=== PATIENT | male | born 1945 | race Caucasian/White ===

== ENCOUNTER 2020-07-20 21:49 | Outpatient (REF) | payer SELFPAY ==
[2020-07-22 17:31] LABS: COVID-19 RT-PCR Result Not Detected ((See Note))
== END 2020-07-20 22:09 ==
LOC: LBN 21:49
PROVIDERS: Visit Provider Nurse Practitioner Adult Health
DX: Z11.59 Encounter for screening for other viral diseases (principal)
CPT/HCPCS: U0003

== ENCOUNTER 2020-07-24 22:28 | Outpatient (REF) | payer SELFPAY ==
[2020-07-26 14:58] LABS: COVID-19 RT-PCR Result Not Detected ((See Note))
== END 2020-07-24 22:48 ==
LOC: LBN 22:28
PROVIDERS: PCP Nurse Practitioner Adult Health; Visit Provider Nurse Practitioner Adult Health
DX: Z11.52 Encounter for screening for COVID-19 (principal)
CPT/HCPCS: U0003

== ENCOUNTER 2020-07-29 18:50 | Outpatient (REF) | payer SELFPAY ==
[2020-07-31 19:39] LABS: COVID-19 RT-PCR UVMMC Result Negative (Negative)
== END 2020-07-29 19:10 ==
LOC: LBN 18:50
PROVIDERS: PCP Nurse Practitioner Adult Health; Visit Provider Nurse Practitioner Adult Health
DX: Z11.52 Encounter for screening for COVID-19 (principal)
CPT/HCPCS: U0003

== ENCOUNTER 2020-09-24 05:24 | Outpatient (REF) | payer SELFPAY ==
[2020-09-24 06:57] LABS: C Diff PCR Negative (Negative)
== END 2020-09-24 05:25 | disposition home or self-care (01) ==
LOC: LBN 05:24
PROVIDERS: PCP Nurse Practitioner Adult Health; Visit Provider Family Medicine
DX: R19.7 Diarrhea, unspecified (principal)
CPT/HCPCS: 87493; 85025; 87177

== ENCOUNTER 2020-09-24 17:24 | Emergency (ER) | payer MEDICARE, OTHER, SELFPAY ==
[2020-09-24] VITALS (37 sets, daily range): BP systolic 109–128; BP diastolic 46–78; PULSE 88–110; RESP 14–33; TEMP 36.7–37.2; O2SAT 91–99
--- NOTE | 2020-09-24 17:30 | RT.EKG_ITS ---
APPROVED REPORT Exam: Resting ECG Patient Location: E HR:88 bpm ECG Measurements Heart Rate 88 AXIS TN 210 P 36 QRSd 96 QRS 88 QT 355 T -3 QTc 431 Conclusion Sinus rhythm...normal P axis, V-rate 60- 99
[2020-09-24] MEDS: Normal Saline 1,000 ML 500 ML IV (18:04)
--- NOTE | 2020-09-24 18:14 | W.ED.GENAD ---
Discharge Plan Disposition Patient Disposition: SNF (LEVEL 1) [facility] Condition: Stable Discharge Details Clinical Impression: Colitis with rectal bleeding Primary Care Provider: Shonda Neil ED Provider: Brinda Cook Home Meds and New Rx's Prescriptions: New cephalexin 500 mg tablet 500 mg PO BID 10 Days Qty: 20 RF: 0 Continued multivitamin Tablet 1 tab PO DAILY RF: 0 acetaminophen 500 mg Tablet 1,000 mg PO Q6H PRNRF: 0 simvastatin 40 mg Tablet 40 mg PO QHS RF: 0 magnesium oxide [MagOx] 400 mg (241.3 mg magnesium) Tablet 400 mg PO DAILY RF: 0 cyanocobalamin (vitamin B-12) 500 mcg Tablet 1,000 mcg PO BID RF: 0 tamsulosin [Flomax] 0.4 mg Capsule 0.4 mg PO DAILY RF: 0 diclofenac potassium 50 mg Tablet 25 mg PO BID RF: 0 furosemide 20 mg Tablet 20 mg PO DAILY RF: 0 cyclobenzaprine 5 mg Tablet 5 mg PO TID RF: 0 ferrous gluconate 225 mg (27 mg iron) Tablet 225 mg PO HS RF: 0 melatonin 5 mg Tablet 5 mg PO HS RF: 0 Liquid Protein Fortifier 1 gram-4 kcal/6 mL Liquid 30 ml PO BID RF: 0 potassium chloride 20 mEq Tablet Extended Release 20 meq PO BID RF: 0 No Action loperamide 2 mg Tablet 2 mg PO Q6H PRNRF: 0 aspirin 81 mg Tablet,Delayed Release (Dr/Ec) 81 mg PO DAILY RF: 0 docusate sodium [Colace] 100 mg Capsule 100 mg PO DAILY RF: 0 polyethylene glycol 3350 [Miralax] 17 gram/dose Powder 17 g PO DAILY RF: 0 Discharge Instructions Instructions: Colitis (ED) Additional Instructions: Today the CT abd/Pelvis shows colon and rectal wall thickening consistent with Colitis, or Inflammatory Bowel. Lab work is all stable, WNL. No further episodes of diarrhea noted while here in Department. I reccommend holding Miralax and Stool softeners for next 48-72 hours and possible outpatient referral to General surgery for Colonoscopy if Diarrhea continues. Referrals: Jenn Wei MD [ [facility] STAFF PHYSICIAN] - 1 week Shonda Neil [Primary Care Provider] - Discharge Data Discharge Date/Time-TO BE ENTERED AT DEPARTURE: 09/24/20 22:29 Medical Decision Making 75-year-old male presents to the ER via EMS from [facility] chief complaint with guaiac positive stool and diarrhea which has gotten worse over the last week. He reports having 5 or 6 episodes of diarrhea today. They did test for C. difficile which was negative. He states that he had an episode of sharp abdominal pain to his navel which has resolved. He denies any vomiting no fever. He is a paraplegic. He has indwelling Rock, he has some with her bilateral lower extremities. He is mostly bed bound. CT Abd/Pelvis W: TECHNIQUE: COMPARISON: No relevant prior studies available. FINDINGS: Liver: Normal. No mass. Gallbladder and bile ducts: Normal. No calcified stones. No ductal dilation. Pancreas: Normal. No ductal dilation. Spleen: Normal. No splenomegaly. Adrenal glands: Normal. No mass. Kidneys and ureters: Normal. No hydronephrosis. Stomach and bowel: Thickening of the wall of the colon and rectum. This may be artifact due to lack distention. However, inflammatory bowel disease or other causes of colitis cannot be excluded. Appendix: No evidence of appendicitis. Intraperitoneal space: Unremarkable. No free air. No significant fluid collection. Vasculature: Moderate aortic calcified plaque and tortuosity is present. No mike aneurysm is noted. Lymph nodes: Unremarkable. No enlarged lymph nodes. Urinary bladder: A Rock catheter of the urinary bladder is present. Reproductive: Unremarkable as visualized. Bones/joints: Chronic degenerative changes of the spine are present. Advanced chronic degenerative changes of the right hip are present. Soft tissues: There is a well-circumscribed cystic structure within the subcutaneous tissue of the right anterior abdominal wall measuring 4.3 cm in diameter. IMPRESSION: 1. Thickening of the wall of the colon and rectum. The differential diagnosis includes inflammatory bowel disease and other causes of colitis. 2. Rock catheter within the urinary bladder. 3. Chronic degenerative change of the spine and right hip. 4. 4.3 cm diameter circumscribed cystic structure of the subcutaneous anterior abdominal wall to the right of midline. Thank you for allowing us to participate in the care of your patient. Dictated and Authenticated by: Randy Hull MD At this time work-up is largely within normal limits,, hemoglobin is 14.4, hematocrit 47.8 ., CT results are of her largely consistent with colitis. Patient been hemodynamically stable throughout stay here. Plan to discharge back to [facility]. 2207: Spoke with Honey RN at [facility] regarding recommendations to hold stool softeners and MiraLAX for at least 48 to 72 hours, and results, verbalizes understanding. Will arrange transport via EMS back to [facility]. Discussed plan of care with patient who verbalizes understanding and is in agreement with plan. This text was generated using [employer] dictation system, please disregard any oddities of phrase or misspellings. Urinalysis positive for nitrite, large leukocytes, greater than 50 WBCs moderate mucus culture is pending at this time. 0942 09-26-20: Spoke with Conchita at [facility] discussed urinalysis results and need for antibiotic. Prescription for cephalexin 500 mg twice daily x10 days faxed to [facility] RN verbalized understanding. She states that the patient is doing much better since his visit to the emergency room 2 days ago. HPI General Mode of arrival: EMS. Date/Time Provider Initiated Documentation: 09/24/20 17:31. Limitations to Documentation: physical limitation. Information obtained by: patient and RN notes reviewed. HPI Narrative: 75-year-old male presents to the ER via EMS from [facility] chief complaint with guaiac positive stool and diarrhea which has gotten worse over the last week. He reports having 5 or 6 episodes of diarrhea today. They did test for C. difficile which was negative. He states that he had an episode of sharp abdominal pain to his navel which has resolved. He denies any vomiting no fever. He is a paraplegic. He has indwelling Rock, he has some with her bilateral lower extremities. He is mostly bedbound. Related Data Home Medications Medication Instructions Recorded Confirmed Liquid Protein Fortifier 30 ml PO BID 09/24/20 09/24/20 acetaminophen 1,000 mg PO Q6H PRN 09/24/20 09/24/20 aspirin 81 mg PO DAILY 09/24/20 09/24/20 cyanocobalamin (vitamin B-12) 1,000 mcg PO BID 09/24/20 09/24/20 cyclobenzaprine 5 mg PO TID 09/24/20 09/24/20 diclofenac potassium 25 mg PO BID 09/24/20 09/24/20 docusate sodium [Colace] 100 mg PO DAILY 09/24/20 09/24/20 ferrous gluconate 225 mg PO HS 09/24/20 09/24/20 furosemide 20 mg PO DAILY 09/24/20 09/24/20 loperamide 2 mg PO Q6H PRN 09/24/20 09/24/20 magnesium oxide [MagOx] 400 mg PO DAILY 09/24/20 09/24/20 melatonin 5 mg PO HS 09/24/20 09/24/20 multivitamin 1 tab PO DAILY 09/24/20 09/24/20 polyethylene glycol 3350 [Miralax] 17 g PO DAILY 09/24/20 09/24/20 potassium chloride 20 meq PO BID 09/24/20 09/24/20 simvastatin 40 mg PO QHS 09/24/20 09/24/20 tamsulosin [Flomax] 0.4 mg PO DAILY 09/24/20 09/24/20 cephalexin 500 mg PO BID 10 Days #20 tab 09/26/20 Previous Rx's Medication Instructions Recorded cephalexin 500 mg PO BID 10 Days #20 tab 09/26/20 Allergies Allergy/AdvReac Type Severity Reaction Status Date / Time No Known Allergies Allergy Unverified 09/24/20 17:40 General Stated Complaint: GI Bleed EULOGIO: 3 Review of Systems All systems reviewed & are unremarkable except as noted in HPI and below [facility] Medical History (Updated 09/24/20 @ 22:14 by Brinda Cook) Chronic venous hypertension (idiopathic) with ulcer and inflammation of bilateral lower extremity Essential (primary) hypertension Fatty (change of) liver, not elsewhere classified Hallucinations, unspecified Hyperlipemia Major depressive disorder Muscle weakness (generalized) Neuromuscular dysfunction of bladder, unspecified Obesity Other spondylosis with myelopathy, cervical region Paraplegia Pneumonia Pressure ulcer of left heel, unstageable Pressure ulcer of other site, unstageable Pressure ulcer of right heel, unstageable Pressure ulcer of right hip, unstageable Pressure ulcer of right upper back Radiculopathy Repeated falls Rhabdomyolysis Unilateral primary osteoarthritis, right hip Unspecified fall Urinary tract infection Venous insufficiency (chronic) (peripheral) Social History Smoking/Tobacco Use Status: Never Smoking risk assessment performed?: Yes Alcohol Intake: never Drug use: Never Substance use type: does not use Do you feel safe at home: Yes Do you feel safe in your relationship?: Yes Additional Social history: PATIENT HAS BEEN AT [facility] SINCE JUNE. WAS LIVING ALONE PRIOR TO . Exam Narrative Exam Narrative: Constitutional: Alert and oriented x3. Appears stated age. Normal body habitus. Head: Normocephalic, no trauma. Eyes: Pupils PERRLA, Red reflex noted, EOM's intact. Eyelids symmetrical without lesions, discharge, or swelling. ENT: Bilateral TM's WNL, External ear normal to inspection, no mastoid TTP, swelling, or erythema, Nasal turbinates WNL, no nasal discharge. Normal dentition, Posterior pharynx WNL, no exudate. Chest: RRR, Normal S1, S2, distal pulses intact. Resp: Lungs clear to auscultation bilaterally, no wheezes, rales, or rhonchi. Abdomen: Soft nondistended, nontender to palpation all 4 quadrants. Musculoskeletal: Contractures noted bilateral lower extremities with dressed wound. Skin: Capillary refill less than 2 sec. Neurologic: Is partial paraplegic. Does have 1 + tax advisor strength on the right upper extremity, bilateral lower extremities are contractured. He reports that this is his baseline. He has a Rock in place. Alert and oriented x 3. Hematologic/Lymphatic: No ecchymosis, no lymphadenopathy. Course Vital Signs Vital signs: Vital Signs Temperature 36.7 C 09/24/20 17:23 Pulse 93 H 09/24/20 17:23 Respiratory Rate 19 09/24/20 17:23 Blood Pressure 124/61 09/24/20 17:23 Pulse Oximetry 98 09/24/20 17:23 Temperature 36.7 C 09/24/20 17:23 Temperature Source Tympanic 09/24/20 17:23 Pulse 93 H 09/24/20 17:23 Respiratory Rate 19 09/24/20 17:23 Respiratory Effort 09/24/20 17:33 Blood Pressure 124/61 09/24/20 17:23 Blood Pressure Position Supine 09/24/20 17:23 Pulse Oximetry 98 09/24/20 17:23 Oxygen Delivery Method Room Air 09/24/20 17:23 Oxygen Flow Rate 0 09/24/20 17:23 Pain Level 8 09/24/20 17:37 Comment 09/24/20 17:23
[2020-09-24 18:31] LABS: Abs Immature Grans 0.02 10^3/uL (0.0-0.06); Absolute Basophil Count 0.06 10^3/uL (0.0-0.2); Absolute Eosinophil Count 0.71 10^3/uL (0.0-0.7); Absolute Lymphocyte Count 1.51 10^3/uL (1.2-3.4); Absolute Monocyte Count 0.67 10^3/uL (0.1-0.8); Absolute Neutrophil Count 5.78 10^3/uL (1.2-6.7); Basophils % 0.7; Eosinophils % 8.1; HCT 47.8 % (40.0-50.0); HGB 14.4 g/dL (13.5-17.5); Immature Grans % 0.2; Lymphocytes % 17.3; MCH 26.1 pg (27.0-33.0); MCHC 30.1 % (32.0-36.0); MCV 86.6 fL (80-95); MPV 11.1 fL (8.0-11.0); Monocytes % 7.7; Nucleated RBC 0 %; Platelet Count 224 10^3/uL (130-400); RBC 5.52 10^6/uL (4.36-5.78); RDW 19.9 % (11.8-14.1); RDW-SD 60.4 fL; WBC 8.75 10^3/uL (4.4-10.8)
[2020-09-24 18:48] LABS: ALT 90 U/L (16-63); AST 51 U/L (15-37); Albumin 3.2 g/dL (3.4-5.0); Alkaline Phosphatase 124 U/L (46-116); Anion Gap 6.3 mmol/L (3-11); BUN 18 mg/dL (7-18); Bilirubin, Total 0.5 mg/dL (0.2-1.0); CO2 31.7 mmol/L (21.0-32.0); CREATININE 0.6 mg/dL (0.70-1.30); Calcium 8.9 mg/dL (8.5-10.1); Chloride 105 mmol/L (98-107); Glucose 83 mg/dL (74-106); Magnesium 1.9 mg/dL (1.8-2.4); Potassium 3.6 mmol/L (3.5-5.1); Sodium 143 mmol/L (136-145); Total Protein 7.4 g/dL (6.4-8.2)
[2020-09-24 18:49] LABS: INR 1.1 (0.9-1.1); PTT Activated 28.2 sec (21.0-27.5); Prothrombin Time 11.2 sec (9.3-11.0)
--- NOTE | 2020-09-24 19:00 | DI.CT_ITS ---
EXAM: CT ABDOMEN PELVIS W CLINICAL HISTORY: Diarrhea, GI bleed. TECHNIQUE: Imaging Protocol: Axial computed tomography images with coronal and sagittal reformatted images were created and reviewed CONTRAST MATERIAL: Intravenous: Omnipaque 100cc Oral: None COMPARISON: No exams were available for comparison FINDINGS: VISUALIZED LUNG BASES: Mild atelectasis in the left lung base. No pleural effusions.. ABDOMEN: There is no ascites. LIVER: There are no obvious focal hepatic lesions evident . GALLBLADDER/BILIARY: No obvious gallbladder pathology. CBD is not dilated. PANCREAS: No evidence of pancreatic mass nor dilatation of the pancreatic duct. SPLEEN: Spleen is not enlarged. No obvious intrasplenic lesions. Splenic and portal veins are paten t. ADRENALS: There are no significant adrenal masses. KIDNEYS:No cysts evident. No solid renal masses. No calculi nor hydronephrosis.. ABDOMINAL AORTA: Abdominal aorta is atherosclerotic. Upper normal diameter. LYMPH NODES:There is no retroperitineal nor paraaortic adenopathy. ABDOMINAL WALL/GI: No evidence of significant anterior abdominal wall hernia. However, there is a we ll-defined cystic structure in the anterior right abdominal wall which measures 4.2 by 4.2 by 4.3 cm. This is anterior to the rectus muscle. There is no surrounding streaking nor gas therein. No othe r similar subcutaneous finding seen elsewhere. PELVIS: GI: No evidence of appendicitis.There is thickening of the wall of the rectum and: Consistent with el ement of colitis. LYMPH NODES: There is no intrapelvic nor inguinal adenopathy. REPRODUCTIVE: Prostate not enlarged URINARY BLADDER: Bladder is collapsed around the Rock catheter. OSSEOUS: No significant osseous lesions. No prominent decubitus ulcer. No osteomyelitis. Advanced chronic degenerative changes with partial fusion of the right hip. IMPRESSION: 1. There is circumferential thickening of the wall of the colon and rectum consistent with colitis or inflammatory bowel disease. 2. There is a 4.2 x 4.3 centimeter well-defined round cystic structure in the subcutaneous anterior a bdominal wall to the right of the midline, just anterior to the rectus muscle. This does not contain gas and there is no surrounding streaking. 3. There is a Rock catheter in the urinary bladder. The bladder is collapsed. 4. Chronic partial fusion changes in the right hip. Also chronic spine changes. RADIATION DOSE DELIVERED: 987.6mGy.cm Total DLP DATA REPOSITORY: All CT scans at this facility are submitted to the National Radiology Data Registry (NRDR) Dose Index Registry (DIR) with the [employer] (ACR). RADIATION OPTIMIZATION: All CT scans at this facility use at least one of these dose optimization te chniques: automated exposure control; mA and/or kV adjustment per patient size (includes targeted exa ms where dose is matched to clinical indication); or iterative reconstruction.
[2020-09-24 19:01] LABS: Bilirubin Negative (Negative); Blood Trace-intact (Negative); Clarity Sl Cloudy (Clear); Glucose Negative (Negative); Ketones Negative (Negative); Leukocyte Esterase Large (Negative); Nitrite Positive (Negative); Specific Gravity >= 1.030 (1.005-1.025); Urobilinogen 0.2 EU/dL (Up TO 0.2)
[2020-09-24 19:13] LABS: Bacteria Many HPF (Negative); C & S Indicated? Yes; Casts Negative LPF (Negative); Crystals Negative HPF (Negative); Epithelial Cells Few HPF (Negative); Mucus Moderate (Negative); RBC Negative HPF (0-2); WBC >50 HPF (0-5)
[2020-09-24] MEDS: Omnipaque 350 MG/ML 100 ML BTL IV (21:09)
--- NOTE | 2020-09-24 21:32 | DI.VRAD_ITS ---
PROCEDURE INFORMATION: Exam: CT Abdomen And Pelvis With Contrast Exam date and time: 09/24/2020 8:55 PM Age: 75 years old Clinical indication: Other: Diarrhea, gi bleed TECHNIQUE: Imaging protocol: Computed tomography of the abdomen and pelvis with contrast. Radiation optimization: All CT scans at this facility use at least one of these dose optimization techniques: automated exposure control; mA and/or kV adjustment per patient size (includes targeted exams where dose is matched to clinical indication); or iterative reconstruction. COMPARISON: No relevant prior studies available. FINDINGS: Liver: Normal. No mass. Gallbladder and bile ducts: Normal. No calcified stones. No ductal dilation. Pancreas: Normal. No ductal dilation. Spleen: Normal. No splenomegaly. Adrenal glands: Normal. No mass. Kidneys and ureters: Normal. No hydronephrosis. Stomach and bowel: Thickening of the wall of the colon and rectum. This may be artifact due to lack distention. However, inflammatory bowel disease or other causes of colitis cannot be excluded. Appendix: No evidence of appendicitis. Intraperitoneal space: Unremarkable. No free air. No significant fluid collection. Vasculature: Moderate aortic calcified plaque and tortuosity is present. No mike aneurysm is noted. Lymph nodes: Unremarkable. No enlarged lymph nodes. Urinary bladder: A Rock catheter of the urinary bladder is present. Reproductive: Unremarkable as visualized. Bones/joints: Chronic degenerative changes of the spine are present. Advanced chronic degenerative changes of the right hip are present. Soft tissues: There is a well-circumscribed cystic structure within the subcutaneous tissue of the right anterior abdominal wall measuring 4.3 cm in diameter. IMPRESSION: 1. Thickening of the wall of the colon and rectum. The differential diagnosis includes inflammatory bowel disease and other causes of colitis. 2. Rock catheter within the urinary bladder. 3. Chronic degenerative change of the spine and right hip. 4. 4.3 cm diameter circumscribed cystic structure of the subcutaneous anterior abdominal wall to the right of midline. Dictated and Authenticated by: Randy Hull MD. Ordering:PAM Parry MD
--- NOTE | 2020-09-24 22:12 | NUR.NOTE ---
Nursing Note: [facility] report given to Chely MANZANARES by Trey
== END 2020-09-24 22:29 | disposition skilled nursing facility (03) ==
PROVIDERS: Physician Assistant; Emergency Provider Registered Nurse Emergency; PCP Nurse Practitioner Adult Health
DX: K51.811 Other ulcerative colitis with rectal bleeding (principal); R82.71 Bacteriuria; B96.89 Other specified bacterial agents as the cause of diseases classified elsewhere; Z96.0 Presence of urogenital implants
CPT/HCPCS: 36415; 80053; 86850; 86900; 86901; 93005; 96360; 96361; 99285; 74177; 81003; 81015; 83735; 85025; 85610; 85730; 87086; 93010; J3490

== ENCOUNTER 2020-10-19 01:27 | Outpatient (CLI) | payer MEDICARE, OTHER, SELFPAY ==
--- NOTE | 2020-10-19 | DI.MRI_ITS ---
EXAM: MR CERVICAL SPINE WO/W CLINICAL HISTORY: PROGRESSIVE UPPER EXT WEAKNESS, GENERAL WEAKNESS TECHNIQUE: Multiplanar multisequence MRI of the cervical spine was performed without intravenous con trast. COMPARISON: No exams were available for comparison. FINDINGS: The exam is significantly limited by patient motion, particularly at the axial sequences. There are prominent, broad-based disc osteophytes and loss of disc height at C2-3. There are facet d egenerative changes. The findings combine to produce severe central canal stenosis with narrowing of the AP dimension of the canal down to less than 5 millimeters. Severe degenerative disc changes are also seen at C3-4. There are endplate osteophytes which also project into the canal, producing oliver re central canal stenosis, with severe narrowing of the AP dimension as well as encroachment on the lateral aspects of the canal.. The AP dimension is less than 4 millimeters. The transverse dimensio n is approximately 11 millimeters at this level. There has been previous anterior fusion with hardwa re in place from C4 through C6. The canal is well maintained at this level. There are severe degene rative disc changes and facet degenerative changes at C 6- 7. There is disc bulging causing mild monico rowing of the AP dimension of the canal. Similar findings are seen at C7-T1. There is bilateral lindsey ral foraminal narrowing at both C5 C6-7 C7-T1. There are no abnormal areas of enhancement. IMPRESSION: Extremely limited exam due to patient motion. Degenerative changes at C 2 3 and C3-4 combine to produce severe central canal stenosis, greater at C 3-4. Anterior fusion at C4 through C6. Bilateral neural foraminal narrowing at C6-7 and C7-T1. DATA REPOSITORY:
--- NOTE | 2020-10-19 | DI.MRI_ITS ---
EXAM: MR BRAIN WO/W CLINICAL HISTORY: PROGRESSIVE UPPER EXT WEAKNESS,GENERAL WEAKNESS. TECHNIQUE: Multiplanar multisequence MRI of the brain was performed. CONTRAST MATERIAL: IV Contrast: 14 ML of Dotarem contrast administered. COMPARISON: No exams were available for comparison FINDINGS: Exam is limited by patient motion, particularly the postcontrast sequences. VENTRICLES AND EXTRA AXIAL SPACES: Normal in size and morphology for the patient's age. HEMORRHAGE: None. CEREBRAL PARENCHYMA: No focus of restricted diffusion to suggest acute infarct. No space-occupying le yosi identified. Mild age-related atrophy. No abnormal high signal lesions in the white matter. MIDLINE SHIFT: None. BRAINSTEM/CEREBELLUM: Normal. ENHANCEMENT: No suspicious enhancement identified. VISUALIZED PARANASAL SINUSES/MASTOIDS: Clear. OTHER FINDINGS: None. IMPRESSION: Unremarkable MRI of the brain. DATA REPOSITORY:
[2020-10-19] MEDS: Normal Saline Flush 10 ML SYR IVP (13:11)
[2020-10-19] MEDS: Gadoterate meglumine 20 ML VIAL 14 ML IVP (13:12)
== END 2020-10-19 01:47 ==
PROVIDERS: PCP Nurse Practitioner Adult Health; Visit Provider Family Medicine
DX: M62.81 Muscle weakness (generalized) (principal)
CPT/HCPCS: 70553; 72156

== ENCOUNTER 2020-11-14 23:49 | Outpatient (REF) | payer SELFPAY | END 2020-11-14 23:50 | disposition home or self-care (01) | LOC: LBN 23:49 | PROVIDERS: PCP Nurse Practitioner Adult Health; Visit Provider Family Medicine | DX: Z11.2 Encounter for screening for other bacterial diseases (principal) | CPT/HCPCS: 87081 ==

== ENCOUNTER 2020-12-01 04:21 | Outpatient (REF) | payer MEDICARE, OTHER, SELFPAY ==
[2020-12-01 05:11] LABS: Abs Immature Grans 0.04 10^3/uL (0.0-0.06); Absolute Basophil Count 0.07 10^3/uL (0.0-0.2); Absolute Eosinophil Count 0.05 10^3/uL (0.0-0.7); Absolute Monocyte Count 1.97 10^3/uL (0.1-0.8); Absolute Neutrophil Count 10.08 10^3/uL (1.2-6.7); Basophils % 0.5; Eosinophils % 0.4; HGB 12.7 g/dL (13.5-17.5); Immature Grans % 0.3; Lymphocytes % 8.3; MCH 26.7 pg (27.0-33.0); MCV 86.3 fL (80-95); MPV 10.8 fL (8.0-11.0); Monocytes % 14.8; Neutrophils % 75.7; Nucleated RBC 0 %; Platelet Count 275 10^3/uL (130-400); RBC 4.75 10^6/uL (4.36-5.78); RDW 16.1 % (11.8-14.1); RDW-SD 51.1 fL; WBC 13.31 10^3/uL (4.4-10.8)
[2020-12-01 05:17] LABS: Anion Gap 10.4 mmol/L (3-11); BUN 25 mg/dL (7-18); CO2 21.6 mmol/L (21.0-32.0); CREATININE 0.9 mg/dL (0.70-1.30); Calcium 8.6 mg/dL (8.5-10.1); Chloride 106 mmol/L (98-107); Glucose 115 mg/dL (74-106); Potassium 4.9 mmol/L (3.5-5.1); Sodium 138 mmol/L (136-145)
[2020-12-01 05:30] LABS: Bilirubin Negative (Negative); Blood Moderate (Negative); Clarity Cloudy (Clear); Glucose Negative (Negative); Ketones Negative (Negative); Leukocyte Esterase Small (Negative); Nitrite Positive (Negative); Specific Gravity 1.025 (1.005-1.025); Urobilinogen 0.2 EU/dL (Up TO 0.2)
[2020-12-01 05:42] LABS: WBC >50 HPF (0-5)
[2020-12-01 05:43] LABS: C & S Indicated? C&S Done As Ordered
[2020-12-01 06:01] LABS: Diff Comment Agrees w/ Instrument; RBC Morphology Normal
== END 2020-12-01 04:22 | disposition home or self-care (01) ==
LOC: LBN 04:21
PROVIDERS: PCP Nurse Practitioner Adult Health; Visit Provider Family Medicine
DX: R50.9 Fever, unspecified (principal); R82.998 Other abnormal findings in urine
CPT/HCPCS: 80048; 81003; 81015; 85025; 87086

== ENCOUNTER 2020-12-01 16:22 | Inpatient (IN) | payer MEDICARE, OTHER, SELFPAY ==
[2020-12-01] VITALS (15 sets, daily range): BP systolic 92–147; BP diastolic 32–70; PULSE 100–111; RESP 18–36; TEMP 38; O2SAT 88–97
--- NOTE | 2020-12-01 16:30 | DI.RAD_ITS ---
Exam(s) XR CHEST 1V IN DI DEPT EXAM: XR CHEST 1V IN DI DEPT CLINICAL HISTORY: Fever TECHNIQUE: COMPARISON: CT CT ABDOMEN PELVIS W from 09/24/2020 FINDINGS: Portable semi upright chest was obtained. Patient is rotated to the left. There is increased radiod ensity of the right hemithorax, this may in part be due to positioning but a posteriorly layering ple ural effusion is not excluded. There is question of right perihilar infiltrate. Left lung grossly c lear. Heart appears enlarged. IMPRESSION: Technically inadequate film, right pulmonary pathology or pleural effusion not excluded. PA and late ral chest suggested for further evaluation. RADIATION DOSE DELIVERED: Total DLP
--- NOTE | 2020-12-01 16:34 | ED.GENADUL_ITS ---
Discharge Plan Disposition Patient Disposition: [facility] INPATIENT Condition: Stable Discharge Details Clinical Impression: Urinary tract infection with fever Admit Date/Time: 12/01/20 18:18 Admit Provider: Javid Farias Attending Provider: Javid Farias Primary Care Provider: Shonda Neil ED Provider: Brinda Cook Discharge Data Discharge Date/Time-TO BE ENTERED AT DEPARTURE: 12/01/20 19:18 Medical Decision Making 75 year old male presents via EMS [facility] with Fever. Reported at 104 had UA done today which shows positive Nitrites and evidence of UTI. Decrease PO intake, Hallucinations. EMS reported temp of 100.4. Cloudy urine from Rock noted. Patient is a paraplegic has an indwelling Rock catheter. Reports chills. He is alert and oriented upon arrival. He has a past medical history of colitis, pneumonia, paraplegia, pressure ulcer site of healed, chronic venous insufficiency. Patient has received an Rocephin IM injection prior to arrival CBC shows an elevated white blood cell count 15,000, previous labs show elevated white blood count at 13,000, urinalysis done earlier today [facility] shows positive nitrite positive leukocytes. On initial exam urine is cloudy in the Rock. 1 L normal saline bolus given and Zosyn IV piggyback for possible urosepsis. At this time I do recommend admission for complicated UTI and multiple comorbidities also complicating is decreased p.o. intake, hallucinations and patient confusion. 10 pain 1814: Spoke with Dr. Farias who is on-call for hospitalist regarding patient case and details. Discussed patient with him he agrees to admit patient for urosepsis. Patient remained stable throughout stay in the ER was transferred up to the floor with greenhouse staff. This text was generated using LiveData[employer] system, please disregard any oddities of phrase or misspellings. HPI General Mode of arrival: EMS . Date/Time Provider Initiated Documentation: 12/01/20 16:24 . Limitations to Documentation: no limitations . Information obtained by: patient, EMS and old records reviewed . HPI Narrative: 75 year old male presents via EMS from [facility] with Fever. Reported at 104 had UA done today which shows positive Nitrites and evidence of UTI. Decrease PO intake, Hallucinations. EMS reported temp of 100.4. Cloudy urine from Rock noted. Patient is a paraplegic has an indwelling Rock catheter. Reports chills. He is alert and oriented upon arrival. He has a past medical history of colitis, pneumonia, paraplegia, pressure ulcer site of healed, chronic venous insufficiency. Related Data Home Medications Medication Instructions Recorded Confirmed Liquid Protein Fortifier 30 ml PO BID 09/24/20 09/24/20 acetaminophen 1,000 mg PO Q6H PRN 09/24/20 12/01/20 aspirin 81 mg PO DAILY 09/24/20 12/01/20 cyanocobalamin (vitamin B-12) 1,000 mcg PO BID 09/24/20 12/01/20 cyclobenzaprine 5 mg PO TID 09/24/20 12/01/20 diclofenac potassium 25 mg PO BID 09/24/20 09/24/20 docusate sodium [Colace] 100 mg PO DAILY 09/24/20 12/01/20 ferrous gluconate 225 mg PO HS 09/24/20 09/24/20 furosemide 20 mg PO DAILY 09/24/20 09/24/20 loperamide 2 mg PO Q6H PRN 09/24/20 09/24/20 magnesium oxide [MagOx] 400 mg PO DAILY 09/24/20 09/24/20 melatonin 5 mg PO HS 09/24/20 09/24/20 multivitamin 1 tab PO DAILY 09/24/20 09/24/20 polyethylene glycol 3350 [Miralax] 17 g PO DAILY 09/24/20 09/24/20 potassium chloride 20 meq PO BID 09/24/20 09/24/20 simvastatin 40 mg PO QHS 09/24/20 12/01/20 tamsulosin [Flomax] 0.4 mg PO DAILY 09/24/20 09/24/20 bisacodyl [Dulcolax (bisacodyl)] 10 mg RI DAILY PRN 12/01/20 12/01/20 ceftriaxone 1 g IM DAILY 12/01/20 12/01/20 ciprofloxacin HCl [Cipro] 250 mg PO BID 12/01/20 12/01/20 fentanyl 1 patch TRANSDERMAL Q72H 12/01/20 12/01/20 gabapentin 200 mg PO TID 12/01/20 12/01/20 magnesium hydroxide 400 mg PO DAILY 12/01/20 12/01/20 melatonin 5 mg PO HS PRN 12/01/20 12/01/20 methocarbamol 1,000 mg PO QID 12/01/20 12/01/20 nystatin 1 applic TOPICAL TID 12/01/20 12/01/20 oxycodone 10 mg PO Q4H PRN 12/01/20 12/01/20 sennosides [senna] 8.6 mg PO BID 12/01/20 12/01/20 sodium phosphates [Fleet Enema] 118 ml RI ONCE 12/01/20 12/01/20 Allergies Allergy/AdvReac Type Severity Reaction Status Date / Time No Known Allergies Allergy Unverified 12/01/20 16:45 General Stated Complaint: Fever EULOGIO: 2 Review of Systems Constitutional Constitutional: Reports as per HPI, Reports chills, Reports fever(s) and Reports poor appetite Cardiovascular Cardiovascular: Reports rapid heart rate, Reports leg ulcers and Denies dyspnea on exertion Respiratory Respiratory: Denies cough and Denies dyspnea on exertion Gastrointestinal Gastrointestinal: Denies abdominal pain Genitourinary Genitourinary: Reports as per HPI and Reports other (Rock catheter in place, cloudy urine positive UTI) Musculoskeletal Musculoskeletal: Reports as per HPI (Paraplegic legs are contractured), Reports deformity (Contractures noted) and Reports muscle weakness Integumentary/Breasts Skin/Breast: Reports as per HPI and Reports skin ulcer (Multiple ulcers noted to extremities with dressings in place) Neurologic Neurologic: Reports as per HPI (Hallucinations) [facility] Medical History Chronic venous hypertension (idiopathic) with ulcer and inflammation of bilateral lower extremity Essential (primary) hypertension Fatty (change of) liver, not elsewhere classified Hallucinations, unspecified Hyperlipemia Major depressive disorder Muscle weakness (generalized) Neuromuscular dysfunction of bladder, unspecified Obesity Other spondylosis with myelopathy, cervical region Paraplegia Pneumonia Pressure ulcer of left heel, unstageable Pressure ulcer of other site, unstageable Pressure ulcer of right heel, unstageable Pressure ulcer of right hip, unstageable Pressure ulcer of right upper back Radiculopathy Repeated falls Rhabdomyolysis Unilateral primary osteoarthritis, right hip Unspecified fall Urinary tract infection Venous insufficiency (chronic) (peripheral) Social History Smoking/Tobacco Use Status: Never Smoking risk assessment performed?: Yes Alcohol Intake: never Drug use: Never Substance use type: does not use Do you feel safe at home: Yes Do you feel safe in your relationship?: Yes Additional Social history: PATIENT HAS BEEN AT [facility] SINCE JUNE. WAS LIVING ALONE PRIOR TO . Exam Narrative Exam Narrative: Constitutional: Alert and oriented x3. Appears stated age. Sickly and frail-appearing Head: Normocephalic, no trauma. Eyes: Pupils PERRLA, Red reflex noted, EOM's intact. Eyelids symmetrical without lesions, discharge, or swelling. ENT: Bilateral TM's WNL, External ear normal to inspection, no mastoid TTP, swelling, or erythema, Nasal turbinates WNL, no nasal discharge. Normal dentition, Posterior pharynx WNL, no exudate. Chest: Tachycardic at a rate of 110, normal S1, S2, distal pulses intact. Resp: Lungs clear to auscultation bilaterally, no wheezes, rales, or rhonchi. Musculoskeletal: Patient is a paraplegic, contractures noted, does have some generalized swelling and some ulcers which have bandages on them scrotum is somewhat erythemic and swollen. Skin: Multiple extremity ulcers Neurologic: Alert and oriented x 3. Patient is able to carry on a conversation at this time. Does not appear to be actively hallucinating on my exam. Hematologic/Lymphatic: No ecchymosis, no lymphadenopathy. Course Vital Signs Vital signs: Vital Signs Temperature 38.0 C H 12/01/20 16:26 Pulse 109 H 12/01/20 16:26 Respiratory Rate 20 12/01/20 16:26 Blood Pressure 147/70 H 12/01/20 16:26 Pulse Oximetry 92 12/01/20 16:26 Temperature 38.0 C H 12/01/20 16:26 Temperature Source Skin 12/01/20 16:26 Pulse 109 H 12/01/20 16:26 Respiratory Rate 20 12/01/20 16:26 Blood Pressure 147/70 H 12/01/20 16:26 Blood Pressure Position Sitting 12/01/20 16:26 Pulse Oximetry 92 12/01/20 16:26 Oxygen Delivery Method Room Air 12/01/20 16:26 Oxygen Flow Rate 0 12/01/20 16:26 Pain Level 7 12/01/20 16:26 Lab/Test Results Lab/Test Results: 12/01/20 16:30 Blood Blood Culture - Pending 12/01/20 16:30 Blood Blood Culture - Pending
[2020-12-01 17:39] LABS: Lactate 0.9 mmol/L (0.6-1.4)
[2020-12-01 17:41] LABS: Abs Immature Grans 0.07 10^3/uL (0.0-0.06); Absolute Basophil Count 0.03 10^3/uL (0.0-0.2); Absolute Lymphocyte Count 0.56 10^3/uL (1.2-3.4); Absolute Neutrophil Count 13.69 10^3/uL (1.2-6.7); Basophils % 0.2; Eosinophils % 0.6; HGB 12.5 g/dL (13.5-17.5); Immature Grans % 0.4; Lymphocytes % 3.5; MCH 26.8 pg (27.0-33.0); MCHC 31.3 % (32.0-36.0); MCV 85.7 fL (80-95); MPV 10.3 fL (8.0-11.0); Neutrophils % 86.3; Nucleated RBC 0 %; Platelet Count 251 10^3/uL (130-400); RBC 4.67 10^6/uL (4.36-5.78); RDW 15.9 % (11.8-14.1); RDW-SD 50.3 fL; WBC 15.86 10^3/uL (4.4-10.8)
[2020-12-01 17:42] LABS: Absolute Monocyte Count 1.43 10^3/uL (0.1-0.8)
[2020-12-01 18:05] LABS: ALT 26 U/L (16-63); AST 21 U/L (15-37); Albumin 2.9 g/dL (3.4-5.0); Alkaline Phosphatase 82 U/L (46-116); Anion Gap 8.3 mmol/L (3-11); BUN 21 mg/dL (7-18); Bilirubin, Total 0.6 mg/dL (0.2-1.0); CO2 28.7 mmol/L (21.0-32.0); Calcium 8.8 mg/dL (8.5-10.1); Chloride 105 mmol/L (98-107); Glucose 95 mg/dL (74-106); Magnesium 1.8 mg/dL (1.8-2.4); Potassium 4.1 mmol/L (3.5-5.1); Sodium 142 mmol/L (136-145); Total Protein 6.6 g/dL (6.4-8.2)
[2020-12-01 18:06] LABS: Troponin I < 0.05 ng/mL (<0.06)
[2020-12-01 18:07] LABS: CREATININE 0.6 mg/dL (0.70-1.30)
[2020-12-01] MEDS: Normal Saline 1,000 ML 1000 ML IV (18:14)
--- NOTE | 2020-12-01 18:24 | DI.VRAD_ITS ---
PROCEDURE INFORMATION: Exam: XR Chest Exam date and time: 12/01/2020 4:33 PM Age: 75 years old Clinical indication: Fever; Prior surgery TECHNIQUE: Imaging protocol: XR of the chest. Views: 1 view. Total images: 2 COMPARISON: No relevant prior studies available. FINDINGS: Lungs: Low lung volumes. Pulmonary vasculature grossly normal. Question right perihilar alveolar opacities suspicious for perihilar pneumonia versus atelectasis or edema. This is likely further accentuated by the rotated technique. Mild bandlike scarring or atelectasis in the peripheral left base. Pleural spaces: No pleural effusion. No pneumothorax. Heart/Mediastinum: Mild cardiomegaly. No tracheal/mediastinal shift. Vasculature: Mild aortic ectasia/tortuosity and mild calcific atherosclerosis. Bones/joints: No acute osseous abnormalities are identified. Cervical fusion hardware without gross hardware complication. Osteopenia. Other findings: Moderate leftward rotation. IMPRESSION: 1. Suspected right perihilar airspace disease, concerning for perihilar pneumonia versus edema or atelectasis. 2. Moderate leftward rotation is probably significantly contributing to the appearance of right perihilar density. PA and lateral chest would allow more sensitive/specific characterization. 3. Mild cardiomegaly. Dictated and Authenticated by: Costa Sandoval MD. Ordering:PAM Parry MD
--- NOTE | 2020-12-01 18:32 | HPE_ITS ---
Date of service: 12/01/20 Time of Service: 18:32 Assessment and Plan Assessment and plan (1) Urinary tract infection with fever: Start date: 12/01/20 Status: Acute Assessment and plan: This is a 75-year-old gentleman with chronic indwelling Rock catheter presenting with signs and symptoms of UTI with recent change of Rock catheter and fever. CT scan also suggested possible respiratory pathology though this is unlikely. He has responded to IV Zosyn and will continue the same with IV hydration in aware that patient does have chronic CHF on diuretics. His outpatient medication will be modified temporarily because of probable dehydration and need for fluid resuscitation with sepsis syndrome. He should resume Lasix once stabilized. He appears to be responding to therapy and follow-up culture with pathology and specifically will guide antibiotic therapy. Follow-up imaging of chest if any respiratory symptoms or suggestion of pneumonia clinically evolves. (2) Sepsis syndrome: Start date: 12/01/20 Status: Acute Assessment and plan: Patient will be gently IV hydrated with fluid resuscitation. Treat source of infection with UTI covered with Zosyn. Modify antibiotic therapy once cultures reveal pathogen and sensitivities. Patient has already responded to treatment and will not require more aggressive treatment of sepsis syndrome. He is a full code. (3) Neuromuscular dysfunction of bladder, unspecified: Status: Chronic Assessment and plan: Continue indwelling Rock catheter. (4) Paraplegia: Status: Chronic Assessment and plan: Patient has minimal use of upper extremities and no use of lower extremities with skin care to maximized during his hospital stay. (5) Chronic venous hypertension (idiopathic) with ulcer and inflammation of bilateral lower extremity: Status: Chronic Assessment and plan: Skin care to avoid new decubitus ulcers with continued changing the bandages of existing decubitus ulcers over multiple pressure points. 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 He did have surgical decompression of C2-5 at [facility] 2 weeks prior to this presentation. He chronically is noted with use of his upper extremities and has contractures of his lower extremities. He has a Rock catheter because of bladder outlet function. He had fever with symptoms of UTI with a positive urine prior to presentation to the ED and also had some confusion. He had mild septic syndrome upon presentation. He responded to IV fluid resuscitation and initiation IV antibiotics. He had failed outpatient therapy and was on Rocephin been placed on Zosyn. At the time I saw the patient he was more alert and at baseline offering further history. I know the patient from having him in my family practice in [place], [place] prior to his institutionalization because of inability to be at home with progressive quadriplegia. He is a full code. Does have a history of CHF but has had no significant edema recently has multiple decubiti problem pressure points with bandages over various parts of his body with his immobilization. He hopes to become more mobile over many months after his decompression of the C-spine. Review of Systems Narrative: 13 point review of systems otherwise unrevealing or stable. Patient does have compromised skin with pressure-point decubitus ulcers in multiple sites but no evidence of infection at these sites. [facility] Medical History (Updated 12/02/20 @ 06:07 by Javid Farias) Chronic venous hypertension (idiopathic) with ulcer and inflammation of bilateral lower extremity Essential (primary) hypertension Fatty (change of) liver, not elsewhere classified Hallucinations, unspecified Hyperlipemia Major depressive disorder Muscle weakness (generalized) Neuromuscular dysfunction of bladder, unspecified Obesity Other spondylosis with myelopathy, cervical region Paraplegia Pneumonia Pressure ulcer of left heel, unstageable Pressure ulcer of other site, unstageable Pressure ulcer of right heel, unstageable Pressure ulcer of right hip, unstageable Pressure ulcer of right upper back Radiculopathy Repeated falls Rhabdomyolysis Unilateral primary osteoarthritis, right hip Unspecified fall Urinary tract infection Venous insufficiency (chronic) (peripheral) Social History Smoking/Tobacco Use Status: Never Smoking risk assessment performed?: Yes Alcohol Intake: never Drug use: Never Substance use type: does not use Do you feel safe at home: Yes Do you feel safe in your relationship?: Yes Additional Social history: PATIENT HAS BEEN AT [facility] SINCE JUNE. WAS LIVING ALONE PRIOR TO . Meds Allergies and Home Medications Allergies Allergy/AdvReac Type Severity Reaction Status Date / Time No Known Allergies Allergy Unverified 12/01/20 16:45 Home Medications Medication Instructions Recorded Confirmed Type Liquid Protein Fortifier 30 ml PO BID 09/24/20 09/24/20 History acetaminophen 1,000 mg PO Q6H PRN 09/24/20 12/01/20 History aspirin 81 mg PO DAILY 09/24/20 12/01/20 History cyanocobalamin (vitamin B-12) 1,000 mcg PO BID 09/24/20 12/01/20 History cyclobenzaprine 5 mg PO TID 09/24/20 12/01/20 History diclofenac potassium 25 mg PO BID 09/24/20 09/24/20 History docusate sodium [Colace] 100 mg PO DAILY 09/24/20 12/01/20 History ferrous gluconate 225 mg PO HS 09/24/20 09/24/20 History furosemide 20 mg PO DAILY 09/24/20 09/24/20 History loperamide 2 mg PO Q6H PRN 09/24/20 09/24/20 History magnesium oxide [MagOx] 400 mg PO DAILY 09/24/20 09/24/20 History melatonin 5 mg PO HS 09/24/20 09/24/20 History multivitamin 1 tab PO DAILY 09/24/20 09/24/20 History polyethylene glycol 3350 [Miralax] 17 g PO DAILY 09/24/20 09/24/20 History potassium chloride 20 meq PO BID 09/24/20 09/24/20 History simvastatin 40 mg PO QHS 09/24/20 12/01/20 History tamsulosin [Flomax] 0.4 mg PO DAILY 09/24/20 09/24/20 History bisacodyl [Dulcolax (bisacodyl)] 10 mg AK DAILY PRN 12/01/20 12/01/20 History ceftriaxone 1 g IM DAILY 12/01/20 12/01/20 History ciprofloxacin HCl [Cipro] 250 mg PO BID 12/01/20 12/01/20 History fentanyl 1 patch TRANSDERMAL Q72H 12/01/20 12/01/20 History gabapentin 200 mg PO TID 12/01/20 12/01/20 History magnesium hydroxide 400 mg PO DAILY 12/01/20 12/01/20 History melatonin 5 mg PO HS PRN 12/01/20 12/01/20 History methocarbamol 1,000 mg PO QID 12/01/20 12/01/20 History nystatin 1 applic TOPICAL TID 12/01/20 12/01/20 History oxycodone 10 mg PO Q4H PRN 12/01/20 12/01/20 History sennosides [senna] 8.6 mg PO BID 12/01/20 12/01/20 History sodium phosphates [Fleet Enema] 118 ml AK ONCE 12/01/20 12/01/20 History Exam Narrative Exam Narrative: General: Patient appears older than stated age, soft-spoken and alert and oriented x3. He is in no acute distress. He is moderately obese. HEENT: Normocephalic, eyes with pupils equal and reactive light symmetrically, extraocular movement intact and sclera anicteric. Oropharynx with moist mucosa. Neck: Supple the patient having clean incision over the posterior neck without swelling. Back: Stooped posture without CVA tenderness. Lungs: Clear to auscultation and percussion. Heart: Regular rate and rhythm with no murmurs or gallops appreciated. Distant heart sounds. Abdomen: Obese contour, soft nontender to palpation with no palpable hepatosplenomegaly. Genitalia/rectal: Patient has Rock catheter in place otherwise exam deferred. Extremities: Moderate 1-2+ edema lower extremities with nonpitting edema upper extremities, peripheral pulses intact. No cyanosis or clubbing. Flexion contracture especially of right lower extremity at the hip and the knee which is fixed. Partial flexion contracture left knee with inability to extend fully. Upper extremities are more mobile but hands have flexion. Skin: Pale, warm and dry with multiple bandages over pressure points with pressure decubitus by history Neuro: Cranial nerves II through XII grossly intact, patient is essentially quadriplegic with no use of upper and lower extremities and having flexion contractures. Minimal movement of upper extremities. Psych: Normal mood and affect despite patient's physical limitations. Remote and recent memory intact. No abnormal thought processes. Results Imaging Imaging Studies: Exam: XR Chest Exam date and time: 12/01/2020 4:33 PM Age: 75 years old Clinical indication: Fever; Prior surgery TECHNIQUE: Imaging protocol: XR of the chest. Views: 1 view. Total images: 2 COMPARISON: No relevant prior studies available. FINDINGS: Lungs: Low lung volumes. Pulmonary vasculature grossly normal. Question right perihilar alveolar opacities suspicious for perihilar pneumonia versus atelectasis or edema. This is likely further accentuated by the rotated technique. Mild bandlike scarring or atelectasis in the peripheral left base. Pleural spaces: No pleural effusion. No pneumothorax. Heart/Mediastinum: Mild cardiomegaly. No tracheal/mediastinal shift. Vasculature: Mild aortic ectasia/tortuosity and mild calcific atherosclerosis. Bones/joints: No acute osseous abnormalities are identified. Cervical fusion hardware without gross hardware complication. Osteopenia. Other findings: Moderate leftward rotation. IMPRESSION: 1. Suspected right perihilar airspace disease, concerning for perihilar pneumonia versus edema or atelectasis. 2. Moderate leftward rotation is probably significantly contributing to the appearance of right perihilar density. PA and lateral chest would allow more sensitive/specific characterization. 3. Mild cardiomegaly. Labs Result diagrams: 12/01/20 17:29 12/01/20 17:29 Labs: Laboratory Results - last 24 hr 12/01/20 12/01/20 12/01/20 17:29 17:29 17:29 WBC 15.86 H RBC 4.67 Hgb 12.5 L Hct 40.0 MCV 85.7 MCH 26.8 L MCHC 31.3 L RDW 15.9 H Plt Count 251 MPV 10.3 Immature Gran % 0.4 Neutrophils % 86.3 Lymphocytes % 3.5 Monocytes % 9.0 Eosinophils % 0.6 Basophils % 0.2 Nucleated RBC % 0 Absolute Neutrophils 13.69 H Absolute Lymphocytes 0.56 L Absolute Monocytes 1.43 H Absolute Eosinophils 0.10 Absolute Basophils 0.03 VBG Lactate 0.9 Sodium 142 Potassium 4.1 Chloride 105 Carbon Dioxide 28.7 Anion Gap 8.3 BUN 21 H Creatinine 0.6 L D Estimated GFR/1.73 m2 >= 60.00 Glucose 95 Calcium 8.8 Magnesium 1.8 Total Bilirubin 0.6 AST 21 ALT 26 Alkaline Phosphatase 82 Troponin I < 0.05 Total Protein 6.6 Albumin 2.9 L Last Vital Signs Temp 38.0 C H 12/01/20 16:26 Pulse 106 H 12/01/20 18:31 Resp 21 12/01/20 18:31 BP 95/37 L 12/01/20 18:31 Pulse Ox 90 L 12/01/20 18:31 COVID-19 Screening Have you, or household traveled for leisure in last 14 days?: No Had IN PERSON contact w/suspected or confirmed C-19 person: No
[2020-12-01 18:37] LABS: Bilirubin Negative (Negative); Blood Moderate (Negative); Clarity Clear (Clear); Glucose Negative (Negative); Ketones 15 mg/dL (Negative); Leukocyte Esterase Small (Negative); Nitrite Negative (Negative); Specific Gravity 1.025 (1.005-1.025); Urobilinogen 0.2 EU/dL (Up TO 0.2)
[2020-12-01 18:49] LABS: Source Nasal/Nares
[2020-12-01 19:03] LABS: Bacteria Negative HPF (Negative); C & S Indicated? C&S Done As Ordered; Casts Negative LPF (Negative); Crystals Negative HPF (Negative); Epithelial Cells Rare HPF (Negative); Mucus Negative (Negative); Other Cells Negative (Negative); WBC 20-50 HPF (0-5)
[2020-12-01 19:49] LABS: TSH (W/Ref FT4) 3.19 uIU/mL (0.36-3.74)
[2020-12-01 20:33] LABS: Troponin I < 0.05 ng/mL (<0.06)
[2020-12-01 20:39] LABS: COVID-19 PCR Negative (Negative)
[2020-12-01] MEDS: Normal Saline 1,000 ML 100 ML IV (20:48)
[2020-12-01] MEDS: Methocarbamol 500 MG TAB 1000 MG PO (21:54)
[2020-12-01] MEDS: PIPERACILLIN/TAZO 3.375 GM in Normal Saline 100 ML IVPB (21:54)
[2020-12-01] MEDS: Melatonin 3 MG TAB 4.5 MG PO (21:57)
[2020-12-01] MEDS: Cyclobenzaprine 10 MG TAB 5 MG PO (21:57)
[2020-12-01] MEDS: Gabapentin 100 MG CAP 200 MG PO (21:58)
[2020-12-01] MEDS: Cyanocobalamin 500 MCG TAB 1000 MCG PO (21:58)
[2020-12-01] MEDS: Ferrous Gluconate 324 MG TAB PO (21:59)
[2020-12-01] MEDS: Simvastatin 40 MG TAB PO (22:19)
[2020-12-01] MEDS: Heparin 5,000 UNITS/ML VIAL 5000 UNITS SC (22:19)
[2020-12-02] VITALS (11 sets, daily range): BP systolic 95–155; BP diastolic 36–75; PULSE 74–114; RESP 18–22; TEMP 36.4–37.9; O2SAT 92–96
[2020-12-02] MEDS: PIPERACILLIN/TAZO 3.375 GM in Normal Saline 50 ML IVPB ×4 (03:34→21:26)
[2020-12-02] MEDS: Heparin 5,000 UNITS/ML VIAL 5000 UNITS SC ×3 (03:36→19:28)
[2020-12-02] MEDS: Acetaminophen 325 MG TAB 650 MG PO ×4 (03:52→19:26)
[2020-12-02 07:16] LABS: Abs Immature Grans 0.05 10^3/uL (0.0-0.06); Absolute Eosinophil Count 0.05 10^3/uL (0.0-0.7); Absolute Lymphocyte Count 0.86 10^3/uL (1.2-3.4); Absolute Monocyte Count 1.34 10^3/uL (0.1-0.8); Basophils % 0.2; Eosinophils % 0.4; HCT 34.1 % (40.0-50.0); HGB 10.5 g/dL (13.5-17.5); Immature Grans % 0.4; MCH 26.4 pg (27.0-33.0); MCHC 30.8 % (32.0-36.0); MCV 85.9 fL (80-95); MPV 10.5 fL (8.0-11.0); Monocytes % 10.9; Neutrophils % 81.1; Nucleated RBC 0 %; Platelet Count 201 10^3/uL (130-400); RBC 3.97 10^6/uL (4.36-5.78); RDW 15.9 % (11.8-14.1); RDW-SD 50.1 fL; WBC 12.33 10^3/uL (4.4-10.8)
[2020-12-02 07:18] LABS: Absolute Basophil Count 0.02 10^3/uL (0.0-0.2)
[2020-12-02 07:33] LABS: ALT 21 U/L (16-63); AST 12 U/L (15-37); Albumin 2.2 g/dL (3.4-5.0); Alkaline Phosphatase 64 U/L (46-116); Anion Gap 8.5 mmol/L (3-11); BUN 16 mg/dL (7-18); Bilirubin, Total 0.6 mg/dL (0.2-1.0); CO2 28.5 mmol/L (21.0-32.0); CREATININE 0.6 mg/dL (0.70-1.30); Calcium 8.1 mg/dL (8.5-10.1); Chloride 108 mmol/L (98-107); Glucose 102 mg/dL (74-106); Potassium 3.2 mmol/L (3.5-5.1); Sodium 145 mmol/L (136-145); Total Protein 5.3 g/dL (6.4-8.2)
[2020-12-02] MEDS: Normal Saline 1,000 ML 100 ML IV ×2 (07:58→18:39)
[2020-12-02] MEDS: oxyCODONE 10 MG TAB PO ×2 (08:09→14:40)
[2020-12-02] MEDS: Gabapentin 100 MG CAP 200 MG PO ×3 (08:09→19:30)
[2020-12-02] MEDS: Methocarbamol 500 MG TAB 1000 MG PO ×4 (08:09→19:29)
[2020-12-02] MEDS: Cyclobenzaprine 10 MG TAB 5 MG PO ×3 (08:10→19:29)
[2020-12-02] MEDS: Aspirin E.C. 81 MG TABEC PO (08:10)
[2020-12-02] MEDS: Tamsulosin 0.4 MG CAPCR PO (08:10)
[2020-12-02] MEDS: Cyanocobalamin 500 MCG TAB 1000 MCG PO ×2 (08:11→19:28)
[2020-12-02] MEDS: Potassium Chloride 20 MEQ TABCR PO ×2 (08:12→19:28)
[2020-12-02] MEDS: fentaNYL 50 MCG PATCH TD (08:16)
[2020-12-02] MEDS: Nystatin POWDER 15 GM JAR TP ×3 (10:30→19:27)
[2020-12-02] MEDS: Magnesium Oxide 400 MG TAB PO (12:24)
--- NOTE | 2020-12-02 13:02 | PGE_ITS ---
Date of Service Date of service: 12/02/20 Time of Service: 13:02 Assessment and Plan Assessment and plan (1) Paraplegia: Status: Chronic Assessment and plan: No use of BLE's. Minimal use of BUE's. D/T severe C-spine stenosis; s/p decompression at [facility] appx 2 weeks prior to this stay. Proper positioning; freq turning to maintain skin integrity and to prevent current wounds from worsening (2) Neuromuscular dysfunction of bladder, unspecified: Status: Chronic Assessment and plan: Has chronic indwelling gibson catheter. 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 (3) Urinary tract infection with fever: Status: Acute Assessment and plan: Continue Zosyn while waiting form culture results. (4) Intertriginous candidiasis: Status: Acute Assessment and plan: Topical antifungal. Maintain adequate dryness of skin. (5) Wounds, multiple: Status: Acute Assessment and plan: Wound care has evaluated. Unstable eschar of heel; podiatry consulted. Cont mepilex to effected areas. Subjective Subjective Patient reports: no new complaints, feels better and afebrile; denies nausea and vomiting Exam Const General: cooperative and no acute distress Nutritional Appearance: average body habitus Orientation: alert and oriented x3 Neck Neck: limited ROM and no JVD Resp Effort & Inspection: normal respiratory effort Auscultation: clear to auscultation bilaterally Cardio Rate: regular rate Rhythm: regular rhythm Heart Sounds: S1 normal and S2 normal GI Palpation: soft and nontender Extrem General: no pedal edema, muscle atrophy of the right lower extremity and of the left lower extremity and other (contractures of legs) Objective Last Vital Signs Temp 36.6 C 12/02/20 12:04 Pulse 74 12/02/20 12:04 Resp 18 12/02/20 12:04 BP 98/55 L 12/02/20 12:04 Pulse Ox 94 12/02/20 12:04 Laboratory Results - last 24 hr 12/01/20 12/01/20 12/01/20 17:29 17:29 17:29 WBC 15.86 H RBC 4.67 Hgb 12.5 L Hct 40.0 MCV 85.7 MCH 26.8 L MCHC 31.3 L RDW 15.9 H Plt Count 251 MPV 10.3 Immature Gran % 0.4 Neutrophils % 86.3 Lymphocytes % 3.5 Monocytes % 9.0 Eosinophils % 0.6 Basophils % 0.2 Nucleated RBC % 0 Absolute Neutrophils 13.69 H Absolute Lymphocytes 0.56 L Absolute Monocytes 1.43 H Absolute Eosinophils 0.10 Absolute Basophils 0.03 VBG Lactate 0.9 Sodium 142 Potassium 4.1 Chloride 105 Carbon Dioxide 28.7 Anion Gap 8.3 BUN 21 H Creatinine 0.6 L D Estimated GFR/1.73 m2 >= 60.00 Glucose 95 Calcium 8.8 Magnesium 1.8 Total Bilirubin 0.6 AST 21 ALT 26 Alkaline Phosphatase 82 Troponin I < 0.05 Total Protein 6.6 Albumin 2.9 L TSH Urine Color Urine Clarity Urine pH Ur Specific Alva Urine Protein Urine Ketones Urine Blood Urine Nitrite Urine Bilirubin Urine Urobilinogen Ur Leukocyte Esterase Urine RBC Urine WBC Ur Epithelial Cells Urine Crystals Urine Bacteria Urine Casts Urine Mucus Urine Other Ur Culture Indicated? Urine Glucose COVID-19 Source SARS-CoV-2 (PCR) 12/01/20 12/01/20 12/01/20 17:29 18:25 18:45 WBC RBC Hgb Hct MCV MCH MCHC RDW Plt Count MPV Immature Gran % Neutrophils % Lymphocytes % Monocytes % Eosinophils % Basophils % Nucleated RBC % Absolute Neutrophils Absolute Lymphocytes Absolute Monocytes Absolute Eosinophils Absolute Basophils VBG Lactate Sodium Potassium Chloride Carbon Dioxide Anion Gap BUN Creatinine Estimated GFR/1.73 m2 Glucose Calcium Magnesium Total Bilirubin AST ALT Alkaline Phosphatase Troponin I Total Protein Albumin TSH 3.19 Urine Color Yellow Urine Clarity Clear Urine pH 5.0 Ur Specific Alva 1.025 Urine Protein 30 H Urine Ketones 15 H Urine Blood Moderate H Urine Nitrite Negative Urine Bilirubin Negative Urine Urobilinogen 0.2 Ur Leukocyte Esterase Small H Urine RBC 10-20 H Urine WBC 20-50 H Ur Epithelial Cells Rare Urine Crystals Negative Urine Bacteria Negative Urine Casts Negative Urine Mucus Negative Urine Other Negative Ur Culture Indicated? C&s done as ordered Urine Glucose Negative COVID-19 Source Nasal/nares SARS-CoV-2 (PCR) Negative 12/01/20 12/02/20 12/02/20 20:05 06:54 06:54 WBC 12.33 H RBC 3.97 L Hgb 10.5 L Hct 34.1 L MCV 85.9 MCH 26.4 L MCHC 30.8 L RDW 15.9 H Plt Count 201 MPV 10.5 Immature Gran % 0.4 Neutrophils % 81.1 Lymphocytes % 7.0 Monocytes % 10.9 Eosinophils % 0.4 Basophils % 0.2 Nucleated RBC % 0 Absolute Neutrophils 10.00 H Absolute Lymphocytes 0.86 L Absolute Monocytes 1.34 H Absolute Eosinophils 0.05 Absolute Basophils 0.02 VBG Lactate Sodium 145 Potassium 3.2 L Chloride 108 H Carbon Dioxide 28.5 Anion Gap 8.5 BUN 16 Creatinine 0.6 L Estimated GFR/1.73 m2 >= 60.00 Glucose 102 Calcium 8.1 L Magnesium Total Bilirubin 0.6 AST 12 L ALT 21 Alkaline Phosphatase 64 Troponin I < 0.05 Total Protein 5.3 L Albumin 2.2 L TSH Urine Color Urine Clarity Urine pH Ur Specific Alva Urine Protein Urine Ketones Urine Blood Urine Nitrite Urine Bilirubin Urine Urobilinogen Ur Leukocyte Esterase Urine RBC Urine WBC Ur Epithelial Cells Urine Crystals Urine Bacteria Urine Casts Urine Mucus Urine Other Ur Culture Indicated? Urine Glucose COVID-19 Source SARS-CoV-2 (PCR)
--- NOTE | 2020-12-02 17:11 | WOUNDCONS ---
- If Service Date Differs Date of service: 12/02/20 Time of Service: 17:11 Wound Initial Evaluation Narrative: Pt seen @ bedside, agreeable to consult and gave verbal consent for photography, unable to sign d/t quadriplegia. Pt admitted for UTI, sepsis syndrome. Chart reviewed, labs, xray reports, H&P, and provider noted. Pt came from [facility]. phone call placed to rehab and nursing at prior facility states they have been using plurogel and foam with daily changes for all wound treatments. Pt has multiple wounds of differing etiologies, see photos below. Per Pt report wounds are greater than 6 months old. Podiatry consulted for unstable eschar cap on right heel and full thickness open area on right malone with hard. ? osteomyelitis on heel and malone d/t chronicity and location of wounds . R/o osteomyleitis if podiatry deems appropriate. Right hip also concerning for osteomyelitis d/t chronicity of wound and friability of tissue. Recommend drawing CRP and ESR. CBC and Blood cultures already drawn. Follow-up with imaging if MD deems appropriate. - Wound Right Hip Wound Type: Partial Thickness (reddended oval shaped area measured. multiple open areas w/in oval. Pt reports having wound since last june also reports thinking etiology of wound was rug burn) Wound General Appearance: Reddened, Bleeding (concern for osteomyelitis/biofilm d/t chronicity of wound), Unapproximated Wound Length: 6.2 cm Wound Width: 11 cm Wound Depth: 0.1 cm Right Heel Wound Type: Pressure Ulcer (unstable heel eschar cap. reccomend podiatry consult. ? osteomyelitis) Pressure Ulcer Stage: Eschar/Unstageable Wound General Appearance: Necrotic Wound Bed Greatest Portion: Black (Eschar) Percent of Wound Bed Eschar/Black: 100 Wound Length: 3.5 cm Wound Width: 2.5 cm Wound Depth: 0 cm (cap slighty raised) Wound Drainage Amount: None Left medial knee Wound Type: Partial Thickness Wound General Appearance: Bleeding (friable tissue. unsure of etiology. probable biofilm.), Unapproximated Wound Length: 1.2 cm Wound Width: 2 cm Wound Depth: 0.1 cm Wound Drainage Amount: Minimal Wound Drainage Odor: None/Absent Wound Drainage Description: Bloody Right Malone Wound Type: Full Thickness (unsure of etiology) Wound General Appearance: Unapproximated, Bone Visible (hard yellow/orange bump noted protruding out of wound. unsure of what this substance is. Podiatry consult placed. ) Right distal malone Wound Type: Partial Thickness Wound General Appearance: Reddened, Unapproximated Wound Length: 1.3 cm Wound Width: 1.3 cm Wound Depth: 0.1 cm Left Hip Wound Type: Partial Thickness (BLANCHABLE redness surrounding small open area measures 5x6.5) Wound General Appearance: Unapproximated Wound Length: 0.4 cm Wound Width: 1.3 cm Wound Depth: 0.1 cm Wound Drainage Amount: Minimal Left heel Wound Type: Other (Heel boggy, no open area noted, no redness noted. @ risk for breakdown. Adamantly REFUSED offloading boot. 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 Pt reports pain. No obvious open area noted.) - Circulation, Sensation, Motion Edema Degree: 2+ (pitting edema to right foot) - Pain Pain Level: 7 (Pt on fentanyl patch, PRN oxycodone, APAP) Pain Scale Used: Visual Analog Scale 0-10 Pain Duration/Frequency: Constant (reports having altered sensation in some areas of body. reports chronic pain.) - Recomendation Recomendation:: Right Hip- Apply polymem to wound. Window pane with medipore tape. Change every 7 days and PRN for drainage. Left medial Knee-Apply polymem to wound. Window pane with medipore tape. Change every 7 days and PRN for drainage. Right Heel- Cleanse w/Anasept. pat dry. Cover with mepilex w/border. Offload. Change every 3 days and PRN. Follow podiatry recommendations once made. Right Malone- Cleanse w/Anasept. pat dry. Cover with mepilex w/border. Change every 3 days and PRN. Follow podiatry recommendations once made. Left Hip- Cleanse w/Anasept. pat dry. Cover with mepilex w/border. Change every 7 days and PRN. reposition Pt Q2H. Left Heel- No open area. Apply Mepilex for protection and offload heel with pillows. Stefanie area- Cleanse area with Anasept. Dry well. Apply nystatin powder as ordered TID. Use interdry sheets in all groin folds and around penis and scrotum. Physcian/Nurse Practioner Notified: Yes (Dr. Jalloh. ) Referrals: Dietary (resfused breakfast and lunch today. only ate 25% of his dinner. nutrition consult reccomended to maximize calorie & protien intact ), Physical Therapy (severe contractures, needs ROM), Podiatry, Other (OT) Treatment Time - Time Total Time Spent with Patient: 120 minuets
--- NOTE | 2020-12-02 18:44 | INITIAL_ITS ---
- If Service Date Differs Date of service: 12/02/20 Time of Service: 18:44 Care Management Initial Assess REASON FOR HOSPITALIZATION:: UTI, Sepsis PAST MEDICAL HISTORY/PAST SURGICAL HISTORY:: Medical History. Chronic venous hypertension (idiopathic) with ulcer and inflammation of bilateral lower extremity. Essential (primary) hypertension. Fatty (change of) liver, not elsewhere classified. Hallucinations, unspecified. Hyperlipemia. Major depressive disorder. Muscle weakness (generalized). Neuromuscular dysfunction of bladder, unspecified. Obesity. Other spondylosis with myelopathy, cervical region. Paraplegia. Pneumonia. Pressure ulcer of left heel, unstageable. Pressure ulcer of other site, unstageable. Pressure ulcer of right heel, unstageable. Pressure ulcer of right hip, unstageable. Pressure ulcer of right upper back. Radiculopathy. Repeated falls. Rhabdomyolysis. Unilateral primary osteoarthritis, right hip. Unspecified fall. Urinary tract infection. Venous insufficiency (chronic) (peripheral) PREVIOUS FUNCTIONAL STATUS/SOCIAL/FAMILY SUPPORTS:: London resides at [facility] currently. He previously lived alone. He has a sister, Marie, who lives in [place]. He has paraplegia, and requires complete care, which he is provided at the facility. CURRENT FUNCTIONAL STATUS:: London was lying in bed sleeping when CM attempted to visit with him. Per report, he had a wound consult today, where he was found to have several wounds at different stages. His wounds were dressed and recommendations were made which will be provided to the facility where he resides. He will remain at [facility] for antibiotics, awaiting culture results. CM will continue to follow. ADVANCE DIRECTIVES:: On file, Marie listed as agent. Has patient been provided with info about the portal/API?: No Did the patient sign up for the portal?: No CODE STATUS:: Full Code INSURANCE COVERAGE / FINANCIAL ISSUES:: [employer]/ [employer]/ [employer] CURRENT HOME/COMMUNITY SERVICES/EQUIPMENT:: London currently resides at [facility], where he receives complete care. PRIMARY CARE PHYSICIAN:: Shonda Neil POTENTIAL DISCHARGE NEEDS:: Recommendations for wound care to facility staff, follow up appointments. PATIENT/FAMILY EDUCATION NEEDS:: Review discharge instructions with pt and facility staff, discussion of self care needs and goals of care. ANTICIPATED BARRIERS TO DISCHARGE:: None identified. TRANSPORTATION:: Via EMS vs facility w/c van. PLAN:: Anticipate London will return to [facility] once he has been medically indigo ared by . He will transport via EMS vs facility w/c van. He will follow up with his PCP and discharge plan of care. CM will continue to follow.
[2020-12-02] MEDS: Melatonin 3 MG TAB 6 MG PO (21:20)
[2020-12-02] MEDS: Ferrous Gluconate 324 MG TAB PO (21:22)
[2020-12-02] MEDS: Simvastatin 40 MG TAB PO (21:22)
[2020-12-03] VITALS (12 sets, daily range): BP systolic 97–117; BP diastolic 56–70; PULSE 70–89; RESP 18–22; TEMP 36.3–38.8; O2SAT 87–98
--- NOTE | 2020-12-03 | DI.RAD_ITS ---
Exam(s) XR HIP RT AP LAT ONLY EXAM: XR HIP RT AP LAT ONLY CLINICAL HISTORY: soft tissue ulcer. Possible osteomyelitis TECHNIQUE: COMPARISON: No exams were available for comparison FINDINGS: Four views were obtained. There are severe degenerative changes of the right hip with marked right h ip deformity, uncovering of the femoral head, and varus deformity. Requisition raises the possibilit y of osteomyelitis, it would be impossible to exclude osteomyelitis on the basis of this examination. Additional evaluation with CT or MR may be considered if clinically appropriate. IMPRESSION: RADIATION DOSE DELIVERED: Total DLP
[2020-12-03] MEDS: Heparin 5,000 UNITS/ML VIAL 5000 UNITS SC ×3 (04:59→20:30)
[2020-12-03] MEDS: PIPERACILLIN/TAZO 3.375 GM in Normal Saline 50 ML IVPB ×4 (04:59→21:31)
[2020-12-03] MEDS: Acetaminophen 325 MG TAB 650 MG PO (05:00)
[2020-12-03] MEDS: Normal Saline 1,000 ML 100 ML IV ×2 (05:00→20:07)
[2020-12-03 06:03] LABS: Abs Immature Grans 0.04 10^3/uL (0.0-0.06); Absolute Basophil Count 0.03 10^3/uL (0.0-0.2); Absolute Eosinophil Count 0.04 10^3/uL (0.0-0.7); Absolute Lymphocyte Count 0.72 10^3/uL (1.2-3.4); Absolute Monocyte Count 0.99 10^3/uL (0.1-0.8); Absolute Neutrophil Count 6.55 10^3/uL (1.2-6.7); Basophils % 0.4; Eosinophils % 0.5; HCT 32.1 % (40.0-50.0); Immature Grans % 0.5; Lymphocytes % 8.6; MCH 26.8 pg (27.0-33.0); MCHC 31.2 % (32.0-36.0); MCV 86.1 fL (80-95); MPV 10.3 fL (8.0-11.0); Monocytes % 11.8; Neutrophils % 78.2; Nucleated RBC 0 %; Platelet Count 174 10^3/uL (130-400); RBC 3.73 10^6/uL (4.36-5.78); RDW-SD 50.4 fL; WBC 8.37 10^3/uL (4.4-10.8)
[2020-12-03] MEDS: Water,Injection,Sterile 10 ML VIAL (06:17)
[2020-12-03] MEDS: VANCOMYCIN 1,000 MG in Normal Saline 250 ML 166.6666 MG IVPB (06:18)
[2020-12-03 06:22] LABS: Anion Gap 7.6 mmol/L (3-11); BUN 13 mg/dL (7-18); CO2 27.4 mmol/L (21.0-32.0); CREATININE 0.6 mg/dL (0.70-1.30); Calcium 7.8 mg/dL (8.5-10.1); Chloride 108 mmol/L (98-107); Glucose 112 mg/dL (74-106); Potassium 3.5 mmol/L (3.5-5.1); Sodium 143 mmol/L (136-145)
[2020-12-03] MEDS: Gabapentin 100 MG CAP 200 MG PO ×3 (08:00→19:31)
[2020-12-03] MEDS: Nystatin POWDER 15 GM JAR TP ×3 (08:00→19:32)
[2020-12-03] MEDS: Potassium Chloride 20 MEQ TABCR PO ×2 (08:00→19:30)
[2020-12-03] MEDS: Methocarbamol 500 MG TAB 1000 MG PO ×4 (08:01→19:29)
[2020-12-03] MEDS: Cyclobenzaprine 10 MG TAB 5 MG PO ×3 (08:01→19:30)
[2020-12-03] MEDS: Tamsulosin 0.4 MG CAPCR PO (08:02)
[2020-12-03] MEDS: Cyanocobalamin 500 MCG TAB 1000 MCG PO ×2 (08:02→19:32)
[2020-12-03] MEDS: Aspirin E.C. 81 MG TABEC PO (08:02)
[2020-12-03 09:03] LABS: ESR 25 mm/hr (0-20)
[2020-12-03 09:18] LABS: C-Reactive Protein 14.77 mg/dL (0.0-0.3)
--- NOTE | 2020-12-03 10:16 | PDOC.CMPRO ---
- If Service Date Differs Date of service: 12/03/20 Time of Service: 10:16 Care Management Progress Note S/O: London was resting when CM attempted to meet with him. Per RN, he has been frustrated today, especially after he went to have an xray. When he returned to his room he reported to his RN no more xrays. Per MD, it is difficult to ascertain whether osteo is present or not on the xray, and recommends an MRI, although he may not be able to tolerate an MRI. Per report, his WBC has improved, although he had a fever overnight and has appeared more confused. CM will continue to follow. A: London is a 75 year old male admitted to [facility] on 12/01/20 with UTI, sepsis. P: Anticipate London will return to [facility] once he has been medically cleared by . He will transport via EMS vs facility w/c van. He will follow up with his PCP and discharge plan of care. CM will continue to follow.
[2020-12-03] MEDS: oxyCODONE 10 MG TAB PO ×2 (10:55→19:35)
[2020-12-03] MEDS: Magnesium Oxide 400 MG TAB PO (11:01)
--- NOTE | 2020-12-03 11:28 | DI.VRAD_ITS ---
PROCEDURE INFORMATION: Exam: XR Right Hip Exam date and time: 12/03/2020 9:56 AM Age: 75 years old Clinical indication: Other: Soft tissue ulcer, possible osteomyelitis; Patient HX: Limited rom, limited study TECHNIQUE: Imaging protocol: XR Right hip. Views: 2 or 3 views hip with pelvis when performed. COMPARISON: CT ABDOMEN PELVIS W 09/24/2020 8:48 PM FINDINGS: Advanced chronic degenerative changes of the right hip are present. Severe osteopenia. Evaluation for osteomyelitis is significantly limited by technique. Lumbosacral spondylosis. Atherosclerotic vascular calcifications of pelvis. IMPRESSION: Advanced chronic degenerative changes of the right hip are present. Severe osteopenia. Evaluation for osteomyelitis is significantly limited. Dictated and Authenticated by: Costa Farris MD. Ordering:BLAISE Bronson MD
--- NOTE | 2020-12-03 13:10 | W.PM.PROGNOT ---
Date of Service Date of service: 12/03/20 Time of Service: 13:10 Assessment and Plan Assessment and plan (1) Decubitus skin ulcer: Status: Acute Assessment and plan: Multiple areas of skin breakdown and ulcerations. See wound care note / pictures. Xray of R hip performed d/t concern for osteomyelitis; difficult to ascertain whether osteo present or not. MRI would be more sensitive but patient may not be able to tolerate an MRI. Cont Zosyn and Vancomycin WBC count has normalized. (2) Intertriginous candidiasis: Status: Acute Assessment and plan: Antifungal powder (3) Paraplegia: Status: Chronic Assessment and plan: Chronic d/t C-spine stenosis. Recent decompression surgery. (4) Neuromuscular dysfunction of bladder, unspecified: Status: Chronic Assessment and plan: Chronic indwelling gibson catheter (5) Urinary tract infection with fever: Status: Acute Assessment and plan: Cx grew mixed organisms; all <10,000 colonies/ml. Exam Const General: cooperative and no acute distress Nutritional Appearance: average body habitus Resp Effort & Inspection: normal respiratory effort Auscultation: clear to auscultation bilaterally Cardio Rate: regular rate Rhythm: regular rhythm Heart Sounds: S1 normal and S2 normal GI Palpation: soft and nontender Extrem General: no pedal edema and no calf tenderness Objective Last Vital Signs Temp 37.1 C 12/03/20 11:11 Pulse 78 12/03/20 11:11 Resp 22 12/03/20 11:11 BP 109/62 12/03/20 11:11 Pulse Ox 92 12/03/20 11:12 Laboratory Results - last 24 hr 12/03/20 12/03/20 12/03/20 05:45 05:45 05:45 WBC 8.37 D RBC 3.73 L Hgb 10.0 L Hct 32.1 L MCV 86.1 MCH 26.8 L MCHC 31.2 L RDW 16.0 H Plt Count 174 MPV 10.3 Immature Gran % 0.5 Neutrophils % 78.2 Lymphocytes % 8.6 Monocytes % 11.8 Eosinophils % 0.5 Basophils % 0.4 Nucleated RBC % 0 Absolute Neutrophils 6.55 Absolute Lymphocytes 0.72 L Absolute Monocytes 0.99 H Absolute Eosinophils 0.04 Absolute Basophils 0.03 ESR Sodium 143 Potassium 3.5 Chloride 108 H Carbon Dioxide 27.4 Anion Gap 7.6 BUN 13 Creatinine 0.6 L Estimated GFR/1.73 m2 >= 60.00 Glucose 112 H Calcium 7.8 L C-Reactive Protein 14.77 H 12/03/20 05:45 WBC RBC Hgb Hct MCV MCH MCHC RDW Plt Count MPV Immature Gran % Neutrophils % Lymphocytes % Monocytes % Eosinophils % Basophils % Nucleated RBC % Absolute Neutrophils Absolute Lymphocytes Absolute Monocytes Absolute Eosinophils Absolute Basophils ESR 25 H Sodium Potassium Chloride Carbon Dioxide Anion Gap BUN Creatinine Estimated GFR/1.73 m2 Glucose Calcium C-Reactive Protein
[2020-12-03] MEDS: VANCOMYCIN/WATER (PEG) 1.25 GM/250 ML BAG IV (16:54)
[2020-12-03] MEDS: Ferrous Gluconate 324 MG TAB PO (21:32)
[2020-12-03] MEDS: Melatonin 3 MG TAB 6 MG PO (21:32)
[2020-12-03] MEDS: Simvastatin 40 MG TAB PO (21:32)
[2020-12-04] VITALS (9 sets, daily range): BP systolic 96–126; BP diastolic 54–72; PULSE 65–83; RESP 16–20; TEMP 36.4–36.7; O2SAT 92–98
[2020-12-04] MEDS: PIPERACILLIN/TAZO 3.375 GM in Normal Saline 50 ML IVPB ×4 (04:13→21:44)
[2020-12-04] MEDS: Acetaminophen 325 MG TAB 650 MG PO ×4 (04:19→21:44)
[2020-12-04] MEDS: Heparin 5,000 UNITS/ML VIAL 5000 UNITS SC ×3 (04:24→19:53)
[2020-12-04] MEDS: VANCOMYCIN/WATER (PEG) 1.25 GM/250 ML BAG IV ×2 (04:45→17:16)
[2020-12-04] MEDS: Normal Saline 1,000 ML 100 ML IV ×2 (06:34→17:16)
--- NOTE | 2020-12-04 06:34 | NUR.NOTE ---
LOGISTICS TEAM LEADER noted wide variations in patients weight for the past several days. Bed weight used as patient in nonambulatory- difference may be attributed to items that have been added to bed as todays weight was 84.5 prior to decrease for pillows, SCD machine and tele unit to an actual weight of 78.4Nursing Note:
[2020-12-04 06:39] LABS: HGB 9.9 g/dL (13.5-17.5); MCH 26.7 pg (27.0-33.0); MCHC 30.9 % (32.0-36.0); MCV 86.3 fL (80-95); MPV 10.5 fL (8.0-11.0); Platelet Count 158 10^3/uL (130-400); RBC 3.71 10^6/uL (4.36-5.78); RDW 15.9 % (11.8-14.1); RDW-SD 50.4 fL; WBC 5.96 10^3/uL (4.4-10.8)
[2020-12-04] MEDS: Methocarbamol 500 MG TAB 1000 MG PO ×4 (08:01→19:51)
[2020-12-04] MEDS: Tamsulosin 0.4 MG CAPCR PO (08:02)
[2020-12-04] MEDS: Potassium Chloride 20 MEQ TABCR PO ×2 (08:02→19:51)
[2020-12-04] MEDS: Gabapentin 100 MG CAP 200 MG PO ×3 (08:02→19:50)
[2020-12-04] MEDS: Aspirin E.C. 81 MG TABEC PO (08:02)
[2020-12-04] MEDS: Cyclobenzaprine 10 MG TAB 5 MG PO ×3 (08:02→19:51)
[2020-12-04] MEDS: oxyCODONE 10 MG TAB PO ×3 (08:02→21:44)
[2020-12-04] MEDS: Cyanocobalamin 500 MCG TAB 1000 MCG PO ×2 (08:02→19:51)
[2020-12-04] MEDS: Nystatin POWDER 15 GM JAR TP ×3 (08:04→19:52)
[2020-12-04] MEDS: Magnesium Oxide 400 MG TAB PO (09:53)
--- NOTE | 2020-12-04 13:04 | W.PM.PROGNOT ---
Date of Service Date of service: 12/04/20 Time of Service: 13:05 Assessment and Plan Assessment and plan (1) Decubitus skin ulcer: Status: Acute Assessment and plan: Wound care following. Nutrition has consulted patient and made recommendations. His oral intake waxes and wanes. Reviewed previous CT of abd/pelvis on 09/24/20; no evidence of osteomyelitis noted hips. Presented with elevated WBC count and has had fevers; none in 24 hours; likely d/t cellulitis. Urine grew mixed ana, all <10,000 cfu's (2) Paraplegia: Status: Chronic Assessment and plan: Secondary to C-spine stenosis. S/P recent decompression surgery. Contractures of BLE's resulting in difficultly maintaining skin integrity. Exam Const General: cooperative and no acute distress Nutritional Appearance: average body habitus Orientation: alert and oriented x3 Resp Effort & Inspection: normal respiratory effort Auscultation: clear to auscultation bilaterally Cardio Rate: regular rate Rhythm: regular rhythm Heart Sounds: S1 normal and S2 normal GI Palpation: soft and nontender Skin General skin exam: other (multiple skin ulcerations with dressings in place.) Neuro General: does not move all extremities (Minimal movement of BUE's. No LE movement) Cognition: normal cognition Speech: speech normal Extrem General: no pedal edema and no calf tenderness Objective Last Vital Signs Temp 36.7 C 12/04/20 07:45 Pulse 66 12/04/20 07:45 Resp 18 12/04/20 07:45 BP 126/72 12/04/20 07:45 Pulse Ox 95 12/04/20 08:30 Laboratory Results - last 24 hr 12/04/20 06:15 WBC 5.96 RBC 3.71 L Hgb 9.9 L Hct 32.0 L MCV 86.3 MCH 26.7 L MCHC 30.9 L RDW 15.9 H Plt Count 158 MPV 10.5
[2020-12-04] MEDS: Multivitamin TAB 1 TAB PO (13:17)
[2020-12-04] MEDS: Protein Nutritional Supplement 16 GM 1 OUNCE PACKET PO ×2 (13:17→19:52)
--- NOTE | 2020-12-04 14:03 | W.NUTCONSULT ---
Date of service: 12/04/20 Time of Service: 14:04 Nutritional Consult ASSESSMENT: Met with London today after breakfast. London was admitted with UTI/sepsis with PMH: paraplegia, HTN with multiple unstageable pressure wounds on both feet, hip and lower back. Chart review indicates 9% weight loss in last 3 months. Following heart healthy diet with very little PO intake since admit- frequent meal refusals. Discussed importance of optimal macro nutrient intake for wound healing and the option for nocturnal enteral feeding to support po intake. London does not want nutrition support or ensures at this time. . He is willing to take liquid protien 1 oz TID, 220 mg zinc sulfate, MVI and 500 mg vit C BID. Explained to London that wounds will not heal if he does not meet calorie/protein and fat needs. Will continue to encourage protein shakes if eats < 50% of meals. Estimated Needs: [id number] kcal, 110-120 g protein NUTRITIONAL DIAGNOSIS: Moderate malnutrition in view of significant weight loss in last 90 days and inability to consume increased macro/micronutrient needs INTERVENTION: continue current diet 1 oz liquid protein TID MVI 500 mg Vit C BID 220 mg zinc sulfate MONITORING AND EVALUATION: po intake, labs, weight check prealbumin Time Spent in Nutritional Counseling and Treatment: 20
--- NOTE | 2020-12-04 14:47 | CMPROGNOTE_ITS ---
- If Service Date Differs Date of service: 12/04/20 Time of Service: 14:47 Care Management Progress Note S/O: London was lying in bed when CM met with him. He was pleasant and engaged in conversation. He reported that up until recently he has lived on his own, but he has spent most of the last year in a facility or hospital. He discussed how difficult that transition has been, as he can no longer complete his ADL's and requires complete care. He reported that he is feeling much better today, and felt that he lost track of time over the weekend because he was so sick. Per MD, he will likely be ready for discharge tomorrow. CM called admissions at [facility] to coordinate his discharge. He will require ambulance transport, and they would prefer that he discharge at 11am. CM asked for a repeat Covid test prior to discharge. CM will continue to follow. A: London is a 75 year old male admitted to [facility] on 12/01/20 with UTI, sepsis. P: London will return to [facility] once he has been medically cleared by . He will transport via EMS. He will follow up with his PCP and discharge plan of care. CM will continue to follow.
[2020-12-04 15:48] LABS: CREATININE 0.5 mg/dL (0.70-1.30)
[2020-12-04 15:55] LABS: Vancomycin, Trough 12.4 ug/mL (10.0-20.0)
--- NOTE | 2020-12-04 15:59 | CHAPLAIN ---
I had a short visit with London as nursing arrived to provide some care. London told me that he is familiar with [employer] continuous process and has visited with the sword swallower at [facility], Rev. Evangelist Zabala, and that he would ask for me if he wanted to talk. He was resting in bed and was very pleasant.
[2020-12-04 16:19] LABS: Source Nasal/Nares
--- NOTE | 2020-12-04 19:09 | W.PODCONSULT ---
Date of service: 12/04/20 Time of Service: 19:09 History of Present Illness History of Present Illness Chief Complaint: Ulceration of the right heel and right malone Narrative: 75-year-old white male with multiple comorbidities for evaluation and recommendations on ulcerations affecting the posterior medial aspect of his right heel and tibial side of his right malone. He is paraplegic, was admitted with UTI, sepsis syndrome. Resides most recently at [facility] Medical History Chronic venous hypertension (idiopathic) with ulcer and inflammation of bilateral lower extremity Essential (primary) hypertension Fatty (change of) liver, not elsewhere classified Hallucinations, unspecified Hyperlipemia Major depressive disorder Muscle weakness (generalized) Neuromuscular dysfunction of bladder, unspecified Obesity Other spondylosis with myelopathy, cervical region Paraplegia Pneumonia Pressure ulcer of left heel, unstageable Pressure ulcer of other site, unstageable Pressure ulcer of right heel, unstageable Pressure ulcer of right hip, unstageable Pressure ulcer of right upper back Radiculopathy Repeated falls Rhabdomyolysis Unilateral primary osteoarthritis, right hip Unspecified fall Urinary tract infection Venous insufficiency (chronic) (peripheral) Social History Smoking/Tobacco Use Status: Never Smoking risk assessment performed?: Yes Alcohol Intake: never Drug use: Never Substance use type: does not use Do you feel safe at home: Yes Do you feel safe in your relationship?: Yes Additional Social history: PATIENT HAS BEEN AT [facility] SINCE JUNE. WAS LIVING ALONE PRIOR TO . Exam Narrative Exam Narrative: Mr. Coker is seen at bedside. He indicates he gets waves of pain and today's been a little worse than others. He is lying in bed, his right lower extremity is rigidly contracted at the hip and knee and is resting on the medial aspect of his left thigh. He has minimal ability to move at the hip and knee with minimal motion at his ankle and toes. His skin is warm to the touch, there is chronic edema both lower extremities, pulses are diminished but palpable at the ankle. He has an eschar on the posterior medial aspect of his right heel measuring approximately 3.5 cm slightly oval without erythema or cellulitis. The cap is boggy, and the underlying tissue appears to be yellowish-green fibrinous. The wound on the anterior malone of his right leg does have some hard tissue protruding from a small skin opening. This does appear to be osseous in nature. Refer to wound consultation of Alayna Bajwa RN for physical measurements and pictures of the wounds. Impressions 1 full-thickness right heel ulceration 2. Full-thickness right malone wound with exposed bone Plan: With a #10 scalpel and pickup, the right heel was sharply debrided removing the eschar and necrotic tissue. Minimal bleeding was encountered, bone was not encountered at this time. The possibility of an osteomyelitis is significant. With a dermal curette, the wound on the right malone was manipulated but debridement was very difficult due to the inability to position the patient to allow access to the wound because of his hip, knee and ankle contractures. Active bleeding was encountered and the wound was dressed with a PolyMem dressing and Kerlix roll with pressure. No biopsies or cultures were obtained. The physical condition of Mr. Coker, the severe contracture of his hip and knee with radiographic evidence of severe degenerative arthrosis begs the question of how to manage him long-term. Without the ability to reduce pressure that the right leg is exerting onto the left thigh progressive deterioration is likely. I question whether relaxation of the contracture is possible utilizing Botox, and if this is not a viable or successful treatment option amputation of the right limb would be appropriate. London indicates that this option has been brought to his attention previously and he states he is not opposed to it if necessary. I will speak with the hospitalist tomorrow to discuss potential treatment options concerning Mr. Coker. Results Last Vital Signs Temp 36.7 C 12/04/20 15:48 Pulse 66 12/04/20 15:48 Resp 16 12/04/20 15:48 BP 105/69 12/04/20 15:48 Pulse Ox 93 12/04/20 15:48 Labs Result diagrams: 12/04/20 06:15 12/04/20 15:30 Labs: Laboratory Results - last 24 hr 12/04/20 12/04/20 12/04/20 06:15 15:30 15:30 WBC 5.96 RBC 3.71 L Hgb 9.9 L Hct 32.0 L MCV 86.3 MCH 26.7 L MCHC 30.9 L RDW 15.9 H Plt Count 158 MPV 10.5 Creatinine 0.5 L Estimated GFR/1.73 m2 >= 60.00 Vancomycin Trough 12.4 COVID-19 Source 12/04/20 16:15 WBC RBC Hgb Hct MCV MCH MCHC RDW Plt Count MPV Creatinine Estimated GFR/1.73 m2 Vancomycin Trough COVID-19 Source Nasal/nares
[2020-12-04 21:03] LABS: COVID-19 PCR Negative (Negative)
[2020-12-04] MEDS: Simvastatin 40 MG TAB PO (21:43)
[2020-12-04] MEDS: Melatonin 3 MG TAB 6 MG PO (21:43)
[2020-12-04] MEDS: Ferrous Gluconate 324 MG TAB PO (21:43)
[2020-12-05] VITALS (7 sets, daily range): BP systolic 109–148; BP diastolic 62–73; PULSE 79–116; RESP 20–24; TEMP 36.3–36.6; O2SAT 90–93
[2020-12-05] MEDS: PIPERACILLIN/TAZO 3.375 GM in Normal Saline 50 ML IVPB ×2 (03:39→09:43)
[2020-12-05] MEDS: Heparin 5,000 UNITS/ML VIAL 5000 UNITS SC ×2 (03:39→11:54)
[2020-12-05] MEDS: VANCOMYCIN/WATER (PEG) 1.25 GM/250 ML BAG IV (04:19)
[2020-12-05] MEDS: Protein Nutritional Supplement 16 GM 1 OUNCE PACKET PO ×2 (07:39→14:31)
[2020-12-05] MEDS: Zinc Sulfate 220 MG TAB PO (07:40)
[2020-12-05] MEDS: Potassium Chloride 20 MEQ TABCR PO (07:40)
[2020-12-05] MEDS: fentaNYL 50 MCG PATCH TD (07:40)
[2020-12-05] MEDS: Aspirin E.C. 81 MG TABEC PO (07:40)
[2020-12-05] MEDS: Gabapentin 100 MG CAP 200 MG PO ×2 (07:40→14:31)
[2020-12-05] MEDS: Tamsulosin 0.4 MG CAPCR PO (07:40)
[2020-12-05] MEDS: Cyanocobalamin 500 MCG TAB 1000 MCG PO (07:41)
[2020-12-05] MEDS: Methocarbamol 500 MG TAB 1000 MG PO ×3 (07:41→15:58)
[2020-12-05] MEDS: Cyclobenzaprine 10 MG TAB 5 MG PO ×2 (07:41→14:31)
[2020-12-05] MEDS: Multivitamin TAB 1 TAB PO (07:41)
[2020-12-05] MEDS: Normal Saline 1,000 ML 100 ML IV (09:31)
[2020-12-05] MEDS: Magnesium Oxide 400 MG TAB PO (09:42)
[2020-12-05] MEDS: Acetaminophen 325 MG TAB 650 MG PO (11:54)
[2020-12-05] MEDS: Nystatin POWDER 15 GM JAR TP (14:31)
--- NOTE | 2020-12-05 14:53 | W.PM.PROGNOT ---
Date of Service Date of service: 12/05/20 Time of Service: 14:53 Assessment and Plan Assessment and plan (1) Decubitus skin ulcer: Status: Acute Assessment and plan: Related to RLE contractures and resultant difficulty with repositioning and wound care. Appreciate Podiatry input. Orthopedic consult pending; discussing possible AKA of RLE which would give him a better chance at prevention of further skin breakdown and allow him to be in a sitting position. (2) Intertriginous candidiasis: Status: Acute Assessment and plan: Cont nystatin. (3) Paraplegia: Status: Chronic Assessment and plan: Secondary to C-spine stenosis. s/p decompression surgery now appx 3 weeks ago. Subjective Subjective Patient reports: tolerating a regular diet and afebrile; denies nausea, vomiting and shortness of breath Interval history since last seen: Diffuse pain, at his baseline level, persists. Oral nutritional intake has improved. Exam Const Nutritional Appearance: average body habitus Orientation: alert and oriented x3 Resp Effort & Inspection: normal respiratory effort Auscultation: clear to auscultation bilaterally Cardio Rate: regular rate Rhythm: regular rhythm Heart Sounds: S1 normal and S2 normal GI Palpation: soft and nontender Skin Lesions: other (R heel and malone with dressings in place.) Extrem General: other (R hip and knee with tight contracted position .) Objective Last Vital Signs Temp 36.6 C 12/05/20 11:12 Pulse 81 12/05/20 11:12 Resp 24 12/05/20 11:12 BP 148/70 H 12/05/20 11:12 Pulse Ox 90 L 12/05/20 11:12 Laboratory Results - last 24 hr 12/04/20 12/04/20 12/04/20 15:30 15:30 16:15 Creatinine 0.5 L Estimated GFR/1.73 m2 >= 60.00 Vancomycin Trough 12.4 COVID-19 Source Nasal/nares SARS-CoV-2 (PCR) Negative
--- NOTE | 2020-12-05 15:13 | W.PALLCONSUL ---
Date of service: 12/05/20 Time of Service: 13:13 History of Present Illness History of Present Illness Chief Complaint: goals of care discussion, code status Narrative: I met with Kain and animal care supervisor Sarah Lee RN. I later returned and met with Kain again one-on-one. Kain is a very unfortunate man who is a functional quadriplegic. He cannot move without assistance. He recently had neck surgery at [facility] to see if some of his UE function can be restored. He said he was told he had to wait up to 12 -18 months before he can tell if the surgery was successful. He's been living at [facility]. He came in with what was originally thought to be a UTI but instead is more likely osteomyelitis. He was seen by veneer measurer Dr Roth the day before my visit, and was due to be seen by ortho after my visit. He and I discussed his code status. He does not want to be resuscitated. I filled out a COLST form with him, indicating his wishes. He received a phone call from a family member, so he did not make his X. I told CM that he would need to do this. I will check on him again tomorrow. Consults Consult date: 12/05/20 Requesting physician: Audie Jalloh Assessment and Plan Assessment and plan (1) POLST (Physician Orders for Life-Sustaining Treatment): Status: Acute Assessment and plan: Filled out. I siged. He wants to sign in front of his sister tomorrow. He does want his code status returned to DNR/DNI, which is what it was previously, he told me and Sarah Lee RN/CLAUDINE. (2) Goals of care, counseling/discussion: Status: Acute Assessment and plan: Reviewed COLST. He would like to go home to his house, but understands that this is unlikely given his rapid deterioration. He does hold out some hope that he will be able to recover enough to go home, live on his first floor only. He does want his pain controlled, if it becomes an issue. (3) Palliative care patient: Status: Acute Assessment and plan: Will continue to follow. Will return tomorrow (12/06) to review COLST with him and his sister, in case Marie has questions. (4) Cervical spinal stenosis: Status: Acute (5) Contracture, right knee: Status: Acute (6) Wounds, multiple: Status: Acute (7) Complete immobility due to severe physical disability or frailty: Status: Acute (8) Lives in residential: Status: Chronic (9) Pressure ulcers of skin of multiple topographic sites: Status: Acute (10) History of neck surgery: Status: Chronic Review of Systems Constitutional Constitutional: Reports difficulty sleeping, Reports fatigue, Reports lethargy, Reports malaise and Reports weakness Eyes Eyes: Reports dry eyes and Reports requires corrective lenses ENT Ears, Nose, Mouth, and Throat: Reports dry mouth, Reports nasal congestion and Reports neck pain Cardiovascular Cardiovascular: Reports dyspnea on exertion and Reports orthopnea Respiratory Respiratory: Reports dyspnea on exertion Gastrointestinal Gastrointestinal: Reports constipation Genitourinary Genitourinary: Reports urinary incontinence (has gibson in place) Musculoskeletal Musculoskeletal: Reports atrophy, Reports deformity, Reports arthralgias, Reports muscle cramps, Reports muscle weakness and Reports neck pain Integumentary/Breasts Skin/Breast: Reports lesions, Reports non-healing lesions, Reports skin swelling, Reports skin ulcer, Reports sores and Reports wounds Neurologic Neurologic: Reports abnormal movements, Denies confusion, Reports localized weakness and Reports weakness Psychiatric Psychiatric: Denies confusion, Reports hopelessness (comes and goes 2020 has been a hard year) and Reports anhedonia Endocrine Endocrine: Reports fatigue Hematologic/Lymphatic Hematologic/Lymphatic: Reports easy bruising [facility] Medical History (Updated 12/06/20 @ 20:17 by Shae Cano MD) Chronic venous hypertension (idiopathic) with ulcer and inflammation of bilateral lower extremity Complete immobility due to severe physical disability or frailty Disoriented to place Disoriented to time Essential (primary) hypertension Fatty (change of) liver, not elsewhere classified Goals of care, counseling/discussion Hallucinations, unspecified Hyperlipemia Lives in residential since Jul 2020 Major depressive disorder Muscle weakness (generalized) Neuromuscular dysfunction of bladder, unspecified Obesity Other spondylosis with myelopathy, cervical region Palliative care patient Paraplegia Pneumonia POLST (Physician Orders for Life-Sustaining Treatment) discussed and verbal decision made for DNR/DNI on 12/05/20; cannot sign Pressure ulcer of left heel, unstageable Pressure ulcer of other site, unstageable Pressure ulcer of right heel, unstageable Pressure ulcer of right hip, unstageable Pressure ulcer of right upper back Pressure ulcers of skin of multiple topographic sites Radiculopathy Repeated falls Rhabdomyolysis Unilateral primary osteoarthritis, right hip Unspecified fall Urinary tract infection Venous insufficiency (chronic) (peripheral) Surgical History (Updated 12/06/20 @ 20:17 by Shae Cano MD) History of neck surgery [facility] 2020 Family History (Updated 12/06/20 @ 20:17 by Shae Cano MD) Sister No problems noted. Social History (Updated 12/06/20 @ 20:20 by Shae Cano MD) Smoking/Tobacco Use Status: Never Smoking risk assessment performed?: Yes Alcohol Intake: never Drug use: Never Substance use type: does not use Caregiver/Support person: No Household members: none Housing: residential Communication Needs: Corrective Lenses Do you need help understanding health information?: Always Current gender identity: male How often do you talk on the phone with friends or family?: three or more times per week How often do you get together with friends or relatives?: never Panel score (0-1 are the most socially isolated patients): 1 What type of physical activity do you participate in: none and sedentary lifestyle Frequency: does not exercise Special kena needs: No Seatbelt use: always Do you feel safe at home: Yes Do you feel safe in your relationship?: Yes Additional Social history: PATIENT HAS BEEN AT [facility] SINCE or JUNE. WAS LIVING ALONE. Has a sister Marie who is his agent, though not sure if paperwork signed. [place] era vet. Was in the [employer]. 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 From [place] originally. Exam Const General: cooperative, no acute distress and ill appearing Nutritional Appearance: overweight Orientation: alert, awake and oriented x3 Limitations: physical limitations [facility] Head: normocephalic and atraumatic Ears: hearing grossly normal bilaterally General nose exam: nasal discharge (asked me to wipe his nose for him; he cannot move his arms) clear Face and sinus: normal facial exam and face symmetric Teeth and gingiva: dentition normal Eyes Conjunctivae: conjunctivae normal Sclera: sclerae normal EOM: EOM intact bilaterally Neck Neck: other (scar posterior neck) Lymphatic: no lymphadenopathy noted Resp Effort & Inspection: normal respiratory effort and able to speak in complete sentences Auscultation: clear to auscultation bilaterally Cardio Rate: regular rate Rhythm: regular rhythm Heart Sounds: S1 normal and S2 normal GI Palpation: soft and nontender Auscultation: normal bowel sounds Back/Spine/Pelvis Cervical Spine: scars present and cervical ROM abnormal Skin General skin exam: pallor and scars Lesions: other (R heel and malone with dressings in place.) Wounds: wounds noted Neuro General: patient alert, patient awake and patient oriented x3 Cranial Nerves: unable to rotate head bilaterally and unable to elevate shoulders bilaterally Cognition: normal cognition Speech: speech normal Extrem General: edema, muscle atrophy and other (R hip and knee with tight contracted position .) Right upper extremity: edema Left upper extremity: edema Psych Appearance: grossly normal Speech and Movement: speech and movement normal Mood: congruent mood Affect: sad (sick of being sick) Attitude: cooperative Thought Process: impoverished (based on information he states he's been given) Thought Content: normal Insight: fair Judgment: fair Other: able to make his own medical decisions reviewed COLST filled it out as he directed wants to wait to make his X until his sister is present he was talking to her on the phone during my second visit she will be in 12/06 Results Last Vital Signs Temp 97.9 F 12/05/20 11:12 Pulse 81 12/05/20 11:12 Resp 24 12/05/20 11:12 BP 148/70 H 12/05/20 11:12 Pulse Ox 90 L 12/05/20 11:12 Labs Result diagrams: 12/06/20 11:45 12/04/20 15:30 Labs: Laboratory Results - last 24 hr 12/04/20 12/04/20 12/04/20 15:30 15:30 16:15 Creatinine 0.5 L Estimated GFR/1.73 m2 >= 60.00 Vancomycin Trough 12.4 COVID-19 Source Nasal/nares SARS-CoV-2 (PCR) Negative
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
--- NOTE | 2020-12-05 18:13 | OCONE_ITS ---
Date of service: 12/05/20 Time of Service: 17:14 History of Present Illness History of Present Illness Chief Complaint: Right leg contracture and wounds Narrative: Kain is a 75yo male with a complex past medical history that I don't quite understand in chronology. For some years he has had some ambulatory decline. He told me that for years he ambulated awkwardly but was ambulating. He reports having a time where he was unable to ambulate and he was at [facility] but then this improved. I do not have any significant records from the snf and Kain is not certain on the timing of the progression of his disease. Either way in September he was identified to be having worsening function of his upper extremities as well as weakness which prompted neurology consultation followed by an MRI. This MRI showed severe spinal stenosis C3-4 and eventually he had a posterior decompression and fusion performed at [facility]. This occurred approximately 3 weeks ago. He has had a neurogenic bladder and has a indwelling catheter in place. He was noted to be having fevers with decreased urine output and was brought to the emergency department where diagnosis of UTI was made. As this is being treated he was also evaluated for leg wounds in the right side. He was noted to have multiple wounds about the right leg but unfortunately nursing was unable to truly evaluate these wounds nor treat them given significant contracture. Kain is unable to tell me how long his leg is been in this position. He seems to be uncertain of a lot of the details and specifics of the timing of his disease progression. We have no record of any physical exam to suggest when this happened. However it is a very awkward position and prohibits evaluation the wounds and is actually the source of the wounds as well. Kain has chronic pain throughout all the extremities. He reports being able to use his right hand minimally. He notes that he is able to stand up and get up but this is not true. He does endorse sensation about the arms and the legs. He has pain with any attempted mobility of the right leg. He denies any notable falls or injuries to the right leg. I have no information from the [facility] and thus no record of what his status was when he was discharged. I was consulted for evaluation of his contracture about the right leg. He was seen recently by Dr. Hoyt for evaluation of the wounds as well. Consults Consult date: 12/05/20 Requesting physician: Audie Jalloh Consult Reason Right leg contracture Assessment and Plan Assessment and plan (1) Decubitus skin ulcer: Status: Acute Assessment and plan: Kain is a 75-year-old multiple skin ulcers. Dr. Osei has been consulted for the management of foot wounds. Unfortunately, nursing is unable to manage the remainder of the wounds due to positioning. Therefore however adequate skin care we need to be able to get his right leg off of the left. I recommend that we go the operating room to put him under anesthesia with a relaxant on board to see how much of his contractures are actually contractures rather than spasticity. This help determine what we can correct while he is here. I think is a very challenging case which should have been at least addressed at [facility]. Either way, understanding what his leg does when he is relaxed under anesthesia will be very helpful. I would also recommend that the wound care nursing team comes down to the operating room to provide whatever care they need to while he is under anesthesia. Qualifiers: Pressure injury location: unspecified location (2) Fracture of head of right femur: Status: Acute Assessment and plan: Kain has a fracture of his right femoral head. This likely is some type of osteonecrotic or infectious process. My suspicion is this is simply osteonecrosis or from a missed injury. However, there is deformity of the femoral head with fragmentation of the femoral head and subluxation of the femoral head. Is very possible that this fracture is actually what is causing majority of his contracture of the right hip as it appears to be hinged over the lateral acetabulum. Images are not great. However, it is clear there is deformity of femoral head fragmentation. This is really only going to be amenable to conservative treatments, Girdlestone procedure (where the head is cut out), or hip replacement. Because he does have elevated CRPs and has been sick, we must consider infection as well. He does have multiple wounds with exposed bones which could have active infection and possible osteomyelitis. However, given the appearance of the femoral head and his collapse and must be considered here as well. At a minimum, while under anesthesia for manipulation of the leg I would like to see if were able to improve the positioning. I would at least aspirate the hip. However, one other option is to go ahead and perform a Girdlestone procedure, cutting out the femoral head, and sending this to pathology. He is largely nonambulatory and the Girdlestone procedure can provide some better motion of the right leg although it may cause a episode of pain to begin with. Qualifiers: Encounter type: initial encounter Fracture type: closed Qualified Code(s): S72.051A - Unspecified fracture of head of right femur, initial encounter for closed fracture (3) Contracture of right hip: Status: Acute Assessment and plan: Once again, the etiology is unclear. While in the operating room we can assess his contracture and if necessary release the abductor tendons at a minimum and possibly even anterior capsule and iliopsoas if necessary. (4) Contracture, right knee: Status: Acute Assessment and plan: The contracture of the right knee is quite severe. I was unable to really evaluate it today but I plan to do a more thorough examination under anesthesia tomorrow. Please keep Kain n.p.o. for the operating room tomorrow. (5) Cervical spinal stenosis: Status: Acute Review of Systems All systems reviewed & are unremarkable except as noted in HPI and below [facility] Medical History Chronic venous hypertension (idiopathic) with ulcer and inflammation of bilateral lower extremity Essential (primary) hypertension Fatty (change of) liver, not elsewhere classified Hallucinations, unspecified Hyperlipemia Major depressive disorder Muscle weakness (generalized) Neuromuscular dysfunction of bladder, unspecified Obesity Other spondylosis with myelopathy, cervical region Paraplegia Pneumonia Pressure ulcer of left heel, unstageable Pressure ulcer of other site, unstageable Pressure ulcer of right heel, unstageable Pressure ulcer of right hip, unstageable Pressure ulcer of right upper back Radiculopathy Repeated falls Rhabdomyolysis Unilateral primary osteoarthritis, right hip Unspecified fall Urinary tract infection Venous insufficiency (chronic) (peripheral) Social History Smoking/Tobacco Use Status: Never Smoking risk assessment performed?: Yes Alcohol Intake: never Drug use: Never Substance use type: does not use Do you feel safe at home: Yes Do you feel safe in your relationship?: Yes Additional Social history: PATIENT HAS BEEN AT [facility] SINCE JUNE. WAS LIVING ALONE PRIOR TO . Exam Const General: cooperative, comfortable and no acute distress Nutritional Appearance: well nourished Orientation: alert, awake, oriented x3 and confused (about some details of his current state) Extrem Other: Kain sits in the bed with the right leg flexed about 90 degrees and abducted all the way over to where the right knee is overlying the proximal left thigh. The knee is held in approximately 115 degrees of flexion with the right medial knee and leg resting against the left leg. Any attempted mobility of the right leg away from the left causes significant pain as well as audible palpable crepitus to the hip. I am unable to evaluate the knee due to pain as well. He has pain with all palpation about the legs. There are multiple wounds with dressings. The foot wounds were recently debrided and dressed and so I did not address those at this time. There is a medial leg wound which is unable to be visualized due to its resting position against the left leg. There is a ulcer over the right hip with penetration down to the dermis. There are no signs of infection in any of the sites although by report bone is exposed over the medial leg and the medial foot. No purulence. No drainage. He is able to discriminate Landor sensation about the legs. While there is no significant proximal motion he is able demonstrate some minimal great toe extension and flexion with some slight ankle dorsiflexion plantarflexion of both right and left. As for the upper extremities he is only able to demonstrate some gentle flexion and extension of the right thumb with some minimal motion of the fingers and wrist on the right side. There is no appreciable motion intact on the left side. He endorses sensation although it is less specific throughout both upper extremities. Results Last Vital Signs Temp 36.3 C L 12/05/20 15:19 Pulse 82 12/05/20 15:37 Resp 20 12/05/20 15:19 BP 132/73 12/05/20 15:19 Pulse Ox 93 12/05/20 15:19 Labs Result diagrams: 12/04/20 06:15 12/04/20 15:30 Labs: Laboratory Results - last 24 hr 12/04/20 16:15 SARS-CoV-2 (PCR) Negative Imaging Imaging Studies: Kain has been unable to obtain any significant imaging of his right leg to the contracture in his pain. There is a hip x-ray which shows significant deformity about the right hip with notable osteopenia. There is an impaction fracture and collapse of the superior aspect of the femoral head with lateral subluxation of the femoral head and some proximal migration. Once again, the x-rays are difficult to interpret but there is fragmentation of the femoral head present with 1 loose body seen lateral to the lateral acetabulum. There is lucencies within this bone which could be due to the fracture, osteonecrosis, or infection.
--- NOTE | 2020-12-05 21:41 | NUR.NOTE ---
Nursing Note: At around 1999 Bernie MARINO told this RN that the patient was refusing to be turned. When this RN went to the patient room, patient was agitated, confuse and resistive to care and shouted 'now why are you here? are you one of them? you're holding me against my will, i want to go to my room' RN talked to the patient in a very calm manner that hes in his hospital room and that hes here because we are treating him patient shouted 'i don't believed you! .when this RN asked if i can touch him, patient shouted 'No! that's assault!' (this RN did not touched the patient),this RN talked to the patient in a calm but firm manner that he should not shout and that we can talk in a calmly manner patient replied 'then let me get out of here' Patient also refused to take his medicine telling this RN that I'm blackmailing him to take his medicine this RN told the patient that he has the right to refused and that if he doesn't want to take the medicine this RN wont insist but suddenly the patient verbalized give me my medicines ill take it all at once and put it in my finger when this RN gave the medicine cup with medicine patient threw it away saying you deserved that!' Patient also hallucinating verbalizing theres a broken glass under my left arm This RN checked and showed the patient that theres no broken glass under his left arm pt replied 'you're are playing games, get out of here! RN notified the charge nurse about what happened.
[2020-12-06] VITALS (8 sets, daily range): BP systolic 120–150; BP diastolic 67–87; PULSE 85–118; RESP 17–20; TEMP 36.3–37.6; O2SAT 92–96; BMI 26.6
--- NOTE | 2020-12-06 | DI.RAD_ITS ---
Exam(s) XR PORTABLE CHEST AP EXAM: XR PORTABLE CHEST AP CLINICAL HISTORY: confusion.. TECHNIQUE: 2D digital imaging was performed. COMPARISON: CR,XR XR CHEST 1V IN DI DEPT from 12/01/2020 FINDINGS: Heart size is unchanged. Mediastinum is not widened. Right hemidiaphragm is slightly elevated, unch anged. Lungs are clear. No infiltrates nor obvious pleural effusions. No pulmonary edema. No pneumothorax. IMPRESSION: No acute pulmonary findings on this single AP portable view of the chest.Mildly elevated right hemidi aphragm again noted. DATA REPOSITORY: RADIATION DOSE DELIVERED: All CT scans at this facility use at least one of these dose optimization techniques: automated exposure control; mA and/or kV adjustment per patient size (includes targeted e xams where dose is matched to clinical indication); or iterative reconstruction.
[2020-12-06] MEDS: Lactated Ringers 1,000 ML 80 ML IV (00:22)
[2020-12-06] MEDS: Normal Saline Flush 10 ML SYR IVP (08:15)
--- NOTE | 2020-12-06 09:10 | ANES.CON_ITS ---
General Date of Service Date of Service: 12/06/20 Reason for Consult Requesting Provider: Hakan Maria How Consult Conducted:: Seen in Office (on [place], room 229. ) Reason for Consult:: preoperative evaluation for surgery today. Consult Recommendation after Review:: Should not be done here for this procedure unless deemed emergency Height: 5 ft 6.93 in Weight: 77 kg Body Mass Index (BMI): 26.6 Meds Allergies and Home Medications Allergies Allergy/AdvReac Type Severity Reaction Status Date / Time No Known Allergies Allergy Unverified 12/01/20 16:45 Home Medication Medication Instructions Recorded Liquid Protein Fortifier 30 ml PO BID 09/24/20 acetaminophen 1,000 mg PO Q6H PRN 09/24/20 aspirin 81 mg PO DAILY 09/24/20 cyanocobalamin (vitamin B-12) 1,000 mcg PO BID 09/24/20 cyclobenzaprine 5 mg PO TID 09/24/20 diclofenac potassium 25 mg PO BID 09/24/20 docusate sodium [Colace] 100 mg PO DAILY 09/24/20 ferrous gluconate 225 mg PO HS 09/24/20 furosemide 20 mg PO DAILY 09/24/20 loperamide 2 mg PO Q6H PRN 09/24/20 magnesium oxide [MagOx] 400 mg PO DAILY 09/24/20 multivitamin 1 tab PO DAILY 09/24/20 polyethylene glycol 3350 [Miralax] 17 g PO DAILY 09/24/20 potassium chloride 20 meq PO BID 09/24/20 simvastatin 40 mg PO QHS 09/24/20 tamsulosin [Flomax] 0.4 mg PO DAILY 09/24/20 bisacodyl [Dulcolax (bisacodyl)] 10 mg MO DAILY PRN 12/01/20 ceftriaxone 1 g IM DAILY 12/01/20 ciprofloxacin HCl [Cipro] 250 mg PO BID 12/01/20 fentanyl 1 patch TRANSDERMAL Q72H 12/01/20 gabapentin 200 mg PO TID 12/01/20 magnesium hydroxide 400 mg PO DAILY 12/01/20 melatonin 5 mg PO HS PRN 12/01/20 methocarbamol 1,000 mg PO QID 12/01/20 nystatin 1 applic TOPICAL TID 12/01/20 oxycodone 10 mg PO Q4H PRN 12/01/20 sennosides [senna] 8.6 mg PO BID 12/01/20 sodium phosphates [Fleet Enema] 118 ml MO ONCE 12/01/20 Current Visit Medications: Current Medications Generic Name Dose Route Start Last Admin Trade Name Freq PRN Reason Stop Dose Admin Acetaminophen 650 mg 12/01/20 18:24 12/05/20 11:54 Acetaminophen 325 Mg Tab PO 650 mg Q4H PRN PRN Administration Al Hydrox/Mg Hydrox/Simethicone 30 ml 12/01/20 18:24 Mylanta Suspension 30 Ml Cup PO Q2H PRN PRN Aspirin 81 mg 12/02/20 08:30 12/05/20 07:40 Aspirin E.C. 81 Mg Tabec PO 81 mg DAILY BLADE Administration Cyanocobalamin 1,000 mcg 12/01/20 20:00 12/05/20 21:40 Cyanocobalamin 500 Mcg Tab PO Not Given BID BLADE Cyclobenzaprine HCl 5 mg 12/01/20 20:00 12/05/20 21:40 Cyclobenzaprine 10 Mg Tab PO Not Given TID BLADE Docusate Sodium 100 mg 12/01/20 18:24 Docusate Sodium 100 Mg Cap PO TID PRN PRN Doxycycline Hyclate 100 mg 12/05/20 20:00 12/05/20 21:40 Doxycycline Hyclate 100 Mg Cap PO Not Given BID BLADE Fentanyl 50 mcg 12/02/20 08:00 12/05/20 07:40 Fentanyl 50 Mcg Patch TD 50 mcg Q72H BLADE Administration Ferrous Gluconate 324 mg 12/01/20 22:00 12/05/20 23:29 Ferrous Gluconate 324 Mg Tab PO Not Given HS BLADE Gabapentin 200 mg 12/01/20 20:00 12/05/20 21:40 Gabapentin 100 Mg Cap PO Not Given TID BLADE Heparin Sodium (Porcine) 5,000 units 12/01/20 20:00 12/06/20 03:52 Heparin 5,000 Units/Ml Vial SC Not Given Q8H BLADE Sodium Chloride 500 mls @ 0 mls/hr 12/01/20 18:17 Saline 500ml Bag IV PRN PRN As Directed Ringer's Solution 1,000 mls @ 80 mls/hr 12/06/20 00:00 12/06/20 00:22 IV 80 mls/hr INFUSION BLADE Administration IV Miscellaneous Supplies 1 each 12/01/20 16:30 Iv Access IV DIRECTED [facility] Magnesium Hydroxide 30 ml 12/01/20 18:24 Milk Of Magnesia 30 Ml Cup PO DAILY PRN PRN Magnesium Oxide 400 mg 12/02/20 10:00 12/05/20 09:42 Magnesium Oxide 400 Mg Tab PO 400 mg DAILY@1000 BLADE Administration Melatonin 6 mg 12/02/20 22:00 12/05/20 23:29 Melatonin 3 Mg Tab PO Not Given HS [facility] Methocarbamol 1,000 mg 12/01/20 20:00 12/05/20 21:40 Methocarbamol 500 Mg Tab PO Not Given QID [facility] Multi-Ingredient Supplement 1 ounce 12/04/20 14:00 12/05/20 21:41 Protein Nutritional Supplement 16 Gm 1 Ounce Packet PO Not Given TID [facility] Multivitamins 1 tab 12/04/20 13:00 12/05/20 07:41 Multivitamin Tab PO 1 tab DAILY [facility] Administration Nystatin 0 gm 12/02/20 08:30 12/05/20 21:40 Nystatin Powder 15 Gm Jar TP Not Given TID [facility] Oxycodone HCl 10 mg 12/01/20 18:37 12/04/20 21:44 Oxycodone 10 Mg Tab PO 10 mg Q4H PRN PRN Administration Polyethylene Glycol 17 gm 12/01/20 18:24 Polyethylene Glycol 3350 17 Gm Packet PO DAILY PRN PRN Constipation Potassium Chloride 20 meq 12/01/20 20:00 12/05/20 21:40 Potassium Chloride 20 Meq Tabcr PO Not Given BID [facility] Simvastatin 40 mg 12/01/20 22:00 12/05/20 23:29 Simvastatin 40 Mg Tab PO Not Given HS [facility] Sodium Chloride 0 ml 12/01/20 18:17 Normal Saline Flush 10 Ml Syr IVP PRN PRN Tamsulosin HCl 0.4 mg 12/02/20 08:30 12/05/20 07:40 Tamsulosin 0.4 Mg Capcr PO 0.4 mg DAILY [facility] Administration Zinc Sulfate 220 mg 12/05/20 08:30 12/05/20 07:40 Zinc Sulfate 220 Mg Tab PO 220 mg DAILY BLADE Administration PFSH Active Problems Active Problems: Problem Status Onset Code Cervical spinal stenosis M48.02 Contracture, right knee M24.561 Contracture of right hip M24.551 Fracture of head of right femur S72.051A Decubitus skin ulcer L89.90 Wounds, multiple T07.XXXA Intertriginous candidiasis B37.2 Chronic venous hypertension (idiopathic) with ulcer and inflammation of bilater al lower extremity I87.333, L97.919, L97.929 Paraplegia G82.20 Neuromuscular dysfunction of bladder, unspecified N31.9 Sepsis syndrome Colitis with rectal bleeding K52.9, K62.5 Urinary tract infection with fever N39.0 Medical History Medical History Chronic venous hypertension (idiopathic) with ulcer and inflammation of bilateral lower extremity Essential (primary) hypertension Fatty (change of) liver, not elsewhere classified Hallucinations, unspecified Hyperlipemia Major depressive disorder Muscle weakness (generalized) Neuromuscular dysfunction of bladder, unspecified Obesity Other spondylosis with myelopathy, cervical region Paraplegia Pneumonia Pressure ulcer of left heel, unstageable Pressure ulcer of other site, unstageable Pressure ulcer of right heel, unstageable Pressure ulcer of right hip, unstageable Pressure ulcer of right upper back Radiculopathy Repeated falls Rhabdomyolysis Unilateral primary osteoarthritis, right hip Unspecified fall Urinary tract infection Venous insufficiency (chronic) (peripheral) Tobacco Smoking/Tobacco Use Status: Never Alcohol Alcohol Intake: never Substance Use Substance use: Never Substance use type: does not use Vital Signs & Lab Results Vital Signs Most Recent Vital Signs: Most Recent Vital Signs Temp Pulse Resp BP Pulse Ox 36.9 C 96 H 19 128/71 92 12/06/20 07:57 12/06/20 07:57 12/06/20 07:57 12/06/20 07:57 12/06/20 07:57 Point of Care Results Nursing Point of Care Results: No Data to Display Lab Results Result Diagrams: 12/04/20 06:15 12/04/20 15:30 Blood Type / Crossmatch: No Data to Display Complete Blood Count: White Blood Count 5.96 10^3/uL (4.4-10.8) 12/04/20 06:15 12/04/20 Red Blood Count 3.71 10^6/uL (4.36-5.78) L 12/04/20 06:15 12/04/20 Hemoglobin 9.9 g/dL (13.5-17.5) L 12/04/20 06:15 12/04/20 Hematocrit 32.0 % (40.0-50.0) L 12/04/20 06:15 12/04/20 Platelet Count 158 10^3/uL (130-400) 12/04/20 06:15 12/04/20 Complete Metabolic Panel: Sodium Level 143 mmol/L (136-145) 12/03/20 05:45 12/03/20 Potassium Level 3.5 mmol/L (3.5-5.1) 12/03/20 05:45 12/03/20 Chloride Level 108 mmol/L (98-107) H 12/03/20 05:45 12/03/20 Carbon Dioxide Level 27.4 mmol/L (21.0-32.0) 12/03/20 05:45 12/03/20 Blood Urea Nitrogen 13 mg/dL (7-18) 12/03/20 05:45 12/03/20 Creatinine 0.5 mg/dL (0.70-1.30) L 12/04/20 15:30 12/04/20 Magnesium Level 1.8 mg/dL (1.8-2.4) 12/01/20 17:29 12/01/20 Calcium Level 7.8 mg/dL (8.5-10.1) L 12/03/20 05:45 12/03/20 Albumin 2.2 g/dL (3.4-5.0) L 12/02/20 06:54 12/02/20 Glucose Level 112 mg/dL (74-106) H 12/03/20 05:45 12/03/20 C-Reactive Protein 14.77 mg/dL (0.0-0.3) H 12/03/20 05:45 12/03/20 Liver Function Panel: Alanine Aminotransferase (ALT/SGPT) 21 U/L (16-63) 12/02/20 06:54 12/02/20 Aspartate Amino Transf (AST/SGOT) 12 U/L (15-37) L 12/02/20 06:54 12/02/20 Coagulation Panel: No Data to Display Cardiac Panel: Troponin I < 0.05 ng/mL (<0.06) 12/01/20 20:05 12/01/20 Arterial Blood Gas: No Data to Display Venous Blood Gas: Venous Blood Lactate 0.9 mmol/L (0.6-1.4) 12/01/20 17:29 12/01/20 Pancreas Panel: No Data to Display Thyroid Panel: Thyroid Stimulating Hormone (TSH) 3.19 uIU/mL (0.36-3.74) 12/01/20 17:29 12/01/20 Infectious Disease: Coronavirus (COVID-19)(PCR) Negative (Negative) 12/04/20 16:15 12/04/20 Coronavirus 2019 Source Nasal/nares 12/04/20 16:15 12/04/20 Blood Cultures: No Data to Display Toxicology Panel: No Data to Display Imaging and Studies Imaging and Studies EKG Summary: 09/24/20: Sinus rhythm...normal P axis, V-rate 60- 99 Anesthesia Assessment and Plan Exercise Tolerance Exercise Tolerance: Metabolic Equivalents<4 Cardiac & Pulmonary Exam Cardiac Exam: Other (distant) Airway Exam Mallampati Class: 4 Mouth Opening: Narrow (< 3cm) Thyromental Distance: Greater than 3 cm Neck Range of Motion: Limited ROM and History of Cervical Fusion Neck Circumference: Normal Teeth Condition: Removable Dentures/Plates Upper Anesthesia Plan Resuscitation Status: DNR/DNI Preoperative Comments:: Interviewed [place] for his potential operative procedure this afternoon. He is found in room 229. He is a ill appearing 75 yo gentleman that was admitted on the of this month. He was originally admitted for thoughts of UTI. He recently (per pt) had a cervical spinal decompression ~ 3 weeks ago for severe spinal stenosis which has resulted in his being almost a quadriplegic. He also states he had a cervical spine fusion many years ago (C2-5 he believes) and has minimal neck mobility. In discussion about his LE contraction he feels that they are a little better than previous and that it started in June. On continued discussion he asked me to open the window. When I pointed out that it does not open, he stated that it absolutely does. On further discussion he says that he is in a restaurant in [facility]. When he was informed that he was at [facility], he was unsure as to why he was admitted. Given that he has had much of his previous care at [facility], he a very poor historian, extremely limited neck mobility I do not think he is good candidate at this time for this procedure for anesthesia here at [facility] unless his case is deemed to be an emergency.
--- NOTE | 2020-12-06 11:03 | PDOC.CMPRO ---
- If Service Date Differs Date of service: 12/06/20 Time of Service: 11:03 Care Management Progress Note S/O: London appears very confused and disoriented today. He met with Ortho yesterday, who recommends surgical intervention. Today, Anesthesia did not feel that he is a good candidate for surgery at [facility]. Dr. Cano, Palliative care, met with him both yesterday and today, and reported that he is much worse today, and he is refusing medications and lab work. CM and Dr. Cano called Marie, his sister, and discussed his goals of care. Marie reported that London has been positive about his potential outcome, even if he has to have his leg amputated, therefore she would prefer that he is transferred for surgery, indicated. Per MD, he remains acute, and his blood and urine cultures are pending. CM will continue to follow. A: London is a 75 year old male admitted to [facility] on 12/01/20 with UTI, sepsis. P: London will return to [facility] once he has been medically cleared by . He will transport via EMS. He will follow up with his PCP and discharge plan of care. CM will continue to follow.
[2020-12-06 11:52] LABS: Abs Immature Grans 0.02 10^3/uL (0.0-0.06); Absolute Basophil Count 0.04 10^3/uL (0.0-0.2); Absolute Lymphocyte Count 1.12 10^3/uL (1.2-3.4); Absolute Neutrophil Count 4.59 10^3/uL (1.2-6.7); Basophils % 0.6; Eosinophils % 4.4; HCT 38.7 % (40.0-50.0); HGB 12.1 g/dL (13.5-17.5); Immature Grans % 0.3; Lymphocytes % 16.5; MCH 26.2 pg (27.0-33.0); MCHC 31.3 % (32.0-36.0); MCV 83.9 fL (80-95); MPV 9.7 fL (8.0-11.0); Monocytes % 10.3; Neutrophils % 67.9; Nucleated RBC 0 %; Platelet Count 263 10^3/uL (130-400); RBC 4.61 10^6/uL (4.36-5.78); RDW 15.7 % (11.8-14.1); RDW-SD 48.2 fL; WBC 6.77 10^3/uL (4.4-10.8)
[2020-12-06 12:15] LABS: Bilirubin Negative (Negative); Blood Trace-lysed (Negative); Clarity Clear (Clear); Glucose Negative (Negative); Ketones 40 mg/dL (Negative); Leukocyte Esterase Trace (Negative); Nitrite Negative (Negative); Urobilinogen 0.2 EU/dL (Up TO 0.2)
--- NOTE | 2020-12-06 12:28 | PCPN_ITS ---
Date of service: 12/06/20 Time of Service: 12:28 Assessment and Plan Assessment and plan (1) Confusional state: Status: Acute Assessment and plan: I spoke with his sister and the Rehab staff. His sister was hoping that his sudden onset of confusion was caused by a new medication. I reviewed his recent medication changes with pharmacy. The only new medication added since his confusion came on was doxycycline. Unlikely to be and ADR. Rehab said that he regularly cycles through episodes of severe confusion. The charge nurse Dasha thought it could be related to a brewing infection, but it has occurred spontaneously as well. Today, his WBC is normal. He does not have a UTI. It is unclear whether his suspected osteomyelitis could cause this. Kain is profoundly different from his presentation yesterday. He is not able to make his own medical decisions. He tells me that his sister should make them for him. She wants him to be transferred to a higher level of care. I spoke to Dr Maria, orthopedist, and he thought that Kain would benefit from having a whole team addressing his multiple health needs. I spoke to Dr Jalloh, hospitalist, about Kain's sister's desire to have him transferred. (2) Contracture, right knee: Status: Acute Assessment and plan: Severe. Per Rehab staff, his contracture came on suddenly about 2 months prior to this admission. Dr Maria thought that his leg could be straightened, perhaps, with ortho procedure, botox, etc. I am not sure how much this would contribute to his overall quality of life. I think Kain has a limited life expectancy, of less than 1 year, likely less than 6 months. (3) Contracture of right hip: Status: Acute (4) Fracture of head of right femur: Status: Acute Assessment and plan: See Dr Maria's note. Unclear of timing of this fracture. According to Rehab, Kain was up walking with assistance, sitting at side of his bed, as recently as September 2020. Presume that the fall happened after that date.... Qualifiers: Encounter type: initial encounter Fracture type: closed Qualified Code(s): S72.051A - Unspecified fracture of head of right femur, initial encounter for closed fracture (5) Wounds, multiple: Status: Acute Assessment and plan: Kain is completely unable to move independently. His contractures make it difficult for him to be repositioned easily to prevent worsening of his pressure ulcers. Wound team is working with him. Dr Roth debrided his heel ulcer. (6) Decubitus skin ulcer: Status: Acute Assessment and plan: Multiple. Qualifiers: Pressure injury location: unspecified location (7) Palliative care patient: Status: Acute Assessment and plan: On 12/05, Kain was able to particpate in discussion of his goals of care, his wishes re; code status. On 12/06, he could not make any of his own medical decisions. His sister tells me that he has not made a will, or done any EOL legal planning either. (8) Disoriented to place: Status: Acute (9) Disoriented to time: Status: Acute (10) Goals of care, counseling/discussion: Status: Acute (11) POLST (Physician Orders for Life-Sustaining Treatment): Status: Acute Assessment and plan: Reviewed on 12/05. He stated in front of me and care management that he wanted a natural . He was planning on marking his x in front of his sister when she visited. However, given his mental state today, he cannot sign. Subjective Subjective Patient reports: still having pain; denies tolerating a regular diet Interval history since last seen: Kain is very much worse than he was yesterday. He is confused. He was refusing medications and lab work. He is convinced that he is in [place], [place] or He thinks people are lying to him. He is certain that it is night, not day I spoke to Dasha, the head nurse on his wing at Rehab. She explained to me that he often goes through episodes of hallucinations. She also said he was able to participate in PT until about 2 mos ago. His right leg contractures started at that time, too. I have called [facility] pharmacy to see if any new medications could be contributing to his acute mental status changes. I spoke to Kain's sister, with Aline from beside me. She wants Kain to be transferred to a tertiary care center. I spoke to Dr Maria, from [facility]. He thinks there are still some procedures that could be done to straighten Kain's leg. Overall, however, he agreed with my assessment that Kain is likely in his last months of life. Exam Const General: uncomfortable, in distress, anxious, combative (refusing to take his medications; confused; convinced staff misleading him) and ill appearing Nutritional Appearance: overweight Orientation: oriented to person, not oriented to place (thinks he's in [place], not [place]), not oriented to time (thinks it is night) and confused Limitations: physical limitations (cannot move, functional quad due to severe spinal disease) HENMT Head: atraumatic and other (scar at back of neck from recent neck surgery) Ears: hearing grossly normal bilaterally General nose exam: external nose normal and nasal discharge clear Face and sinus: normal facial exam, face symmetric and dry mucous membranes Eyes Conjunctivae: conjunctivae normal Sclera: sclerae normal EOM: EOM intact bilaterally Neck Neck: limited ROM and tender (posteriorly at site of scar) Resp Effort & Inspection: normal respiratory effort, able to speak in complete sentences, no cough and not labored Auscultation: clear to auscultation bilaterally Cardio Jugular venous pressure: no JVD Rate: regular rate Rhythm: regular rhythm Heart Sounds: S1 normal and S2 normal GI Inspection: normal to inspection Palpation: soft Auscultation: normal bowel sounds Back/Spine/Pelvis Cervical Spine: scars present Skin General skin exam: dry skin Wounds: wounds noted Neuro General: patient alert, patient awake, does not move all extremities and unable to assess gait Cognition: abnormal cognition Speech: abnormal speech Motor: movement abnormality noted (cannot move) and muscle tone abnormal Extrem General: abnormal to inspection, abnormal ROM, edema and muscle atrophy Right upper extremity: edema; abnormal to inspection and ROM limited Left upper extremity: edema; abnormal to inspection and ROM limited Right lower extremity: abnormal to inspection, ROM limited (right leg with severe contracture, cannot straighten) and no cyanosis Psych Appearance: other (unclothed) Speech and Movement: agitated Mood: anxious mood, paranoid and labile mood Affect: animated and anxious affect Attitude: belligerent Thought Process: confabulating, illogical, impoverished and perseverating (he is certain that staff is telling him falsehoods about place and time) Thought Content: delusions Insight: poor Judgment: poor Other: According to Rehab staff, he has done this several times over the last 4- 5 months. Clear one day, and then totally disoriented, agitated and hostile the next. Even his sister reported that he can be belligerent at times. He looked frightened and confused overall. Objective Last Vital Signs Temp 98.8 F 12/06/20 11:27 Pulse 99 H 12/06/20 11:27 Resp 19 12/06/20 11:27 BP 147/87 H 12/06/20 11:27 Pulse Ox 96 12/06/20 11:27 Laboratory Results - last 24 hr 12/06/20 12/06/20 11:45 11:50 WBC 6.77 RBC 4.61 Hgb 12.1 L D Hct 38.7 L D MCV 83.9 MCH 26.2 L MCHC 31.3 L RDW 15.7 H Plt Count 263 D MPV 9.7 Immature Gran % 0.3 Neutrophils % 67.9 Lymphocytes % 16.5 Monocytes % 10.3 Eosinophils % 4.4 Basophils % 0.6 Nucleated RBC % 0 Absolute Neutrophils 4.59 Absolute Lymphocytes 1.12 L Absolute Monocytes 0.70 Absolute Eosinophils 0.30 Absolute Basophils 0.04 Urine Color Yellow Urine Clarity Clear Urine pH 8.0 Ur Specific Heron 1.020 Urine Protein Negative Urine Ketones 40 H Urine Blood Trace-lysed H Urine Nitrite Negative Urine Bilirubin Negative Urine Urobilinogen 0.2 Ur Leukocyte Esterase Trace H Urine Glucose Negative
[2020-12-06 12:36] LABS: Bacteria Rare HPF (Negative); C & S Indicated? Yes; Casts Negative LPF (Negative); Crystals Negative HPF (Negative); Epithelial Cells Rare HPF (Negative); Mucus Trace (Negative)
[2020-12-06] MEDS: Protein Nutritional Supplement 16 GM 1 OUNCE PACKET PO ×2 (13:44→21:14)
[2020-12-06 13:58] LABS: Lipase 14 U/L (73-393)
--- NOTE | 2020-12-06 14:38 | PHACLINREV_ITS ---
Pharmacy Admission Review - Admission Clinical Review (Last Reviewed 12/05/20 @ 18:18 by Hakan Maria MD) Cervical spinal stenosis (Acute) Contracture, right knee (Acute) Contracture of right hip (Acute) Fracture of head of right femur (Acute) Decubitus skin ulcer (Acute) Wounds, multiple (Acute) Intertriginous candidiasis (Acute) Sepsis syndrome (Acute) Urinary tract infection with fever (Acute) No Known Allergies Allergy (Unverified 12/01/20 16:45) Height 5 ft 6.93 in Weight 77 kg - Renal Dosing Renal Dosing: BUN 13 mg/dL (7-18) 12/03/20 05:45 Creatinine 0.5 mg/dL (0.70-1.30) L 12/04/20 15:30 Medications needing adjustments: Reviewed (Crcl ~74 mL/min current meds okay.) - Anticoagulation Anticoagulation: Hgb 12.1 g/dL (13.5-17.5) L D 12/06/20 11:45 Hct 38.7 % (40.0-50.0) L D 12/06/20 11:45 Plt Count 263 10^3/uL (130-400) D 12/06/20 11:45 Creatinine 0.5 mg/dL (0.70-1.30) L 12/04/20 15:30 DVT Prohphylaxis: Reviewed (Chance of possible amputation, unsure if still occuring. Will ask provider about this.) Therapeutic Anticoagulation: N/A - Opiate Usage Evaluate Pain Scale/Pains Meds: Reviewed Scheduled Bowel Reg ordered if on Opiates?: No (prn meds) - Relevant Labs ESR 25 mm/hr (0-20) H 12/03/20 05:45 Sodium 143 mmol/L (136-145) 12/03/20 05:45 Potassium 3.5 mmol/L (3.5-5.1) 12/03/20 05:45 Chloride 108 mmol/L (98-107) H 12/03/20 05:45 Magnesium 1.8 mg/dL (1.8-2.4) 12/01/20 17:29 C-Reactive Protein 14.77 mg/dL (0.0-0.3) H 12/03/20 05:45 Electrolytes, C-Reactive P, ESR: Reviewed (has scheduled K+ ordered BID) - DM Control DM Control: Glucose 112 mg/dL (74-106) H 12/03/20 05:45 Insulin Dosing: N/A - Heart Failure/OR Heart Failure/OR: Troponin I < 0.05 ng/mL (<0.06) 12/01/20 20:05 EF%, NENITA's, B-Blockers, Diuretics: Reviewed - BP Control BP Control: Blood Pressure 147/87 Blood Pressure 128/71 If elevated: Reviewed (BP has been up and down so far this admission but mainly low to normal.) - Qtc Review If Elevated: N/A - IV to PO Switch IV Medications: Reviewed - Home Meds Home Med List reviewed: Intervened (Some meds unconfirmed, no external med history. Will check with nursing to see if a med list was recieved from the assisted. Anticholinergic meds increase the ulcerogenic effect of solid oral potassium, consider alternative dosage form (liquid). Multiple [employer] depressants.) Relevent Home Meds Not ordered & why?: bisacodyl (PRN), ceftriaxone and cipro (had other abx ordered on admission), diclofenac (unconfirmed), furosemide (unconfirmed), loperamide(PRN/unconfirmed), senna - Current meds Current Medication Order Review: Intervened (Will ask provider about changing dosage form of potassium.) - Comments Comments/Follow Ups: Watch BP, K+, SCr, labs, and for med changes (additional need of BM meds). Antibiotic Activity - Pharmacy Antibiotic Review Pharmacy Antibiotic Activity: D/C antibiotic (Doxycycline was discontinued.)
[2020-12-06] MEDS: POTASSIUM CHLORIDE/0.9% NACL 1,000 ML 80 MEQ IV (15:45)
[2020-12-06] MEDS: Heparin 5,000 UNITS/ML VIAL 5000 UNITS SC (16:34)
--- NOTE | 2020-12-06 16:48 | W.PM.PROGNOT ---
Date of Service Date of service: 12/06/20 Time of Service: 16:49 Assessment and Plan Assessment and plan (1) Cervical spinal stenosis: Status: Acute Assessment and plan: s/p decompression tx. Some sensation and movement in feet is returning. (2) Contracture of right hip: Status: Acute Assessment and plan: Difficult predicament. Dr. Maria has spoken with his colleagues at [facility] and they also have no clear answer for best intervention for this patient. See ortho note. (3) Decubitus skin ulcer: Status: Acute Assessment and plan: Cont ongoing wound care. Concerned with likely osteomyelitis. Pt would not tolerate an MRI and positioning for an MRI would be difficult given his significan RLE contractions. Qualifiers: Pressure injury location: unspecified location (4) Confusional state: Status: Acute Assessment and plan: UA and CXR today don't indicate infectious etiology. WBC count normal. He does have h/o intermittent confusion. He did refuse meds today but did accept the IV fluids. Subjective Subjective Patient reports: afebrile; denies nausea and shortness of breath Interval history since last seen: Pt is very confused today. Ongoing generalized pain. Exam Const General: cooperative and no acute distress Nutritional Appearance: average body habitus Orientation: alert Limitations: altered mental status Eyes Sclera: sclerae normal Pupils: PERRL Resp Effort & Inspection: normal respiratory effort Auscultation: clear to auscultation bilaterally Cardio Rate: regular rate Rhythm: regular rhythm Heart Sounds: S1 normal and S2 normal GI Palpation: soft and nontender Skin General skin exam: other (R heel and malone with dressings in place.) Extrem General: other (R hip/knee contracture persists.) Psych Speech and Movement: speech clear Affect: sad Insight: poor Judgment: poor Objective Last Vital Signs Temp 37.6 C H 12/06/20 16:01 Pulse 93 H 12/06/20 16:01 Resp 20 12/06/20 16:01 BP 137/67 12/06/20 16:01 Pulse Ox 96 12/06/20 16:01 Laboratory Results - last 24 hr 12/04/20 12/06/20 12/06/20 15:30 11:45 11:50 WBC 6.77 RBC 4.61 Hgb 12.1 L D Hct 38.7 L D MCV 83.9 MCH 26.2 L MCHC 31.3 L RDW 15.7 H Plt Count 263 D MPV 9.7 Immature Gran % 0.3 Neutrophils % 67.9 Lymphocytes % 16.5 Monocytes % 10.3 Eosinophils % 4.4 Basophils % 0.6 Nucleated RBC % 0 Absolute Neutrophils 4.59 Absolute Lymphocytes 1.12 L Absolute Monocytes 0.70 Absolute Eosinophils 0.30 Absolute Basophils 0.04 Lipase 14 Urine Color Yellow Urine Clarity Clear Urine pH 8.0 Ur Specific Vaughn 1.020 Urine Protein Negative Urine Ketones 40 H Urine Blood Trace-lysed H Urine Nitrite Negative Urine Bilirubin Negative Urine Urobilinogen 0.2 Ur Leukocyte Esterase Trace H Urine RBC 3-5 H Urine WBC 3-5 Ur Epithelial Cells Rare Urine Crystals Negative Urine Bacteria Rare Urine Casts Negative Urine Mucus Trace Ur Culture Indicated? Yes Urine Glucose Negative
[2020-12-06] MEDS: Cyclobenzaprine 10 MG TAB 5 MG PO (21:11)
[2020-12-06] MEDS: Gabapentin 100 MG CAP 200 MG PO (21:12)
[2020-12-06] MEDS: Methocarbamol 500 MG TAB 1000 MG PO (21:13)
[2020-12-06] MEDS: Cyanocobalamin 500 MCG TAB 1000 MCG PO (21:13)
[2020-12-06] MEDS: Ferrous Gluconate 324 MG TAB PO (21:14)
[2020-12-06] MEDS: Simvastatin 40 MG TAB PO (21:14)
[2020-12-06] MEDS: Melatonin 3 MG TAB 6 MG PO (21:15)
[2020-12-07] VITALS (8 sets, daily range): BP systolic 126–152; BP diastolic 68–77; PULSE 66–86; RESP 16–21; TEMP 36.2–36.8; O2SAT 94–98
[2020-12-07] MEDS: Heparin 5,000 UNITS/ML VIAL 5000 UNITS SC ×3 (00:02→23:28)
[2020-12-07] MEDS: Lactated Ringers 1,000 ML 80 ML IV ×2 (04:37→17:13)
[2020-12-07] MEDS: Nystatin POWDER 15 GM JAR TP ×3 (04:38→15:08)
[2020-12-07 07:37] LABS: Anion Gap 8.7 mmol/L (3-11); BUN 7 mg/dL (7-18); CO2 26.3 mmol/L (21.0-32.0); CREATININE 0.4 mg/dL (0.70-1.30); Calcium 8.3 mg/dL (8.5-10.1); Chloride 108 mmol/L (98-107); Glucose 70 mg/dL (74-106); Potassium 3.8 mmol/L (3.5-5.1); Sodium 143 mmol/L (136-145)
[2020-12-07] MEDS: Protein Nutritional Supplement 16 GM 1 OUNCE PACKET PO ×2 (09:39→15:07)
[2020-12-07] MEDS: Aspirin E.C. 81 MG TABEC PO (09:39)
[2020-12-07] MEDS: Zinc Sulfate 220 MG TAB PO (09:39)
[2020-12-07] MEDS: Methocarbamol 500 MG TAB 1000 MG PO ×2 (09:40→21:12)
[2020-12-07] MEDS: Cyanocobalamin 500 MCG TAB 1000 MCG PO ×2 (09:40→21:10)
[2020-12-07] MEDS: Tamsulosin 0.4 MG CAPCR PO (09:40)
[2020-12-07] MEDS: Gabapentin 100 MG CAP 200 MG PO ×3 (09:40→21:11)
[2020-12-07] MEDS: Cyclobenzaprine 10 MG TAB 5 MG PO ×3 (09:40→21:11)
[2020-12-07] MEDS: Magnesium Oxide 400 MG TAB PO (09:41)
[2020-12-07] MEDS: Multivitamin TAB 1 TAB PO (09:41)
--- NOTE | 2020-12-07 10:53 | CMPROGNOTE_ITS ---
- If Service Date Differs Date of service: 12/07/20 Time of Service: 10:53 Care Management Progress Note S/O: London was sleeping most of the day and did not engage with CM. Later, his sister visited and discussed his plan. MD will attempt to make contact with the provider at [facility], as London has a follow up appointment on December [address] Benton, and our MD would like to discuss options for Kain going forward. Marie has asked that Kain's life insurance be signed and notarized during this admission, as Kain wishes to change his beneficiary to [facility]. Kain met with Palliative care again today, who will continue to follow him. Per provider, Kain's plan will be driven by his goals of care, which have not yet been identified due to his intermittent confusion. Per MD, he will likely remain at [facility] over the weekend. CM will continue to follow. A: London is a 75 year old male admitted to [facility] on 12/01/20 with UTI, sepsis. P: London will return to [facility] once he has been medically cleared by MD. He will transport via EMS. He will follow up with his PCP and discharge plan of care. CM will continue to follow.
--- NOTE | 2020-12-07 13:35 | WOUNDCONS ---
- If Service Date Differs Date of service: 12/07/20 Time of Service: 13:36 Wound Initial Evaluation Narrative: Pt confused today, alert and oriented x 1. Pt refused any dressing changes or evaluations. Pt stated, No, don't touch me. Will readdress at a later time.
--- NOTE | 2020-12-07 13:43 | W.PALPGNOTE ---
Date of service: 12/07/20 Time of Service: 11:43 Assessment and Plan Assessment and plan (1) Complete immobility due to severe physical disability or frailty: Status: Acute Assessment and plan: Unlikely to have any improvement. Functional quadriplegic with severe contractions. Hard to move him to prevent pressure ulcers. (2) Advance directive in chart: Status: Acute Assessment and plan: Reviewed with hospitalist and charge nurse, Honey Cavanaugh. His DPOA is legally Marie Coker, his sister. I want treatment to sustain my life only I if be able to care for myself and live without incapacitating pain. (3) Pressure ulcers of skin of multiple topographic sites: Status: Acute Assessment and plan: Wound team following. Being treated. Very hard to reposition given his limb contractures. (4) Confusional state: Status: Acute Assessment and plan: I have not seen him clear since the first day I met him. He is not oriented to anything but self. (5) Combative behavior: Status: Acute Assessment and plan: Has been threatening to leave (is bedbound. Cannot walk or even move). Angry today. Subjective Subjective Patient reports: still having pain; denies feels better and tolerating a regular diet Interval history since last seen: Kain was minimally responsive when I came to see him this am. He felt hot to touch, but was afebrile. His glucose on his am labs was only 70; he was asymptomatic at that time. Hospitalist Dr Jalloh told me that Kain ate breakfast this morning, before I saw him. He requires hand feeding. He is also receiving LR at 70 ccs/hr. I went to see him this afternoon and he was awake and belligerent. He had already told the nurse that he wanted to be discharged immediately. I asked what he wanted and he said To walk the streets. (He is unable to walk.) I have not spoken to his sister today. She is supposed to come visit him. We reviewed his advance directives. Based on this document, we should be changing his direction of care toward comfort. I suggested to Dr Jalloh that telemetry be discontinued. Kain would not tolerate any cardiac interventions. Kain told me that he was having pain, lying at rest. I offered an increase in his pain medication. I mentioned this to Dr Jalloh. Currently Kain is on a 50 mcg fentanyl patch. He would benefit from a 100 mcg dose, I think. Exam Const General: cooperative and no acute distress Nutritional Appearance: average body habitus Orientation: alert Limitations: altered mental status Eyes Sclera: sclerae normal Pupils: PERRL Resp Effort & Inspection: normal respiratory effort Auscultation: clear to auscultation bilaterally Cardio Rate: regular rate Rhythm: regular rhythm Heart Sounds: S1 normal and S2 normal GI Palpation: soft and nontender Skin General skin exam: other (R heel and malone with dressings in place.) Extrem General: other (R hip/knee contracture persists.) Psych Speech and Movement: speech clear Affect: sad Insight: poor Judgment: poor Objective Last Vital Signs Temp 97.9 F 12/07/20 11:22 Pulse 66 12/07/20 11:22 Resp 21 12/07/20 11:22 BP 137/68 12/07/20 11:22 Pulse Ox 95 12/07/20 11:22 Laboratory Results - last 24 hr 12/04/20 12/07/20 15:30 06:52 Sodium 143 Potassium 3.8 Chloride 108 H Carbon Dioxide 26.3 Anion Gap 8.7 BUN 7 Creatinine 0.4 L Estimated GFR/1.73 m2 >= 60.00 Glucose 70 L Calcium 8.3 L Lipase 14
--- NOTE | 2020-12-07 16:24 | PGE_ITS ---
Date of Service Date of service: 12/07/20 Time of Service: 16:24 Assessment and Plan Assessment and plan (1) Pressure ulcers of skin of multiple topographic sites: Status: Acute Assessment and plan: Wound care following. 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 R heel ulcer with recent debridement of eschar. Difficult to maintain skin integrity of LEs d/t significant tight contracture of R hip and knee that lies against left leg. (2) Confusional state: Status: Acute Assessment and plan: Has history of intermittent confusion per [facility] staff where he has been residing. We have noted waxing and waning orientation. Yesterday was acutely confused all day. Today he appears to purposefully avoid interactions. No evidence of current acute infection. Sister is DPOA for health care and financial affairs. (3) Cervical spinal stenosis: Status: Acute Assessment and plan: s/p recent decompression surgery at [facility] RLE contracture has developed over the last 2 months by family account. Also has fx of R femoral head; likely osteonecrosis related. Has appt on 12/18/20 [address]rology [address] [facility] to be evaluated for possible Botox injections to ease contracures; Dr. Benton. Other options are more invasive; adductor tendon release or possibly anterior capsule and iliopsoas. Dr. Maria has evaluated and has spoken with colleagues at [facility]; all hesitent given his h/o frequently not participating in or allowing care to be given as well as his confusional issues. If he has some clarity and improved orientation in the next several days we will attempt to have him clarify his goals and then decide on course of action. The option of end-of-life care is a possibility. Subjective Subjective Patient reports: afebrile; denies diarrhea, nausea and vomiting Interval history since last seen: Pt ate breakfast but then has been less interactive with staff much of the day. He conversed with me briefly and was noted to be confused; did not know where he was. He stated I'm just not sure if I want to be here. He did not answer when asked if his pain was controlled. Exam Const General: cooperative and no acute distress Nutritional Appearance: average body habitus Resp Effort & Inspection: normal respiratory effort Auscultation: clear to auscultation bilaterally Cardio Rate: regular rate Rhythm: regular rhythm Heart Sounds: S1 normal and S2 normal GI Palpation: soft and nontender Skin Lesions: other (R heel and malone ulcers with dressings in place.) Extrem General: other (R hip in contracted flexed and adducted position) Psych Speech and Movement: speech clear Affect: irritable affect Insight: poor Judgment: poor Objective Last Vital Signs Temp 36.6 C 12/07/20 15:21 Pulse 77 12/07/20 15:21 Resp 17 12/07/20 15:21 BP 151/77 H 12/07/20 15:21 Pulse Ox 98 12/07/20 15:21 Laboratory Results - last 24 hr 12/07/20 06:52 Sodium 143 Potassium 3.8 Chloride 108 H Carbon Dioxide 26.3 Anion Gap 8.7 BUN 7 Creatinine 0.4 L Estimated GFR/1.73 m2 >= 60.00 Glucose 70 L Calcium 8.3 L
[2020-12-07] MEDS: Simvastatin 40 MG TAB PO (21:10)
[2020-12-07] MEDS: Ferrous Gluconate 324 MG TAB PO (21:10)
[2020-12-07] MEDS: Melatonin 3 MG TAB 6 MG PO (21:11)
[2020-12-07] MEDS: Mylanta Suspension 30 ML CUP PO (23:33)
[2020-12-08] VITALS (8 sets, daily range): BP systolic 102–153; BP diastolic 55–80; PULSE 66–98; RESP 17–21; TEMP 35.9–36.8; O2SAT 94–97
[2020-12-08] MEDS: Lactated Ringers 1,000 ML 80 ML IV ×2 (03:45→16:24)
[2020-12-08] MEDS: Ondansetron 4 MG/2 ML VIAL IVP (04:18)
[2020-12-08 07:21] LABS: HCT 40.9 % (40.0-50.0); HGB 12.7 g/dL (13.5-17.5); MCH 26.5 pg (27.0-33.0); MCHC 31.1 % (32.0-36.0); MCV 85.2 fL (80-95); MPV 10.8 fL (8.0-11.0); Platelet Count 277 10^3/uL (130-400); RDW 15.9 % (11.8-14.1); RDW-SD 49.3 fL; WBC 7.98 10^3/uL (4.4-10.8)
[2020-12-08] MEDS: fentaNYL 50 MCG PATCH TD (08:21)
[2020-12-08] MEDS: Multivitamin TAB 1 TAB PO (08:27)
[2020-12-08] MEDS: Methocarbamol 500 MG TAB 1000 MG PO ×4 (08:27→21:35)
[2020-12-08] MEDS: Gabapentin 100 MG CAP 200 MG PO ×3 (08:27→21:35)
[2020-12-08] MEDS: Tamsulosin 0.4 MG CAPCR PO (08:27)
[2020-12-08] MEDS: Cyanocobalamin 500 MCG TAB 1000 MCG PO ×2 (08:27→21:34)
[2020-12-08] MEDS: Pantoprazole 40 MG TABCR PO (08:28)
[2020-12-08] MEDS: Zinc Sulfate 220 MG TAB PO (08:28)
[2020-12-08] MEDS: Aspirin E.C. 81 MG TABEC PO (08:28)
[2020-12-08] MEDS: Heparin 5,000 UNITS/ML VIAL 5000 UNITS SC ×2 (08:28→16:25)
[2020-12-08] MEDS: Normal Saline Flush 10 ML SYR IVP ×2 (08:29→12:32)
[2020-12-08] MEDS: Cyclobenzaprine 10 MG TAB 5 MG PO ×3 (08:30→21:35)
[2020-12-08] MEDS: Nystatin POWDER 15 GM JAR TP ×3 (08:45→21:34)
--- NOTE | 2020-12-08 09:38 | CMPROGNOTE_ITS ---
- If Service Date Differs Date of service: 12/08/20 Time of Service: 09:38 Care Management Progress Note S/O: Kain was lying in bed when CM met with him. His eyes were closed but he responded when his name was called. Kain stated that he is still uncomfortable. Unfortunately, plans to repair his hip fracture or medically or surgically address his contractures have not been able to be implemented for a variety of reasons. He has a scheduled appointment at [facility] on 12/18/20 to assess the contracture and possibly institute some treatment modality. Per provider, [facility]ain [facility] CM contacted them today but they are unable to take him back until Friday as they have no nurse or provider who can assess his wounds until then. A: London is a 75 year old male admitted to [facility] on 12/01/20 with UTI, sepsis. P: London will return [facility], likely on . He will transport via ambulance coordinated by CM. He will need a repeat Covid test on Friday and the discharge summary will need to be faxed Friday morning before transfer. Kain will follow up with his PCP and discharge plan of care. CM will continue to follow.
[2020-12-08] MEDS: Metoclopramide 10 MG/2 ML VIAL IVP (12:33)
--- NOTE | 2020-12-08 12:37 | W.NUTRFU ---
Date of service: 12/08/20 Time of Service: 12:37 Nutritional Follow up NOTE: London has refused or had very little po in last 3 days. Nursing reports increased confusion. Labs indicate low Blood sugars (70 mg/dl). If continues to have poor fluid intake, recommend IV fluids. Pt has refused enteral nutrition support in past. Reports dislike of liquid protein to supplement po intake as has very high protein requirements for optimal wound healing. MD reports may go on [employer] soon. At high nutritional risk for poor wound healing and further skin breakdown. Time Spent in Nutritional Counseling and Treatment: 10
--- NOTE | 2020-12-08 12:45 | RT.EKG_ITS ---
APPROVED REPORT Exam: Resting ECG Reason for Exam: chest pain Patient Location: I HR:77 bpm ECG Measurements Heart Rate 77 AXIS TX 209 P 0 QRSd 100 QRS 75 QT 406 T 57 QTc 461 Conclusion Sinus rhythm...normal P axis, V-rate 60- 99 ST elevation, consider inferior injury...ST >0.08mV, II III aVF
--- NOTE | 2020-12-08 13:12 | W.PM.PROGNOT ---
Date of Service Date of service: 12/08/20 Time of Service: 13:12 Assessment and Plan Assessment and plan (1) Chest pain: Status: Acute Assessment and plan: Likely GI; esophageal spasm? Resolved with Reglan EKG with questionable ST elevation of aVF. Trop negative. Repeat trop pending. (2) Pressure ulcers of skin of multiple topographic sites: Status: Acute Assessment and plan: Cont wound care. Concerning for underlying osteomyelitis of R malone and possibly R heel. Unable to image d/t intolerance to lying on exam/imaging table. (3) Complete immobility due to severe physical disability or frailty: Status: Acute Assessment and plan: Exploration of possible surgical intervention to allow better positioning of the RLE has not yielded a plan that would be w/o significant risk and one that would give him meaningful quality. The subject of Hospice care was approached today and he stated he didn't feel he was ready for that yet. Palliative following. (4) Contracture of right hip: Status: Acute Assessment and plan: See above (5) Contracture, right knee: Status: Acute Assessment and plan: See above Subjective Subjective Patient reports: nausea, vomiting and afebrile; denies shortness of breath Interval history since last seen: Pt is more alert and is oriented to person, place. He has had nausea with emesis. No abd pain. He states he has had diarrhea but nursing reports soft stool x 3 overnight and this AM. Denies increased joint pain. Later he reported CP. Exam Const General: cooperative and no acute distress Nutritional Appearance: average body habitus Orientation: awake, oriented to person and oriented to place Eyes Sclera: sclerae normal Pupils: PERRL Resp Effort & Inspection: normal respiratory effort Auscultation: clear to auscultation bilaterally Cardio Rate: regular rate Rhythm: regular rhythm Heart Sounds: S1 normal and S2 normal GI Palpation: soft and nontender Auscultation: hypoactive bowel sounds Skin General skin exam: other (R heel and malone dressings in place.) Rashes: no rashes Neuro General: does not move all extremities Speech: speech normal Extrem General: no pedal edema, no calf tenderness and other (R hip contracted in internal rotation and flexed position.R knee contracted) Psych Mood: dysthymic mood Affect: sad and blunted Objective Last Vital Signs Temp 36 C L 12/08/20 12:47 Pulse 76 12/08/20 12:47 Resp 20 05/28/21 12:47 BP 136/80 12/08/20 12:47 Pulse Ox 94 12/08/20 12:47 Laboratory Results - last 24 hr 12/08/20 06:02 WBC 7.98 RBC 4.80 Hgb 12.7 L Hct 40.9 MCV 85.2 MCH 26.5 L MCHC 31.1 L RDW 15.9 H Plt Count 277 MPV 10.8
[2020-12-08 13:38] LABS: Troponin I < 0.05 ng/mL (<0.06)
[2020-12-08] MEDS: Magnesium Oxide 400 MG TAB PO (17:56)
[2020-12-08 18:08] LABS: Troponin I < 0.05 ng/mL (<0.06)
[2020-12-08] MEDS: Simvastatin 40 MG TAB PO (21:35)
[2020-12-08] MEDS: Melatonin 3 MG TAB 6 MG PO (21:35)
[2020-12-08] MEDS: Ferrous Gluconate 324 MG TAB PO (21:35)
--- NOTE | 2020-12-09 03:05 | NUR.NOTE ---
Nursing Note: went into Pts room and his urine was draining on the ground. couldn't measure how much output there was
[2020-12-09 03:07] VITALS: BP 97/53; PULSE 73; RESP 20; TEMP 37.1; O2SAT 99
[2020-12-09] MEDS: Lactated Ringers 1,000 ML 80 ML IV (05:17)
[2020-12-09 07:52] VITALS: BP 111/62; PULSE 65; RESP 18; TEMP 36.5; O2SAT 97
[2020-12-09] MEDS: Cyanocobalamin 500 MCG TAB 1000 MCG PO ×2 (08:28→21:21)
[2020-12-09] MEDS: Methocarbamol 500 MG TAB 1000 MG PO ×4 (08:29→21:21)
[2020-12-09] MEDS: Pantoprazole 40 MG TABCR PO (08:29)
[2020-12-09] MEDS: Aspirin E.C. 81 MG TABEC PO (08:29)
[2020-12-09] MEDS: Cyclobenzaprine 10 MG TAB 5 MG PO ×3 (08:29→21:22)
[2020-12-09] MEDS: Gabapentin 100 MG CAP 200 MG PO ×3 (08:29→21:21)
[2020-12-09] MEDS: Tamsulosin 0.4 MG CAPCR PO (08:29)
[2020-12-09] MEDS: Zinc Sulfate 220 MG TAB PO (08:29)
[2020-12-09] MEDS: Multivitamin TAB 1 TAB PO (08:29)
[2020-12-09] MEDS: Protein Nutritional Supplement 16 GM 1 OUNCE PACKET PO ×2 (08:30→14:25)
[2020-12-09] MEDS: Heparin 5,000 UNITS/ML VIAL 5000 UNITS SC ×4 (08:30→23:56)
[2020-12-09] MEDS: Magnesium Oxide 400 MG TAB PO (10:21)
[2020-12-09] MEDS: Nystatin POWDER 15 GM JAR TP ×3 (10:21→21:16)
[2020-12-09 11:32] VITALS: BP 106/65; PULSE 69; RESP 18; TEMP 36.7; O2SAT 96
[2020-12-09 15:28] VITALS: BP 112/67; PULSE 85; RESP 18; TEMP 36.9; O2SAT 94
--- NOTE | 2020-12-09 16:48 | W.PM.PROGNOT ---
Date of Service Date of service: 12/09/20 Time of Service: 16:49 Assessment and Plan Assessment and plan (1) Osteonecrosis of right hip: Status: Suspected Assessment and plan: The patient states that he would like to walk again and is not ready for comfort measures. Discussed with Dr Maria who feels the patient needs a Girdleston procedure for which he should be transferred to [facility]. (2) Chest pain: Status: Resolved Assessment and plan: In setting of n/v. Resolved. No ACS. I suspect esophagitis. (3) Pressure ulcers of skin of multiple topographic sites: Status: Acute Assessment and plan: Read above - needs procedure to move RLE off of LLE. Continue wound care. ? osteomyelitis of R malone and possibly R heel - check labs in am - CRP, procalcitonin. (4) Complete immobility due to severe physical disability or frailty: Status: Acute Assessment and plan: Patient's goal is to walk again. I am not sure how realistic this is. As above - attempt transfer for a possible surgical intervention. Patient is not ready for comfort measures. Palliative care on board. (5) Contracture of right hip: Status: Acute Assessment and plan: See above (6) Contracture, right knee: Status: Acute Assessment and plan: See above (7) DVT prophylaxis: Status: Acute Assessment and plan: SC heparin (8) Discharge planning issues: Status: Acute Assessment and plan: DNR/DNI Will attempt transfer to [facility] where the patient has gotten all his care. Subjective Subjective Interval history since last seen: Mr Coker states he has had no pain today. Denies dizziness, chest pain, shortness of breath, nausea today. He did have nausea yesterday. He has been afebrile. He states his goal is to walk again and so he would like to receive aggressive care for his condition. He is not ready for comfort measures. Exam Narrative Exam Narrative: General: Pleasant elderly male, edematous throughout, appears to be in good spirits, A&Ox3 HEENT: EOMI, MMM Heart: RRR, + BARBARA Lungs: CTAB Abdomen: soft, nontender, nondistended Extremities: 2+ BUE edema; RLE bent and internally rotated at the hip, patient is unable to relax it. 2+ pitting edema LLE. Objective Last Vital Signs Temp 36.9 C 12/09/20 15:28 Pulse 85 12/09/20 15:28 Resp 18 12/09/20 15:28 BP 112/67 12/09/20 15:28 Pulse Ox 94 12/09/20 15:28 Laboratory Results - last 24 hr 12/08/20 17:44 Troponin I < 0.05
--- NOTE | 2020-12-09 17:34 | PDOC.CMPRO ---
- If Service Date Differs Date of service: 12/09/20 Time of Service: 17:34 Care Management Progress Note S/O: Per provider note, London's goal is to walk again. He, therefore, is not ready for comfort measures at this time. London would like aggressive care for his condition. Provider will attempt to transfer him to [facility] where London has obtained his medical care in the past. CM will continue to follow. A: London is a 75 year old male admitted to [facility] on 12/01/20 with UTI, sepsis. P: Plan is to transfer London to [facility] for treatment. If [facility] does not accept [place] for transfer, he likely will return to [facility] as planned on Friday. He will transport via ambulance coordinated by CM. He will need a repeat Covid test on Friday and the discharge summary will need to be faxed Friday morning before transfer. Kain will follow up with his PCP and discharge plan of care. CM will continue to follow.
[2020-12-09 19:37] VITALS: BP 111/67; PULSE 88; RESP 17; TEMP 37; O2SAT 93
[2020-12-09] MEDS: Normal Saline Flush 10 ML SYR IVP (21:16)
[2020-12-09] MEDS: Simvastatin 40 MG TAB PO (21:20)
[2020-12-09] MEDS: Ferrous Gluconate 324 MG TAB PO (21:22)
[2020-12-09] MEDS: Melatonin 3 MG TAB 6 MG PO (21:22)
[2020-12-09 23:09] VITALS: BP 116/62; PULSE 110; RESP 16; TEMP 36.5; O2SAT 100
--- NOTE | 2020-12-10 | DI.RAD_ITS ---
Exam(s) XR PORTABLE CHEST AP EXAM: XR PORTABLE CHEST AP CLINICAL HISTORY: fever TECHNIQUE: 2D digital imaging was performed. COMPARISON: CR XR PORTABLE CHEST AP from 12/06/2020 FINDINGS: There is poor patient inspiration. MEDIASTINUM: Normal. HEART: Normal. PULMONARY VASCULATURE: Normal. Atherosclerosis. LUNGS: There has been interval development of a right mid and lower lung infiltrate. PLEURAL SPACE: There is now blunting of the left costophrenic angle which may represent a small pleur al effusion. No right pleural effusion is seen. No pneumothorax is present. BONE:Within normal limits for the patient's age. OTHER FINDINGS:Normal. IMPRESSION: 1. Infiltrate in the right mid and lower lung suspicious for pneumonia. 2. Development of a small left pleural effusion. DATA REPOSITORY: RADIATION DOSE DELIVERED:
[2020-12-10 03:13] VITALS: BP 119/69; PULSE 92; RESP 17; TEMP 37.1; O2SAT 95
[2020-12-10 07:28] VITALS: BP 107/64; PULSE 94; RESP 18; TEMP 37.1; O2SAT 95
[2020-12-10 07:38] LABS: Abs Immature Grans 0.05 10^3/uL (0.0-0.06); Absolute Basophil Count 0.04 10^3/uL (0.0-0.2); Absolute Eosinophil Count 0.37 10^3/uL (0.0-0.7); Absolute Lymphocyte Count 0.82 10^3/uL (1.2-3.4); Absolute Monocyte Count 0.73 10^3/uL (0.1-0.8); Absolute Neutrophil Count 6.61 10^3/uL (1.2-6.7); Basophils % 0.5; Eosinophils % 4.3; HCT 35.5 % (40.0-50.0); Immature Grans % 0.6; Lymphocytes % 9.5; MCH 26.4 pg (27.0-33.0); MCV 85.3 fL (80-95); MPV 10.6 fL (8.0-11.0); Monocytes % 8.5; Neutrophils % 76.6; Nucleated RBC 0 %; Platelet Count 252 10^3/uL (130-400); RBC 4.16 10^6/uL (4.36-5.78); RDW 16.6 % (11.8-14.1); RDW-SD 51.8 fL; WBC 8.62 10^3/uL (4.4-10.8)
[2020-12-10 07:46] LABS: ESR 23 mm/hr (0-20)
[2020-12-10 08:03] LABS: ALT 18 U/L (16-63); AST 22 U/L (15-37); Albumin 2.2 g/dL (3.4-5.0); Alkaline Phosphatase 70 U/L (46-116); Anion Gap 5.1 mmol/L (3-11); BUN 11 mg/dL (7-18); Bilirubin, Direct 0.1 mg/dL (0.0-0.2); Bilirubin, Total 0.3 mg/dL (0.2-1.0); C-Reactive Protein 4.25 mg/dL (0.0-0.3); CO2 30.9 mmol/L (21.0-32.0); CREATININE 0.4 mg/dL (0.70-1.30); Calcium 8.2 mg/dL (8.5-10.1); Chloride 107 mmol/L (98-107); Glucose 90 mg/dL (74-106); Magnesium 1.8 mg/dL (1.8-2.4); Potassium 4.3 mmol/L (3.5-5.1); Sodium 143 mmol/L (136-145); Total Protein 5.5 g/dL (6.4-8.2)
[2020-12-10] MEDS: Protein Nutritional Supplement 16 GM 1 OUNCE PACKET PO ×3 (08:14→20:21)
[2020-12-10] MEDS: Heparin 5,000 UNITS/ML VIAL 5000 UNITS SC ×3 (08:14→23:35)
[2020-12-10] MEDS: Methocarbamol 500 MG TAB 1000 MG PO ×4 (08:15→20:22)
[2020-12-10] MEDS: Gabapentin 100 MG CAP 200 MG PO ×3 (08:15→20:19)
[2020-12-10] MEDS: Nystatin POWDER 15 GM JAR TP (08:15)
[2020-12-10] MEDS: Cyclobenzaprine 10 MG TAB 5 MG PO ×3 (08:15→20:22)
[2020-12-10] MEDS: Zinc Sulfate 220 MG TAB PO (08:15)
[2020-12-10] MEDS: Pantoprazole 40 MG TABCR PO (08:16)
[2020-12-10] MEDS: Multivitamin TAB 1 TAB PO (08:16)
[2020-12-10] MEDS: Tamsulosin 0.4 MG CAPCR PO (08:16)
[2020-12-10] MEDS: Cyanocobalamin 500 MCG TAB 1000 MCG PO ×2 (08:16→20:21)
[2020-12-10] MEDS: Aspirin E.C. 81 MG TABEC PO (08:16)
[2020-12-10 08:43] LABS: Procalcitonin < 0.1 ng/mL
[2020-12-10] MEDS: Magnesium Oxide 400 MG TAB PO (10:39)
[2020-12-10 11:21] VITALS: BP 111/63; PULSE 98; RESP 19; TEMP 37.4; O2SAT 94
--- NOTE | 2020-12-10 14:34 | PGE_ITS ---
Date of Service Date of service: 12/10/20 Time of Service: 14:34 Assessment and Plan Assessment and plan (1) Osteonecrosis of right hip: Status: Suspected Assessment and plan: The patient states that he would like to walk again and is not ready for comfort measures. Attempted to set up transfer to [facility] for joint aspiration and Girdlestone procedure, but I was recommended to outpatient follow up with ortho and plastics rather than inpatient transfer, having discussed the case with their orhtopedic surgeon and hospitalist. (2) Contracture of right hip: Status: Acute Assessment and plan: See above (3) Contracture, right knee: Status: Acute Assessment and plan: See above (4) Fever: Status: Acute Assessment and plan: R/o UTI, DVT, COVID-19. Is vaccinated against covid- 19. Also, obtain blood cultures, CXR (did vomit 2 days ago - ?aspiration pneumonia). Start IS. (5) Chest pain: Status: Resolved Assessment and plan: In setting of n/v. Resolved. No ACS. I suspect esophagitis. (6) Pressure ulcers of skin of multiple topographic sites: Status: Acute Assessment and plan: Read above - needs procedure to move RLE off of LLE. Will need outpatient follow up with ortho at [facility] and with plastic surgery. Continue wound care. ? osteomyelitis of R malone and possibly R heel - check labs in am - CRP, procalcitonin. (7) Complete immobility due to severe physical disability or frailty: Status: Acute Assessment and plan: Patient's goal is to walk again. I am not sure how realistic this is. Patient is not ready for comfort measures. Palliative care on board. Will need outpatient follow up with orthopedics. (8) DVT prophylaxis: Status: Acute Assessment and plan: SC heparin (9) Discharge planning issues: Status: Acute Assessment and plan: DNR/DNI Subjective Subjective Interval history since last seen: Mr Coker states he is having a lot of spasms. He denies dizziness, chest pain, shortness of breath, nausea. Per patient's sister, the right hip contracture happened since July of 2020 when the patient went to [facility]. Evidently, [facility] has documentation that this has been going on since June of 2020. The patient has previously been evaluated for this by physiatry, neurosurgery, neurology, who were at the time skeptical about success of possible surgical intervention. I attempted to arrange transfer of the patient to [facility] and spoke with Dr Headley of orthopedics (who discussed the case with Dr Maria) and with Dr Centeno of Hospitalist service. Per Dr Centeno, the patient does not meet criteria for inpatient transfer because the procedures such as Girdlestone procedure are usually done on outpatient basis and having the patient transferred there for it would not fast-track the procedure. She also recommends referral to outpatient plastic surgery for the wounds. Exam Narrative Exam Narrative: General: Pleasant elderly male, edematous throughout, appears to be in good spirits, A&Ox3 HEENT: EOMI, MMM Heart: RRR, + BARBARA Lungs: CTAB Abdomen: soft, nontender, nondistended Extremities: 2+ BUE edema; RLE bent and internally rotated at the hip, patient is unable to relax it. 2+ pitting edema LLE. Objective Last Vital Signs Temp 37.4 C 12/10/20 11:21 Pulse 98 H 12/10/20 11:21 Resp 19 12/10/20 11:21 BP 111/63 12/10/20 11:21 Pulse Ox 94 12/10/20 11:21 Laboratory Results - last 24 hr 12/10/20 12/10/20 12/10/20 06:23 06:23 07:26 WBC RBC Hgb Hct MCV MCH MCHC RDW Plt Count MPV Immature Gran % Neutrophils % Lymphocytes % Monocytes % Eosinophils % Basophils % Nucleated RBC % Absolute Neutrophils Absolute Lymphocytes Absolute Monocytes Absolute Eosinophils Absolute Basophils ESR 23 H Sodium 143 Potassium 4.3 Chloride 107 Carbon Dioxide 30.9 Anion Gap 5.1 BUN 11 Creatinine 0.4 L Estimated GFR/1.73 m2 >= 60.00 Glucose 90 Calcium 8.2 L Magnesium 1.8 Total Bilirubin 0.3 Conjugated Bilirubin 0.1 AST 22 ALT 18 Alkaline Phosphatase 70 C-Reactive Protein 4.25 H Total Protein 5.5 L Albumin 2.2 L Procalcitonin < 0.1 12/10/20 07:26 WBC 8.62 RBC 4.16 L Hgb 11.0 L Hct 35.5 L MCV 85.3 MCH 26.4 L MCHC 31.0 L RDW 16.6 H Plt Count 252 MPV 10.6 Immature Gran % 0.6 Neutrophils % 76.6 Lymphocytes % 9.5 Monocytes % 8.5 Eosinophils % 4.3 Basophils % 0.5 Nucleated RBC % 0 Absolute Neutrophils 6.61 Absolute Lymphocytes 0.82 L Absolute Monocytes 0.73 Absolute Eosinophils 0.37 Absolute Basophils 0.04 ESR Sodium Potassium Chloride Carbon Dioxide Anion Gap BUN Creatinine Estimated GFR/1.73 m2 Glucose Calcium Magnesium Total Bilirubin Conjugated Bilirubin AST ALT Alkaline Phosphatase C-Reactive Protein Total Protein Albumin Procalcitonin
[2020-12-10 15:04] VITALS: BP 145/65; PULSE 61; RESP 19; TEMP 38.4; O2SAT 94
[2020-12-10 15:35] LABS: Source Nasal/Nares
[2020-12-10 16:28] LABS: COVID-19 PCR Negative (Negative)
--- NOTE | 2020-12-10 16:35 | PDOC.CMPRO ---
- If Service Date Differs Date of service: 12/10/20 Time of Service: 16:36 Care Management Progress Note S/O: The hope had been to transfer London to [facility] for joint aspiration and Girdlestone procedure. Per provider note, [facility] recommends an outpatient follow up with ortho and plastic surgery rather than an inpatient transfer. London developed a fever today and a chest x-ray returned positive for pneumonia. He was started on IV Ceftazidime. CM will continue to follow. A: London is a 75 year old male admitted to [facility] on 12/01/20 with UTI, sepsis. P: London will likely will return to [facility] on Friday. He will transport via ambulance coordinated by CM. He will need a repeat Covid test on Friday and the discharge summary will need to be faxed Friday morning before transfer. Kain will follow up with his PCP and discharge plan of care. CM will continue to follow.
[2020-12-10 17:07] LABS: Bilirubin Negative (Negative); Blood Trace-intact (Negative); Clarity Cloudy (Clear); Glucose Negative (Negative); Ketones Negative (Negative); Leukocyte Esterase Small (Negative); Nitrite Positive (Negative); Urobilinogen 0.2 EU/dL (Up TO 0.2); pH 8.5 (5-8)
[2020-12-10 17:26] LABS: Bacteria Few HPF (Negative); Casts 0-2 Hyaline LPF (Negative); Crystals Few Amorphous HPF (Negative); Epithelial Cells Negative HPF (Negative); Mucus Negative (Negative); WBC >50 HPF (0-5)
[2020-12-10 17:27] LABS: C & S Indicated? Yes
--- NOTE | 2020-12-10 18:42 | DI.VRAD_ITS ---
PROCEDURE INFORMATION: Exam: XR Chest Exam date and time: 12/10/2020 3:21 PM Age: 75 years old Clinical indication: Fever TECHNIQUE: Imaging protocol: XR of the chest. Views: 1 view. COMPARISON: CR XR PORTABLE CHEST AP 12/06/2020 12:08 PM FINDINGS: Lungs: There is new mild patchy airspace opacity within the right mid and lower lung suggesting mild pneumonia. There is no pulmonary vascular congestion. Pleural spaces: There is new blunting of the left lateral costophrenic angle suggesting small pleural effusion. Heart/Mediastinum: The cardiomediastinal silhouette is within normal limits. Diaphragm: There is elevation/eventration of the right hemidiaphragm, as on prior study. Bones/joints: Unremarkable. IMPRESSION: 1. New mild patchy airspace opacity within the right mid and lower lung, suggesting mild pneumonia. Recommend clinical correlation. 2. Findings suggest new small left pleural effusion. Dictated and Authenticated by: Costa Arrington MD. Ordering:CHRISTOPHER Ibarra MD
[2020-12-10 19:32] VITALS: BP 125/71; PULSE 108; RESP 18; TEMP 38.3; O2SAT 92
[2020-12-10] MEDS: Acetaminophen 325 MG TAB 650 MG PO (20:21)
[2020-12-10] MEDS: Normal Saline Flush 10 ML SYR IVP (20:22)
[2020-12-10] MEDS: Normal Saline 500 ML IV (20:23)
[2020-12-10] MEDS: cefTAZidime 1,000 MG in Normal Saline 100 ML 200 MG IVPB (20:23)
[2020-12-10 22:50] VITALS: BP 122/64; PULSE 101; RESP 19; TEMP 37.2; O2SAT 91
[2020-12-10] MEDS: Ferrous Gluconate 324 MG TAB PO (23:35)
[2020-12-10] MEDS: Melatonin 3 MG TAB 6 MG PO (23:35)
[2020-12-10] MEDS: Simvastatin 40 MG TAB PO (23:35)
[2020-12-11 03:50] VITALS: BP 112/72; PULSE 97; RESP 18; TEMP 37.3; O2SAT 92
[2020-12-11] MEDS: cefTAZidime 1,000 MG in Normal Saline 100 ML 200 MG IVPB ×3 (04:02→20:05)
[2020-12-11] MEDS: Normal Saline Flush 10 ML SYR IVP ×3 (04:03→20:05)
[2020-12-11 07:43] LABS: Abs Immature Grans 0.07 10^3/uL (0.0-0.06); Absolute Basophil Count 0.03 10^3/uL (0.0-0.2); Absolute Eosinophil Count 0.32 10^3/uL (0.0-0.7); Absolute Lymphocyte Count 0.86 10^3/uL (1.2-3.4); Absolute Monocyte Count 0.81 10^3/uL (0.1-0.8); Absolute Neutrophil Count 5.75 10^3/uL (1.2-6.7); Basophils % 0.4; Eosinophils % 4.1; HCT 36.3 % (40.0-50.0); HGB 11.1 g/dL (13.5-17.5); Immature Grans % 0.9; MCH 26.1 pg (27.0-33.0); MCHC 30.6 % (32.0-36.0); MCV 85.2 fL (80-95); MPV 10.2 fL (8.0-11.0); Monocytes % 10.3; Neutrophils % 73.3; Nucleated RBC 0 %; Platelet Count 269 10^3/uL (130-400); RBC 4.26 10^6/uL (4.36-5.78); RDW 16.8 % (11.8-14.1); RDW-SD 51.8 fL; WBC 7.84 10^3/uL (4.4-10.8)
[2020-12-11 07:55] LABS: Anion Gap 4.6 mmol/L (3-11); BUN 8 mg/dL (7-18); CO2 31.4 mmol/L (21.0-32.0); CREATININE 0.5 mg/dL (0.70-1.30); Calcium 8.2 mg/dL (8.5-10.1); Chloride 107 mmol/L (98-107); Glucose 102 mg/dL (74-106); Magnesium 1.9 mg/dL (1.8-2.4); Potassium 3.8 mmol/L (3.5-5.1); Sodium 143 mmol/L (136-145)
[2020-12-11 08:22] VITALS: BP 122/65; PULSE 79; RESP 18; TEMP 37.2; O2SAT 94
[2020-12-11] MEDS: fentaNYL 50 MCG PATCH TD (08:47)
[2020-12-11] MEDS: Protein Nutritional Supplement 16 GM 1 OUNCE PACKET PO ×2 (08:47→20:06)
[2020-12-11] MEDS: Nystatin POWDER 15 GM JAR TP ×2 (08:47→14:16)
[2020-12-11] MEDS: Heparin 5,000 UNITS/ML VIAL 5000 UNITS SC ×3 (08:47→22:56)
[2020-12-11] MEDS: Gabapentin 100 MG CAP 200 MG PO ×3 (08:48→20:06)
[2020-12-11] MEDS: Cyanocobalamin 500 MCG TAB 1000 MCG PO ×2 (08:48→20:06)
[2020-12-11] MEDS: Cyclobenzaprine 10 MG TAB 5 MG PO ×3 (08:48→20:07)
[2020-12-11] MEDS: Methocarbamol 500 MG TAB 1000 MG PO ×4 (08:48→20:06)
[2020-12-11] MEDS: Tamsulosin 0.4 MG CAPCR PO (08:48)
[2020-12-11] MEDS: Aspirin E.C. 81 MG TABEC PO (08:48)
[2020-12-11] MEDS: Zinc Sulfate 220 MG TAB PO (08:48)
[2020-12-11] MEDS: Multivitamin TAB 1 TAB PO (08:48)
[2020-12-11] MEDS: Acetaminophen 325 MG TAB 650 MG PO ×2 (08:48→20:06)
[2020-12-11] MEDS: Pantoprazole 40 MG TABCR PO ×2 (08:48→20:07)
[2020-12-11] MEDS: Magnesium Oxide 400 MG TAB PO (10:09)
[2020-12-11 11:19] VITALS: BP 101/59; PULSE 78; RESP 18; TEMP 36.3; O2SAT 95
[2020-12-11 15:38] VITALS: BP 118/67; PULSE 83; RESP 18; TEMP 36.7; O2SAT 95
--- NOTE | 2020-12-11 15:45 | PGE_ITS ---
Date of Service Date of service: 12/11/20 Time of Service: 15:46 Assessment and Plan Assessment and plan (1) HCAP (healthcare-associated pneumonia): Status: Acute Assessment and plan: Continue empiric ceftiazidime. Await blood and urine cx as well. Encourage IS. Increase PPI and consider aspiration as etiology. (2) Osteonecrosis of right hip: Status: Suspected Assessment and plan: The patient states that he would like to walk again and is not ready for comfort measures. Attempted to set up transfer to [facility] for joint aspiration and Girdlestone procedure, but I was recommended to outpatient follow up with ortho and plastics rather than inpatient transfer, having discussed the case with their orhtopedic surgeon and hospitalist. Will discuss with ortho whether CT hip/RLE would be helpful now that the patient agrees to have a CT scan done. (3) Contracture of right hip: Status: Acute Assessment and plan: See above (4) Contracture, right knee: Status: Acute Assessment and plan: See above (5) Chest pain: Status: Resolved Assessment and plan: In setting of n/v. Does report GERD - increase PPE. No ACS. (6) Pressure ulcers of skin of multiple topographic sites: Status: Acute Assessment and plan: Read above - needs procedure to move RLE off of LLE. Will need outpatient follow up with ortho at [facility] and with plastic surgery. Continue wound care. ? osteomyelitis of R malone and possibly R heel - consider CT RLE (7) Complete immobility due to severe physical disability or frailty: Status: Acute Assessment and plan: Patient's goal is to walk again. I am not sure how realistic this is. Patient is not ready for comfort measures. Palliative care on board. Will need outpatient follow up with orthopedics. (8) DVT prophylaxis: Status: Acute Assessment and plan: SC heparin (9) Discharge planning issues: Status: Acute Assessment and plan: DNR/DNI Subjective Subjective Interval history since last seen: Denies dizziness, chest pain, shortness of breath, nausea. Endorses heartburn. While he initially refused to have any more imaging after having his xrays, he is agreeable to having a CT if needed. XR last night with PNA - initiated on ceftazidime. No cough. Feels ok. Exam Narrative Exam Narrative: General: Pleasant elderly male, edematous throughout, appears to be in good spirits, A&Ox3, looks unchanged from yesterday HEENT: EOMI, MMM Heart: RRR, + BARBARA Lungs: CTAB Abdomen: soft, nontender, nondistended Extremities: 2+ BUE edema; RLE bent and internally rotated at the hip, patient is unable to relax it. 2+ pitting edema LLE. Objective Last Vital Signs Temp 36.7 C 12/11/20 15:38 Pulse 83 12/11/20 15:38 Resp 18 12/11/20 15:38 BP 118/67 12/11/20 15:38 Pulse Ox 95 12/11/20 15:38 Laboratory Results - last 24 hr 12/10/20 12/10/20 12/11/20 15:26 16:48 07:15 WBC RBC Hgb Hct MCV MCH MCHC RDW Plt Count MPV Immature Gran % Neutrophils % Lymphocytes % Monocytes % Eosinophils % Basophils % Nucleated RBC % Absolute Neutrophils Absolute Lymphocytes Absolute Monocytes Absolute Eosinophils Absolute Basophils Sodium 143 Potassium 3.8 Chloride 107 Carbon Dioxide 31.4 Anion Gap 4.6 BUN 8 Creatinine 0.5 L Estimated GFR/1.73 m2 >= 60.00 Glucose 102 Calcium 8.2 L Magnesium 1.9 Urine Color Yellow Urine Clarity Cloudy Urine pH 8.5 H Ur Specific [place] 1.020 Urine Protein Negative Urine Ketones Negative Urine Blood Trace-intact H Urine Nitrite Positive H Urine Bilirubin Negative Urine Urobilinogen 0.2 Ur Leukocyte Esterase Small H Urine RBC 3-5 H Urine WBC >50 H Ur Epithelial Cells Negative Urine Crystals Few amorphous Urine Bacteria Few Urine Casts 0-2 hyaline Urine Mucus Negative Ur Culture Indicated? Yes Urine Glucose Negative SARS-CoV-2 (PCR) Negative 12/11/20 07:15 WBC 7.84 RBC 4.26 L Hgb 11.1 L Hct 36.3 L MCV 85.2 MCH 26.1 L MCHC 30.6 L RDW 16.8 H Plt Count 269 MPV 10.2 Immature Gran % 0.9 Neutrophils % 73.3 Lymphocytes % 11.0 Monocytes % 10.3 Eosinophils % 4.1 Basophils % 0.4 Nucleated RBC % 0 Absolute Neutrophils 5.75 Absolute Lymphocytes 0.86 L Absolute Monocytes 0.81 H Absolute Eosinophils 0.32 Absolute Basophils 0.03 Sodium Potassium Chloride Carbon Dioxide Anion Gap BUN Creatinine Estimated GFR/1.73 m2 Glucose Calcium Magnesium Urine Color Urine Clarity Urine pH Ur Specific [place] Urine Protein Urine Ketones Urine Blood Urine Nitrite Urine Bilirubin Urine Urobilinogen Ur Leukocyte Esterase Urine RBC Urine WBC Ur Epithelial Cells Urine Crystals Urine Bacteria Urine Casts Urine Mucus Ur Culture Indicated? Urine Glucose SARS-CoV-2 (PCR)
--- NOTE | 2020-12-11 18:33 | PDOC.CMPRO ---
- If Service Date Differs Date of service: 12/11/20 Time of Service: 18:33 Care Management Progress Note S/O: London continues to meet inpatient level of care. He remains on IV abx for the treatment of pneumonia. Per provider note, ortho will be consulted regarding doing a CT scan, now that patient is agreeable to this. Lab work done today reveals a normal WBC at 7.84, low RBC at 4.26, and normal Absolute Neutrophils at 5.75. CM will continue to follow. A: London is a 75 year old male admitted to [facility] on 12/01/20 with UTI, sepsis. P: [place] will likely will return to [facility] when medically cleared by provider. He will transport via ambulance coordinated by CM. He will need a repeat Covid test and the discharge summary will need to be faxed before transfer. Kain will follow up with his PCP and discharge plan of care. CM will continue to follow.
[2020-12-11 19:30] VITALS: BP 127/61; PULSE 92; RESP 18; TEMP 36.7; O2SAT 92
[2020-12-11] MEDS: Ferrous Gluconate 324 MG TAB PO (22:56)
[2020-12-11] MEDS: Simvastatin 40 MG TAB PO (22:56)
[2020-12-11] MEDS: Melatonin 3 MG TAB 6 MG PO (22:56)
[2020-12-11 23:15] VITALS: BP 120/64; PULSE 87; RESP 17; TEMP 36.6; O2SAT 92
--- NOTE | 2020-12-12 | DI.CT_ITS ---
Exam(s) CT CHEST PE CTA EXAM: CT CHEST PE CTA CLINICAL HISTORY: pleuritic chest pain, concern for a PE. TECHNIQUE: Imaging Protocol: Axial CT angiography was performed with multi-slice acquisition and mu lti-planar and/or 3D reconstructions. CONTRAST MATERIAL: Intravenous: Omnipaque 350 Contrast volume:100 mL COMPARISON: CT CT ABDOMEN PELVIS W from 09/24/2020 FINDINGS: Tracheobronchial tree: Patent where visualized. Pulmonary parenchyma: There is an area of consolidation in the right lower lobe with associated focal bronchiectasis. No architectural distortion. Pulmonary Arteries: No evidence of filling defect to suggest pulmonary emboli. There is mild dilatati on of the main pulmonary arteries. This may represent pulmonary artery hypertension. Mediastinum and Bina: No dominant adenopathy or fluid collection. Visualized thyroid gland: Unremarkable. Pleura: No effusion or pneumothorax. Heart: The heart is not dilated. Moderate coronary artery calcification. No pericardial effusion. Aorta: Thoracic aorta non-dilated. Atherosclerosis. No evidence of dissection. Upper abdomen: Unremarkable. Soft tissues: Unremarkable. Bones: Old left rib fractures. Degenerative changes in the spine. IMPRESSION: 1. No evidence of pulmonary embolism, thoracic aortic dissection or aneurysm. 2. Right lower lobe consolidation suspicious for pneumonia. RADIATION DOSE DELIVERED: 364.38mGy.cm Total DLP DATA REPOSITORY: All CT scans at this facility are submitted to the National Radiology Data Registry (NRDR) Dose Index Registry (DIR) with the [employer] (A[employer]). RADIATION OPTIMIZATION: All CT scans at this facility use at least one of these dose optimization te chniques: automated exposure control; mA and/or kV adjustment per patient size (includes targeted exa ms where dose is matched to clinical indication); or iterative reconstruction.
--- NOTE | 2020-12-12 | DI.CT_ITS ---
Exam(s) CT PELVIC WO EXAM: CT PELVIC WO CLINICAL HISTORY: R hip contracture, osteonecrosis. TECHNIQUE: Imaging Protocol: Axial computed tomography images with coronal and sagittal reformatted images were created and reviewed. CONTRAST MATERIAL: Oral: yes / no COMPARISON: CT CT ABDOMEN PELVIS W from 09/24/[address] ABDOMEN PELVIS W from 09/24/2020 FINDINGS: The examination is limited due to patient motion artifact. PELVIS: Abdominal Aorta: Abdominal portion non-dilated. Atherosclerosis. Bowel: No obstruction or bowel wall thickening. No evidence of appendicitis. Peritoneal Cavity: No ascites, collection or mesenteric inflammatory response. Soft Tissues: There has been interval decrease in size in the fluid collection in the subcutaneous ti ssues of the right anterior abdominal wall. This now measures 3 cm compared with 4.4 cm on the prior examination. Bladder: There is a Rock catheter in the urinary bladder which is nondistended. Reproductive Organs: Unremarkable as visualized. Lymph Nodes: Within normal limits. Bones: No acute fracture or dislocation. Marked degenerative changes are seen in the right hip with joint space narrowing and periarticular spurring. This is stable compared to the prior examination. Mild degenerative changes are seen in the left hip. IMPRESSION: 1. Stable degenerative changes in the hips, right greater than left. 2. No acute fracture or dislocation. 3. Interval decrease in size of the subcutaneous fluid collection. RADIATION DOSE DELIVERED: 634.32mGy.cmTotal DLP 634.32mGy.cmTotal DLP DATA REPOSITORY: All CT scans at this facility are submitted to the National Radiology Data Registry (NRDR) Dose Index Registry (DIR) with the [employer] ([employer]). RADIATION OPTIMIZATION: All CT scans at this facility use at least one of these dose optimization te chniques: automated exposure control; mA and/or kV adjustment per patient size (includes targeted exa ms where dose is matched to clinical indication); or iterative reconstruction.
[2020-12-12] MEDS: cefTAZidime 1,000 MG in Normal Saline 100 ML 200 MG IVPB ×3 (03:56→20:26)
[2020-12-12 06:53] LABS: Abs Immature Grans 0.04 10^3/uL (0.0-0.06); Absolute Basophil Count 0.04 10^3/uL (0.0-0.2); Absolute Eosinophil Count 0.61 10^3/uL (0.0-0.7); Absolute Lymphocyte Count 1.08 10^3/uL (1.2-3.4); Absolute Monocyte Count 0.73 10^3/uL (0.1-0.8); Absolute Neutrophil Count 4.31 10^3/uL (1.2-6.7); Basophils % 0.6; HCT 35.8 % (40.0-50.0); HGB 10.8 g/dL (13.5-17.5); Immature Grans % 0.6; Lymphocytes % 15.9; MCHC 30.2 % (32.0-36.0); MCV 86.3 fL (80-95); MPV 9.8 fL (8.0-11.0); Monocytes % 10.7; Neutrophils % 63.2; Nucleated RBC 0 %; Platelet Count 226 10^3/uL (130-400); RBC 4.15 10^6/uL (4.36-5.78); RDW 16.7 % (11.8-14.1); RDW-SD 52.1 fL; WBC 6.81 10^3/uL (4.4-10.8)
[2020-12-12 07:02] LABS: Anion Gap 7.4 mmol/L (3-11); BUN 12 mg/dL (7-18); CO2 30.6 mmol/L (21.0-32.0); CREATININE 0.4 mg/dL (0.70-1.30); Calcium 7.9 mg/dL (8.5-10.1); Chloride 106 mmol/L (98-107); Glucose 99 mg/dL (74-106); Magnesium 1.8 mg/dL (1.8-2.4); Potassium 3.7 mmol/L (3.5-5.1); Sodium 144 mmol/L (136-145)
[2020-12-12 08:00] VITALS: BP 113/67; PULSE 77; RESP 18; TEMP 36.4; O2SAT 96
[2020-12-12] MEDS: oxyCODONE 10 MG TAB PO ×3 (08:04→21:29)
[2020-12-12] MEDS: Pantoprazole 40 MG TABCR PO ×2 (08:04→20:24)
[2020-12-12] MEDS: Methocarbamol 500 MG TAB 1000 MG PO ×4 (08:04→20:24)
[2020-12-12] MEDS: Cyanocobalamin 500 MCG TAB 1000 MCG PO ×2 (08:04→20:24)
[2020-12-12] MEDS: Protein Nutritional Supplement 16 GM 1 OUNCE PACKET PO ×2 (08:04→20:28)
[2020-12-12] MEDS: Zinc Sulfate 220 MG TAB PO (08:05)
[2020-12-12] MEDS: Cyclobenzaprine 10 MG TAB 5 MG PO ×3 (08:05→20:25)
[2020-12-12] MEDS: Gabapentin 100 MG CAP 200 MG PO ×3 (08:05→20:24)
[2020-12-12] MEDS: Tamsulosin 0.4 MG CAPCR PO (08:05)
[2020-12-12] MEDS: Aspirin E.C. 81 MG TABEC PO (08:05)
[2020-12-12] MEDS: Docusate Sodium 100 MG CAP PO (08:05)
[2020-12-12] MEDS: Multivitamin TAB 1 TAB PO (08:05)
[2020-12-12] MEDS: Acetaminophen 325 MG TAB 650 MG PO (08:05)
[2020-12-12] MEDS: Heparin 5,000 UNITS/ML VIAL 5000 UNITS SC ×2 (08:06→17:20)
--- NOTE | 2020-12-12 10:01 | W.NUTRFU ---
Date of service: 12/12/20 Time of Service: 10:01 Nutritional Follow up NOTE: London continues to not meet nutrient needs with frequent meal refusals, refusing ensure and unwilling to consider supplemental enteral feeding to support increased nutrient needs in view of multiple pressure wounds. Also refusing liquid protein supplementation. Continues on heart healthy diet and shows very little interest in eating. Recommend starting Marinol qd to stimulate appetite and to check prealbumin to assess visceral protein stores available for wound healing. Continue to provide high calorie meals and encourage meal completion. If continues to meet < 50% of nutrient needs, recommend discussing nutrition support. Time Spent in Nutritional Counseling and Treatment: 10
[2020-12-12 11:45] VITALS: BP 115/67; PULSE 86; RESP 18; TEMP 36.7; O2SAT 96
--- NOTE | 2020-12-12 12:20 | CMPROGNOTE_ITS ---
- If Service Date Differs Date of service: 12/12/20 Time of Service: 12:20 Care Management Progress Note S/O: London appeared to be sleeping in bed when CM attempted to visit with him. He was talking, but not directly to CM, instead he spoke softly to himself, his words seemingly illogical. He did not engage with CM today. Per report, MD continues to attempt transfer to [facility]. If transfer is not an option, Kain will return to the facility from which he arrived, [facility]. CM will continue to fo llow. A: London is a 75 year old male [facility] with UTI, sepsis. P: London will likely will return to [facility] when medically cleared by provider. He will transport via ambulance coordinated by CM. He will need a repeat Covid test and the discharge summary will need to be faxed before transfer. Kain will follow up with his PCP and discharge plan of care. CM will continue to follow.
[2020-12-12] MEDS: Magnesium Oxide 400 MG TAB PO (12:24)
[2020-12-12] MEDS: Nystatin POWDER 15 GM JAR TP ×2 (14:45→20:25)
[2020-12-12 15:23] VITALS: BP 105/68; PULSE 89; RESP 18; TEMP 36.7; O2SAT 96
--- NOTE | 2020-12-12 15:38 | WOUNDCARE ---
Wound Care Report: Pt declined to have weekly re-evaluation of wounds done today. Dressings not due to be changed until Friday. Agreeable to be seen Sunday 12/17 if he is still inpatient here. Will try and see pt on Friday.
--- NOTE | 2020-12-12 17:06 | W.PM.PROGNOT ---
Date of Service Date of service: 12/12/20 Time of Service: 17:06 Assessment and Plan Assessment and plan (1) Pleuritic chest pain: Status: Acute Assessment and plan: R/o PE. DVTs were already on differential for FUO (prior to dx of PNA). Stat CTA chest ordered. (2) HCAP (healthcare-associated pneumonia): Status: Acute Assessment and plan: Continue ceftiazidime. Blood cultures negative. Urine C&S is growing pseduomonas, which ceftazidime is covering. Encourage IS. ?aspiration as etiology. (3) Osteonecrosis of right hip: Status: Suspected Assessment and plan: The patient states that he would like to walk again and is not ready for comfort measures. Attempted to set up transfer to [facility] for joint aspiration and Girdlestone procedure, but I was recommended to outpatient follow up with ortho and plastics rather than inpatient transfer, having discussed the case with their orhtopedic surgeon and hospitalist. Obtaining CT hip at the same time as CTA chest. (4) Contracture of right hip: Status: Acute Assessment and plan: See above (5) Contracture, right knee: Status: Acute Assessment and plan: See above (6) Chest pain: Status: Resolved Assessment and plan: In setting of n/v. Does report GERD - continue PPI BID. No ACS. (7) Pressure ulcers of skin of multiple topographic sites: Status: Acute Assessment and plan: Read above - needs procedure to move RLE off of LLE. Will need outpatient follow up with ortho at [facility] and with plastic surgery. Continue wound care. ? osteomyelitis of R malone and possibly R heel (8) Complete immobility due to severe physical disability or frailty: Status: Acute Assessment and plan: Patient's goal is to walk again. I am not sure how realistic this is. Patient is not ready for comfort measures. Palliative care on board. Will need outpatient follow up with orthopedics. (9) DVT prophylaxis: Status: Acute Assessment and plan: SC heparin (10) Discharge planning issues: Status: Acute Assessment and plan: DNR/DNI Subjective Subjective Interval history since last seen: C/o pleuritic chest pain in right upper chest. He did not tell nurses or myself until now. He is not sure why. He denies dizziness, nausea. He agrees to CT. He is not sure about venous dopplers. Exam Narrative Exam Narrative: General: Pleasant elderly male, edematous throughout, anxious, A&Ox3 HEENT: EOMI, MMM Heart: RRR, + BARBARA Lungs: CTAB Abdomen: soft, nontender, nondistended Extremities: 2+ BUE edema; RLE bent and internally rotated at the hip, patient is unable to relax it. 2+ pitting edema LLE. Objective Last Vital Signs Temp 36.7 C 12/12/20 15:23 Pulse 89 12/12/20 15:23 Resp 18 12/12/20 15:23 BP 105/68 12/12/20 15:23 Pulse Ox 96 12/12/20 15:23 Laboratory Results - last 24 hr 12/12/20 12/12/20 06:41 06:41 WBC 6.81 RBC 4.15 L Hgb 10.8 L Hct 35.8 L MCV 86.3 MCH 26.0 L MCHC 30.2 L RDW 16.7 H Plt Count 226 MPV 9.8 Immature Gran % 0.6 Neutrophils % 63.2 Lymphocytes % 15.9 Monocytes % 10.7 Eosinophils % 9.0 Basophils % 0.6 Nucleated RBC % 0 Absolute Neutrophils 4.31 Absolute Lymphocytes 1.08 L Absolute Monocytes 0.73 Absolute Eosinophils 0.61 Absolute Basophils 0.04 Sodium 144 Potassium 3.7 Chloride 106 Carbon Dioxide 30.6 Anion Gap 7.4 BUN 12 Creatinine 0.4 L Estimated GFR/1.73 m2 >= 60.00 Glucose 99 Calcium 7.9 L Magnesium 1.8
[2020-12-12] MEDS: Normal Saline - Diluent 50 ML VIAL IV (19:56)
[2020-12-12] MEDS: Omnipaque 350 MG/ML 100 ML BTL IV (19:56)
[2020-12-12] MEDS: Normal Saline Flush 10 ML SYR IVP (19:57)
--- NOTE | 2020-12-12 20:21 | DI.VRAD_ITS ---
PROCEDURE INFORMATION: Exam: CT Pelvis Without Contrast Exam date and time: 12/12/2020 5:06 PM Age: 75 years old Clinical indication: Other: R hip contracture, osteonecrosis TECHNIQUE: Imaging protocol: Computed tomography images of the pelvis without contrast. Radiation optimization: All CT scans at this facility use at least one of these dose optimization techniques: automated exposure control; mA and/or kV adjustment per patient size (includes targeted exams where dose is matched to clinical indication); or iterative reconstruction. COMPARISON: CT ABDOMEN PELVIS W 09/24/2020 8:48 PM FINDINGS: Stomach and bowel: Visualized small bowel and colon are unremarkable. Appendix: No evidence of appendicitis. Intraperitoneal space: Unremarkable. No free air. No significant fluid collection. Vasculature: Calcified atherosclerotic disease. No aneurysm. Lymph nodes: Unremarkable. No enlarged lymph nodes. Urinary bladder: Rock catheter in place. Reproductive: Normal as visualized. Bones/joints: Severe right hip joint space narrowing and spurring, unchanged from the comparison exam. No acute fracture. [id number] left hip joint degenerative disease. Soft tissues: Right lower quadrant anterior abdominal wall subcutaneous fluid collection has decreased in size, now measuring 2.8 cm, compared to 4.4 cm on the prior exam. Diffuse subcutaneous edema. IMPRESSION: 1. Severe right hip joint space narrowing and degenerative spurring, unchanged from the comparison exam. 2. No acute fracture. 3. Decreased size of right lower quadrant anterior abdominal wall subcutaneous cyst. Dictated and Authenticated by: Javid Orosco MD. Ordering:CHRISTOPHER Ibarra MD
--- NOTE | 2020-12-12 20:26 | DI.VRAD_ITS ---
PROCEDURE INFORMATION: Exam: CTA Chest With Contrast Exam date and time: 12/12/2020 7:45 PM Age: 75 years old Clinical indication: Other: Pleuritic chest pain, concern for a pe TECHNIQUE: Imaging protocol: Computed tomographic angiography of the chest with contrast. 3D rendering (Not supervised by radiologist): MIP and/or 3D reconstructed images were created by the technologist. Radiation optimization: All CT scans at this facility use at least one of these dose optimization techniques: automated exposure control; mA and/or kV adjustment per patient size (includes targeted exams where dose is matched to clinical indication); or iterative reconstruction. Contrast material: OMNIPAQUE 350; Contrast volume: 100 ml; Contrast route: INTRAVENOUS (IV); COMPARISON: CR XR PORTABLE CHEST AP 12/10/2020 6:16 PM FINDINGS: Pulmonary arteries: Mild dilatation of central main pulmonary arteries. No pulmonary emboli. Aorta: Calcified atherosclerotic disease. No aortic aneurysm. No aortic dissection. Lungs: Posterior and medial right lower lobe airspace consolidation, concerning for pneumonia. Pleural spaces: Unremarkable. No pneumothorax. No pleural effusion. Heart: Calcified atherosclerotic disease of the coronary arteries. No pericardial effusion or cardiac chamber enlargement. Lymph nodes: Enlarged right paratracheal lymph nodes. Bones/joints: Prior lower cervical ACDF, incompletely evaluated. No acute fracture or focal suspicious osseous lesion. Soft tissues: Unremarkable. IMPRESSION: 1. No pulmonary embolism. 2. Right lower lobe pneumonia. 3. Mild dilatation of central main pulmonary arteries, suggesting pulmonary hypertension. Dictated and Authenticated by: Javid Orosco MD. Ordering:CHRISTOPHER Ibarra MD
[2020-12-12 20:27] VITALS: BP 123/69; PULSE 104; RESP 20; TEMP 37.5; O2SAT 96
[2020-12-12] MEDS: Melatonin 3 MG TAB 6 MG PO (21:28)
[2020-12-12] MEDS: Ferrous Gluconate 324 MG TAB PO (21:29)
[2020-12-12] MEDS: Simvastatin 40 MG TAB PO (21:29)
[2020-12-12 23:47] VITALS: BP 137/74; PULSE 104; RESP 20; TEMP 37.6; O2SAT 93
[2020-12-13] VITALS (8 sets, daily range): BP systolic 108–130; BP diastolic 65–72; PULSE 77–98; RESP 17–20; TEMP 36.5–37.4; O2SAT 92–94
[2020-12-13] MEDS: Heparin 5,000 UNITS/ML VIAL 5000 UNITS SC ×3 (01:13→23:13)
[2020-12-13] MEDS: cefTAZidime 1,000 MG in Normal Saline 100 ML 200 MG IVPB ×3 (04:45→19:20)
[2020-12-13] MEDS: Normal Saline 500 ML 30 ML IV (04:45)
[2020-12-13] MEDS: Protein Nutritional Supplement 16 GM 1 OUNCE PACKET PO ×2 (08:15→19:20)
[2020-12-13] MEDS: Zinc Sulfate 220 MG TAB PO (08:22)
[2020-12-13] MEDS: Methocarbamol 500 MG TAB 1000 MG PO ×4 (08:22→19:22)
[2020-12-13] MEDS: Gabapentin 100 MG CAP 200 MG PO (08:22)
[2020-12-13] MEDS: Multivitamin TAB 1 TAB PO (08:23)
[2020-12-13] MEDS: Cyanocobalamin 500 MCG TAB 1000 MCG PO ×2 (08:23→19:20)
[2020-12-13] MEDS: Tamsulosin 0.4 MG CAPCR PO (08:23)
[2020-12-13] MEDS: Pantoprazole 40 MG TABCR PO ×2 (08:23→19:22)
[2020-12-13] MEDS: Aspirin E.C. 81 MG TABEC PO (08:23)
[2020-12-13] MEDS: Cyclobenzaprine 10 MG TAB 5 MG PO ×2 (08:23→19:21)
[2020-12-13] MEDS: Nystatin POWDER 15 GM JAR TP ×3 (08:25→19:22)
--- NOTE | 2020-12-13 10:44 | CMPROGNOTE_ITS ---
- If Service Date Differs Date of service: 12/13/20 Time of Service: 10:44 Care Management Progress Note S/O: London was lying in bed when CM met with him. CM discussed paperwork that his sister, Marie, has left for him to sign in order to update his life insurance beneficiary, but he stated that he is not up for it today. CM talked to Marie, providing an update. CM sent referrals for out patient follow up to [facility] Plastics and Ortho. CM talked to both departments who reported that they are booking appointments in mid January at this time, but they will have their providers review the referrals in order to determine if he should be seen earlier. He has an appointment with Neuro on 12/18/20 at 4:15pm, but Ortho and Plastics do not have availability for that date. CLAUDINE talked to admissions at [facility], who stated that the EMS transport is set up for his appt on 12/18/20. Kain continues to receive IV abx, and will be transferred back to [facility] once this course is complete. CM will continue to follow. A: London is a 75 year old male admitted to [facility] on 12/01/20 with UTI, sepsis. P: London will likely will return to [facility] when medically cleared by provider. He will transport via ambulance coordinated by CLAUDINE. He will need a repeat Covid test and the discharge summary will need to be faxed before transfer. Kain will follow up with his PCP and discharge plan of care. CM will continue to follow.
[2020-12-13] MEDS: Magnesium Oxide 400 MG TAB PO (11:10)
--- NOTE | 2020-12-13 14:09 | W.PM.PROGNOT ---
Date of Service Date of service: 12/13/20 Time of Service: 14:09 Assessment and Plan Assessment and plan (1) Pleuritic chest pain: Status: Acute Assessment and plan: Likely musculoskeletal. No PE on CTA. DVTs were already on differential for FUO (prior to dx of PNA). (2) HCAP (healthcare-associated pneumonia): Status: Acute Assessment and plan: Continue ceftiazidime. Blood cultures negative. Urine C&S is growing pseduomonas, which ceftazidime is covering. Encourage IS. ?aspiration as etiology, especially given RLL appearance on CXR - get speech therapy eval (3) Osteonecrosis of right hip: Status: Suspected Assessment and plan: The patient states that he would like to walk again and is not ready for comfort measures. Attempted to set up transfer to [facility] for joint aspiration and Girdlestone procedure, but I was recommended to outpatient follow up with ortho and plastics rather than inpatient transfer, having discussed the case with their orhtopedic surgeon and hospitalist. This is being arranged. The patient is declining to go to other facilities, such as [facility]. CT pelvis w/ decrease in the size of a subcutaneous fluid collection. (4) Contracture of right hip: Status: Acute Assessment and plan: See above (5) Contracture, right knee: Status: Acute Assessment and plan: See above (6) Chest pain: Status: Resolved Assessment and plan: In setting of n/v. PE also ruled out. Does report GERD - continue PPI BID. No ACS. (7) Pressure ulcers of skin of multiple topographic sites: Status: Acute Assessment and plan: Read above - needs procedure to move RLE off of LLE. Will need outpatient follow up with ortho at [facility] and with plastic surgery - attempting to arrange this. Continue wound care. ? osteomyelitis of R malone and possibly R heel (8) Complete immobility due to severe physical disability or frailty: Status: Acute Assessment and plan: Patient's goal is to walk again. I am not sure how realistic this is. Patient is not ready for comfort measures. Palliative care on board. Will need outpatient follow up with orthopedics. (9) DVT prophylaxis: Status: Acute Assessment and plan: SC heparin (10) Discharge planning issues: Status: Acute Assessment and plan: DNR/DNI Subjective Subjective Interval history since last seen: Mr Coker continues to report R upper chest pain. He denies dizziness/shortness of breath/nausea. He is having hiccups again. He does not want to be transferred to [facility]. I explained to him that the other option is to try to get him follow ups with [facility] ortho and plastic surgery on the same day as his botox appointment at [facility] On 12/18. Our care management is currently working on getting this arranged. He is not sure if he will permit ultrasounds of his arms and legs - he will think about it. Exam Narrative Exam Narrative: General: Pleasant elderly male, edematous throughout, anxious, A&Ox3, hiccuping HEENT: EOMI, MMM Heart: RRR, + BARBARA Lungs: CTAB Abdomen: soft, nontender, nondistended Extremities: 2+ BUE edema; RLE bent and internally rotated at the hip, patient is unable to relax it. 2+ pitting edema LLE. wound R heel dressed. Objective Last Vital Signs Temp 36.5 C 12/13/20 07:57 Pulse 84 12/13/20 07:57 Resp 18 12/13/20 07:57 BP 108/65 12/13/20 07:57 Pulse Ox 92 12/13/20 07:57 Objective Narrative Objective Narrative: CTA chest: 1. No evidence of pulmonary embolism, thoracic aortic dissection or aneurysm. 2. Right lower lobe consolidation suspicious for pneumonia.
--- NOTE | 2020-12-13 16:54 | NUR.NOTE ---
despite education given relating to constipation patient refused all forms of bowel medication
[2020-12-13] MEDS: Polyethylene Glycol 3350 17 GM PACKET PO (17:18)
[2020-12-13] MEDS: Normal Saline Flush 10 ML SYR IVP (19:20)
[2020-12-13] MEDS: Gabapentin 300 MG CAP PO (19:21)
--- NOTE | 2020-12-13 19:28 | WOUNDCONS ---
- If Service Date Differs Date of service: 12/13/20 Time of Service: 12:30 Wound Initial Evaluation Narrative: Reconsult on patient for multiple wounds. Patient has been evaluated by orthopedics and podiatry for some wounds and his contractures since last assessment. Right hip wound measures 6 cm x 12 cm x less than 0.1 cm in pink area which has some epithelial tissue. In the larger area, there are two open areas, the proximal area measures 0.4 cm x 2.3 cm x 0.1 cm. The distal area measures 1.5 cm x 4 cm x 0.1 cm. the surroundsing skin has no increased warmth or induration. The right malone has a partial thickness wound measuring 2 cm x 1 cm x 0.1 cm and an approximately 0.4 cm x 0.4 cm x 0.1 cm irregularly round opening distal to the partial thickness wound. There is a reddened malone area where contact is made between the left and right leg. Attempts are made to place padding in between the legs which patient declined. Pt educated on pressure and its effects. There is a minimal amount of serosanguinous drainage with friable tissue surrounding the wounds. The right heel wound measures 3 cm x 3.5 cm x 0.8 cm at the 9 o'clock position when the patients head is 12 o'clock. the wound bed is 95 % firmly adherent slough with macerated edges and some redness in the tissues surrounding the wound. Minimal serosanguinous drainage is noted. The foot is edematous (4+) and attempts were made to float heel off the bed. Pt declined heel protector boots for either side. Call made to Dr. Roht to update on right heel and malone wounds. The Right great toe, right second toe and right metatarsal head have deep tissue injuries. The right great toe DTI measures 5 cm x 3.7 cm x less than 0.1. Skin is intact. The right second toe DTI measures 0.4 cm x 0.5 cm x less than 0.1 cm. Skin is intact. The right metatarsal head DTI measures 3.5 cm x 3.7 cm x less than 0.1 cm. Skin is intact. Patient educated on pressure injuries and need for repositioning. The patient has a skin tear on left arm measuring 1.2 cm x 0.4 cm x 0.1 cm. No redness noted around periphery. Minimal serous drainage noted. Left arm is edematous (3+) and painful with repositioning. The left hip wound measures 3.5 cm x 1.5 cm x 0.1 cm and has a purplish periphery surrounded by a pink periphery. Minimal serous drainage noted. Pt has area of non- blanchable redness noted on left lower back measuring 0.4 cm x 6 cm x less than 0.1 cm. Skin appears intact, no drainage noted, no redness around periphery. Pt has open area on left thigh where right leg meets left measuring 1.2 cm x 1 cm x 0.1 cm. Periphery has redness, minimal serous drainage noted. Left knee open area measures 1.5 cm x 1.7 cm x less than 0.1 cm. the wound bed has no drainage noted. Edges are pink around periphery. - Recomendation Recomendation:: Recommend: Following orders from Dr. Roth for the right malone and heel. Right hip- Cleanse wound with normal saline, pat dry. Apply mepilex with border. Change q 5 days and PRN. Right great toe, second toe and right metatarsal head.- Offload areas. Monitor for intact skin. Notify MD if opens. Left arm- CLeanse with ns, pat dry, apply mepilex with border. Change q 5 days and PRN. Left hip- Cleanse with normal saline, pat dry. Apply mepilex with border. Change q 5 days and PRN. Reposition off area. Left lower back- Apply mepliex with border for protection, moitor area for opening with dressing changes. If opens, notify MD. Left thigh- Cleanse with ns, pat dry, apply mepilex with border. Change q 5 days and PRN. Left knee- Cleanse with ns, pat dry, skin prep periphery. Apply thin layer of anasept gel to wound bed only. Cover with mepilex wtih border. Change daily and PRN.
[2020-12-13] MEDS: Acetaminophen 325 MG TAB 650 MG PO (19:29)
[2020-12-13] MEDS: Ferrous Gluconate 324 MG TAB PO (21:31)
[2020-12-13] MEDS: oxyCODONE 10 MG TAB PO (21:31)
[2020-12-13] MEDS: Mylanta Suspension 30 ML CUP PO (21:31)
[2020-12-13] MEDS: Melatonin 3 MG TAB 6 MG PO (21:31)
[2020-12-13] MEDS: Simvastatin 40 MG TAB PO (21:32)
[2020-12-14 03:40] VITALS: BP 110/64; PULSE 76; RESP 18; TEMP 37.1; O2SAT 95
[2020-12-14] MEDS: cefTAZidime 1,000 MG in Normal Saline 100 ML 200 MG IVPB ×3 (04:21→20:51)
[2020-12-14 07:02] LABS: Abs Immature Grans 0.03 10^3/uL (0.0-0.06); Absolute Basophil Count 0.03 10^3/uL (0.0-0.2); Absolute Eosinophil Count 0.62 10^3/uL (0.0-0.7); Absolute Lymphocyte Count 1.48 10^3/uL (1.2-3.4); Absolute Monocyte Count 0.76 10^3/uL (0.1-0.8); Absolute Neutrophil Count 4.06 10^3/uL (1.2-6.7); Basophils % 0.4; Eosinophils % 8.9; HCT 35.9 % (40.0-50.0); HGB 11.3 g/dL (13.5-17.5); Immature Grans % 0.4; Lymphocytes % 21.2; MCH 26.5 pg (27.0-33.0); MCHC 31.5 % (32.0-36.0); MCV 84.1 fL (80-95); MPV 9.9 fL (8.0-11.0); Monocytes % 10.9; Neutrophils % 58.2; Nucleated RBC 0 %; Platelet Count 280 10^3/uL (130-400); RBC 4.27 10^6/uL (4.36-5.78); RDW 16.6 % (11.8-14.1); RDW-SD 51.2 fL; WBC 6.98 10^3/uL (4.4-10.8)
[2020-12-14 07:18] LABS: Anion Gap 4.9 mmol/L (3-11); BUN 9 mg/dL (7-18); C-Reactive Protein 5.39 mg/dL (0.0-0.3); CO2 33.1 mmol/L (21.0-32.0); CREATININE 0.5 mg/dL (0.70-1.30); Calcium 8.4 mg/dL (8.5-10.1); Chloride 105 mmol/L (98-107); Glucose 93 mg/dL (74-106); Potassium 3.9 mmol/L (3.5-5.1); Sodium 143 mmol/L (136-145)
[2020-12-14] MEDS: Nystatin POWDER 15 GM JAR TP ×2 (08:06→20:52)
[2020-12-14] MEDS: fentaNYL 50 MCG PATCH TD (08:06)
[2020-12-14] MEDS: Protein Nutritional Supplement 16 GM 1 OUNCE PACKET PO ×3 (08:06→20:55)
[2020-12-14] MEDS: Aspirin E.C. 81 MG TABEC PO (08:07)
[2020-12-14] MEDS: Methocarbamol 500 MG TAB 1000 MG PO ×4 (08:07→20:54)
[2020-12-14] MEDS: Cyanocobalamin 500 MCG TAB 1000 MCG PO ×2 (08:07→20:55)
[2020-12-14] MEDS: Tamsulosin 0.4 MG CAPCR PO (08:07)
[2020-12-14] MEDS: Zinc Sulfate 220 MG TAB PO (08:07)
[2020-12-14] MEDS: Pantoprazole 40 MG TABCR PO ×2 (08:07→20:52)
[2020-12-14] MEDS: Gabapentin 300 MG CAP PO ×3 (08:07→20:53)
[2020-12-14] MEDS: Multivitamin TAB 1 TAB PO (08:07)
[2020-12-14] MEDS: Cyclobenzaprine 10 MG TAB 5 MG PO ×3 (08:08→20:54)
[2020-12-14] MEDS: Heparin 5,000 UNITS/ML VIAL 5000 UNITS SC ×2 (08:08→15:44)
[2020-12-14] MEDS: Dronabinol 2.5 MG CAP PO ×2 (09:03→20:53)
[2020-12-14] MEDS: Magnesium Oxide 400 MG TAB PO (09:03)
[2020-12-14 09:27] VITALS: BP 117/61; PULSE 74; RESP 17; TEMP 36.6; O2SAT 95
[2020-12-14 11:51] VITALS: BP 109/63; PULSE 82; RESP 17; TEMP 36.7; O2SAT 94
[2020-12-14] MEDS: Normal Saline 500 ML 100 ML IV (12:09)
--- NOTE | 2020-12-14 12:13 | W.PM.PROGNOT ---
Date of Service Date of service: 12/14/20 Time of Service: 12:13 Assessment and Plan Assessment and plan (1) Pleuritic chest pain: Status: Acute Assessment and plan: Likely musculoskeletal. No PE on CTA. DVTs were already on differential for FUO (prior to dx of PNA). (2) HCAP (healthcare-associated pneumonia): Status: Acute Assessment and plan: Continue ceftiazidime day 4/5. Blood cultures negative. Urine C&S is growing pseduomonas, which ceftazidime is covering. Encourage IS. ?aspiration as etiology, especially given RLL appearance on CXR - get speech therapy eval (3) Osteonecrosis of right hip: Status: Suspected Assessment and plan: The patient states that he would like to walk again and is not ready for comfort measures. Attempted to set up transfer to [facility] for joint aspiration and Girdlestone procedure, but I was recommended to outpatient follow up with ortho and plastics rather than inpatient transfer, having discussed the case with their orhtopedic surgeon and hospitalist. This is being arranged. The patient is declining to go to other facilities, such as [facility]. CT pelvis w/ decrease in the size of a subcutaneous fluid collection. (4) Contracture of right hip: Status: Acute Assessment and plan: See above (5) Contracture, right knee: Status: Acute Assessment and plan: See above (6) Chest pain: Status: Resolved Assessment and plan: In setting of n/v. PE also ruled out. Does report GERD - continue PPI BID. No ACS. (7) Pressure ulcers of skin of multiple topographic sites: Status: Acute Assessment and plan: Read above - needs procedure to move RLE off of LLE. Will need outpatient follow up with ortho at [facility] and with plastic surgery - attempting to arrange this. Continue wound care. ? osteomyelitis of R malone and possibly R heel (8) Complete immobility due to severe physical disability or frailty: Status: Acute Assessment and plan: Patient's goal is to walk again. I am not sure how realistic this is. Patient is not ready for comfort measures. Palliative care on board. Will need outpatient follow up with orthopedics. (9) DVT prophylaxis: Status: Acute Assessment and plan: SC heparin (10) Discharge planning issues: Status: Acute Assessment and plan: DNR/DNI anticipate dicharge to [facility] tomorrow. case discussed with Dr Vieira Subjective Subjective Patient reports: no new complaints, tolerating liquids well, tolerating a regular diet and afebrile; denies shortness of breath Exam Narrative Exam Narrative: General: Pleasant elderly male, pale, non toxic appearing, A&Ox3, chronically ill appearing HEENT: EOMI, MMM Heart: RRR Lungs: respirations even and unlabored. Abdomen: soft, nontender, nondistended Extremities: 2+ BUE edema; RLE bent and internally rotated at the hip, patient is unable to relax it. 2+ pitting edema LLE. wound R heel dressed. dressings are clean dry and intact. skin: wounds no accessed, dressings clean and intact Objective Last Vital Signs Temp 36.7 C 12/14/20 11:51 Pulse 82 12/14/20 11:51 Resp 17 12/14/20 11:51 BP 109/63 12/14/20 11:51 Pulse Ox 94 12/14/20 11:51 Laboratory Results - last 24 hr 12/14/20 12/14/20 06:45 06:45 WBC 6.98 RBC 4.27 L Hgb 11.3 L Hct 35.9 L MCV 84.1 MCH 26.5 L MCHC 31.5 L RDW 16.6 H Plt Count 280 MPV 9.9 Immature Gran % 0.4 Neutrophils % 58.2 Lymphocytes % 21.2 Monocytes % 10.9 Eosinophils % 8.9 Basophils % 0.4 Nucleated RBC % 0 Absolute Neutrophils 4.06 Absolute Lymphocytes 1.48 Absolute Monocytes 0.76 Absolute Eosinophils 0.62 Absolute Basophils 0.03 Sodium 143 Potassium 3.9 Chloride 105 Carbon Dioxide 33.1 H Anion Gap 4.9 BUN 9 Creatinine 0.5 L Estimated GFR/1.73 m2 >= 60.00 Glucose 93 Calcium 8.4 L Magnesium 2.0 C-Reactive Protein 5.39 H
[2020-12-14 14:49] LABS: Source Nasal/Nares
--- NOTE | 2020-12-14 16:09 | PDOC.STREC ---
Date of service: 12/14/20 Time of Service: 16:09 Speech Therapy Recommendations Report ST Recommendations: PASSENGER ELEVATOR OPERATOR Non-Treatment Note Consult Order received. Chart reviewed. HPI: Pt admitted with UTI/sepsis with PMHx including paraplegia, HTN with multiple unstageable pressure wounds on both feet, hip and lower back. Chart review indicates 9% weight loss in last 3 months. Following heart healthy diet with very little PO intake since admit- frequent meal refusals. RN reports pt has been tolerating provided regular solids/thin liquids diet well when provided assist for feeding from DEHYDRATION PLANT OPERATOR on this date, has been tolerating between 25-75% of meals but this does fluctuate; RD is also following closely given concerns for nutritional intake, prior refusal of supplements. Subjective: Pt received in afternoon 12/14/20 seated upright in bed, able to converse with PASSENGER ELEVATOR OPERATOR briefly re: s/s dysphagia; pt needed to be reclined in bed with DEHYDRATION PLANT OPERATOR assist x2 for full repositioning, preventing clinical swallow evaluation on this date given time constraints; did discuss recommendations with patient re: taking pills 1 at a time given report of occasional pill dysphagia when he takes a whole handful at once since [he] just has so many, patient was in agreement with this. Recommendations: -Pills 1 at a time as tolerated -HOB upright for all po intake *Agree with continued Palliative Care consultation Plan: PASSENGER ELEVATOR OPERATOR to communicate consult order to covering PASSENGER ELEVATOR OPERATOR, otherwise will plan further evaluation on 12/18/20. Kitty Dominguez MA [facility]-PASSENGER ELEVATOR OPERATOR Speech-Language Pathologist [place]#[phone] Coding
[2020-12-14 16:15] VITALS: BP 122/65; PULSE 86; RESP 17; TEMP 36.7; O2SAT 94
--- NOTE | 2020-12-14 17:32 | W.PM.PROGNOT ---
Date of Service Date of service: 12/14/20 Time of Service: 17:32 Subjective Subjective Interval history since last seen: Kain is seen at bedside. He remains fairly uncomfortable without any significant new complaints. He does indicate he is still having occasional hallucinations. He states he is returning to [facility] and rehabilitation tomorrow. Exam Narrative Exam Narrative: Wounds are evaluated on his lower extremities. He has an area of ecchymosis affecting the distal the medial aspect of his great toe and first metatarsal head which are new since his last visit. The skin remains closed at this time. No active signs of infection at this area. Dressings are removed from his right heel And malone. The right heel continues to have significant yellowish slough throughout the base, minimal maceration along the border, no undermining or sinus tracking noted. No odor or active signs of infection seen. The anterior malone is locally reddened from pressure, a small wound is appreciated with firm material still noted deep within it which I believed to be small bone fragments. There was no odor or purulence noted. It is very difficult to get a good look or examination in this area due to the tight contracture of his legs. Impressions: Full-thickness right heel ulceration chronic Grade 1 wound right great toe first metatarsal head Ulceration right malone depth difficult to determine Plan: With a #10 scalpel and pickup I sharply debrided the heel wound removing devitalized tissue from the base of the wound all the way to the periphery. Active bleeding was encountered. I did discuss with Kain using a heel protector boot but he flatly refuses. He indicates that he can have anything on his foot due to claustrophobia, he has tried before and he does not want to try again. I recommend that the wound get cleansed with normal saline and continue with PolyMem dressings to the heel and anterior malone changing every 3 days or as needed based on soiling. Pressure abatement measures and frequent turning needs to be continued to avoid worsening of his ulcerations. London's prognosis is poor, I appreciate being asked to participate in his care. Objective Last Vital Signs Temp 36.7 C 12/14/20 16:15 Pulse 86 12/14/20 16:15 Resp 17 12/14/20 16:15 BP 122/65 12/14/20 16:15 Pulse Ox 94 06/03/21 16:15 Laboratory Results - last 24 hr 12/14/20 12/14/20 12/14/20 06:45 06:45 14:33 WBC 6.98 RBC 4.27 L Hgb 11.3 L Hct 35.9 L MCV 84.1 MCH 26.5 L MCHC 31.5 L RDW 16.6 H Plt Count 280 MPV 9.9 Immature Gran % 0.4 Neutrophils % 58.2 Lymphocytes % 21.2 Monocytes % 10.9 Eosinophils % 8.9 Basophils % 0.4 Nucleated RBC % 0 Absolute Neutrophils 4.06 Absolute Lymphocytes 1.48 Absolute Monocytes 0.76 Absolute Eosinophils 0.62 Absolute Basophils 0.03 Sodium 143 Potassium 3.9 Chloride 105 Carbon Dioxide 33.1 H Anion Gap 4.9 BUN 9 Creatinine 0.5 L Estimated GFR/1.73 m2 >= 60.00 Glucose 93 Calcium 8.4 L Magnesium 2.0 C-Reactive Protein 5.39 H COVID-19 Source Nasal/nares
--- NOTE | 2020-12-14 17:40 | CMPROGNOTE_ITS ---
- If Service Date Differs Date of service: 12/14/20 Time of Service: 17:40 Care Management Progress Note S/O: London was sleeping, listening to Edgar on the tablet when CM attempted to meet with him. Later, he was awake and alert. CM discussed his plan, which will be for him to return to [facility] tomorrow. He has a follow up appointment at [facility] on Friday with Neurology, which [facility] will transport him to. He is agreeable to the plan. CM discussed the changes he would like to make to his [employer] insurance, but he did not feel up to it today. CM will continue to follow. A: London is a 75 year old male admitted to [facility] on 12/01/20 with UTI, sepsis. P: London will likely will return to [facility] when medically cleared by provider. He will transport via ambulance coordinated by CM. He will need a repeat Covid test and the discharge summary will need to be faxed before transfer. Kain will follow up with his PCP and discharge plan of care. CM will continue to follow.
[2020-12-14 18:10] LABS: COVID-19 PCR Negative (Negative)
[2020-12-14 20:01] VITALS: BP 121/67; PULSE 86; RESP 18; TEMP 36.2; O2SAT 94
[2020-12-14] MEDS: Normal Saline Flush 10 ML SYR IVP (20:52)
[2020-12-14] MEDS: Simvastatin 40 MG TAB PO (22:39)
[2020-12-14] MEDS: Ferrous Gluconate 324 MG TAB PO (22:39)
[2020-12-14] MEDS: Melatonin 3 MG TAB 6 MG PO (22:39)
[2020-12-15] MEDS: Heparin 5,000 UNITS/ML VIAL 5000 UNITS SC ×2 (00:01→08:30)
[2020-12-15 00:06] VITALS: BP 133/68; PULSE 90; RESP 18; TEMP 36.4; O2SAT 91
[2020-12-15] MEDS: cefTAZidime 1,000 MG in Normal Saline 100 ML 200 MG IVPB ×2 (03:25→11:38)
[2020-12-15] MEDS: Normal Saline Flush 10 ML SYR IVP ×2 (03:25→11:39)
[2020-12-15 03:53] VITALS: BP 134/71; PULSE 86; RESP 17; TEMP 36.2; O2SAT 90
[2020-12-15 04:35] VITALS: O2SAT 95
[2020-12-15 07:50] VITALS: BP 104/61; PULSE 81; RESP 19; TEMP 36.7; O2SAT 93
[2020-12-15] MEDS: Methocarbamol 500 MG TAB 1000 MG PO ×2 (08:28→11:40)
[2020-12-15] MEDS: Multivitamin TAB 1 TAB PO (08:29)
[2020-12-15] MEDS: Dronabinol 2.5 MG CAP PO (08:29)
[2020-12-15] MEDS: Aspirin E.C. 81 MG TABEC PO (08:29)
[2020-12-15] MEDS: Pantoprazole 40 MG TABCR PO (08:29)
[2020-12-15] MEDS: Tamsulosin 0.4 MG CAPCR PO (08:29)
[2020-12-15] MEDS: Cyclobenzaprine 10 MG TAB 5 MG PO (08:29)
[2020-12-15] MEDS: Zinc Sulfate 220 MG TAB PO (08:29)
[2020-12-15] MEDS: Gabapentin 300 MG CAP PO (08:30)
[2020-12-15] MEDS: Cyanocobalamin 500 MCG TAB 1000 MCG PO (08:30)
[2020-12-15] MEDS: Protein Nutritional Supplement 16 GM 1 OUNCE PACKET PO (08:30)
[2020-12-15 09:28] LABS: Prealbumin 9 mg/dL (20-40)
[2020-12-15] MEDS: Magnesium Oxide 400 MG TAB PO (10:08)
[2020-12-15 11:45] VITALS: BP 111/66; PULSE 83; RESP 19; TEMP 36.4; O2SAT 93
--- NOTE | 2020-12-15 12:21 | W.PM.DS.N ---
Date of service: 12/15/20 Time of Service: 12:21 DS: Diagnosis Discharge Diagnosis (1) Pleuritic chest pain: Status: Acute (2) HCAP (healthcare-associated pneumonia): Status: Acute (3) Osteonecrosis of right hip: Status: Suspected (4) Contracture of right hip: Status: Acute (5) Contracture, right knee: Status: Acute (6) Chest pain: Status: Resolved (7) Pressure ulcers of skin of multiple topographic sites: Status: Acute (8) Complete immobility due to severe physical disability or frailty: Status: Acute Discharge Plan Disposition Patient Disposition: SNF (LEVEL 1) [facility] Condition: Stable Discharge Details Reason For Visit: UTI, SEPSIS SYNDROME Admit Date/Time: 12/01/20 18:18 Admit Provider: Javid Farias Attending Provider: Javid Farias Primary Care Provider: Shonda Neil Hospital Course Hospital Course: This is a 75-year-old male patient who resides at a local residential who is 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 He did have surgical decompression of C2-5 at [facility] 2 weeks prior to this presentation. He chronically is noted with use of his upper extremities and has contractures of his lower extremities. He has a Gibson catheter because of bladder outlet function. He had fever with symptoms of UTI with a positive urine prior to presentation to the ED and also had some confusion. He had mild septic syndrome upon presentation. He responded to IV fluid resuscitation and initiation IV antibiotics. He had failed outpatient therapy and was on Rocephin so was admitted on Zosyn. urine culture grew pseudomonas, sensitive to ceftazidime so his antibiotics where changed accordingly. will be downstepped to cipro on discharge to complete one more week. gibson catheter was changed on date of discharge after 5 days of IV antibiotics. hospital course complicated by chest pain, likely musculoskeletal with PE ruled out by CTA. hospital acquired pneumonia, possible aspiration: Blood cultures negative. completed 5 days of ceftazidime, respiratory status is stable, oxygenating well on room air. sppech therapy consult with recommendations. tried to arrange transfer to [facility] for procedure to move RLE off of LLE. Will need outpatient follow up with ortho at [facility] and with plastic surgery - attempting to arrange this. Will be scheduled outpatient. Continue wound care recommendations for now. Patient's goal is to walk again. Not sure how realistic this is. Patient is not ready for comfort measures. Palliative care on board. Will need outpatient follow up with orthopedics. discharge discussed with Dr Vieira Home Meds and New Rx's Prescriptions: New dronabinol 2.5 mg Capsule 2.5 mg PO BID Qty: 60 RF: 0 baclofen 10 mg Tablet 10 mg PO TID PRN PRNQty: 30 RF: 0 pantoprazole 40 mg Tablet,Delayed Release (Dr/Ec) 40 mg PO BID@729,1999 Qty: 60 RF: 0 zinc sulfate [Zinc-220] 50 mg zinc (220 mg) Capsule 220 mg PO DAILY Qty: 30 RF: 0 Continued multivitamin Tablet 1 tab PO DAILY RF: 0 loperamide 2 mg Tablet 2 mg PO Q6H PRNRF: 0 aspirin 81 mg Tablet,Delayed Release (Dr/Ec) 81 mg PO DAILY RF: 0 acetaminophen 500 mg Tablet 1,000 mg PO Q6H PRNRF: 0 simvastatin 40 mg Tablet 40 mg PO QHS RF: 0 magnesium oxide [MagOx] 400 mg (241.3 mg magnesium) Tablet 400 mg PO DAILY RF: 0 cyanocobalamin (vitamin B-12) 500 mcg Tablet 1,000 mcg PO BID RF: 0 tamsulosin [Flomax] 0.4 mg Capsule 0.4 mg PO DAILY RF: 0 docusate sodium [Colace] 100 mg Capsule 100 mg PO DAILY RF: 0 polyethylene glycol 3350 [Miralax] 17 gram/dose Powder 17 g PO DAILY RF: 0 cyclobenzaprine 5 mg Tablet 5 mg PO TID RF: 0 ferrous gluconate 225 mg (27 mg iron) Tablet 225 mg PO HS RF: 0 Liquid Protein Fortifier 1 gram-4 kcal/6 mL Liquid 30 ml PO BID RF: 0 methocarbamol 500 mg Tablet 1,000 mg PO QID RF: 0 oxycodone 10 mg Tablet 10 mg PO Q4H PRNRF: 0 melatonin 5 mg Tablet 5 mg PO HS PRNRF: 0 fentanyl 50 mcg/hr Patch 72 Hour 1 patch TRANSDERMAL Q72H RF: 0 bisacodyl [Dulcolax (bisacodyl)] 10 mg Suppository 10 mg AK DAILY PRNRF: 0 Fleet Enema 19-7 gram/118 mL Enema 118 ml AK ONCE RF: 0 nystatin 100,000 unit/gram Powder 1 applic TOPICAL TID RF: 0 sennosides [senna] 8.6 mg Tablet 8.6 mg PO BID RF: 0 Changed ciprofloxacin HCl [Cipro] 250 mg Tablet 500 mg PO BID Qty: 28 RF: 0 gabapentin 100 mg Capsule 300 mg PO TID Qty: 0 RF: 0 Discontinued diclofenac potassium 50 mg Tablet 25 mg PO BID RF: 0 furosemide 20 mg Tablet 20 mg PO DAILY RF: 0 potassium chloride 20 mEq Tablet Extended Release 20 meq PO BID RF: 0 ceftriaxone 1 gram Recon Soln 1 g IM DAILY RF: 0 magnesium hydroxide 400 mg/5 mL Suspension 400 mg PO DAILY RF: 0 Discharge Instructions Instructions: Pressure Injury (DC), Pneumonia (DC), Catheter-associated Urinary Tract Infection (DC), Contracture (GEN) Additional Instructions: gibson catheter was exchanged today. will complete one more week of cipro for pseudomonas UTI wound care instruction: Right Hip- Cleanse with anasept cleanser, pat dry, apply mepilex with border. Change q 5 days and PRN (do not use anasept for more than 14 days). Right great toe, second toe and metatarsal head- Offload areas. Monitor for intact skin. Notify MD if opens. Left medial Knee- Cleane with ns, pat dry. Apply skin prep to periphery of wound. Apply thin layer of anasept gel to wound bed only. COver with mepilex with border. Change daily and PRN. (Do not use anasept for more than 14 days). Left Hip- Cleanse normal saline. pat dry. Cover with mepilex w/border. Change every 5 days and PRN. Offload/ reposition off area. Left Heel- No open area. Apply Mepilex for protection and offload heel with pillows. Ledy area- Cleanse area with Anasept. Dry well. Apply nystatin powder as ordered TID. Use interdry sheets in all groin folds and around penis and scrotum. Left lower back- Apply mepilex with border for protection, monitor area for opening with dressing changes. If opens, notify MD. Left arm skin tear- Cleanse with ns, pat dry. Apply mepilex with border. Change q 5 days and PRN. Left thigh- Cleanse with ns, pat dry, apply mepilex with border. Chage q 5 days and PRN. Right heel and leg: D/C anasept cleanser and cleanse wounds with normal saline.Pat dry. Apply polymem dressing to both wounds and, reinforced with Kerlix if needed changing every 2 to 3 days based on saturation. Right malone wound; cleanse with Anasept, apply PolyMem dressing cover with Kerlix roll, change every 2 to 3 days as needed speech therapy consult with recommendations of taking pills 1 at a time given report of occasional pill dysphagia when he takes a whole handful at once since [he] just has so many, HOB upright for all po intake. Stand Alone Forms: Nursing Discharge Form Referrals: ORTHOPAEDIC,[facility] [OTHER] - 01/18/21 1:45 pm (Chronic right hip contracture, osteonecrosis R femoral head) [facility] [OTHER] - (Plastic surgery referral for multiple wounds caused by R hip contracture) Activity:: bedrest Equipment/Supplies:: No Equipment Needed Diet:: As Tolerated Discharge Orders Discharge Orders: Discharge Order (Routine); Ordered 12/15/20 Ordered By: Juana Soto Discharge Data Discharge Date/Time-TO BE ENTERED AT DEPARTURE: 12/15/20 13:02 DS: Summary Time Spent with Patient providing and/or coordinating discharge services: Greater than 30 minutes Status at Discharge Functional status at discharge: bed bound Overall status at discharge: patient is not back to baseline Mental Status: mental status grossly normal Speech and Movement: speech and movement normal Mood: congruent mood Affect: normal affect Exam Narrative Exam Narrative: General: Pleasant elderly male, pale, non toxic appearing, A&Ox3, chronically ill appearing HEENT: EOMI, MMM Heart: RRR Lungs: respirations even and unlabored. Abdomen: soft, nontender, nondistended Extremities: 2+ BUE edema; RLE bent and internally rotated at the hip, patient is unable to relax it. 2+ pitting edema LLE. wound R heel dressed. dressings are clean dry and intact. skin: wounds no accessed, dressings clean and intact Psych Mental Status: mental status grossly normal Speech and Movement: speech and movement normal Mood: congruent mood Affect: normal affect DS: Data Vitals/I&O Vitals and I&O: Vital Signs Temperature 36.7 C 12/15/20 07:50 Temperature Source Temporal Artery Scan 12/15/20 07:50 Pulse 81 12/15/20 07:50 Pulse Rhythm Regular 12/15/20 00:05 Pulse 108 H 12/01/20 18:31 Respiratory Rate 19 12/15/20 07:50 Respiratory Effort Non-Labored 12/15/20 00:05 Respiratory Depth Normal 12/15/20 00:05 Respiratory Pattern Normal 12/15/20 00:05 Blood Pressure 104/61 12/15/20 07:50 Blood Pressure Mean 52 12/01/20 18:31 Blood Pressure Position Sitting 12/01/20 16:26 Pulse Oximetry 93 12/15/20 07:50 Oxygen Delivery Method Room Air 12/15/20 07:50 Oxygen Flow Rate 0 12/15/20 07:50 Pain Level 0 12/15/20 03:53 Comment 12/14/20 14:40 Intake & Output 12/14/20 12/15/20 12/15/20 23:59 11:59 23:59 Intake Total 741.667 / 1571.667 100 / 100 Output Total 2049 Balance -158.333 / -478.333 -1850 / -1850 Weight 70 kg Intake: IV 261.667 / 361.667 100 / 100 Oral 480 / 1210 Output: Urine / 2049 Other: Urine Color Yellow Yellow Straw Urine Appearance Cloudy Clear Data Completed and Pending Labs on day of discharge: Labs from last 24 hours 12/14/20 12/14/20 14:33 06:45 Prealbumin 9 L COVID-19 Source Nasal/nares SARS-CoV-2 (PCR) Negative Preliminary micro results at discharge 12/10/20 18:05 Blood Culture - Preliminary Blood NO GROWTH 96 HOURS 12/10/20 18:41 Blood Culture - Preliminary Blood NO GROWTH 96 HOURS [facility] Medical History (Updated 12/12/20 @ 17:07 by Stacey Vieira MD) Advance directive in chart Chronic venous hypertension (idiopathic) with ulcer and inflammation of bilateral lower extremity Combative behavior verbally, unable to move Complete immobility due to severe physical disability or frailty Disoriented to place Disoriented to time Essential (primary) hypertension Fatty (change of) liver, not elsewhere classified Goals of care, counseling/discussion Hallucinations, unspecified Hyperlipemia Lives in residential since Jul 2020 Major depressive disorder Muscle weakness (generalized) Neuromuscular dysfunction of bladder, unspecified Obesity Other spondylosis with myelopathy, cervical region Palliative care patient Paraplegia Pneumonia POLST (Physician Orders for Life-Sustaining Treatment) discussed and verbal decision made for DNR/DNI on 12/05/20; cannot sign Pressure ulcer of left heel, unstageable Pressure ulcer of other site, unstageable Pressure ulcer of right heel, unstageable Pressure ulcer of right hip, unstageable Pressure ulcer of right upper back Pressure ulcers of skin of multiple topographic sites Radiculopathy Repeated falls Rhabdomyolysis Unilateral primary osteoarthritis, right hip Unspecified fall Urinary tract infection Venous insufficiency (chronic) (peripheral) Surgical History (Updated 12/06/20 @ 20:17 by Shae Cano MD) History of neck surgery [facility] 2020 Family History (Updated 12/06/20 @ 20:17 by Shae Cano MD) Sister No problems noted. Social History (Updated 12/06/20 @ 20:20 by Shae Cano MD) Smoking/Tobacco Use Status: Never Smoking risk assessment performed?: Yes Alcohol Intake: never Drug use: Never Substance use type: does not use Caregiver/Support person: No Household members: none Housing: residential Communication Needs: Corrective Lenses Do you need help understanding health information?: Always Current gender identity: male How often do you talk on the phone with friends or family?: three or more times per week How often do you get together with friends or relatives?: never Panel score (0-1 are the most socially isolated patients): 1 What type of physical activity do you participate in: none and sedentary lifestyle Frequency: does not exercise Special kena needs: No Seatbelt use: always Do you feel safe at home: Yes Do you feel safe in your relationship?: Yes Additional Social history: PATIENT HAS BEEN AT [facility] SINCE or JUNE. WAS LIVING ALONE. Has a sister Marie who is his agent, though not sure if paperwork signed. [place] era vet. Was in the [employer]. 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 From [place] originally.
--- NOTE | 2020-12-15 17:14 | PDOC.CMDIS ---
- If Service Date Differs Date of service: 12/15/20 Time of Service: 17:14 LACE Index Scoring Tool - Questions: Length of Stay (in days): 14 or more Acuity (Admit via E.D.?): Yes E.D. Visits: 2 - Answers: Total Score: 12 Risk of Readmission: High Risk Care Management Discharge Reason for Hospitalization: UTI, Sepsis Discharge Plan: London was transferred back to [facility] today via [facility], coordinated by CLAUDINE. He has follow up appointments at [facility] with Neuro and Ortho, and has requested an appointment with Plastics as well. CLAUDINE sent the referral, and asked that the appointments coincide on the same day. He was agreeable to returning to [facility]. Patient/Family Education Needs: Review discharge instructions, discussion of self care needs and goals of care. Services Needed at Discharge: Shelter Facility ([facility]), Transportation ([facility])
== END 2020-12-15 13:02 | disposition skilled nursing facility (03) | DRG 981 ==
LOC: ER 18:35 → MS 19:14
PROVIDERS: Family Medicine; Internal Medicine; Nurse Practitioner Acute Care; Admitting Provider Family Medicine; Emergency Provider Registered Nurse Emergency; PCP Nurse Practitioner Adult Health; Visit Provider Family Medicine
DX: T83.511A Infection and inflammatory reaction due to indwelling urethral catheter, initial encounter (principal); S72.051A Unspecified fracture of head of right femur, initial encounter for closed fracture; L89.613 Pressure ulcer of right heel, stage 3; R53.2 Functional quadriplegia; J18.9 Pneumonia, unspecified organism; L89.893 Pressure ulcer of other site, stage 3; A41.9 Sepsis, unspecified organism; M47.12 Other spondylosis with myelopathy, cervical region; I87.313 Chronic venous hypertension (idiopathic) with ulcer of bilateral lower extremity; M86.8X6 Other osteomyelitis, lower leg; M87.851 Other osteonecrosis, right femur; N39.0 Urinary tract infection, site not specified; I87.2 Venous insufficiency (chronic) (peripheral); I10 Essential (primary) hypertension; K76.0 Fatty (change of) liver, not elsewhere classified; E78.5 Hyperlipidemia, unspecified; F32.9 Major depressive disorder, single episode, unspecified; N31.9 Neuromuscular dysfunction of bladder, unspecified; L89.620 Pressure ulcer of left heel, unstageable; L89.210 Pressure ulcer of right hip, unstageable; L89.110 Pressure ulcer of right upper back, unstageable; M16.11 Unilateral primary osteoarthritis, right hip; B37.2 Candidiasis of skin and nail; Z20.822 Contact with and (suspected) exposure to COVID-19; M24.561 Contracture, right knee; M24.551 Contracture, right hip; R41.0 Disorientation, unspecified; K20.90 Esophagitis, unspecified without bleeding; Y95 Nosocomial condition; R07.81 Pleurodynia; R44.1 Visual hallucinations; B96.5 Pseudomonas (aeruginosa) (mallei) (pseudomallei) as the cause of diseases classified elsewhere
CPT/HCPCS: 11042 ×2; 36410; 36415; 71275; 80048; 80053; 80076; 83690; 84145; 85027; 85652; 87040; 87077; 87635; 99222; 71045; 72192; 73502; 80202; 81003; 81015; 82565; 83605; 83735; 84134; 84443; 84484; 85025; 86140; 87086; 87186; 93005; 93010; 94667; 99223; 99232; 99233; 99239; J0713; J1644; J2405; J2543; J2765; J3490

== ENCOUNTER 2021-01-05 10:07 | Outpatient (REF) | payer MEDICARE, OTHER, SELFPAY ==
[2021-01-05 07:32] LABS: Bilirubin Negative (Negative); Blood Negative (Negative); Clarity Clear (Clear); Glucose Negative (Negative); Ketones Negative (Negative); Leukocyte Esterase Negative (Negative); Nitrite Negative (Negative); Specific Gravity >= 1.030 (1.005-1.025); Urobilinogen 0.2 EU/dL (Up TO 0.2); pH 5.5 (5-8)
[2021-01-05 09:21] LABS: Bacteria Rare HPF (Negative); Casts Negative LPF (Negative); Crystals Rare Triple Phos HPF (Negative); Epithelial Cells Negative HPF (Negative); Mucus Trace (Negative); Other Cells Rare Renal (Negative); RBC Negative HPF (0-2); WBC 0-2 HPF (0-5)
[2021-01-05 09:22] LABS: C & S Indicated? No
== END 2021-01-05 10:08 | disposition home or self-care (01) ==
LOC: LBN 10:07
PROVIDERS: PCP Nurse Practitioner Adult Health; Visit Provider Family Medicine
DX: R33.9 Retention of urine, unspecified (principal); R44.3 Hallucinations, unspecified
CPT/HCPCS: 81003; 81015

== ENCOUNTER 2021-01-06 10:59 | Outpatient (REF) | payer MEDICARE, OTHER, SELFPAY ==
[2021-01-06 11:36] LABS: Abs Immature Grans 0.03 10^3/uL (0.0-0.06); Absolute Basophil Count 0.06 10^3/uL (0.0-0.2); Absolute Eosinophil Count 0.62 10^3/uL (0.0-0.7); Absolute Lymphocyte Count 1.02 10^3/uL (1.2-3.4); Absolute Monocyte Count 0.75 10^3/uL (0.1-0.8); Absolute Neutrophil Count 4.88 10^3/uL (1.2-6.7); Basophils % 0.8; Eosinophils % 8.4; HCT 39.9 % (40.0-50.0); HGB 12.2 g/dL (13.5-17.5); Immature Grans % 0.4; Lymphocytes % 13.9; MCH 25.7 pg (27.0-33.0); MCHC 30.6 % (32.0-36.0); MCV 84.2 fL (80-95); Monocytes % 10.2; Neutrophils % 66.3; Nucleated RBC 0 %; Platelet Count 267 10^3/uL (130-400); RBC 4.74 10^6/uL (4.36-5.78); RDW 16.2 % (11.8-14.1); RDW-SD 50.4 fL; WBC 7.36 10^3/uL (4.4-10.8)
[2021-01-06 11:45] LABS: ALT 14 U/L (16-63); AST 17 U/L (15-37); Albumin 2.6 g/dL (3.4-5.0); Alkaline Phosphatase 70 U/L (46-116); Anion Gap 5.2 mmol/L (3-11); BUN 12 mg/dL (7-18); Bilirubin, Total 0.4 mg/dL (0.2-1.0); CO2 31.8 mmol/L (21.0-32.0); CREATININE 0.5 mg/dL (0.70-1.30); Calcium 8.7 mg/dL (8.5-10.1); Chloride 107 mmol/L (98-107); Glucose 107 mg/dL (74-106); Potassium 4.1 mmol/L (3.5-5.1); Sodium 144 mmol/L (136-145); Total Protein 6.1 g/dL (6.4-8.2)
== END 2021-01-06 11:00 | disposition home or self-care (01) ==
LOC: LBN 10:59
PROVIDERS: PCP Nurse Practitioner Adult Health; Visit Provider Family Medicine
DX: R44.2 Other hallucinations (principal); I10 Essential (primary) hypertension
CPT/HCPCS: 80053; 85025

== ENCOUNTER 2021-01-12 16:21 | Inpatient (IN) | payer MEDICARE, OTHER, SELFPAY ==
[2021-01-12] VITALS (31 sets, daily range): BP systolic 99–130; BP diastolic 48–86; PULSE 100–127; RESP 16–28; TEMP 37.7–38.6; O2SAT 88–98
--- NOTE | 2021-01-12 16:15 | RT.EKG_ITS ---
APPROVED REPORT Exam: Resting ECG Reason for Exam: altered mental status Patient Location: E HR:121 bpm ECG Measurements Heart Rate 121 AXIS UT 208 P 19 QRSd 95 QRS 76 QT 283 T 22 QTc 402 Conclusion Sinus tachycardia...rate> 99 Borderline prolonged UT interval...UT >202, V-rate 121-300. No STEMI. I have reviewed and interpreted ECG and agree with software generated interpretation.
--- NOTE | 2021-01-12 16:39 | ED.GENADUL_ITS ---
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 Review of records note that patient was seen by palliative care on December 05 and determined to be DNR/DNI at that time. Patient is oriented x2, blood pressure 129/86, temp 101.5 and oxygen saturation 88% on room air on arrival. Patient placed on 3 L nasal cannula and O2 sat mid to high 90s. He admits to shortness of breath and cough at times. He has multi ple chronic appearing pressure ulcers to his perineum and at sites of flexion contracture in the lower abdomen and groin. He has diminished breath sounds in the right side of the chest. Urine in the Rock bag appears dark but not significantly cloudy. Concern for pneumonia, also consider UTI or cellulitis as a source of infection. Will obtain screening labs including lactate and blood cultures, urinalysis and chest x-ray. Will start IV fluids and IV Tylenol. Patient has poor peripheral access secondary to contractures and potentially compounded by dehydration. Able to obtain additional IVs in the left upper extremity which eventually infiltrated. Labs reviewed. White blood cell count 27. Lactate 4.4. Creatinine 3.9. Urinalysis notes 5-10 WBCs and RBCs, urine culture sent. Chest x-ray notes a likely right-sided pneumonia. Will cover with Kisha for HCAP. Case discussed with hospitalist who accepts patient for admission. Medical Records Medical records reviewed: Yes I reviewed the patient's medical records. Imaging Data Radiologic Study: Radiologist's impression: XR Chest Exam date and time: 01/12/2021 6:03 PM Age: 75 years old Clinical indication: Other: Fever, confusion, hypoxia TECHNIQUE: Imaging protocol: XR of the chest. Views: 1 view. COMPARISON: CR XR PORTABLE CHEST AP 12/10/2020 6:16 PM FINDINGS: Lungs: The lungs are hypoinflated. Mild left lower lobe atelectasis. There are some minimal increased markings at the right lung base medially and to a lesser extent the right perihilar level. There is some mild diffuse ground-glass change in the right lung compared to left, possible layering fluid. Pleural spaces: Unremarkable. No pleural effusion. No pneumothorax. Heart/Mediastinum: Unremarkable. No cardiomegaly. Vasculature: Moderate atherosclerotic change again seen in the vasculature. Bones/joints: Status post lower cervical fusion. IMPRESSION: Hypoinflation. Coarse bibasilar parenchymal markings right worse than left. Suspect early right lower lobe consolidation and left atelectasis. Lab Data Lab results reviewed: Yes I reviewed the patient's lab results. Labs: 01/12/21 18:15 Urine - Reflex from Ua Urine Culture - Pending 01/12/21 18:30 Nose MRSA Screen - Pending Laboratory Tests Range/Units 01/12/21 01/12/21 01/12/21 17:17 17:17 17:50 WBC (4.4-10.8) 10^3/uL 27.45 H* RBC (4.36-5.78) 10^6/uL 5.07 Hgb (13.5-17.5) g/dL 12.8 L Hct (40.0-50.0) % 41.0 MCV (80-95) fL 80.9 MCH (27.0-33.0) pg 25.2 L MCHC (32.0-36.0) % 31.2 L RDW (11.8-14.1) % 16.2 H Plt Count (130-400) 10^3/uL 300 MPV (8.0-11.0) fL 10.8 Immature Gran % 0.5 Neutrophils % 89.2 Lymphocytes % 1.9 Monocytes % 8.2 Eosinophils % 0.0 Basophils % 0.2 Nucleated RBC % % 0 Absolute Neutrophils (1.2-6.7) 10^3/uL 24.49 H Absolute Lymphocytes (1.2-3.4) 10^3/uL 0.52 L Absolute Monocytes (0.1-0.8) 10^3/uL 2.25 H Absolute Eosinophils (0.0-0.7) 10^3/uL 0.00 Absolute Basophils (0.0-0.2) 10^3/uL 0.05 RBC Morphology Normal VBG Lactate (0.9-1.7) mmol/L 4.4 H* Sodium Cancelled Potassium Cancelled Chloride Cancelled Carbon Dioxide Cancelled Anion Gap Cancelled BUN Cancelled Creatinine Cancelled Estimated GFR/1.73 m2 Cancelled Glucose Cancelled Calcium Cancelled Total Bilirubin Cancelled AST Cancelled ALT Cancelled Alkaline Phosphatase Cancelled Total Protein Cancelled Albumin Cancelled Urine Color (Yellow) Urine Clarity (Clear) Urine pH (5-8) Ur Specific Rose (1.005-1.025) Urine Protein (Negative) mg/dL Urine Ketones (Negative) mg/dL Urine Blood (Negative) Urine Nitrite (Negative) Urine Bilirubin (Negative) Urine Urobilinogen (Up TO 0.2) EU/dL Ur Leukocyte Esterase (Negative) Urine RBC (0-2) HPF Urine WBC (0-5) HPF Ur Epithelial Cells (Negative) HPF Urine Crystals (Negative) HPF Urine Bacteria (Negative) HPF Urine Casts (Negative) LPF Urine Mucus (Negative) Ur Culture Indicated? Urine Glucose (Negative) mg/dL COVID-19 Source SARS-CoV-2 (PCR) (Negative) Range/Units 01/12/21 01/12/21 01/12/21 17:50 18:15 18:30 WBC (4.4-10.8) 10^3/uL RBC (4.36-5.78) 10^6/uL Hgb (13.5-17.5) g/dL Hct (40.0-50.0) % MCV (80-95) fL MCH (27.0-33.0) pg MCHC (32.0-36.0) % RDW (11.8-14.1) % Plt Count (130-400) 10^3/uL MPV (8.0-11.0) fL Immature Gran % Neutrophils % Lymphocytes % Monocytes % Eosinophils % Basophils % Nucleated RBC % % Absolute Neutrophils (1.2-6.7) 10^3/uL Absolute Lymphocytes (1.2-3.4) 10^3/uL Absolute Monocytes (0.1-0.8) 10^3/uL Absolute Eosinophils (0.0-0.7) 10^3/uL Absolute Basophils (0.0-0.2) 10^3/uL RBC Morphology VBG Lactate (0.9-1.7) mmol/L Sodium 139 Potassium 6.0 H Chloride 100 Carbon Dioxide 24.6 Anion Gap 14.4 H BUN 104 H* Creatinine 3.9 H* Estimated GFR/1.73 m2 15.23 Glucose 94 Calcium 9.0 Total Bilirubin 1.0 AST 76 H ALT 89 H Alkaline Phosphatase 132 H Total Protein 7.0 Albumin 2.8 L Urine Color (Yellow) Yellow Urine Clarity (Clear) Sl Cloudy Urine pH (5-8) 5.5 Ur Specific Rose (1.005-1.025) 1.015 Urine Protein (Negative) mg/dL 30 H Urine Ketones (Negative) mg/dL Negative Urine Blood (Negative) Small H Urine Nitrite (Negative) Negative Urine Bilirubin (Negative) Negative Urine Urobilinogen (Up TO 0.2) EU/dL 0.2 Ur Leukocyte Esterase (Negative) Small H Urine RBC (0-2) HPF 5-10 H Urine WBC (0-5) HPF 5-10 Ur Epithelial Cells (Negative) HPF Few Urine Crystals (Negative) HPF Negative Urine Bacteria (Negative) HPF Many Urine Casts (Negative) LPF Negative Urine Mucus (Negative) Moderate Ur Culture Indicated? Yes Urine Glucose (Negative) mg/dL Negative COVID-19 Source Nasal/Nares SARS-CoV-2 (PCR) (Negative) Negative ECG Data Attestation: I personally reviewed and interpreted this ECG (s) as follows: Interpretation: Rate of 121, sinus, no STEMI. HPI General Mode of arrival: EMS . Date/Time Provider Initiated Documentation: 01/12/21 16:30 . Limitations to Documentation: altered mental status and physical limitation . Information obtained by: patient and EMS . HPI Narrative: Patient is a 75-year-old male with a history of chronic indwelling Rock catheter who is essentially a quadriplegic secondary to severe spinal stenosis of the cervical spine [facility]. Staff had noted that patient had not been acting like himself. Patient was discharged from here earlier last month for pneumonia and UTI. Related Data Home Medications Medication Instructions Recorded Confirmed Liquid Protein Fortifier 30 ml PO BID 09/24/20 01/12/21 acetaminophen 1,000 mg PO Q6H PRN 09/24/20 01/12/21 aspirin 81 mg PO DAILY 09/24/20 01/12/21 cyanocobalamin (vitamin B-12) 1,000 mcg PO BID 09/24/20 01/12/21 cyclobenzaprine 5 mg PO TID 09/24/20 01/12/21 docusate sodium [Colace] 100 mg PO DAILY 09/24/20 01/12/21 ferrous gluconate 225 mg PO HS 09/24/20 01/12/21 loperamide 2 mg PO Q6H PRN 09/24/20 01/12/21 magnesium oxide [MagOx] 400 mg PO DAILY 09/24/20 01/12/21 multivitamin 1 tab PO DAILY 09/24/20 01/12/21 polyethylene glycol 3350 [Miralax] 17 g PO DAILY 09/24/20 01/12/21 simvastatin 40 mg PO QHS 09/24/20 01/12/21 tamsulosin [Flomax] 0.4 mg PO DAILY 09/24/20 01/12/21 Fleet Enema 118 ml NC ONCE 12/01/20 01/12/21 bisacodyl [Dulcolax (bisacodyl)] 10 mg NC DAILY PRN 12/01/20 01/12/21 fentanyl 1 patch TRANSDERMAL Q72H 12/01/20 01/12/21 melatonin 5 mg PO HS PRN 12/01/20 01/12/21 methocarbamol 1,000 mg PO QID 12/01/20 01/12/21 nystatin 1 applic TOPICAL TID 12/01/20 01/12/21 oxycodone 10 mg PO Q4H PRN 12/01/20 01/12/21 sennosides [senna] 8.6 mg PO BID 12/01/20 01/12/21 baclofen 10 mg PO TID PRN PRN #30 tab 12/15/20 01/12/21 dronabinol 2.5 mg PO BID #60 cap 12/15/20 01/12/21 gabapentin 300 mg PO TID #0 cap 12/15/20 01/12/21 pantoprazole 40 mg PO BID@0730,2000 #60 tab 12/15/20 01/12/21 zinc sulfate [Zinc-220] 220 mg PO DAILY #30 cap 12/15/20 01/12/21 dexamethasone 4 mg PO DAILY 01/12/21 01/12/21 Previous Rx's Medication Instructions Recorded baclofen 10 mg PO TID PRN PRN #30 tab 12/15/20 dronabinol 2.5 mg PO BID #60 cap 12/15/20 gabapentin 300 mg PO TID #0 cap 12/15/20 pantoprazole 40 mg PO BID@729,1999 #60 tab 12/15/20 zinc sulfate [Zinc-220] 220 mg PO DAILY #30 cap 12/15/20 Allergies Allergy/AdvReac Type Severity Reaction Status Date / Time No Known Allergies Allergy Unverified 12/01/20 16:45 General Stated Complaint: AMS/LOC EULOGIO: 3 Review of Systems All systems reviewed & are unremarkable except as noted in HPI and below Constitutional Constitutional: Reports as per HPI, Denies chills and Denies fever(s) Eyes Eyes: Denies blurry vision ENT Ears, Nose, Mouth, and Throat: Denies dizziness, Denies sore throat and Denies throat swelling Cardiovascular Cardiovascular: Denies chest pain and Denies dyspnea Respiratory Respiratory: Denies cough and Denies dyspnea Gastrointestinal Gastrointestinal: Denies abdominal pain, Denies diarrhea and Denies vomiting Genitourinary Genitourinary: Denies hematuria and Denies dysuria Musculoskeletal Musculoskeletal: Denies back pain and Denies numbness Integumentary/Breasts Skin/Breast: Denies lesions and Denies rash Neurologic Neurologic: Denies dizziness, Denies localized weakness and Denies numbness Allergic/Immunologic Allergic/Immunologic: Denies throat swelling [facility] Medical History (Updated 01/12/21 @ 19:24 by Jayna Carrillo DO) Advance directive in chart Chronic venous hypertension (idiopathic) with ulcer and inflammation of bilateral lower extremity Combative behavior verbally, unable to move Complete immobility due to severe physical disability or frailty Disoriented to place Disoriented to time Essential (primary) hypertension Fatty (change of) liver, not elsewhere classified Goals of care, counseling/discussion Hallucinations, unspecified Hyperlipemia Lives in jail since Jul 2020 Major depressive disorder Muscle weakness (generalized) Neuromuscular dysfunction of bladder, unspecified Obesity Other spondylosis with myelopathy, cervical region Palliative care patient Paraplegia Pneumonia POLST (Physician Orders for Life-Sustaining Treatment) discussed and verbal decision made for DNR/DNI on 12/05/20; cannot sign Pressure ulcer of left heel, unstageable Pressure ulcer of other site, unstageable Pressure ulcer of right heel, unstageable Pressure ulcer of right hip, unstageable Pressure ulcer of right upper back Pressure ulcers of skin of multiple topographic sites Radiculopathy Repeated falls Rhabdomyolysis Unilateral primary osteoarthritis, right hip Unspecified fall Urinary tract infection Venous insufficiency (chronic) (peripheral) Surgical History (Updated 12/06/20 @ 20:17 by Shae Cano MD) History of neck surgery [facility] 2020 Family History (Updated 12/06/20 @ 20:17 by Shae Cano MD) Sister No problems noted. Social History (Updated 12/06/20 @ 20:20 by Shae Cano MD) Smoking/Tobacco Use Status: Never Smoking risk assessment performed?: Yes Alcohol Intake: never Drug use: Never Substance use type: does not use Caregiver/Support person: No Household members: none Housing: jail Communication Needs: Corrective Lenses Do you need help understanding health information?: Always Current gender identity: male How often do you talk on the phone with friends or family?: three or more times per week How often do you get together with friends or relatives?: never Panel score (0-1 are the most socially isolated patients): 1 What type of physical activity do you participate in: none and sedentary lifestyle Frequency: does not exercise Special kena needs: No Seatbelt use: always Do you feel safe at home: Yes Do you feel safe in your relationship?: Yes Additional Social history: PATIENT HAS BEEN AT [facility] SINCE or JUNE. WAS LIVING ALONE. Has a sister Marie who is his agent, though not sure if paperwork signed. [place] era vet. Was in the [place]. 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 From [place] originally. Exam Const General: cooperative, no acute distress, disheveled, frail appearing and ill appearing chronically Orientation: alert, awake, oriented to person, oriented to place and not oriented to time (1974) Other: arms and legs contracted HENMT Head: normal to inspection Ears: hearing grossly normal bilaterally Face and sinus: normal facial exam Mouth: mucous membranes dry Eyes General: appearance normal, both eyes and all related structures Pupils: PERRL EOM: EOM intact bilaterally Neck Neck: normal visual inspection and No submandibular swelling Lymphatic: no lymphadenopathy noted Chest Chest: normal inspection of the chest and no tenderness Resp Effort & Inspection: normal respiratory effort and able to speak in complete sentences Auscultation: diminished lung sounds on the right throughout Cardio Rate: regular rate Rhythm: regular rhythm GI Inspection: normal to inspection Palpation: soft, not firm, not rigid and nontender Auscultation: normal bowel sounds Other: b/l groin and lower abdomen with erythema, skin breakdown, with some pink granulation tissue. Scattered areas of yellowish macerated tissue. No purulent drainage. Male General Exam: Yes edema, Yes erythema, Yes perineal induration and Yes tenderness Scrotum: edematous bilaterally and erythematous bilaterally Back/Spine/Pelvis Sacrum: erythema midline Skin General skin exam: no rashes or lesions noted Neuro General: patient alert, patient awake and patient oriented x3 Cognition: normal cognition Speech: speech normal Motor: muscle tone normal throughout Sensory Exam: no sensory deficits noted Extrem General: normal to inspection, full ROM, capillary refill normal, no calf tenderness bilaterally and no edema Psych Appearance: grossly normal Mental Status: mental status grossly normal Speech and Movement: speech and movement normal Affect: normal affect Course Vital Signs Vital signs: Vital Signs Temperature 101.5 F H 01/12/21 16:22 Pulse 125 H 01/12/21 16:22 Respiratory Rate 16 01/12/21 16:22 Blood Pressure 129/86 01/12/21 16:22 Pulse Oximetry 88 L 01/12/21 16:22 Temperature 101.5 F H 01/12/21 16:22 Pulse 125 H 01/12/21 16:22 Respiratory Rate 16 01/12/21 16:22 Respiratory Effort 01/12/21 16:32 Blood Pressure 129/86 01/12/21 16:22 Blood Pressure Position Supine 01/12/21 16:22 Pulse Oximetry 88 L 01/12/21 16:22 Oxygen Delivery Method Room Air 01/12/21 16:22 Oxygen Flow Rate 0 01/12/21 16:22 Lab/Test Results Lab/Test Results: 01/12/21 16:35 Blood Blood Culture - Pending 01/12/21 16:35 Blood Blood Culture - Pending
[2021-01-12 17:34] LABS: Lactate 4.4 mmol/L (0.9-1.7)
[2021-01-12] MEDS: ACETAMINOPHEN 1,000 MG/100 ML BTL 400 MG IVPB (18:00)
--- NOTE | 2021-01-12 18:00 | DI.RAD_ITS ---
Exam(s) XR CHEST 1V IN DI DEPT EXAM: XR CHEST 1V IN DI DEPT CLINICAL HISTORY: fever, confusion, hypoxia TECHNIQUE: 2D digital imaging was performed. COMPARISON: CR,XR XR PORTABLE CHEST AP from 12/10/2020 CR,XR XR PORTABLE CHEST AP from 12/10/[address] CHEST PE CTA from 12/12/2020 FINDINGS: The exam is limited by poor pulmonary inflation and under penetration as well as respiratory motion. Leads overlie the chest. The heart size is difficult to evaluate. There is pulmonary artery promin ence. Increased densities at the lung bases consistent with atelectasis. Pneumonia difficult to exc lude. No gross effusion. No pneumothorax. Hardware cervical spine. IMPRESSION: Severely limited exam. Poor pulmonary inflation basilar atelectasis. Infiltrates difficult to exclu de. DATA REPOSITORY: RADIATION DOSE DELIVERED:
[2021-01-12 18:03] LABS: Abs Immature Grans 0.15 10^3/uL (0.0-0.06); Absolute Basophil Count 0.05 10^3/uL (0.0-0.2); Absolute Lymphocyte Count 0.52 10^3/uL (1.2-3.4); Absolute Neutrophil Count 24.49 10^3/uL (1.2-6.7); Basophils % 0.2; HGB 12.8 g/dL (13.5-17.5); Immature Grans % 0.5; Lymphocytes % 1.9; MCH 25.2 pg (27.0-33.0); MCHC 31.2 % (32.0-36.0); MCV 80.9 fL (80-95); MPV 10.8 fL (8.0-11.0); Monocytes % 8.2; Neutrophils % 89.2; Nucleated RBC 0 %; Platelet Count 300 10^3/uL (130-400); RBC 5.07 10^6/uL (4.36-5.78); RDW 16.2 % (11.8-14.1); RDW-SD 47.8 fL
[2021-01-12 18:19] LABS: Absolute Monocyte Count 2.25 10^3/uL (0.1-0.8)
[2021-01-12 18:20] LABS: Diff Comment Agrees w/ Instrument; RBC Morphology Normal; WBC 27.45 10^3/uL (4.4-10.8)
[2021-01-12] MEDS: PIPERACILLIN/TAZO 3.375 GM in Normal Saline 50 ML IVPB (18:20)
[2021-01-12 18:26] LABS: Bilirubin Negative (Negative); Blood Small (Negative); Clarity Sl Cloudy (Clear); Glucose Negative (Negative); Ketones Negative (Negative); Leukocyte Esterase Small (Negative); Nitrite Negative (Negative); Specific Gravity 1.015 (1.005-1.025); Urobilinogen 0.2 EU/dL (Up TO 0.2); pH 5.5 (5-8)
[2021-01-12 18:33] LABS: ALT 89 U/L (16-63); AST 76 U/L (15-37); Albumin 2.8 g/dL (3.4-5.0); Alkaline Phosphatase 132 U/L (46-116); Anion Gap 14.4 mmol/L (3-11); CO2 24.6 mmol/L (21.0-32.0); Chloride 100 mmol/L (98-107); Estimated GFR 15.23 (mL/min/1.73m2); Glucose 94 mg/dL (74-106); Sodium 139 mmol/L (136-145)
[2021-01-12 18:37] LABS: Source Nasal/Nares
[2021-01-12 18:37] LABS: BUN 104 mg/dL (7-18)
[2021-01-12 18:38] LABS: Bacteria Many HPF (Negative); C & S Indicated? Yes; Casts Negative LPF (Negative); Crystals Negative HPF (Negative); Epithelial Cells Few HPF (Negative); Mucus Moderate (Negative)
[2021-01-12 18:39] LABS: CREATININE 3.9 mg/dL (0.70-1.30)
--- NOTE | 2021-01-12 19:33 | DI.VRAD_ITS ---
PROCEDURE INFORMATION: Exam: XR Chest Exam date and time: 01/12/2021 6:03 PM Age: 75 years old Clinical indication: Other: Fever, confusion, hypoxia TECHNIQUE: Imaging protocol: XR of the chest. Views: 1 view. COMPARISON: CR XR PORTABLE CHEST AP 12/10/2020 6:16 PM FINDINGS: Lungs: The lungs are hypoinflated. Mild left lower lobe atelectasis. There are some minimal increased markings at the right lung base medially and to a lesser extent the right perihilar level. There is some mild diffuse ground-glass change in the right lung compared to left, possible layering fluid. Pleural spaces: Unremarkable. No pleural effusion. No pneumothorax. Heart/Mediastinum: Unremarkable. No cardiomegaly. Vasculature: Moderate atherosclerotic change again seen in the vasculature. Bones/joints: Status post lower cervical fusion. IMPRESSION: Hypoinflation. Coarse bibasilar parenchymal markings right worse than left. Suspect early right lower lobe consolidation and left atelectasis. Dictated and Authenticated by: Rosalva Velázquez MD. Ordering:THERESA Dorantes MD
[2021-01-12 19:36] LABS: COVID-19 PCR Negative (Negative)
[2021-01-12] MEDS: VANCOMYCIN 1,250 MG in Normal Saline 250 ML 166.6666 MG IVPB (19:40)
[2021-01-12] MEDS: Normal Saline 1,000 ML 1000 ML IV (19:50)
[2021-01-12] MEDS: Sodium Bicarbonate 50 MEQ/50 ML SYR IVP (19:51)
[2021-01-12] MEDS: Albuterol 2.5 MG/3 ML INH SOLN VIAL 7.5 MG UPD (19:51)
[2021-01-12] MEDS: Sodium Zirconium Cyclosilicate 10 GM PKT PO (19:51)
[2021-01-12 21:43] LABS: Lactate 1.4 mmol/L (0.6-1.4)
[2021-01-12 21:58] LABS: Anion Gap 11.7 mmol/L (3-11); CO2 25.3 mmol/L (21.0-32.0); CREATININE 2.8 mg/dL (0.70-1.30); Calcium 7.8 mg/dL (8.5-10.1); Chloride 105 mmol/L (98-107); Estimated GFR 22.32 (mL/min/1.73m2); Glucose 113 mg/dL (74-106); Potassium 3.9 mmol/L (3.5-5.1); Sodium 142 mmol/L (136-145)
[2021-01-12 22:02] LABS: BUN 95 mg/dL (7-18)
--- NOTE | 2021-01-12 22:37 | W.PM.HP.N ---
Date of service: 01/12/21 Time of Service: 22:37 Assessment and Plan Assessment and plan (1) Sepsis: Status: Acute Assessment and plan: He did receive Zosyn and vancomycin in the emergency department. Zosyn will be continued. Blood cultures have been obtained. I have asked pharmacy to make recommendations for the vancomycin dosing. A repeat lactate level has normalized. (2) Pneumonia: Status: Acute Assessment and plan: Chest x-ray shows some infiltrate. (3) Hypoxia: Status: Acute Assessment and plan: He will be given supplemental oxygen. His O2 saturations are normal now. (4) Hyperkalemia: Status: Acute Assessment and plan: His repeat potassium level is improved. (5) Acute kidney injury: Status: Acute Assessment and plan: He has been given intravenous fluids and his kidney function has improved. He appeared quite dry on exam. I have asked for daily weights. I do not see a baseline weight from when he was here previously. (6) Fever: Status: Acute Assessment and plan: This is likely due to his pneumonia and/or skin infection. We will continue antibiotics. (7) Pressure ulcers of skin of multiple topographic sites: Status: Acute Assessment and plan: The nurses report that his skin looks much worse and it did when he was here previously. He was to see plastic surgery and orthopedic surgery as an outpatient but i am not sure if that happened or not. I asked the rehab center to send us records and did not receive anything so far. A culture has been obtained from his left hip wound. History of Present Illness History of Present Illness Chief Complaint: Altered mental status and fever Narrative: This 75-year-old male has been a resident of local [facility]. He tells me he just feels tired. He has had a problem with spinal stenosis and recent quadriplegia. He had neck surgery but it did not improve his quadriplegia. He was hospitalized here for pneumonia and discharged almost 1 month ago. He has not been eating well the last few days and has had a change in mental status and was sent here to be seen. When he was discharged from the hospital here it was advised that he see plastic surgery and orthopedics at [facility] but it is not clear at this time whether he went there or not. He has had multiple problems with his skin due to his contractures and quadriplegia. Rehab center says his weight on December 19 was 162 pounds and they had no other weights listed. They stated that his intake over the last few days was limited to ice cream and soda but did according the records have about 2000 cc of oral intake on January 10, almost 1500 cc January 11 and 1200 cc today. He was evaluated emergency department and admission was recommended because of a high white blood cell count, tachycardia low oxygen saturation and elevated lactate. He was given vancomycin and Zosyn in the emergency department along with IV fluids. Review of Systems Constitutional Constitutional: Reports chills, Reports fever(s), Denies headache(s), Reports lethargy, Reports poor appetite and Reports weakness ENT Ears, Nose, Mouth, and Throat: Denies headache(s) Cardiovascular Cardiovascular: Denies chest pain, Reports leg ulcers, Denies leg edema, Denies palpitations and Denies dyspnea Respiratory Respiratory: Denies cough, Denies excessive phlegm production and Denies dyspnea Gastrointestinal Gastrointestinal: Denies constipation, Denies diarrhea and Denies vomiting Integumentary/Breasts Skin/Breast: Reports non-healing lesions, Reports skin ulcer and Reports sores Neurologic Neurologic: Denies headache(s) and Reports weakness Endocrine Endocrine: Denies palpitations [facility] Medical History (Updated 01/12/21 @ 19:24 by Jayna Carrillo DO) Advance directive in chart Chronic venous hypertension (idiopathic) with ulcer and inflammation of bilateral lower extremity Combative behavior verbally, unable to move Complete immobility due to severe physical disability or frailty Disoriented to place Disoriented to time Essential (primary) hypertension Fatty (change of) liver, not elsewhere classified Goals of care, counseling/discussion Hallucinations, unspecified Hyperlipemia Lives in [facility] since Jul 2020 Major depressive disorder Muscle weakness (generalized) Neuromuscular dysfunction of bladder, unspecified Obesity Other spondylosis with myelopathy, cervical region Palliative care patient Paraplegia Pneumonia POLST (Physician Orders for Life-Sustaining Treatment) discussed and verbal decision made for DNR/DNI on 12/05/20; cannot sign Pressure ulcer of left heel, unstageable Pressure ulcer of other site, unstageable Pressure ulcer of right heel, unstageable Pressure ulcer of right hip, unstageable Pressure ulcer of right upper back Pressure ulcers of skin of multiple topographic sites Radiculopathy Repeated falls Rhabdomyolysis Unilateral primary osteoarthritis, right hip Unspecified fall Urinary tract infection Venous insufficiency (chronic) (peripheral) Surgical History (Updated 12/06/20 @ 20:17 by Shae Cano MD) History of neck surgery [facility] 2020 Family History (Updated 12/06/20 @ 20:17 by Shae Cano MD) Sister No problems noted. Social History (Updated 12/06/20 @ 20:20 by Shae Cano MD) Smoking/Tobacco Use Status: Never Smoking risk assessment performed?: Yes Alcohol Intake: never Drug use: Never Substance use type: does not use Caregiver/Support person: No Household members: none Housing: [facility] Communication Needs: Corrective Lenses Do you need help understanding health information?: Always Current gender identity: male How often do you talk on the phone with friends or family?: three or more times per week How often do you get together with friends or relatives?: never Panel score (0-1 are the most socially isolated patients): 1 What type of physical activity do you participate in: none and sedentary lifestyle Frequency: does not exercise Special kena needs: No Seatbelt use: always Do you feel safe at home: Yes Do you feel safe in your relationship?: Yes Additional Social history: PATIENT HAS BEEN AT [email or web address] SINCE or JUNE. WAS LIVING ALONE. Has a sister Marie who is his agent, though not sure if paperwork signed. [place] era vet. Was in the [employer]. 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 From [place] originally. Meds Allergies and Home Medications Allergies Allergy/AdvReac Type Severity Reaction Status Date / Time No Known Allergies Allergy Unverified 12/01/20 16:45 Home Medications Medication Instructions Recorded Confirmed Type Liquid Protein Fortifier 30 ml PO BID 09/24/20 01/12/21 History acetaminophen 1,000 mg PO Q6H PRN 09/24/20 01/12/21 History aspirin 81 mg PO DAILY 09/24/20 01/12/21 History cyanocobalamin (vitamin B-12) 1,000 mcg PO BID 09/24/20 01/12/21 History cyclobenzaprine 5 mg PO TID 09/24/20 01/12/21 History docusate sodium [Colace] 100 mg PO DAILY 09/24/20 01/12/21 History ferrous gluconate 225 mg PO HS 09/24/20 01/12/21 History loperamide 2 mg PO Q6H PRN 09/24/20 01/12/21 History magnesium oxide [MagOx] 400 mg PO DAILY 09/24/20 01/12/21 History multivitamin 1 tab PO DAILY 09/24/20 01/12/21 History polyethylene glycol 3350 [Miralax] 17 g PO DAILY 09/24/20 01/12/21 History simvastatin 40 mg PO QHS 09/24/20 01/12/21 History tamsulosin [Flomax] 0.4 mg PO DAILY 09/24/20 01/12/21 History Fleet Enema 118 ml WA ONCE 12/01/20 01/12/21 History bisacodyl [Dulcolax (bisacodyl)] 10 mg WA DAILY PRN 12/01/20 01/12/21 History fentanyl 1 patch TRANSDERMAL Q72H 12/01/20 01/12/21 History melatonin 5 mg PO HS PRN 12/01/20 01/12/21 History methocarbamol 1,000 mg PO QID 12/01/20 01/12/21 History nystatin 1 applic TOPICAL TID 12/01/20 01/12/21 History oxycodone 10 mg PO Q4H PRN 12/01/20 01/12/21 History sennosides [senna] 8.6 mg PO BID 12/01/20 01/12/21 History baclofen 10 mg PO TID PRN PRN #30 tab 12/15/20 01/12/21 Rx dronabinol 2.5 mg PO BID #60 cap 12/15/20 01/12/21 Rx gabapentin 300 mg PO TID #0 cap 12/15/20 01/12/21 Rx pantoprazole 40 mg PO BID@729,1999 #60 tab 12/15/20 01/12/21 Rx zinc sulfate [Zinc-220] 220 mg PO DAILY #30 cap 12/15/20 01/12/21 Rx dexamethasone 4 mg PO DAILY 01/12/21 01/12/21 History Exam Const General: cooperative and ill appearing Orientation: awake Other: Near his in the hospital and knew correctly it was Friday and the year of 2020. At first he thought it was September but then corrected himself and thought it was January 07. He thought the current president was someone named Cathleen and knew correctly that the last president was Thais but cannot name any previous to that. Neck Neck: normal visual inspection, no lymphadenopathy and no meningeal signs Resp Effort & Inspection: normal respiratory effort, able to speak in complete sentences, no respiratory distress and not tachypneic Auscultation: no rales and no rhonchi Cardio Heart Sounds: S1 normal, S2 normal, click, no gallops, no murmurs and no rubs GI Inspection: normal to inspection and non-distended Palpation: soft, no hepatosplenomegaly, not firm and nontender Other: Rock catheter is in place. Skin Other: He has multiple areas of redness on his skin without areas of cellulitis except that he has a lot of odor and redness and drainage of the right intertriginous areas hip and abdomen, some bruising and erythema of the medial right malone that is resting up against his left thigh, and an ulcerated oozing area that odiferous of his left buttocks which measures about 10 cm in diameter. A culture is obtained from the left hip area. Extrem Other: He has rigidity of his arms and legs but the right hip is severely contractured. He can move all his extremities on command but has little that he can do functionally. Results Labs Result diagrams: 01/12/21 17:50 01/12/21 21:34 Labs: Laboratory Results - last 24 hr 01/12/21 01/12/21 01/12/21 17:17 17:17 17:50 WBC 27.45 H* RBC 5.07 Hgb 12.8 L Hct 41.0 MCV 80.9 MCH 25.2 L MCHC 31.2 L RDW 16.2 H Plt Count 300 MPV 10.8 Immature Gran % 0.5 Neutrophils % 89.2 Lymphocytes % 1.9 Monocytes % 8.2 Eosinophils % 0.0 Basophils % 0.2 Nucleated RBC % 0 Absolute Neutrophils 24.49 H Absolute Lymphocytes 0.52 L Absolute Monocytes 2.25 H Absolute Eosinophils 0.00 Absolute Basophils 0.05 RBC Morphology Normal VBG Lactate 4.4 H* Sodium Cancelled Potassium Cancelled Chloride Cancelled Carbon Dioxide Cancelled Anion Gap Cancelled BUN Cancelled Creatinine Cancelled Estimated GFR/1.73 m2 Cancelled Glucose Cancelled Calcium Cancelled Total Bilirubin Cancelled AST Cancelled ALT Cancelled Alkaline Phosphatase Cancelled Total Protein Cancelled Albumin Cancelled Urine Color Urine Clarity Urine pH Ur Specific [place] Urine Protein Urine Ketones Urine Blood Urine Nitrite Urine Bilirubin Urine Urobilinogen Ur Leukocyte Esterase Urine RBC Urine WBC Ur Epithelial Cells Urine Crystals Urine Bacteria Urine Casts Urine Mucus Ur Culture Indicated? Urine Glucose COVID-19 Source SARS-CoV-2 (PCR) 01/12/21 01/12/21 01/12/21 17:50 18:15 18:30 WBC RBC Hgb Hct MCV MCH MCHC RDW Plt Count MPV Immature Gran % Neutrophils % Lymphocytes % Monocytes % Eosinophils % Basophils % Nucleated RBC % Absolute Neutrophils Absolute Lymphocytes Absolute Monocytes Absolute Eosinophils Absolute Basophils RBC Morphology VBG Lactate Sodium 139 Potassium 6.0 H Chloride 100 Carbon Dioxide 24.6 Anion Gap 14.4 H BUN 104 H* Creatinine 3.9 H* Estimated GFR/1.73 m2 15.23 Glucose 94 Calcium 9.0 Total Bilirubin 1.0 AST 76 H ALT 89 H Alkaline Phosphatase 132 H Total Protein 7.0 Albumin 2.8 L Urine Color Yellow Urine Clarity Sl Cloudy Urine pH 5.5 Ur Specific [place] 1.015 Urine Protein 30 H Urine Ketones Negative Urine Blood Small H Urine Nitrite Negative Urine Bilirubin Negative Urine Urobilinogen 0.2 Ur Leukocyte Esterase Small H Urine RBC 5-10 H Urine WBC 5-10 Ur Epithelial Cells Few Urine Crystals Negative Urine Bacteria Many Urine Casts Negative Urine Mucus Moderate Ur Culture Indicated? Yes Urine Glucose Negative COVID-19 Source Nasal/Nares SARS-CoV-2 (PCR) Negative 01/12/21 01/12/21 21:34 21:34 WBC RBC Hgb Hct MCV MCH MCHC RDW Plt Count MPV Immature Gran % Neutrophils % Lymphocytes % Monocytes % Eosinophils % Basophils % Nucleated RBC % Absolute Neutrophils Absolute Lymphocytes Absolute Monocytes Absolute Eosinophils Absolute Basophils RBC Morphology VBG Lactate 1.4 Sodium 142 Potassium 3.9 D Chloride 105 Carbon Dioxide 25.3 Anion Gap 11.7 H BUN 95 H* Creatinine 2.8 H D Estimated GFR/1.73 m2 22.32 Glucose 113 H Calcium 7.8 L Total Bilirubin AST ALT Alkaline Phosphatase Total Protein Albumin Urine Color Urine Clarity Urine pH Ur Specific [place] Urine Protein Urine Ketones Urine Blood Urine Nitrite Urine Bilirubin Urine Urobilinogen Ur Leukocyte Esterase Urine RBC Urine WBC Ur Epithelial Cells Urine Crystals Urine Bacteria Urine Casts Urine Mucus Ur Culture Indicated? Urine Glucose COVID-19 Source SARS-CoV-2 (PCR) Last Vital Signs Temp 37.7 C H 01/12/21 21:18 Pulse 101 H 01/12/21 21:18 Resp 19 01/12/21 21:18 BP 101/56 L 01/12/21 21:18 Pulse Ox 94 01/12/21 21:18
[2021-01-12] MEDS: Normal Saline 1,000 ML 125 ML IV (23:45)
[2021-01-12] MEDS: PIPERACILLIN/TAZO 2.25 GM in Normal Saline 50 ML IVPB (23:58)
[2021-01-13] VITALS (8 sets, daily range): BP systolic 94–121; BP diastolic 51–81; PULSE 70–80; RESP 17–20; TEMP 35.3–36.7; O2SAT 95–99
[2021-01-13] MEDS: PIPERACILLIN/TAZO 2.25 GM in Normal Saline 50 ML IVPB (05:25)
[2021-01-13 07:30] LABS: Abs Immature Grans 0.08 10^3/uL (0.0-0.06); Absolute Basophil Count 0.04 10^3/uL (0.0-0.2); Absolute Eosinophil Count 0.18 10^3/uL (0.0-0.7); Absolute Lymphocyte Count 0.64 10^3/uL (1.2-3.4); Absolute Monocyte Count 1.13 10^3/uL (0.1-0.8); Absolute Neutrophil Count 16.15 10^3/uL (1.2-6.7); Basophils % 0.2; HCT 34.4 % (40.0-50.0); HGB 10.8 g/dL (13.5-17.5); Immature Grans % 0.4; Lymphocytes % 3.5; MCH 25.4 pg (27.0-33.0); MCHC 31.4 % (32.0-36.0); MCV 80.9 fL (80-95); MPV 11.3 fL (8.0-11.0); Monocytes % 6.2; Neutrophils % 88.7; Nucleated RBC 0 %; Platelet Count 212 10^3/uL (130-400); RBC 4.25 10^6/uL (4.36-5.78); RDW 16.1 % (11.8-14.1); RDW-SD 47.4 fL; WBC 18.21 10^3/uL (4.4-10.8)
[2021-01-13 07:32] LABS: Anion Gap 7.7 mmol/L (3-11); BUN 57 mg/dL (7-18); CO2 28.3 mmol/L (21.0-32.0); CREATININE 1.3 mg/dL (0.70-1.30); Calcium 8.4 mg/dL (8.5-10.1); Chloride 109 mmol/L (98-107); Estimated GFR 54.11 (mL/min/1.73m2); Glucose 104 mg/dL (74-106); Potassium 3.3 mmol/L (3.5-5.1); Sodium 145 mmol/L (136-145)
--- NOTE | 2021-01-13 08:10 | INITIAL_ITS ---
- If Service Date Differs Date of service: 01/13/21 Time of Service: 08:13 Care Management Initial Assess REASON FOR HOSPITALIZATION:: Sepsis, Pneumonia, UTI, Hyperkalemia PAST MEDICAL HISTORY/PAST SURGICAL HISTORY:: Medical History. Chronic venous hypertension (idiopathic) with ulcer and inflammation of bilateral lower extremity. Essential (primary) hypertension. Fatty (change of) liver, not elsewhere classified. Hallucinations, unspecified. Hyperlipemia. Major depressive disorder. Muscle weakness (generalized). Neuromuscular dysfunction of bladder, unspecified. Obesity. Other spondylosis with myelopathy, cervical region. Paraplegia. Pneumonia. Pressure ulcer of left heel, unstageable. Pressure ulcer of other site, unstageable. Pressure ulcer of right heel, unstageable. Pressure ulcer of right hip, unstageable. Pressure ulcer of right upper back. Radiculopathy. Repeated falls. Rhabdomyolysis. Unilateral primary osteoarthritis, right hip. Unspecified fall. Urinary tract infection. Venous insufficiency (chronic) (peripheral) PREVIOUS FUNCTIONAL STATUS/SOCIAL/FAMILY SUPPORTS:: London resides at [facility] currently. He previously lived alone. He has a sister, Marie, who lives in [place]. He has paraplegia, and requires complete care, which he is provided at the facility. CURRENT FUNCTIONAL STATUS:: London was lying in bed, sleeping when CM attempted to meet with him. He had some tissue removal completed by Dr. Wei today who will re-evaluate tomorrow and determine possible need for wound vac. ADVANCE DIRECTIVES:: On file, Marie listed as agent. Has patient been provided with info about the portal/API?: No Did the patient sign up for the portal?: No CODE STATUS:: DNR/DNI INSURANCE COVERAGE / FINANCIAL ISSUES:: [employer]/ [employer]/ [employer] CURRENT HOME/COMMUNITY SERVICES/EQUIPMENT:: London currently resides at [facility], where he receives complete care. PRIMARY CARE PHYSICIAN:: Shonda Neil POTENTIAL DISCHARGE NEEDS:: Coordinated return to [facility]; review of woundcare recommendations. PATIENT/FAMILY EDUCATION NEEDS:: Review discharge instructions with pt and facility staff, discussion of self care needs and goals of care. ANTICIPATED BARRIERS TO DISCHARGE:: None identified. TRANSPORTATION:: Via EMS vs facility w/c van. PLAN:: London, per Hospitalist and Surgeon, is being treated for multifactorial sepsis, due to HCAP as well as infected ischial tuberosity ulcer and osteomyelitis. His blood cultures are pending and he is being treated with IV ABX and IVF. Per MD, evidently, botox was not very effective. Neither plastic surgery referral nor orthopedic referral have yet occurred at [facility]. Consider [facility] referrals instead. Anticipate London will return to [facility] once he has been medically cleared by and will transport via EMS vs facility w/c mark. CM will continue to follow.
[2021-01-13] MEDS: Multivitamin TAB 1 TAB PO (08:36)
[2021-01-13] MEDS: Zinc Sulfate 220 MG TAB PO (08:36)
[2021-01-13] MEDS: Cyclobenzaprine 10 MG TAB 5 MG PO ×3 (08:36→20:40)
[2021-01-13] MEDS: Gabapentin 100 MG CAP 300 MG PO (08:36)
[2021-01-13] MEDS: Methocarbamol 500 MG TAB 1000 MG PO ×4 (08:36→20:40)
[2021-01-13] MEDS: Docusate Sodium 100 MG CAP PO (08:36)
[2021-01-13] MEDS: Dronabinol 2.5 MG CAP PO ×2 (08:36→20:40)
[2021-01-13] MEDS: Senna TAB 1 TAB PO ×2 (08:36→20:39)
[2021-01-13] MEDS: Normal Saline 1,000 ML 125 ML IV ×2 (08:37→18:55)
[2021-01-13] MEDS: fentaNYL 50 MCG PATCH TD (08:37)
[2021-01-13] MEDS: Protein Nutritional Supplement 16 GM 1 OUNCE PACKET PO ×2 (08:41→20:41)
[2021-01-13 11:18] LABS: Magnesium 2.1 mg/dL (1.8-2.4)
[2021-01-13] MEDS: PIPERACILLIN/TAZO 3.375 GM in Normal Saline 50 ML IVPB ×3 (11:28→21:59)
[2021-01-13] MEDS: Acetaminophen 500 MG TAB 1000 MG PO (11:28)
[2021-01-13] MEDS: Nystatin POWDER 60 GM JAR TP ×3 (11:29→20:41)
[2021-01-13] MEDS: Cellulose,Oxidized 4X8 1 PACKET MC ×2 (11:30→11:31)
--- NOTE | 2021-01-13 11:55 | SCONE_ITS ---
Date of service: 01/13/21 Time of Service: 11:55 Assessment and Plan Assessment and plan (1) Left ischial pressure sore: Status: Acute Assessment and plan: Necrotic skin and infected tissue removed sharply. Pressure dressing applied Will look at his wound tomorrow. May benefit from wound vac (2) Pressure ulcers of skin of multiple topographic sites: Status: Acute Assessment and plan: Wound care consulted. The worst ulcer is the left ischial tuberosity, as above. Ultimately, these will continue to recur unless something is done about the contracted position of his right leg. Evidently, botox was not very effective. Neither plastic surgery referral nor orthopedic referral have yet occurred at [facility]. Consider [facility] [place] ref[place] instead. History of Present Illness Narrative: This 75-year-old male has been a resident of local assisted. He tells me he just feels tired. He has had a problem with spinal stenosis and recent quadriplegia. He had neck surgery but it did not improve his quadriplegia. He was hospitalized here for pneumonia and discharged almost 1 month ago. He has not been eating well the last few days and has had a change in mental status and was sent here to be seen. When he was discharged from the hospital here it was advised that he see plastic surgery and orthopedics at but it is not clear at this time whether he went there or not. He has had multiple problems with his skin due to his contractures and quadriplegia. Rehab center says his weight on December 19 was 162 pounds and they had no other weights listed. They stated that his intake over the last few days was limited to ice cream and soda but did according the records have about 2000 cc of oral intake on January 10, almost 1500 cc January 11 and 1200 cc today. He was evaluated emergency department and admission was recommended because of a high white blood cell count, tachycardia low oxygen saturation and elevated lactate. He was given vancomycin and Zosyn in the emergency department along with IV fluids. I was asked to see Mr. Matias for a infected pressure ulcer on his left hip. He has no pain sensation. Review of Systems Constitutional Constitutional: Denies fever(s) Eyes Eyes: Denies change in vision Respiratory Respiratory: Reports as per HPI Gastrointestinal Gastrointestinal: Reports as per HPI Genitourinary Genitourinary: Reports system reviewed and no additional complaints, except as documented Musculoskeletal Musculoskeletal: Reports system reviewed and no additional complaints, except as documented Integumentary/Breasts Skin/Breast: Reports system reviewed and no additional complaints, except as documented and Reports as per [facility] Medical History Advance directive in chart Chronic venous hypertension (idiopathic) with ulcer and inflammation of bilateral lower extremity Combative behavior verbally, unable to move Complete immobility due to severe physical disability or frailty Disoriented to place Disoriented to time Essential (primary) hypertension Fatty (change of) liver, not elsewhere classified Goals of care, counseling/discussion Hallucinations, unspecified Hyperlipemia Lives in assisted since Jul 2020 Major depressive disorder Muscle weakness (generalized) Neuromuscular dysfunction of bladder, unspecified Obesity Other spondylosis with myelopathy, cervical region Palliative care patient Paraplegia Pneumonia POLST (Physician Orders for Life-Sustaining Treatment) discussed and verbal decision made for DNR/DNI on 12/05/20; cannot sign Pressure ulcer of left heel, unstageable Pressure ulcer of other site, unstageable Pressure ulcer of right heel, unstageable Pressure ulcer of right hip, unstageable Pressure ulcer of right upper back Pressure ulcers of skin of multiple topographic sites Radiculopathy Repeated falls Rhabdomyolysis Unilateral primary osteoarthritis, right hip Unspecified fall Urinary tract infection Venous insufficiency (chronic) (peripheral) Surgical History History of neck surgery [facility] 2020 Family History Sister No problems noted. Social History Smoking/Tobacco Use Status: Never Smoking risk assessment performed?: Yes Alcohol Intake: never Drug use: Never Substance use type: does not use Caregiver/Support person: No Household members: none Housing: assisted Communication Needs: Corrective Lenses Do you need help understanding health information?: Always Current gender identity: male How often do you talk on the phone with friends or family?: three or more times per week How often do you get together with friends or relatives?: never Panel score (0-1 are the most socially isolated patients): 1 What type of physical activity do you participate in: none and sedentary lifestyle Frequency: does not exercise Special kena needs: No Seatbelt use: always Do you feel safe at home: Yes Do you feel safe in your relationship?: Yes Additional Social history: PATIENT HAS BEEN AT [employer] SINCE or JUNE. WAS LIVING ALONE. Has a sister Marie who is his agent, though not sure if paperwork signed. [place] era vet. Was in the [place]. 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 From [place] originally. Exam Const General: cooperative, comfortable and no acute distress Orientation: alert and oriented x3 HENMT Head: normocephalic and atraumatic Skin Full body images: 1. pressure ulcer with necrotic skin and purulent discharge Results Last Vital Signs Temp 97.7 F 01/13/21 09:21 Pulse 70 01/13/21 09:21 Resp 19 01/13/21 09:21 BP 96/54 L 01/13/21 09:22 Pulse Ox 99 01/13/21 09:21 Labs Result diagrams: 01/13/21 07:06 01/13/21 07:06 Labs: Laboratory Results - last 24 hr 01/12/21 01/12/21 01/12/21 17:17 17:17 17:50 WBC 27.45 H* RBC 5.07 Hgb 12.8 L Hct 41.0 MCV 80.9 MCH 25.2 L MCHC 31.2 L RDW 16.2 H Plt Count 300 MPV 10.8 Immature Gran % 0.5 Neutrophils % 89.2 Lymphocytes % 1.9 Monocytes % 8.2 Eosinophils % 0.0 Basophils % 0.2 Nucleated RBC % 0 Absolute Neutrophils 24.49 H Absolute Lymphocytes 0.52 L Absolute Monocytes 2.25 H Absolute Eosinophils 0.00 Absolute Basophils 0.05 RBC Morphology Normal VBG Lactate 4.4 H* Sodium Cancelled Potassium Cancelled Chloride Cancelled Carbon Dioxide Cancelled Anion Gap Cancelled BUN Cancelled Creatinine Cancelled Estimated GFR/1.73 m2 Cancelled Glucose Cancelled Calcium Cancelled Magnesium Total Bilirubin Cancelled AST Cancelled ALT Cancelled Alkaline Phosphatase Cancelled Total Protein Cancelled Albumin Cancelled Urine Color Urine Clarity Urine pH Ur Specific [place] Urine Protein Urine Ketones Urine Blood Urine Nitrite Urine Bilirubin Urine Urobilinogen Ur Leukocyte Esterase Urine RBC Urine WBC Ur Epithelial Cells Urine Crystals Urine Bacteria Urine Casts Urine Mucus Ur Culture Indicated? Urine Glucose COVID-19 Source SARS-CoV-2 (PCR) 01/12/21 01/12/21 01/12/21 17:50 18:15 18:30 WBC RBC Hgb Hct MCV MCH MCHC RDW Plt Count MPV Immature Gran % Neutrophils % Lymphocytes % Monocytes % Eosinophils % Basophils % Nucleated RBC % Absolute Neutrophils Absolute Lymphocytes Absolute Monocytes Absolute Eosinophils Absolute Basophils RBC Morphology VBG Lactate Sodium 139 Potassium 6.0 H Chloride 100 Carbon Dioxide 24.6 Anion Gap 14.4 H BUN 104 H* Creatinine 3.9 H* Estimated GFR/1.73 m2 15.23 Glucose 94 Calcium 9.0 Magnesium Total Bilirubin 1.0 AST 76 H ALT 89 H Alkaline Phosphatase 132 H Total Protein 7.0 Albumin 2.8 L Urine Color Yellow Urine Clarity Sl Cloudy Urine pH 5.5 Ur Specific [place] 1.015 Urine Protein 30 H Urine Ketones Negative Urine Blood Small H Urine Nitrite Negative Urine Bilirubin Negative Urine Urobilinogen 0.2 Ur Leukocyte Esterase Small H Urine RBC 5-10 H Urine WBC 5-10 Ur Epithelial Cells Few Urine Crystals Negative Urine Bacteria Many Urine Casts Negative Urine Mucus Moderate Ur Culture Indicated? Yes Urine Glucose Negative COVID-19 Source Nasal/Nares SARS-CoV-2 (PCR) Negative 01/12/21 01/12/21 01/13/21 21:34 21:34 07:06 WBC RBC Hgb Hct MCV MCH MCHC RDW Plt Count MPV Immature Gran % Neutrophils % Lymphocytes % Monocytes % Eosinophils % Basophils % Nucleated RBC % Absolute Neutrophils Absolute Lymphocytes Absolute Monocytes Absolute Eosinophils Absolute Basophils RBC Morphology VBG Lactate 1.4 Sodium 142 145 Potassium 3.9 D 3.3 L Chloride 105 109 H Carbon Dioxide 25.3 28.3 Anion Gap 11.7 H 7.7 BUN 95 H* 57 H D Creatinine 2.8 H D 1.3 D Estimated GFR/1.73 m2 22.32 54.11 Glucose 113 H 104 Calcium 7.8 L 8.4 L Magnesium Total Bilirubin AST ALT Alkaline Phosphatase Total Protein Albumin Urine Color Urine Clarity Urine pH Ur Specific [place] Urine Protein Urine Ketones Urine Blood Urine Nitrite Urine Bilirubin Urine Urobilinogen Ur Leukocyte Esterase Urine RBC Urine WBC Ur Epithelial Cells Urine Crystals Urine Bacteria Urine Casts Urine Mucus Ur Culture Indicated? Urine Glucose COVID-19 Source SARS-CoV-2 (PCR) 01/13/21 01/13/21 07:06 07:06 WBC 18.21 H D RBC 4.25 L Hgb 10.8 L Hct 34.4 L MCV 80.9 MCH 25.4 L MCHC 31.4 L RDW 16.1 H Plt Count 212 MPV 11.3 H Immature Gran % 0.4 Neutrophils % 88.7 Lymphocytes % 3.5 Monocytes % 6.2 Eosinophils % 1.0 Basophils % 0.2 Nucleated RBC % 0 Absolute Neutrophils 16.15 H Absolute Lymphocytes 0.64 L Absolute Monocytes 1.13 H Absolute Eosinophils 0.18 Absolute Basophils 0.04 RBC Morphology VBG Lactate Sodium Potassium Chloride Carbon Dioxide Anion Gap BUN Creatinine Estimated GFR/1.73 m2 Glucose Calcium Magnesium 2.1 Total Bilirubin AST ALT Alkaline Phosphatase Total Protein Albumin Urine Color Urine Clarity Urine pH Ur Specific [place] Urine Protein Urine Ketones Urine Blood Urine Nitrite Urine Bilirubin Urine Urobilinogen Ur Leukocyte Esterase Urine RBC Urine WBC Ur Epithelial Cells Urine Crystals Urine Bacteria Urine Casts Urine Mucus Ur Culture Indicated? Urine Glucose COVID-19 Source SARS-CoV-2 (PCR) Procedures Other Procedure Description/Findings: Pre-op Dx: Infected left Hip pressure ulcer Post-op Dx: same Procedure: Bedside debridement of skin and infected subcutaneous tissue Surgeon: Sheela Wei MD Anesthesia: None Blood loss: [20 cc Specimen: aerobic culture Complications: no immediate complications Procedure: After informed consent was obtained the patient was placed in a right lateral position. The necrotic skin was sharply debrided with a 15 and 10 blade. The fluid was cultured. Once the skin was removed the subcutaneous tissue was debrided using sharp dissection with a 10 blade and with a currette down to the bone. The area was irrigated and there was some bleeding noted form the debrided tissue. 2 sheets of surgicell were applied and a pressure dressing was applied. The wound measured 6.5 x 7.5 x 2.2 cm. with 2.5 cm of tunneling at the 6 o'clock position and 2.5 cm tunneling at the 3 o'clock position The patient tolerated the procedure well and there were no immediate complications.
--- NOTE | 2021-01-13 11:57 | PGE_ITS ---
Date of Service Date of service: 01/13/21 Time of Service: 11:57 Assessment and Plan Assessment and plan (1) Sepsis: Status: Acute Assessment and plan: Multifactorial, due to HCAP as well as infected ischial tuberosity ulcer and osteomyelitis. Blood cultures are pending. Continue Vanco/zosyn. Continue IVF. Wound culture. (2) Pneumonia: Status: Acute Assessment and plan: As above (3) Left ischial pressure sore: Status: Acute Assessment and plan: Surgery on board. Abx as above due to suspected osteomyelitis. Wound culture obtained. We are probably looking at 6 weeks of antibiotics. (4) Acute kidney injury: Status: Acute Assessment and plan: Cr is down to 1.3 from 3.9 on presentation. Continue IVF. Monitor I/O's and daily weights. (5) Hypoxia: Status: Resolved Assessment and plan: Monitor O2 sats. (6) Hyperkalemia: Status: Resolved Assessment and plan: Actually needed K to be supplemented. Probably due to COCO. Monitor. (7) Pressure ulcers of skin of multiple topographic sites: Status: Acute Assessment and plan: Wound care consulted. The worst ulcer is the left ischial tuberosity, as above. Ultimately, these will continue to recur unless something is done about the contracted position of his right leg. Evidently, botox was not very effective. Neither plastic surgery referral nor orthopedic referral have yet occurred at [facility]. Consider [facility] [place] referrals instead. (8) DVT prophylaxis: Status: Acute Assessment and plan: TEDs/SCDS. Will hold off of chemical DVT ppx due to bleeding during procedure today and anticipated further debridements. (9) Discharge planning issues: Status: Acute Assessment and plan: DNR/DNI Consult PT, pallaitive care. Subjective Subjective Interval history since last seen: Denies dizziness, chest pain, shortness of breath, nausea. Endorse a headache. L ischial tuberosity wound is c/w osteomyelitis per Dr Wei, who debrided the wound at bedside. The patient had no pain during this though he felt pressure. Last temp 38.6 at 16:22 yesterday. Blood cultures are pending Exam Narrative Exam Narrative: General: pleasant elderly male who is contracted (R hip flexed), A&Ox2, expressing paranoid ideation about [place] government HEENT: EOMI, MMM Heart: RRR Lungs: CTAB Abdomen: soft, nontender, nondistended Has a gibson Extremities: R hip contracted and internally rotated. Multiple skin wounds on BLEs are dressed. L ischial tuberosity wound was debrided at bedside in front of me - necrotic tissue to bone. Objective Last Vital Signs Temp 36.5 C 01/13/21 09:21 Pulse 70 01/13/21 09:21 Resp 19 01/13/21 09:21 BP 96/54 L 01/13/21 09:22 Pulse Ox 99 01/13/21 09:21 Laboratory Results - last 24 hr 01/12/21 01/12/21 01/12/21 17:17 17:17 17:50 WBC 27.45 H* RBC 5.07 Hgb 12.8 L Hct 41.0 MCV 80.9 MCH 25.2 L MCHC 31.2 L RDW 16.2 H Plt Count 300 MPV 10.8 Immature Gran % 0.5 Neutrophils % 89.2 Lymphocytes % 1.9 Monocytes % 8.2 Eosinophils % 0.0 Basophils % 0.2 Nucleated RBC % 0 Absolute Neutrophils 24.49 H Absolute Lymphocytes 0.52 L Absolute Monocytes 2.25 H Absolute Eosinophils 0.00 Absolute Basophils 0.05 RBC Morphology Normal VBG Lactate 4.4 H* Sodium Cancelled Potassium Cancelled Chloride Cancelled Carbon Dioxide Cancelled Anion Gap Cancelled BUN Cancelled Creatinine Cancelled Estimated GFR/1.73 m2 Cancelled Glucose Cancelled Calcium Cancelled Magnesium Total Bilirubin Cancelled AST Cancelled ALT Cancelled Alkaline Phosphatase Cancelled Total Protein Cancelled Albumin Cancelled Urine Color Urine Clarity Urine pH Ur Specific [place] Urine Protein Urine Ketones Urine Blood Urine Nitrite Urine Bilirubin Urine Urobilinogen Ur Leukocyte Esterase Urine RBC Urine WBC Ur Epithelial Cells Urine Crystals Urine Bacteria Urine Casts Urine Mucus Ur Culture Indicated? Urine Glucose COVID-19 Source SARS-CoV-2 (PCR) 01/12/21 01/12/21 01/12/21 17:50 18:15 18:30 WBC RBC Hgb Hct MCV MCH MCHC RDW Plt Count MPV Immature Gran % Neutrophils % Lymphocytes % Monocytes % Eosinophils % Basophils % Nucleated RBC % Absolute Neutrophils Absolute Lymphocytes Absolute Monocytes Absolute Eosinophils Absolute Basophils RBC Morphology VBG Lactate Sodium 139 Potassium 6.0 H Chloride 100 Carbon Dioxide 24.6 Anion Gap 14.4 H BUN 104 H* Creatinine 3.9 H* Estimated GFR/1.73 m2 15.23 Glucose 94 Calcium 9.0 Magnesium Total Bilirubin 1.0 AST 76 H ALT 89 H Alkaline Phosphatase 132 H Total Protein 7.0 Albumin 2.8 L Urine Color Yellow Urine Clarity Sl Cloudy Urine pH 5.5 Ur Specific [place] 1.015 Urine Protein 30 H Urine Ketones Negative Urine Blood Small H Urine Nitrite Negative Urine Bilirubin Negative Urine Urobilinogen 0.2 Ur Leukocyte Esterase Small H Urine RBC 5-10 H Urine WBC 5-10 Ur Epithelial Cells Few Urine Crystals Negative Urine Bacteria Many Urine Casts Negative Urine Mucus Moderate Ur Culture Indicated? Yes Urine Glucose Negative COVID-19 Source Nasal/Nares SARS-CoV-2 (PCR) Negative 01/12/21 01/12/21 01/13/21 21:34 21:34 07:06 WBC RBC Hgb Hct MCV MCH MCHC RDW Plt Count MPV Immature Gran % Neutrophils % Lymphocytes % Monocytes % Eosinophils % Basophils % Nucleated RBC % Absolute Neutrophils Absolute Lymphocytes Absolute Monocytes Absolute Eosinophils Absolute Basophils RBC Morphology VBG Lactate 1.4 Sodium 142 145 Potassium 3.9 D 3.3 L Chloride 105 109 H Carbon Dioxide 25.3 28.3 Anion Gap 11.7 H 7.7 BUN 95 H* 57 H D Creatinine 2.8 H D 1.3 D Estimated GFR/1.73 m2 22.32 54.11 Glucose 113 H 104 Calcium 7.8 L 8.4 L Magnesium Total Bilirubin AST ALT Alkaline Phosphatase Total Protein Albumin Urine Color Urine Clarity Urine pH Ur Specific [place] Urine Protein Urine Ketones Urine Blood Urine Nitrite Urine Bilirubin Urine Urobilinogen Ur Leukocyte Esterase Urine RBC Urine WBC Ur Epithelial Cells Urine Crystals Urine Bacteria Urine Casts Urine Mucus Ur Culture Indicated? Urine Glucose COVID-19 Source SARS-CoV-2 (PCR) 01/13/21 01/13/21 07:06 07:06 WBC 18.21 H D RBC 4.25 L Hgb 10.8 L Hct 34.4 L MCV 80.9 MCH 25.4 L MCHC 31.4 L RDW 16.1 H Plt Count 212 MPV 11.3 H Immature Gran % 0.4 Neutrophils % 88.7 Lymphocytes % 3.5 Monocytes % 6.2 Eosinophils % 1.0 Basophils % 0.2 Nucleated RBC % 0 Absolute Neutrophils 16.15 H Absolute Lymphocytes 0.64 L Absolute Monocytes 1.13 H Absolute Eosinophils 0.18 Absolute Basophils 0.04 RBC Morphology VBG Lactate Sodium Potassium Chloride Carbon Dioxide Anion Gap BUN Creatinine Estimated GFR/1.73 m2 Glucose Calcium Magnesium 2.1 Total Bilirubin AST ALT Alkaline Phosphatase Total Protein Albumin Urine Color Urine Clarity Urine pH Ur Specific [place] Urine Protein Urine Ketones Urine Blood Urine Nitrite Urine Bilirubin Urine Urobilinogen Ur Leukocyte Esterase Urine RBC Urine WBC Ur Epithelial Cells Urine Crystals Urine Bacteria Urine Casts Urine Mucus Ur Culture Indicated? Urine Glucose COVID-19 Source SARS-CoV-2 (PCR)
[2021-01-13] MEDS: VANCOMYCIN/WATER (PEG) 1 GM/200 ML BAG IV ×2 (12:50→23:53)
--- NOTE | 2021-01-13 13:40 | WOUNDCONS_ITS ---
- If Service Date Differs Date of service: 01/13/21 Time of Service: 10:00 Wound Initial Evaluation Narrative: Consult placed for multiple wounds on patient's body. -Left medial knee partial thickness pressure injury which appears to be resolving. Wound measures 2.5 cm x 2.3 cm x 0.1 cm. Area surrounding wound is pink, no increased warmth noted. Wound bed has minimal serous drainage, with some macerated skin noted around periphery which was mechanically debrided during cleaning. - Right Hip partial thickness which pt has previously stated was from a fall last June. There are four open areas present in a larger area. The larger area containing the four wounds was measured as one, measuring 6.5 cm x 3.8 cm x 0.1 cm. The periphery is pink with scant serous drainage noted. -Right heel unstageable pressure injury noted measuring 2.5 cm x 3 cm x 0.1 cm. There is rangel slough in the base of the wound which was minimally debrided with a debrisoft lolly. The remaining slough is firmly adherent with a pink periphery which extends to the approximate edges of the heel. No additional warmth is noted. -Right plantar foot has hard eschar measuring 2.5 cm x 2.5 cm. No fluctuance noted. -Right great toe distal area measures 3.2 cm x 2 cm and the medial area measures 2.5 cm x 1.8 cm. The distal great toe has hard eschar with no fluctuance noted, the medial great toe has a small area of brown eschar and a larger area of dark pink tissue which has an approximate depth of 0.1 cm. These areas on the plant foot and great toe are resolving DTI areas. -Stefanie area, no meaurements taken but area is MASD with a fungal component and seems to be influenced by the contractures and difficulty in repositioning. Redness noted on bilateral groin, scrotum and abd folds. - Right malone reddened area is from pressure between the bilateral legs from the contractures and measures approximately 16 cm x 5 cm with an area of exposed bone/ bone fragement noted which is approximately 0.3 cm irregularly round. - Left upper arm has an area ? infiltrate from earlier IV which measures 6 cm x 6 cm. No open areas noted. No increased warmth to the area. -Right medial knee- Area of pressure noted which appears to be resolving measuring 0.8 cm x 1.5 cm x 0.1 cm with scant serous drainage noted. -Left ischial tuberosity- Initally the wound was a purple area with an open area which was draining purulent bloody drainage. The area was fluctuant and had a strong odor. Surrounding the fluctunace was an area of redness and induration with increased warmth.Dr. Wei from surgical services and Dr. Vieira from the hospitalist service were able to do a bedside evaluation and Dr. Wei debrided the wound. The picture and measurements are post debridement. Measurements are 6.5 cm x 7.5 cm x 2.2 cm with a tunnel at 6 0'clock measuring 2.5 cm and a tunnel at 3 o'clock measuring 2.5 cm. - Wound Left medial knee Wound Type: Pressure Ulcer Wound General Appearance: Unapproximated Wound Length: 2.5 cm Wound Width: 2.3 cm Wound Depth: 0.1 cm Wound Drainage Amount: Minimal Wound Drainage Odor: None/Absent Wound Drainage Description: Serous Right Hip Wound Type: Partial Thickness Wound General Appearance: Unapproximated Wound Length: 6.5 cm Wound Width: 3.8 cm Wound Depth: 0.1 cm Wound Drainage Amount: Minimal Right heel Wound Type: Pressure Ulcer Pressure Ulcer Stage: Eschar/Unstageable Wound General Appearance: Unapproximated Wound Length: 2.5 cm Wound Width: 3 cm Wound Depth: 0.3 cm Right plantar foot Wound Type: Pressure Ulcer Pressure Ulcer Stage: Eschar/Unstageable Wound Length: 2.5 cm Wound Width: 2.5 cm Wound Drainage Amount: None Right great toe distal Wound Type: Pressure Ulcer Pressure Ulcer Stage: Eschar/Unstageable Wound Length: 3.2 cm Wound Width: 2 cm Wound Depth: 0 cm Right great toe medial Wound Type: Pressure Ulcer Pressure Ulcer Stage: Eschar/Unstageable Wound Length: 2.5 cm Wound Width: 1.8 cm Wound Depth: 0 cm Right malone Wound Type: Pressure Ulcer Wound Length: 16 cm Wound Width: 5 cm Wound Drainage Amount: Minimal Left upper arm Wound Length: 6 cm Wound Width: 6 cm Left ischial tuberosity Wound Length: 6.5 cm Wound Width: 7.5 cm Wound Depth: 2.2 cm Wound Drainage Amount: Moderate Wound Drainage Odor: Strong, Pungent Wound Drainage Description: Purulent, Sanguineous - Circulation, Sensation, Motion Sensation Description: Pain Skin Temperature: Warm Skin Color: Pale - Recomendation Recomendation:: Left medial knee- Cleanse with ns, pat dry, apply mepilex. Change q 3 days and PRN. Right hip- Cleanse with ns, pat dry, apply triad paste. Cover with mepilex. Change q 3 days and PRN. Right heel- Cleanse with ns, pat dry, apply skin prep to periwound. Apply thin layer of anasept gel. Change daily and PRN. Right plantar foot, right great toe distal area- paint with betadine, wrap right great toe and right plantar foot with gauze and kerlix, consult podiatry for r ecommendations. Stefanie area- Apply triple cream (Vit A and D, clotrimazole and zinc) TID and PRN after stefanie care. Right malone- Cleanse with ns, pat dry, apply mepilex without border. Change q 3 days and PRN. Left upper arm- Monitor for complications. Abd fold- Clean and dry area. Apply Nystatin powder and interdry TID and PRN. Right medial knee- Cleanse with ns, pat dry, apply mepilex. Change q 3 days and PRN. Left Ischial Tuberosity- Follow orders by surgical service.
[2021-01-13] MEDS: POTASSIUM CHLORIDE 20 MEQ/100 ML BAG 50 MEQ IVPB (14:53)
[2021-01-13] MEDS: Gabapentin 300 MG CAP PO (20:39)
[2021-01-14] VITALS (7 sets, daily range): BP systolic 96–128; BP diastolic 45–67; PULSE 66–76; RESP 16–20; TEMP 36–37; O2SAT 92–98
[2021-01-14] MEDS: PIPERACILLIN/TAZO 3.375 GM in Normal Saline 50 ML IVPB ×4 (03:30→21:36)
[2021-01-14] MEDS: Normal Saline 1,000 ML 125 ML IV (05:51)
[2021-01-14 07:10] LABS: Abs Immature Grans 0.05 10^3/uL (0.0-0.06); Absolute Basophil Count 0.02 10^3/uL (0.0-0.2); Absolute Eosinophil Count 0.15 10^3/uL (0.0-0.7); Absolute Lymphocyte Count 0.89 10^3/uL (1.2-3.4); Absolute Monocyte Count 0.81 10^3/uL (0.1-0.8); Absolute Neutrophil Count 7.07 10^3/uL (1.2-6.7); Basophils % 0.2; Eosinophils % 1.7; HGB 9.3 g/dL (13.5-17.5); Immature Grans % 0.6; Lymphocytes % 9.9; MCH 25.5 pg (27.0-33.0); MCV 82.4 fL (80-95); MPV 10.9 fL (8.0-11.0); Neutrophils % 78.6; Nucleated RBC 0 %; Platelet Count 186 10^3/uL (130-400); RBC 3.64 10^6/uL (4.36-5.78); RDW-SD 48.5 fL
[2021-01-14 07:23] LABS: Anion Gap 4.5 mmol/L (3-11); BUN 18 mg/dL (7-18); C-Reactive Protein 10.44 mg/dL (0.0-0.3); CO2 29.5 mmol/L (21.0-32.0); CREATININE 0.5 mg/dL (0.70-1.30); Calcium 7.5 mg/dL (8.5-10.1); Chloride 112 mmol/L (98-107); Glucose 88 mg/dL (74-106); Magnesium 1.5 mg/dL (1.8-2.4); Sodium 146 mmol/L (136-145)
[2021-01-14 07:36] LABS: WBC 8.99 10^3/uL (4.4-10.8)
[2021-01-14 08:00] LABS: Vitamin B12 1427 pg/mL (193-986)
[2021-01-14] MEDS: POTASSIUM CHLORIDE/0.9% NACL 1,000 ML 125 MEQ IV (08:23)
[2021-01-14] MEDS: Protein Nutritional Supplement 16 GM 1 OUNCE PACKET PO ×2 (08:23→20:05)
[2021-01-14] MEDS: MAGNESIUM SULFATE 4 GM/100 ML BAG IVPB (08:23)
[2021-01-14] MEDS: Zinc Sulfate 220 MG TAB PO (08:24)
[2021-01-14] MEDS: Docusate Sodium 100 MG CAP PO (08:24)
[2021-01-14] MEDS: Potassium Chloride 20 MEQ TABCR 40 MEQ PO (08:24)
[2021-01-14] MEDS: Senna TAB 1 TAB PO ×2 (08:24→20:07)
[2021-01-14] MEDS: Gabapentin 300 MG CAP PO ×3 (08:24→20:07)
[2021-01-14] MEDS: Methocarbamol 500 MG TAB 1000 MG PO ×4 (08:24→20:06)
[2021-01-14] MEDS: Cyclobenzaprine 10 MG TAB 5 MG PO ×3 (08:24→20:05)
[2021-01-14] MEDS: Multivitamin TAB 1 TAB PO (08:24)
[2021-01-14] MEDS: Dronabinol 2.5 MG CAP PO ×2 (08:24→20:07)
[2021-01-14 08:43] LABS: Procalcitonin 0.7 ng/mL
[2021-01-14] MEDS: Acetaminophen 500 MG TAB 1000 MG PO (09:09)
--- NOTE | 2021-01-14 10:51 | IN_ITS ---
Date of service: 01/14/21 Time of Service: 09:15 PT Notes Visit Reasons: Sepsis,Pneumonia,UTI,Hyperkalemia Inpatient Physical Therapy Evaluation Date: January 14, 2021 Referring Doctor: Stacey Vieira MD PT Orders: PT CONSULT: Evaluate and treat, limited ability Precautions: High risk skin breakdown, standard Patient Profile/Admitting Diagnosis: Patient is a 75-year-old male admitted to [facility] status post diagnosis sepsis, pneumonia, UTI and multiple decubiti ulcers. PMHX: Medical History (Updated 01/12/21 @ 19:24 by Jayna Carrillo DO) Advance directive in chart Chronic venous hypertension (idiopathic) with ulcer and inflammation of bilateral lower extremity Combative behavior verbally, unable to move Complete immobility due to severe physical disability or frailty Disoriented to place Disoriented to time Essential (primary) hypertension Fatty (change of) liver, not elsewhere classified Goals of care, counseling/discussion Hallucinations, unspecified Hyperlipemia Lives in intermediate since Jul 2020 Major depressive disorder Muscle weakness (generalized) Neuromuscular dysfunction of bladder, unspecified Obesity Other spondylosis with myelopathy, cervical region Palliative care patient Paraplegia Pneumonia POLST (Physician Orders for Life-Sustaining Treatment) discussed and verbal decision made for DNR/DNI on 12/05/20; cannot sign Pressure ulcer of left heel, unstageable Pressure ulcer of other site, unstageable Pressure ulcer of right heel, unstageable Pressure ulcer of right hip, unstageable Pressure ulcer of right upper back Pressure ulcers of skin of multiple topographic sites Radiculopathy Repeated falls Rhabdomyolysis Unilateral primary osteoarthritis, right hip Unspecified fall Urinary tract infection Venous insufficiency (chronic) (peripheral) Surgical History (Updated 12/06/20 @ 20:17 by Shae Cano MD) History of neck surgery [facility] 2020 Social History/Home Situation: Resides at [facility] and rehab Current Functional Limitations: Bedridden Subjective: Patient states that he has essentially been bedridden following surgical procedure few months ago at [facility] medical resulting in quadriplegia. Prior to admittance patient was dependent with all self ADLs, feeding, bathing and requiring positional changes for wound ulcers. Patient states he was living independently a couple years ago until he fell and was deemed unsafe to live alone. Denies any significant pain other than positional tolerances. Objective: General Observation: Supine in bed. Rock catheter in place. IV access in L UE ulnar dorsum side of hand. Patient lying with right hip flexed 95 degrees internally rotated 50 degrees with knee flexed 95 degrees. He is positioned with multiple pillows for support to depressurize wounds. Significant swelling through bilateral lower extremities. Mental Status: Alert to person and place Pain: 3/10 pain in the bilateral shoulders with PROM in all planes. ROM: Right Upper Extremity: Minimal volitional active range of motion of shoulder elbow wrist and hand. Approximately 5 degrees glenohumeral joint elevation. Passive range of motion 15 degrees scaption. Elbow 0 degrees extension, 40 degrees flexion passive. Passive shoulder external rotation 10 degrees, internal rotation 45. Patient complains of pain at end range of all passive range of motion. Passive wrist flexion 15 degrees, extension 10 degrees. Unable to perform functional grasp. Left Upper Extremity: . Passive shoulder flexion to 45 degrees with pain at end of range. Passive Shoulder external rotation allows only up to 20 degrees before onset of pain. Passive elbow flexion 40 degrees with pain. Passive wrist flexion and extension about 10 degrees. Unable to functionally grasp small items on the left. Right Lower Extremity: no volitional motion with the exception of 5 to 10 degrees of active ankle pump dorsiflexion/ plantarflexion Left Lower Extremity: no volitional motion with exception of 5 to 10 degrees of active ankle pump dorsiflexion/plantarflexion *All passive range of motion in bilateral upper and lower extremities associated with significant spasticity/rigidity Strength: Right Upper Extremity: Shoulder flexion 1/5. Shoulder extension 1/5. Biceps 1/5. Triceps 1/5. Finger flexion 0/5. Finger extension 0/5. Left Upper Extremity: Shoulder flexion 1/5. Shoulder extension 1/5. Biceps 1/5. Triceps 1/5. Finger flexion 1/5. Finger extension 0/5. Right Lower Extremity: 0/5 hip, quad and hamstring. 1/5 ankle plantarflexion/ dorsiflexion Left Lower Extremity: 0/5 hip, quad and hamstring. 1/5 ankle plantarflexion/dorsiflexion Bed Mobility/Transfers: Totally dependent with all bed mobility and transfers Gait: Has been non-ambulatory for multiple months Balance: Static Sitting: Poor Special Tests: Mobility Limitations Standardized Measure [facility] 6 clicks Basic Mobility Inpatient Short Form: Raw Score: 6 CMS Score: 100% deficit Informed Consent/Education: Patient was instructed in purpose of PT consult and plan of care. Assessment: Patient presents with clinical signs and symptoms consistent with diagnosis, as demonstrated by the following impairment level findings: 1. Limited bilateral UE and LE active movement 2. Hypertonicity in B UEs and LEs 3. Decreased skin integrity Impairments are continuing to contribute to the following functional limitations: 1. decreased ability to independently perform self-care 2. decreased ability to participate in transfers/rolling 3. dependent bed mobility skills 4. inability to perform pressure relief to bony landmarks in B LE Patient is assessed as High 66308 complexity based on the following: History: 75year old male with recent quadriplegia, admitted for wound management. Patient is receiving ongoing care for wounds. Complicating social factors include lack of pressure relieving bed. Examination: functional limitations as noted above Presentation: Evolving Decision Making: High [id number] complexity Goals: Goals X 1 week 1. Caregiver will demonstrate 100% safe and correct technique with donning and doffing of B RCAI multi-podus boots to B LE to prevent PF contracture after 1 session. 2. Caregiver will demonstrate 100% mastery of PROM B UE and LE caregiver training to prevent contracture formation. 4. Patient will maintain range of motion in B UE/LE joints to minimize contracture formation Plan of Care/Treatment Plan: 1-2x/day, 7 days/week x 1 week. Plan of care has been reviewed with the [employer] providing the service under Physical Therapy direction. Initiate Physical Therapy intervention for strengthening, bed mobility, transfers, gait, stairs, balance training, use of assistive device. DISCHARGE RECOMMENDATIONS: Return to SNF when medically cleared by hospitalist TREATMENT CODE/[place]: [place] [id number] - 9 15-9 45
[2021-01-14] MEDS: Nystatin POWDER 60 GM JAR TP ×2 (11:00→20:18)
[2021-01-14 11:20] LABS: Vancomycin, Trough 9.8 ug/mL (10.0-20.0)
--- NOTE | 2021-01-14 11:52 | CMPROGNOTE_ITS ---
- If Service Date Differs Date of service: 01/14/21 Time of Service: 11:52 Care Management Progress Note S/O: Kain was lying in bed when CM met with him. He looked sad and informed CM that he is tired - of everything. He shared that everything that can go wrong, seems to go wrong in his case. He discussed the fact that he has gone to [facility] for botox to try to relieve the severe contracture of his right hip but it was unsuccessful. He has pneumonia which he stated he has had 2 other timed recently and now he has an infected decubitus. Both of the blood cultures drawn on 01/12/21 are positive for gram positive cocci. His wound is also growing gram positive organisms. A palliative care consult has been ordered. Kain has had them in the past with varying outcomes. CM will continue to follow. A: Kain is a 75 year old man admitted on 01/12/21 with sepsis and pneumonia P:[place] was admitted with sepsis and has positive blood cultures with gram positive bacteria. Anticipate [place] will return to [facility] once he has been medically cleared by and will transport via EMS vs facility w/c van. CM will continue to support Kain and assess for ongoing discharge concerns.
[2021-01-14] MEDS: VANCOMYCIN/WATER (PEG) 1.25 GM/250 ML BAG IV ×2 (12:17→22:16)
--- NOTE | 2021-01-14 15:12 | W.PM.PROGNOT ---
Date of Service Date of service: 01/14/21 Time of Service: 15:13 Assessment and Plan Assessment and plan (1) Sepsis: Status: Acute Assessment and plan: Multifactorial, due to HCAP as well as infected ischial tuberosity ulcer and osteomyelitis, with evidence of gram positive bacteremia. Repeat blood cultures are pending. Await speciation/sensitivities on the original blood cx. Continue Vanco/zosyn. Continue IVF. Wound culture pending. Will need an echo (not available this week). Likely looking at 6 weeks of IV abx from the 1st negative blood culture. (2) Gram-positive bacteremia: Status: Acute Assessment and plan: As above (3) Osteomyelitis: Status: Acute Assessment and plan: As above (4) Left ischial pressure sore: Status: Acute Assessment and plan: Surgery on board. Abx as above due to suspected osteomyelitis. Wound culture obtained. We are probably looking at 6 weeks of antibiotics. (5) Pneumonia: Status: Acute Assessment and plan: As above (6) Acute kidney injury: Status: Resolved Assessment and plan: Cr at baseline. Decrease IVF. Monitor I/O's and daily weights. (7) Hypoxia: Status: Resolved Assessment and plan: Monitor O2 sats. (8) Hyperkalemia: Status: Resolved Assessment and plan: Actually needed K to be supplemented. Probably due to COCO. Monitor. (9) Pressure ulcers of skin of multiple topographic sites: Status: Acute Assessment and plan: Wound care on board. The worst ulcer is the left ischial tuberosity, as above. Ultimately, these will continue to recur unless something is done about the contracted position of his right leg. Evidently, botox was not very effective. Neither plastic surgery referral nor orthopedic referral have yet occurred at [facility]. Patient is in agreement with attempting to see [facility] as outpatient. (10) Hypokalemia: Status: Acute Assessment and plan: Replete, recheck in am (11) Hypomagnesemia: Status: Acute Assessment and plan: Replete, recheck in am (12) Physical debility: Status: Chronic Assessment and plan: Per [facility] Neuro, the patient's weakness/debility have occurred over the last two years with C-spine cord compression being diagnosed in 11/01. C-spine decompression in 11/01 did not help. It also needs to be noted that the patient hallucinates occasionally and yesterday was frankly paranoid, though I am not seeing this today. I question if there is another central process possibly happening and am considering a 2nd neurology opinion. No neurology is available at our facility this week, but we will pursue this next week. (13) DVT prophylaxis: Status: Acute Assessment and plan: TEDs/SCDS. Will hold off of chemical DVT ppx until reevaluated by general surgery (14) Discharge planning issues: Status: Acute Assessment and plan: DNR/DNI Consult PT, pallitive care. Will likely need 6 weeks of IV abx from 1st negative blood culture. Will need a PICC line when blood cultures are negative. Will need outpatient ortho follow up. Subjective Subjective Interval history since last seen: Mr Coker states his bottom feels sore. Nothing else hurts. Denies dizziness, chest pain, shortness of breath, nausea, abdominal pain. Blood cultures positive for GPCs. Exam Narrative Exam Narrative: General: pleasant elderly male who looks better than yesterday, A&Ox3, tearful when talking about goals of care. R hip flexed HEENT: EOMI, MMM Heart: RRR Lungs: CTAB Abdomen: soft, nontender, nondistended Has a gibson Extremities: R hip contracted and internally rotated. Multiple skin wounds on BLEs are dressed Objective Last Vital Signs Temp 36.2 C L 01/14/21 08:14 Pulse 75 01/14/21 08:14 Resp 16 01/14/21 08:14 BP 110/58 L 01/14/21 08:14 Pulse Ox 93 01/14/21 10:19 Laboratory Results - last 24 hr 01/14/21 01/14/21 01/14/21 06:55 06:55 06:55 WBC 8.99 D RBC 3.64 L Hgb 9.3 L Hct 30.0 L MCV 82.4 MCH 25.5 L MCHC 31.0 L RDW 16.0 H Plt Count 186 MPV 10.9 Immature Gran % 0.6 Neutrophils % 78.6 Lymphocytes % 9.9 Monocytes % 9.0 Eosinophils % 1.7 Basophils % 0.2 Nucleated RBC % 0 Absolute Neutrophils 7.07 H Absolute Lymphocytes 0.89 L Absolute Monocytes 0.81 H Absolute Eosinophils 0.15 Absolute Basophils 0.02 Sodium 146 H Potassium 2.9 L Chloride 112 H Carbon Dioxide 29.5 Anion Gap 4.5 BUN 18 D Creatinine 0.5 L D Estimated GFR/1.73 m2 >= 60.00 Glucose 88 Calcium 7.5 L Magnesium 1.5 L C-Reactive Protein 10.44 H Vitamin B12 1427 H Procalcitonin Vancomycin Trough 01/14/21 01/14/21 06:55 11:01 WBC RBC Hgb Hct MCV MCH MCHC RDW Plt Count MPV Immature Gran % Neutrophils % Lymphocytes % Monocytes % Eosinophils % Basophils % Nucleated RBC % Absolute Neutrophils Absolute Lymphocytes Absolute Monocytes Absolute Eosinophils Absolute Basophils Sodium Potassium Chloride Carbon Dioxide Anion Gap BUN Creatinine Estimated GFR/1.73 m2 Glucose Calcium Magnesium C-Reactive Protein Vitamin B12 Procalcitonin 0.7 Vancomycin Trough 9.8 L
--- NOTE | 2021-01-14 16:25 | PGE_ITS ---
Date of Service Date of service: 01/14/21 Time of Service: 16:25 Assessment and Plan Assessment and plan (1) Left ischial pressure sore: Status: Acute Assessment and plan: Necrotic skin and infected tissue removed sharply. Pressure dressing applied No bleeding and no purulent discharge. Dressing changed Will have wound nurses apply a wound vac tomorrow (2) Pressure ulcers of skin of multiple topographic sites: Status: Acute Assessment and plan: Wound care consulted. The worst ulcer is the left ischial tuberosity, as above. Ultimately, these will continue to recur unless something is done about the contracted position of his right leg. Evidently, botox was not very effective. Neither plastic surgery referral nor orthopedic referral have yet occurred at [facility]. Consider [facility] referrals instead. Subjective Subjective Interval history since last seen: [place] is doing well. No complaints. Dressing was soiled during the night and it was changed. Exam Skin Other: Left HIP- wound is down to bone. No purulent discharge and no bleeding Objective Last Vital Signs Temp 97.2 F L 01/14/21 08:14 Pulse 75 01/14/21 08:14 Resp 16 01/14/21 08:14 BP 110/58 L 01/14/21 08:14 Pulse Ox 93 01/14/21 10:19 Laboratory Results - last 24 hr 01/14/21 01/14/21 01/14/21 06:55 06:55 06:55 WBC 8.99 D RBC 3.64 L Hgb 9.3 L Hct 30.0 L MCV 82.4 MCH 25.5 L MCHC 31.0 L RDW 16.0 H Plt Count 186 MPV 10.9 Immature Gran % 0.6 Neutrophils % 78.6 Lymphocytes % 9.9 Monocytes % 9.0 Eosinophils % 1.7 Basophils % 0.2 Nucleated RBC % 0 Absolute Neutrophils 7.07 H Absolute Lymphocytes 0.89 L Absolute Monocytes 0.81 H Absolute Eosinophils 0.15 Absolute Basophils 0.02 Sodium 146 H Potassium 2.9 L Chloride 112 H Carbon Dioxide 29.5 Anion Gap 4.5 BUN 18 D Creatinine 0.5 L D Estimated GFR/1.73 m2 >= 60.00 Glucose 88 Calcium 7.5 L Magnesium 1.5 L C-Reactive Protein 10.44 H Vitamin B12 1427 H Procalcitonin Vancomycin Trough 01/14/21 01/14/21 06:55 11:01 WBC RBC Hgb Hct MCV MCH MCHC RDW Plt Count MPV Immature Gran % Neutrophils % Lymphocytes % Monocytes % Eosinophils % Basophils % Nucleated RBC % Absolute Neutrophils Absolute Lymphocytes Absolute Monocytes Absolute Eosinophils Absolute Basophils Sodium Potassium Chloride Carbon Dioxide Anion Gap BUN Creatinine Estimated GFR/1.73 m2 Glucose Calcium Magnesium C-Reactive Protein Vitamin B12 Procalcitonin 0.7 Vancomycin Trough 9.8 L
[2021-01-14] MEDS: Normal Saline Flush 10 ML SYR IVP (20:05)
[2021-01-14] MEDS: POTASSIUM CHLORIDE/0.9% NACL 1,000 ML 75 MEQ IV (20:17)
[2021-01-15] MEDS: Melatonin 3 MG TAB 6 MG PO (00:44)
[2021-01-15] MEDS: Acetaminophen 500 MG TAB 1000 MG PO ×2 (00:44→07:41)
[2021-01-15] MEDS: oxyCODONE 10 MG TAB PO (01:20)
[2021-01-15 03:23] VITALS: BP 119/54; PULSE 71; RESP 20; TEMP 36.7; O2SAT 94
[2021-01-15] MEDS: PIPERACILLIN/TAZO 3.375 GM in Normal Saline 50 ML IVPB ×2 (03:54→09:24)
--- NOTE | 2021-01-15 05:37 | NUR.NOTE ---
Nursing Note: asked PT if we could put on his alondra stolkings and he refused.
[2021-01-15] MEDS: VANCOMYCIN/WATER (PEG) 1.25 GM/250 ML BAG IV ×2 (07:11→17:05)
[2021-01-15 07:28] LABS: Abs Immature Grans 0.17 10^3/uL (0.0-0.06); Absolute Basophil Count 0.06 10^3/uL (0.0-0.2); Absolute Eosinophil Count 0.77 10^3/uL (0.0-0.7); Absolute Lymphocyte Count 1.65 10^3/uL (1.2-3.4); Absolute Monocyte Count 0.82 10^3/uL (0.1-0.8); Absolute Neutrophil Count 5.71 10^3/uL (1.2-6.7); Basophils % 0.7; Eosinophils % 8.4; HCT 35.8 % (40.0-50.0); HGB 10.5 g/dL (13.5-17.5); Immature Grans % 1.9; MCH 24.8 pg (27.0-33.0); MCHC 29.3 % (32.0-36.0); MCV 84.6 fL (80-95); MPV 11.4 fL (8.0-11.0); Monocytes % 8.9; Neutrophils % 62.1; Nucleated RBC 0 %; Platelet Count 216 10^3/uL (130-400); RBC 4.23 10^6/uL (4.36-5.78); RDW 16.2 % (11.8-14.1); RDW-SD 50.3 fL; WBC 9.18 10^3/uL (4.4-10.8)
[2021-01-15 07:36] VITALS: BP 125/68; PULSE 62; RESP 20; TEMP 35; O2SAT 95
[2021-01-15] MEDS: Senna TAB 1 TAB PO ×2 (07:40→20:01)
[2021-01-15] MEDS: Multivitamin TAB 1 TAB PO (07:40)
[2021-01-15] MEDS: Protein Nutritional Supplement 16 GM 1 OUNCE PACKET PO ×2 (07:40→20:01)
[2021-01-15] MEDS: Cyclobenzaprine 10 MG TAB 5 MG PO ×3 (07:40→20:01)
[2021-01-15] MEDS: Dronabinol 2.5 MG CAP PO ×2 (07:40→20:00)
[2021-01-15] MEDS: Docusate Sodium 100 MG CAP PO (07:40)
[2021-01-15] MEDS: Zinc Sulfate 220 MG TAB PO (07:41)
[2021-01-15] MEDS: Polyethylene Glycol 3350 17 GM PACKET PO (07:41)
[2021-01-15] MEDS: Methocarbamol 500 MG TAB 1000 MG PO ×4 (07:41→20:00)
[2021-01-15] MEDS: Gabapentin 300 MG CAP PO ×3 (07:41→20:01)
[2021-01-15] MEDS: Nystatin POWDER 60 GM JAR TP ×3 (07:44→20:13)
[2021-01-15 07:45] LABS: Anion Gap 6.7 mmol/L (3-11); BUN 9 mg/dL (7-18); C-Reactive Protein 6.54 mg/dL (0.0-0.3); CO2 26.3 mmol/L (21.0-32.0); CREATININE 0.5 mg/dL (0.70-1.30); Calcium 7.4 mg/dL (8.5-10.1); Chloride 114 mmol/L (98-107); Glucose 81 mg/dL (74-106); Magnesium 1.7 mg/dL (1.8-2.4); Sodium 147 mmol/L (136-145)
[2021-01-15] MEDS: Magnesium Chloride 64 MG TABCR PO ×2 (10:25→21:18)
[2021-01-15] MEDS: MAGNESIUM SULFATE 2 GM/50 ML BAG IVPB (10:25)
--- NOTE | 2021-01-15 11:44 | W.PM.PROGNOT ---
Date of Service Date of service: 01/15/21 Time of Service: 11:44 Assessment and Plan Assessment and plan (1) Sepsis: Status: Acute Assessment and plan: Multifactorial, due to HCAP as well as infected ischial tuberosity ulcer and osteomyelitis, with evidence of Strep bacteremia. Strep spp are also growing out of the wound. Repeat blood cultures are negative at 24 hrs. Because I do not know which strep spp. are growing, will continue vanco (sometimes enterococci are reported as strep initially). Change zosyn to ceftriaxone 2 grams daily. Repeat blood cultures are pending. Await speciation/sensitivities on the original blood cx. Continue Vanco/zosyn. Continue IVF. Will need an echo (not available this week). Likely looking at 6 weeks of IV abx from the 1st negative blood culture. Can have a PICC line if blood cultures are negative x 48 hrs. (2) Osteomyelitis: Status: Acute Assessment and plan: As above (3) Left ischial pressure sore: Status: Acute Assessment and plan: Surgery on board. Abx as above due to suspected osteomyelitis. Wound culture with the same organism. Continue wound care/wound vac. Will need 6 wks of abx from the day of the 1st negative blood culture. It is hard to imagine more wounds not forming given the patient's position/contractures. Agree with [facility] neuro recommendations that he needs urgent tendon release. It is not clear to me what happened to the ortho referral we placed on discharge from our facility on last admission. We will look into this - however, at this time, I feel [facility] referral might get the patient necessary services sooner, as [facility] appointments don't appear to have been made yet. As he is actively recovering from sepsis/bacteremia, no surgery should be pursued now, but we can start working on [facility] referrals tomorrow. (4) Pneumonia: Status: Acute Assessment and plan: As above (5) Acute kidney injury: Status: Resolved Assessment and plan: Cr at baseline. D/C IVF. Monitor I/O's and daily weights. (6) Hypoxia: Status: Resolved Assessment and plan: Monitor O2 sats. (7) Hyperkalemia: Status: Resolved Assessment and plan: Actually needed K to be supplemented. Probably due to COCO. Monitor. (8) Pressure ulcers of skin of multiple topographic sites: Status: Acute Assessment and plan: Wound care on board. As above The worst ulcer is the left ischial tuberosity, as above. Podiatry is also consulted for R great toe ulcer, which too is of concern. Ultimately, these will continue to recur unless something is done about the contracted position of his right leg. Evidently, botox was not very effective. Neither plastic surgery referral nor orthopedic appointments have yet occurred at [facility], though we sent these referrals on discharge from our facility in December. Patient is in agreement with attempting to see [facility] as outpatient. (9) Hypokalemia: Status: Resolved Assessment and plan: Recheck in am (10) Hypomagnesemia: Status: Acute Assessment and plan: Replete, recheck in am (11) Physical debility: Status: Chronic Assessment and plan: Per [facility] Neuro, the patient's weakness/debility have occurred over the last two years with C-spine cord compression being diagnosed in 11/01. C-spine decompression in 11/01 did not help. It also needs to be noted that the patient hallucinates occasionally. I question if there is another central process possibly happening and am considering a 2nd neurology opinion. No neurology is available at our facility this week, but we will pursue this next week. (12) DVT prophylaxis: Status: Acute Assessment and plan: TEDs/SCDS. Will hold off of chemical DVT ppx until ok'ed by general surgery (13) Discharge planning issues: Status: Acute Assessment and plan: DNR/DNI PT consulted. Palliative care consulted.. Will likely need 6 weeks of IV abx from 1st negative blood culture. Will need a PICC line when blood cultures are negative. Will need outpatient ortho follow up. Subjective Subjective Interval history since last seen: Mr Coker states he is comfortable. He did feel discomfort when working with PT, specifically feeling like the limits of the knee were being pushed. Denies dizziness, chest pain, shortness of breath, nausea, vomiting. Exam Narrative Exam Narrative: General: pleasant elderly male, A&Ox3, comfortable HEENT: EOMI, MMM Heart: RRR Lungs: CTAB Abdomen: soft, nontender, nondistended Has a gibson Extremities: R hip contracted and internally rotated/flexed. Wound vac tubing is attached to LLE. Multiple skin wounds on BLEs are dressed Objective Last Vital Signs Temp 35 C L 01/15/21 07:36 Pulse 62 07/05/21 07:36 Resp 20 01/15/21 07:36 BP 125/68 01/15/21 07:36 Pulse Ox 95 01/15/21 07:36 Laboratory Results - last 24 hr 01/15/21 01/15/21 06:45 06:45 WBC 9.18 RBC 4.23 L Hgb 10.5 L Hct 35.8 L MCV 84.6 MCH 24.8 L MCHC 29.3 L RDW 16.2 H Plt Count 216 MPV 11.4 H Immature Gran % 1.9 Neutrophils % 62.1 Lymphocytes % 18.0 Monocytes % 8.9 Eosinophils % 8.4 Basophils % 0.7 Nucleated RBC % 0 Absolute Neutrophils 5.71 Absolute Lymphocytes 1.65 Absolute Monocytes 0.82 H Absolute Eosinophils 0.77 H Absolute Basophils 0.06 Sodium 147 H Potassium 4.0 D Chloride 114 H Carbon Dioxide 26.3 Anion Gap 6.7 BUN 9 D Creatinine 0.5 L Estimated GFR/1.73 m2 >= 60.00 Glucose 81 Calcium 7.4 L Magnesium 1.7 L C-Reactive Protein 6.54 H
[2021-01-15 12:17] VITALS: BP 123/68; PULSE 67; RESP 19; TEMP 36.5; O2SAT 95
[2021-01-15] MEDS: Heparin 5,000 UNITS/ML VIAL 5000 UNITS SC ×2 (12:32→23:53)
[2021-01-15] MEDS: cefTRIAXone 2 GM/50 ML BAG IVPB (12:33)
--- NOTE | 2021-01-15 12:33 | PT.INTREAT ---
Date of service: 01/15/21 Time of Service: 10:55 PT Notes Visit Reasons: Sepsis,Pneumonia,UTI,Hyperkalemia Inpatient Physical Therapy Treatment Note [facility] Date: 01/15/2021 PRECAUTIONS: High risk skin breakdown, Standard SUBJECTIVE: Stated he is agreeable to P/AAROM exercises today. OBJECTIVE: PAIN: No complaints of pain offered. Ther Activities ([id number]). Performed AAROM of bilateral UEs including wrist flex/ ext, supination / pronation, ulnar/ radial deviation, elbow flexion / extension, shoulder flexion, abd/adduction and IR/ER. All range was extremely limited. Performed each motion x 10 reps. Attempted PROM of bilateral ankles dorsi/ plantar flexion. Again, ROM of bilateral LEs was extremely limited. ASSESSMENT: Tolerated P/AAROM of bilateral UE / LEs while in supine without complaints. PLAN: Continue with PT's plan of care, as able to tolerate. TREATMENT CODE/TIME: [id number], 20 minutes beginning at 10:50 am
--- NOTE | 2021-01-15 15:04 | W.PM.PROGNOT ---
Date of Service Date of service: 01/15/21 Time of Service: 15:04 Assessment and Plan Assessment and plan (1) Spastic quadriplegia: Status: Chronic (2) Cervical myelopathy: Status: Chronic (3) Physical debility: Status: Chronic (4) Osteomyelitis: Status: Acute (5) Gram-positive bacteremia: Status: Acute (6) Left ischial pressure sore: Status: Acute (7) Sepsis: Status: Acute (8) Pneumonia: Status: Acute (9) UTI (urinary tract infection): Status: Acute (10) Acute kidney injury: Status: Resolved (11) HCAP (healthcare-associated pneumonia): Status: Acute (12) Osteonecrosis of right hip: Status: Suspected (13) Pressure ulcers of skin of multiple topographic sites: Status: Acute Assessment and plan: -debrided 01/14 -wound vac applied 01/15. Next VAC change is 01/17. please coordinate w/ Dr. Wei so she can visualize her wounds. -reviewed case w/ Dr. Vieira -Started on 5 for DVT prophylaxis. Will follow hemoglobin. (14) Complete immobility due to severe physical disability or frailty: Status: Acute (15) Neuromuscular dysfunction of bladder, unspecified: Status: Chronic Objective Last Vital Signs Temp 36.5 C 01/15/21 12:17 Pulse 67 01/15/21 12:17 Resp 19 01/15/21 12:17 BP 123/68 01/15/21 12:17 Pulse Ox 95 01/15/21 12:17 Laboratory Results - last 24 hr 01/15/21 01/15/21 06:45 06:45 WBC 9.18 RBC 4.23 L Hgb 10.5 L Hct 35.8 L MCV 84.6 MCH 24.8 L MCHC 29.3 L RDW 16.2 H Plt Count 216 MPV 11.4 H Immature Gran % 1.9 Neutrophils % 62.1 Lymphocytes % 18.0 Monocytes % 8.9 Eosinophils % 8.4 Basophils % 0.7 Nucleated RBC % 0 Absolute Neutrophils 5.71 Absolute Lymphocytes 1.65 Absolute Monocytes 0.82 H Absolute Eosinophils 0.77 H Absolute Basophils 0.06 Sodium 147 H Potassium 4.0 D Chloride 114 H Carbon Dioxide 26.3 Anion Gap 6.7 BUN 9 D Creatinine 0.5 L Estimated GFR/1.73 m2 >= 60.00 Glucose 81 Calcium 7.4 L Magnesium 1.7 L C-Reactive Protein 6.54 H
[2021-01-15 15:19] VITALS: BP 137/71; PULSE 69; RESP 19; TEMP 36.2; O2SAT 97
[2021-01-15 19:53] VITALS: BP 161/73; PULSE 72; RESP 20; TEMP 36.7; O2SAT 96
[2021-01-15] MEDS: Normal Saline Flush 10 ML SYR 20 ML IVP (20:01)
[2021-01-15 23:42] VITALS: BP 161/71; PULSE 78; RESP 20; TEMP 36.4; O2SAT 95
[2021-01-16 03:30] VITALS: BP 136/68; PULSE 81; RESP 20; TEMP 36.4; O2SAT 94
[2021-01-16] MEDS: VANCOMYCIN/WATER (PEG) 1.25 GM/250 ML BAG IV ×3 (04:14→23:50)
[2021-01-16] MEDS: Normal Saline Flush 10 ML SYR IVP (04:15)
[2021-01-16 06:58] LABS: Abs Immature Grans 0.19 10^3/uL (0.0-0.06); Absolute Basophil Count 0.07 10^3/uL (0.0-0.2); Absolute Eosinophil Count 0.96 10^3/uL (0.0-0.7); Absolute Lymphocyte Count 1.53 10^3/uL (1.2-3.4); Absolute Monocyte Count 0.77 10^3/uL (0.1-0.8); Basophils % 0.6; Eosinophils % 8.2; HGB 11.2 g/dL (13.5-17.5); Immature Grans % 1.6; Lymphocytes % 13.1; MCH 25.1 pg (27.0-33.0); MCHC 30.3 % (32.0-36.0); MCV 82.8 fL (80-95); MPV 10.3 fL (8.0-11.0); Monocytes % 6.6; Neutrophils % 69.9; Nucleated RBC 0 %; Platelet Count 302 10^3/uL (130-400); RBC 4.47 10^6/uL (4.36-5.78); RDW-SD 48.6 fL; WBC 11.65 10^3/uL (4.4-10.8)
[2021-01-16 07:00] LABS: Absolute Neutrophil Count 8.14 10^3/uL (1.2-6.7)
[2021-01-16 07:05] LABS: Anion Gap 4.8 mmol/L (3-11); BUN 6 mg/dL (7-18); CO2 27.2 mmol/L (21.0-32.0); CREATININE 0.3 mg/dL (0.70-1.30); Calcium 7.8 mg/dL (8.5-10.1); Chloride 111 mmol/L (98-107); Glucose 76 mg/dL (74-106); Magnesium 1.5 mg/dL (1.8-2.4); Potassium 3.6 mmol/L (3.5-5.1); Sodium 143 mmol/L (136-145)
[2021-01-16 07:24] VITALS: BP 144/64; PULSE 81; RESP 17; TEMP 36.8; O2SAT 95
[2021-01-16] MEDS: Dronabinol 2.5 MG CAP PO ×2 (08:11→19:39)
[2021-01-16] MEDS: Gabapentin 300 MG CAP PO ×3 (08:12→19:40)
[2021-01-16] MEDS: Senna TAB 1 TAB PO ×2 (08:12→19:39)
[2021-01-16] MEDS: Zinc Sulfate 220 MG TAB PO (08:12)
[2021-01-16] MEDS: Methocarbamol 500 MG TAB 1000 MG PO ×4 (08:12→19:40)
[2021-01-16] MEDS: Docusate Sodium 100 MG CAP PO (08:13)
[2021-01-16] MEDS: Acetaminophen 500 MG TAB 1000 MG PO (08:13)
[2021-01-16] MEDS: oxyCODONE 10 MG TAB PO (08:13)
[2021-01-16] MEDS: fentaNYL 50 MCG PATCH TD (08:14)
[2021-01-16] MEDS: Multivitamin TAB 1 TAB PO (08:14)
[2021-01-16] MEDS: Protein Nutritional Supplement 16 GM 1 OUNCE PACKET PO ×2 (08:14→19:40)
[2021-01-16] MEDS: Cyclobenzaprine 10 MG TAB 5 MG PO ×3 (08:15→19:40)
[2021-01-16] MEDS: Polyethylene Glycol 3350 17 GM PACKET PO (08:15)
[2021-01-16] MEDS: Nystatin POWDER 60 GM JAR TP ×3 (08:18→19:40)
[2021-01-16] MEDS: Normal Saline Flush 10 ML SYR 20 ML IVP ×2 (08:19→19:40)
[2021-01-16] MEDS: Magnesium Chloride 64 MG TABCR PO ×2 (10:38→22:06)
--- NOTE | 2021-01-16 10:58 | W.NUTCONSULT ---
Date of service: 01/16/21 Time of Service: 10:58 Nutritional Consult ASSESSMENT: London was admitted with PNA, with ishial pressure wound with sepsis with PMH: paraplegia, HTN. Chart review indicates 8% weight loss in last 8 months. Following regular meal plan with adequate intake at most meals, ,however- frequent meal refusals. Discussed importance of optimal macro nutrient intake for wound healing and the option for nocturnal enteral feeding to support po intake. London does not want nutrition support or ensures at this time. He is willing to take liquid protien 1 oz BID, 220 mg zinc sulfate, MVI and 500 mg vit C BID. Explained to London that wounds will not heal if he does not meet calorie/protein and fat needs. Will continue to encourage protein shakes if eats < 50% of meals. Estimated Needs: [id number] kcal, 110-120 g protein NUTRITIONAL DIAGNOSIS: Moderate malnutrition in view of significant weight loss in last 90 days and inability to consume increased macro/micronutrient needs INTERVENTION: continue current diet 1 oz liquid protein BID MVI 500 mg Vit C BID 220 mg zinc sulfate MONITORING AND EVALUATION: po intake, labs, weight check prealbumin Time Spent in Nutritional Counseling and Treatment: 10
[2021-01-16] MEDS: Heparin 5,000 UNITS/ML VIAL 5000 UNITS SC ×2 (11:24→23:54)
[2021-01-16] MEDS: MAGNESIUM SULFATE 4 GM/100 ML BAG IVPB (11:25)
[2021-01-16 11:53] LABS: Iron 20 ug/dL (65-175); Total Iron Binding Capacity 106 ug/dL (250-450); Transferrin Sat 19 % (20-55)
[2021-01-16 12:04] LABS: Ferritin 391 ng/mL (26-388)
[2021-01-16 12:21] VITALS: BP 105/61; PULSE 89; RESP 19; TEMP 37.2; O2SAT 94
[2021-01-16] MEDS: cefTRIAXone 2 GM/50 ML BAG IVPB (13:01)
[2021-01-16 14:09] LABS: Vancomycin, Trough 15.2 ug/mL (10.0-20.0)
[2021-01-16 15:14] VITALS: BP 119/68; PULSE 76; RESP 19; TEMP 36.6; O2SAT 96
--- NOTE | 2021-01-16 15:20 | PGE_ITS ---
Date of Service Date of service: 01/16/21 Time of Service: 15:20 Assessment and Plan Assessment and plan (1) Sepsis: Status: Acute Assessment and plan: Multifactorial, due to HCAP as well as infected ischial tuberosity ulcer and osteomyelitis, with evidence of Strep bacteremia. Strep spp are also growing out of the L ischial tuberosity wound. Repeat blood cultures are negative at 48 hrs. Because I do not know which strep spp. are growing, will continue vanco (sometimes enterococci are reported as strep initially). Continue ceftriaxone 2 grams daily. Today is officially day of abx. Await speciation/sensitivities on the original blood cx. d/c IVF. Will need an echo (not available this week). Can have a PICC line if blood cultures are negative x 48 hrs. (2) Osteomyelitis: Status: Acute Assessment and plan: As above (3) Left ischial pressure sore: Status: Acute Assessment and plan: Present on admission, wound culture w/ strep spp. Surgery on board. s/p debridement at bedside. Wound vac in place. Abx as above due to suspected osteomyelitis. Wound culture with the same organism. Continue wound care/wound vac. Will need 6 wks of abx from the day of the 1st negative blood culture. It is hard to imagine more wounds not forming given the patient's position/contractures. Agree with [facility] neuro recommendations that he needs urgent tendon release. It is not clear to me what happened to the ortho referral we placed on discharge from our facility on last admission. We will look into this - however, at this time, I feel [facility] [facility] referral might get the patient necessary services sooner, as [facility] appointments don't appear to have been made yet. As he is actively recovering from sepsis/bacteremia, no surgery should be pursued now, but we can start working on [facility] referrals to orthopedics and plastic surgery. (4) Pneumonia: Status: Acute Assessment and plan: As above (5) Acute kidney injury: Status: Resolved Assessment and plan: Cr at baseline. off IVF. Monitor I/O's and daily weights. (6) Hypoxia: Status: Resolved Assessment and plan: Monitor O2 sats. (7) Hyperkalemia: Status: Resolved Assessment and plan: Actually needed K to be supplemented. Probably due to COCO. Monitor. (8) Pressure ulcers of skin of multiple topographic sites: Status: Acute Assessment and plan: Wound care on board. As above The worst ulcer is the left ischial tuberosity, as above. Podiatry is also consulted for R great toe ulcer, which too is of concern. Ultimately, these will continue to recur unless something is done about the contracted position of his right leg. Evidently, botox was not very effective. Neither plastic surgery referral nor orthopedic appointments have yet occurred at [facility], though we sent these referrals on discharge from our facility in December. Patient is in agreement with attempting to see [facility] as outpatient. (9) Hypokalemia: Status: Resolved Assessment and plan: Recheck in am (10) Hypomagnesemia: Status: Acute Assessment and plan: Replete, recheck in am (11) Physical debility: Status: Chronic Assessment and plan: Per [facility] Neuro, the patient's weakness/debility have occurred over the last two years with C-spine cord compression being diagnosed in 11/01. C-spine decompression in 11/01 did not help. It also needs to be noted that the patient hallucinates occasionally. I question if there is another central process possibly happening and am considering a 2nd neurology opinion. No neurology is available at our facility this week, but we will pursue this next week. (12) DVT prophylaxis: Status: Acute Assessment and plan: SC heparin (13) Discharge planning issues: Status: Acute Assessment and plan: DNR/DNI PT consulted. Palliative care consulted. Ethics consult planned for tomorrow. Will likely need 6 weeks of IV abx from 1st negative blood culture (today is day ). Will need a PICC line when blood cultures are negative. Will need outpatient ortho and plastic surgery follow up. Subjective Subjective Interval history since last seen: Kain denies dizziness, chest pain, shortness of breath, nausea, or any other discomfort. ROGER overnight. Exam Narrative Exam Narrative: General: pleasant elderly male, A&Ox3, comfortable, joking with one of the LNAs HEENT: EOMI, MMM Heart: RRR Lungs: CTAB Abdomen: soft, nontender, nondistended Has a gibson Extremities: R hip contracted and internally rotated/flexed. Wound vac tubing is attached to LLE. Multiple skin wounds on BLEs are dressed Objective Last Vital Signs Temp 37.2 C 01/16/21 12:21 Pulse 89 01/16/21 12:21 Resp 19 01/16/21 12:21 BP 105/61 01/16/21 12:21 Pulse Ox 94 01/16/21 12:21 Laboratory Results - last 24 hr 01/16/21 01/16/21 01/16/21 06:30 06:30 06:30 WBC 11.65 H RBC 4.47 Hgb 11.2 L Hct 37.0 L MCV 82.8 MCH 25.1 L MCHC 30.3 L RDW 16.0 H Plt Count 302 MPV 10.3 Immature Gran % 1.6 Neutrophils % 69.9 Lymphocytes % 13.1 Monocytes % 6.6 Eosinophils % 8.2 Basophils % 0.6 Nucleated RBC % 0 Absolute Neutrophils 8.14 H Absolute Lymphocytes 1.53 Absolute Monocytes 0.77 Absolute Eosinophils 0.96 H Absolute Basophils 0.07 Sodium 143 Potassium 3.6 Chloride 111 H Carbon Dioxide 27.2 Anion Gap 4.8 BUN 6 L Creatinine 0.3 L Estimated GFR/1.73 m2 >= 60.00 Glucose 76 Calcium 7.8 L Magnesium 1.5 L Iron 20 L TIBC 106 L Transferrin % Sat 19 L Ferritin Vancomycin Trough 01/16/21 01/16/21 06:30 13:00 WBC RBC Hgb Hct MCV MCH MCHC RDW Plt Count MPV Immature Gran % Neutrophils % Lymphocytes % Monocytes % Eosinophils % Basophils % Nucleated RBC % Absolute Neutrophils Absolute Lymphocytes Absolute Monocytes Absolute Eosinophils Absolute Basophils Sodium Potassium Chloride Carbon Dioxide Anion Gap BUN Creatinine Estimated GFR/1.73 m2 Glucose Calcium Magnesium Iron TIBC Transferrin % Sat Ferritin 391 H Vancomycin Trough 15.2
[2021-01-16 16:00] LABS: Bilirubin Negative (Negative); Blood Negative (Negative); Clarity Clear (Clear); Glucose Negative (Negative); Ketones Negative (Negative); Leukocyte Esterase Negative (Negative); Nitrite Negative (Negative); Urobilinogen 0.2 EU/dL (Up TO 0.2)
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
[2021-01-16 19:40] VITALS: BP 146/72; PULSE 77; RESP 20; TEMP 36.5; O2SAT 96
--- NOTE | 2021-01-16 19:48 | PDOC.CMPRO ---
- If Service Date Differs Date of service: 01/16/21 Time of Service: 19:48 Care Management Progress Note S/O: London was lying in bed when CM met with him. He was pleasant and engaged in conversation. He stated that he talked to his sister yesterday, so she has been updated. Per report, he will likely require 6 weeks of IV abx, which may not be able to happen at [facility]. CM discussed his follow up appointments with Lucy, admissions at [facility] today. She reported that he has follow up appointments scheduled at [facility] Neuro and Plastics. They are still waiting for [facility] Ortho to make an appointment, as requested. CM will continue to follow. A: Kain is a 75 year old man admitted on 01/12/21 with sepsis and pneumonia P:London was admitted with sepsis and has positive blood cultures with gram positive bacteria. Anticipate London will return to [facility] once he has been medically cleared by and will transport via EMS vs facility w/c van. CM will continue to support Kain and assess for ongoing discharge concerns.
[2021-01-16 22:38] VITALS: BP 128/68; PULSE 78; RESP 17; TEMP 36.6; O2SAT 96
[2021-01-17] VITALS (7 sets, daily range): BP systolic 123–158; BP diastolic 68–88; PULSE 76–99; RESP 17–19; TEMP 35.9–36.8; O2SAT 92–97
--- NOTE | 2021-01-17 | DI.CT_ITS ---
Exam(s) CT PELVIC W EXAM: CT PELVIC W CLINICAL HISTORY: suspected osteomyelitis L ischial tuberosity TECHNIQUE: Imaging Protocol: Axial computed tomography images with coronal and sagittal reformatted images were created and reviewed CONTRAST MATERIAL: Intravenous: Omnipaque 350 Contrast volume:80 mL Oral: No COMPARISON: CT CT PELVIC WO from 12/12/[address] PELVIC WO from 12/12/[address] CHEST PE CTA from 12/12/2020 FINDINGS: PELVIS: The left ischium appears intact. No evidence of cortical destruction or erosion is seen. No CT find ings are present to suggest osteomyelitis. However early osteomyelitis cannot be excluded due to the soft tissue limitations of a CT scan. Degenerative changes are seen at the right hip. No suspicious lytic or sclerotic lesions are seen. There does appear to be some disruption of the cortex is cortex in the right inferior pubic ramus. D ifferential considerations include fracture or infection. There is a Rock catheter within a nondistended urinary bladder. There is a 4 cm subcutaneous cystic structure in the anterior abdominal wall. This was present on the prior examination. There is marked generalized muscle atrophy in the pelvis and visualized lower extremities. There is atherosclerosis present. The visualized bowel is unremarkable. Degenerative changes are seen in the spine. IMPRESSION: 1. No CT evidence to suggest osteomyelitis in the left ischial tuberosity. Early osteomyelitis canno t be excluded due to the soft tissue limitations of the CT scan. If there is continued clinical conc herminio an MRI or 3 phase bone scan should be considered. 2. Question of cortical loss involving the right inferior pubic ramus. Differential considerations i nclude infection or fracture. Neoplasm cannot be entirely excluded. MRI should be considered for fu rther evaluation. A bone scan may be useful but necessarily nonspecific. RADIATION DOSE DELIVERED: 583.66mGy.cm Total DLP 583.66mGy.cm Total DLP 583.66mGy.cm Total DLP DATA REPOSITORY: All CT scans at this facility are submitted to the National Radiology Data Registry (NRDR) Dose Index Registry (DIR) with the [employer] (ACR). RADIATION OPTIMIZATION: All CT scans at this facility use at least one of these dose optimization te chniques: automated exposure control; mA and/or kV adjustment per patient size (includes targeted exa ms where dose is matched to clinical indication); or iterative reconstruction.
[2021-01-17 06:42] LABS: Abs Immature Grans 0.25 10^3/uL (0.0-0.06); Absolute Basophil Count 0.07 10^3/uL (0.0-0.2); Absolute Eosinophil Count 0.91 10^3/uL (0.0-0.7); Absolute Monocyte Count 0.82 10^3/uL (0.1-0.8); Basophils % 0.6; Eosinophils % 8.4; HCT 35.9 % (40.0-50.0); HGB 10.9 g/dL (13.5-17.5); Immature Grans % 2.3; Lymphocytes % 15.3; MCH 25.2 pg (27.0-33.0); MCHC 30.4 % (32.0-36.0); MCV 82.9 fL (80-95); MPV 10.1 fL (8.0-11.0); Monocytes % 7.5; Neutrophils % 65.9; Nucleated RBC 0 %; Platelet Count 308 10^3/uL (130-400); RBC 4.33 10^6/uL (4.36-5.78); RDW 16.3 % (11.8-14.1); WBC 10.88 10^3/uL (4.4-10.8)
[2021-01-17 06:43] LABS: Absolute Lymphocyte Count 1.66 10^3/uL (1.2-3.4); Absolute Neutrophil Count 7.17 10^3/uL (1.2-6.7)
[2021-01-17 06:50] LABS: BUN 7 mg/dL (7-18); CREATININE 0.3 mg/dL (0.70-1.30); Calcium 7.9 mg/dL (8.5-10.1); Chloride 109 mmol/L (98-107); Glucose 87 mg/dL (74-106); Magnesium 1.8 mg/dL (1.8-2.4); Potassium 3.5 mmol/L (3.5-5.1); Sodium 144 mmol/L (136-145)
--- NOTE | 2021-01-17 07:39 | POCOE_ITS ---
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 He is seen resting comfortably in his bed. [facility] Medical History Advance directive in chart Cervical myelopathy Chronic venous hypertension (idiopathic) with ulcer and inflammation of bilateral lower extremity Combative behavior verbally, unable to move Complete immobility due to severe physical disability or frailty Disoriented to place Disoriented to time Essential (primary) hypertension Fatty (change of) liver, not elsewhere classified Goals of care, counseling/discussion Hallucinations, unspecified Hyperlipemia Lives in custodial since Jul 2020 Major depressive disorder Muscle weakness (generalized) Neuromuscular dysfunction of bladder, unspecified Obesity Other spondylosis with myelopathy, cervical region Palliative care patient Paraplegia Pneumonia POLST (Physician Orders for Life-Sustaining Treatment) discussed and verbal decision made for DNR/DNI on 12/05/20; cannot sign Pressure ulcer of left heel, unstageable Pressure ulcer of other site, unstageable Pressure ulcer of right heel, unstageable Pressure ulcer of right hip, unstageable Pressure ulcer of right upper back Pressure ulcers of skin of multiple topographic sites Radiculopathy Repeated falls Rhabdomyolysis Spastic quadriplegia Unilateral primary osteoarthritis, right hip Unspecified fall Urinary tract infection Venous insufficiency (chronic) (peripheral) Surgical History History of neck surgery [facility] 2020 Family History Sister No problems noted. Social History Smoking/Tobacco Use Status: Never Smoking risk assessment performed?: Yes Alcohol Intake: never Drug use: Never Substance use type: does not use Caregiver/Support person: No Household members: none Housing: custodial Communication Needs: Corrective Lenses Do you need help understanding health information?: Always Current gender identity: male How often do you talk on the phone with friends or family?: three or more times per week How often do you get together with friends or relatives?: never Panel score (0-1 are the most socially isolated patients): 1 What type of physical activity do you participate in: none and sedentary lifestyle Frequency: does not exercise Special kena needs: No Seatbelt use: always Do you feel safe at home: Yes Do you feel safe in your relationship?: Yes Additional Social history: PATIENT HAS BEEN AT [employer] SINCE or JUNE. WAS LIVING ALONE. Has a sister Marie who is his agent, though not sure if paperwork signed. [place] era vet. Was in the [place]. 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 From [place] originally. Exam Narrative Exam Narrative: [place] is seen at bedside. He awakens easily. He denies any significant pain. He is rigidly contracted through his hips knees and ankles of both lower extremities. He has multiple wound dressings on multiple areas of his hips knees heels shins and digits of both feet. Evaluation of the lower extremities: Right foot reveals a eschar over the medial aspect of the great toe with plantar extension without erythema or cellulitis noted. The right heel is grade 2 which is an improvement from when he was last seen in December. No active signs of infection observed. Left foot: Is generally intact with the exception of the posterior inferior heel region which is grade 1. No active signs of infection are appreciated Impressions: Multiple areas of pressure induced ulceration both lower extremities chronic in nature Plan: Was able to remove the eschar from the right great toe. The underlying tissue showed shallow ulceration without sinus tracking or active signs of infection. The remaining pressure ulcerated areas appear fairly clean without active signs of infection or need for debridement at this time. Current wound care includes Mepilex bordered dressings and pressure abatement measures. He is receiving IV antibiotics for osteomyelitis of a ischial pressure sore. Based on his inability to move, rigid contractures of his lower extremities, it will be difficult to fully heal his wounds and he may actually deteriorate in spite of our best efforts. Thank patient I will be happy to continue to follow. Results Last Vital Signs Temp 36.6 C 01/17/21 03:38 Pulse 76 01/17/21 03:38 Resp 17 01/17/21 03:38 BP 148/71 H 01/17/21 03:38 Pulse Ox 94 01/17/21 03:38 Labs Result diagrams: 01/17/21 06:21 01/17/21 06:21 Labs: Laboratory Results - last 24 hr 01/16/21 01/16/21 01/16/21 06:30 06:30 13:00 WBC RBC Hgb Hct MCV MCH MCHC RDW Plt Count MPV Immature Gran % Neutrophils % Lymphocytes % Monocytes % Eosinophils % Basophils % Nucleated RBC % Absolute Neutrophils Absolute Lymphocytes Absolute Monocytes Absolute Eosinophils Absolute Basophils Sodium Potassium Chloride Carbon Dioxide Anion Gap BUN Creatinine Estimated GFR/1.73 m2 Glucose Calcium Magnesium Iron 20 L TIBC 106 L Transferrin % Sat 19 L Ferritin 391 H Urine Color Urine Clarity Urine pH Ur Specific [place] Urine Protein Urine Ketones Urine Blood Urine Nitrite Urine Bilirubin Urine Urobilinogen Ur Leukocyte Esterase Urine Glucose Vancomycin Trough 15.2 01/16/21 01/17/21 01/17/21 15:40 06:21 06:21 WBC 10.88 H RBC 4.33 L Hgb 10.9 L Hct 35.9 L MCV 82.9 MCH 25.2 L MCHC 30.4 L RDW 16.3 H Plt Count 308 MPV 10.1 Immature Gran % 2.3 Neutrophils % 65.9 Lymphocytes % 15.3 Monocytes % 7.5 Eosinophils % 8.4 Basophils % 0.6 Nucleated RBC % 0 Absolute Neutrophils 7.17 H Absolute Lymphocytes 1.66 Absolute Monocytes 0.82 H Absolute Eosinophils 0.91 H Absolute Basophils 0.07 Sodium 144 Potassium 3.5 Chloride 109 H Carbon Dioxide 27.0 Anion Gap 8.0 BUN 7 Creatinine 0.3 L Estimated GFR/1.73 m2 >= 60.00 Glucose 87 Calcium 7.9 L Magnesium 1.8 Iron TIBC Transferrin % Sat Ferritin Urine Color Yellow Urine Clarity Clear Urine pH 7.0 Ur Specific [place] 1.020 Urine Protein Negative Urine Ketones Negative Urine Blood Negative Urine Nitrite Negative Urine Bilirubin Negative Urine Urobilinogen 0.2 Ur Leukocyte Esterase Negative Urine Glucose Negative Vancomycin Trough
[2021-01-17] MEDS: Zinc Sulfate 220 MG TAB PO (08:24)
[2021-01-17] MEDS: Dronabinol 2.5 MG CAP PO ×2 (08:24→20:49)
[2021-01-17] MEDS: Gabapentin 300 MG CAP PO ×3 (08:24→20:49)
[2021-01-17] MEDS: Multivitamin w/Minerals TAB 1 TAB PO (08:24)
[2021-01-17] MEDS: Docusate Sodium 100 MG CAP PO (08:25)
[2021-01-17] MEDS: Methocarbamol 500 MG TAB 1000 MG PO ×4 (08:25→20:49)
[2021-01-17] MEDS: Ascorbic Acid 500 MG TAB PO (08:25)
[2021-01-17] MEDS: Cyclobenzaprine 10 MG TAB 5 MG PO ×3 (08:25→20:50)
[2021-01-17] MEDS: Nystatin POWDER 60 GM JAR TP ×3 (08:26→21:07)
[2021-01-17] MEDS: Protein Nutritional Supplement 16 GM 1 OUNCE PACKET PO ×2 (08:26→20:50)
[2021-01-17] MEDS: Senna TAB 1 TAB PO ×2 (08:26→20:49)
[2021-01-17] MEDS: Polyethylene Glycol 3350 17 GM PACKET PO (08:26)
[2021-01-17] MEDS: Normal Saline Flush 10 ML SYR 20 ML IVP ×2 (08:27→20:50)
--- NOTE | 2021-01-17 08:57 | OTIE_ITS ---
Occupational Therapy Notes Inpatient Occupational Therapy Evaluation Date: 01/17/21 Referring Doctor:Stacey Vieira MD OT Orders: Non urgent Precautions: Standard, DNR/DNI PATIENT PROFILE/ADMITTING DIAGNOSIS: Pt is a 75 year old male who was admitted to [facility] with the following dx of spastic quadriplegia, cervial myelopathy, physical debility, hypomagnesemia, hypokalemia, osteomyelitis, gram positive bactremia, (L) ischial pressure sore, DVT prophylaxis, sepsis, pneumonia, UTI, acute kidney injury, pleuric chest pain, HCAP, fever, osteonecrosis (R) hip, combative behavior, pressure ulcers, complete immobility, disoriented. Past Medical History: Medical History (Updated 01/12/21 @ 19:24 by Jayna Carrillo DO) Advance directive in chart Chronic venous hypertension (idiopathic) with ulcer and inflammation of bilateral lower extremity Combative behavior verbally, unable to move Complete immobility due to severe physical disability or frailty Disoriented to place Disoriented to time Essential (primary) hypertension Fatty (change of) liver, not elsewhere classified Goals of care, counseling/discussion Hallucinations, unspecified Hyperlipemia Lives in half-way since Jul 2020 Major depressive disorder Muscle weakness (generalized) Neuromuscular dysfunction of bladder, unspecified Obesity Other spondylosis with myelopathy, cervical region Palliative care patient Paraplegia Pneumonia POLST (Physician Orders for Life-Sustaining Treatment) discussed and verbal decision made for DNR/DNI on 12/05/20; cannot sign Pressure ulcer of left heel, unstageable Pressure ulcer of other site, unstageable Pressure ulcer of right heel, unstageable Pressure ulcer of right hip, unstageable Pressure ulcer of right upper back Pressure ulcers of skin of multiple topographic sites Radiculopathy Repeated falls Rhabdomyolysis Unilateral primary osteoarthritis, right hip Unspecified fall Urinary tract infection Venous insufficiency (chronic) (peripheral) Surgical History (Updated 12/06/20 @ 20:17 by Shae Cano MD) History of neck surgery [facility] 2020 Social History/Home Situation: currently residing at SNF with all DME needs met Equipment owned/DME: All DME needs met per SNF SUBJECTIVE: Pt was lying in bed when OT arrived. He was agreeable to questions but states that he is max (A) and although he would like more function, he has minimal to no ROM to be able to perform his ADLs/IADLs without max (A). OBJECTIVE: General Observation: Mental Status: A&Ox3 Pain: c/o discomfort with any ROM ROM: RUE Slight digit motion otherwise in extended position. L UE Slight digit motion otherwise in extended position, wrist extensors working, elbows contracted but slight flexion achieved. STRENGTH: Tested in modified positioning and not accurate measurement due to contracted nature. Roughly per OT assessment 3-/5 throughout. FUNCTIONAL MOBILITY/ADLS: Pt reports that he is max (A) for all ADLs/IADL routines. SPECIAL TESTS: Daily Activity Limitations Standardized Measure [facility] AM -PAC ?6 clicks? Daily Activity Inpatient Short Form: Raw score: 0, 100% max (A) INFORMED CONSENT/EDUCATION: Pt instructed in purpose of OT Consult and plan of care. ASSESSMENT: Patient is a 75-year-old male referred to occupational therapy services with diagnosis of spastic quadriplegia, cervial myelopathy, physical debility, hypomagnesemia, hypokalemia, osteomyelitis, gram positive bactremia, (L) ischial pressure sore, DVT prophylaxis, sepsis, pneumonia, UTI, acute kidney injury, pleuric chest pain, HCAP, fever, osteonecrosis (R) hip, combative behavior, pressure ulcers, complete immobility, disoriented. Patient presents with clinical signs and symptoms consistent with dx, OT went to consult with pt who is max (A) for all ADLs/IADLs. He has minimal movement in his (R) digits and elbow but not WFL to be able to perform his ADLs/IADL without (A). Overall he is at his baseline level of function in terms of functional (I). He denies the ability to perform any of his ADLs with max (A). [facility] score 100% max (A) for all ADLs/IADLs Patient is assessed as a high 33049 complexity based on the following: History: see above Examination: see functional limitations as noted above Presentation: evolving Decision Making: High complexity GOALS N/A pt was seen for OT consult only. PLAN OF CARE/TREATMENT PLAN: Discharge from skilled OT services. DISCHARGE RECOMMENDATIONS Pt was seen for OT consult only, OT recommends that pt return to SNF when medically cleared per MD. TREATMENT TIME/MINUTES/CODES 59788, 15 minutes (08:35) A[facility] [place]
--- NOTE | 2021-01-17 09:05 | INDS_ITS ---
Date of service: 01/17/21 Time of Service: 09:13 PT Notes Visit Reasons: Sepsis,Pneumonia,UTI,Hyperkalemia Inpatient Physical Therapy Discharge Summary Date: 01/17/2021 Date of Service: 01/14/2021 only This is a clinical summary of care provided for the duration of dates listed above. No charge was made in the completion of this documentation. Referring Doctor: Stacey Vieira MD PT Orders: PT CONSULT: Evaluate and treat, limited ability Precautions: High risk skin breakdown. Standard. Patient Profile/Admitting Diagnosis: Patient is a 75-year-old male admitted to [facility] status post diagnosis sepsis, pneumonia, UTI and multiple decubiti ulcers. PMHX: Medical History (Updated 01/12/21 @ 19:24 by Jayna Carrillo DO) Advance directive in chart Chronic venous hypertension (idiopathic) with ulcer and inflammation of bilateral lower extremity Combative behavior verbally, unable to move Complete immobility due to severe physical disability or frailty Disoriented to place Disoriented to time Essential (primary) hypertension Fatty (change of) liver, not elsewhere classified Goals of care, counseling/discussion Hallucinations, unspecified Hyperlipemia [facility] 2020 Major depressive disorder Muscle weakness (generalized) Neuromuscular dysfunction of bladder, unspecified Obesity Other spondylosis with myelopathy, cervical region Palliative care patient Paraplegia Pneumonia POLST (Physician Orders for Life-Sustaining Treatment) discussed and verbal decision made for DNR/DNI on 12/05/20; cannot sign Pressure ulcer of left heel, unstageable Pressure ulcer of other site, unstageable Pressure ulcer of right heel, unstageable Pressure ulcer of right hip, unstageable Pressure ulcer of right upper back Pressure ulcers of skin of multiple topographic sites Radiculopathy Repeated falls Rhabdomyolysis Unilateral primary osteoarthritis, right hip Unspecified fall Urinary tract infection Venous insufficiency (chronic) (peripheral) Surgical History (Updated 12/06/20 @ 20:17 by Shae Cano MD) History of neck surgery [facility] 2020 Social History/Home Situation: Resides at [facility] Current Functional Limitations: Bed-ridden Subjective: Patient verbalizes that at this time he is at baseline with his mobility level. He has refused offer of services stating that he does not think therapy can help him at this time. Objective: General Observation: Supine in bed. Rock catheter in place. IV access in L UE ulnar dorsum side of hand. Patient lying with right hip flexed 95 degrees internally rotated 50 degrees with knee flexed 95 degrees. He is positioned with multiple pillows for support to depressurize wounds. Significant swelling through bilateral lower extremities. Mental Status: Alert to person and place Pain: None reported ROM: Right Upper Extremity: Minimal volitional active range of motion of shoulder elbow wrist and hand. Approximately 5 degrees glenohumeral joint elevation. P assive range of motion 15 degrees scaption. Elbow 0 degrees extension, 40 degrees flexion passive. Passive shoulder external rotation 10 degrees, internal rotation 45. Patient complains of pain at end range of all passive range of motion. Passive wrist flexion 15 degrees, extension 10 degrees. Unable to perform functional grasp. Left Upper Extremity: . Passive shoulder flexion to 45 degrees with pain at end of range. Passive Shoulder external rotation allows only up to 20 degrees before onset of pain. Passive elbow flexion 40 degrees with pain. Passive wrist flexion and extension about 10 degrees. Unable to functionally grasp small items on the left. Right Lower Extremity: no volitional motion with the exception of 5 to 10 degrees of active ankle pump dorsiflexion/ plantarflexion Left Lower Extremity: no volitional motion with exception of 5 to 10 degrees of active ankle pump dorsiflexion/plantarflexion *All passive range of motion in bilateral upper and lower extremities associated with significant spasticity/rigidity Strength: Right Upper Extremity: Shoulder flexion 1/5. Shoulder extension 1/5. Biceps 1/5. Triceps 1/5. Finger flexion 0/5. Finger extension 0/5. Left Upper Extremity: Shoulder flexion 1/5. Shoulder extension 1/5. Biceps 1/5. Triceps 1/5. Finger flexion 1/5. Finger extension 0/5. Right Lower Extremity: 0/5 hip, quad and hamstring. 1/5 ankle plantarflexion/ dorsiflexion Left Lower Extremity: 0/5 hip, quad and hamstring. 1/5 ankle plantarflexion/dorsiflexion Bed Mobility/Transfers: Totally dependent with all bed mobility and transfers Gait: Has been non-ambulatory for multiple months Balance: Static Sitting: Poor Special Tests: Mobility Limitations Standardized Measure [facility] AM-PAC 6 clicks Basic Mobility Inpatient Short Form: Raw Score: 6 CMS Score: 100% deficit Informed Consent/Education: Agreeable to discontinuation of services as of today. Assessment: Kain has required total assist for all bed mobility and transfers at the SNF where he resides for quite a while now. His B LE contractures are partially fixed and any movement causes significant discomfort. Kain returns to the SNF once medically cleared by MD with needed support as previously. CLAUDINE Mireles updated with planned discontinuation of services. Patient presents with clinical signs and symptoms consistent with diagnosis, as demonstrated by the following impairment level findings: 1. Limited bilateral UE and LE active movement 2. Hypertonicity in B UEs and LEs 3. Decreased skin integrity Impairments are continuing to contribute to the following functional limitations: 1. decreased ability to independently perform self-care 2. decreased ability to participate in transfers/rolling 3. dependent bed mobility skills 4. inability to perform pressure relief to bony landmarks in B LE Goals: Goals X 1 week 1. Caregiver will demonstrate 100% safe and correct technique with donning and doffing of B RCAI multi-podus boots to B LE to prevent PF contracture after 1 session. N/A, patient has no boots. 2. Caregiver will demonstrate 100% mastery of PROM B UE and LE caregiver training to prevent contracture formation. N/A, patient refusing passive ranging as he states it hurts him. 3. Patient will maintain range of motion in B UE/LE joints to minimize contracture formation. N/A, patient refusing passive ranging as he states it hurts him. Plan of Care/Treatment Plan: 1-2x/day, 7 days/week x 1 week. Plan of care has been reviewed with the SPINE SUPERVISOR providing the service under Physical Therapy direction. Initiate Physical Therapy intervention for strengthening, bed mobility, transfers, gait, stairs, balance training, use of assistive device. DISCHARGE RECOMMENDATIONS: Return to SNF when medically cleared by hospitalist. No equipment needs at this time. TREATMENT CODE/TIME: 10 minutes of unbillable time. Thank you for the opportunity to participate in the care of this patient. Coretta Saravia PT, DPT, CLT [facility] [place], [place]
[2021-01-17] MEDS: Magnesium Chloride 64 MG TABCR PO ×2 (10:26→22:09)
--- NOTE | 2021-01-17 12:12 | W.PM.PROGNOT ---
Date of Service Date of service: 01/17/21 Time of Service: 12:12 Assessment and Plan Assessment and plan (1) Sepsis: Status: Acute Assessment and plan: Multifactorial, due to HCAP as well as infected ischial tuberosity ulcer and osteomyelitis, with evidence of Strep bacteremia. Strep spp are also growing out of the L ischial tuberosity wound. Discussed with microbiology: we do not know which strep spp, but it's likely mileri, which should be sensitive to ceftriaxone. Cultures are being sent to [facility] for further speciation/sensitivities. Repeat blood cultures remain negative. D/c vancomycin. Continue ceftriaxone 2 grams daily (day ). Await speciation/sensitivities on the original blood cx. Will need an echo (not available this week). (2) Osteomyelitis: Status: Acute Assessment and plan: As above Obtain CT pelvis (3) Left ischial pressure sore: Status: Acute Assessment and plan: With abscess and osteomyelitis, present on admission, wound and blood cultures w/ the same strep spp above. Surgery on board. s/p debridement at bedside. Wound vac in place. Will be changed today at 1 pm. Abx as above due to osteomyelitis. Continue wound care/wound vac. Will need 6 wks of abx from the day of the 1st negative blood culture. It is hard to imagine more wounds not forming given the patient's position/contractures. Agree with [facility] neuro recommendations that he needs urgent tendon release. [facility] ortho insisted on plastic surgery appointment happening first, evidently, and this has not yet been officially scheduled, to our knowledge. While we are looking into this, [facility] referrals were submitted. As he is actively recovering from sepsis/bacteremia, no surgery should be pursued now. (4) Pneumonia: Status: Acute Assessment and plan: As above (5) Acute kidney injury: Status: Resolved Assessment and plan: Cr at baseline. off IVF. Monitor I/O's and daily weights. (6) Hypoxia: Status: Resolved Assessment and plan: Monitor O2 sats. (7) Hyperkalemia: Status: Resolved Assessment and plan: Actually needed K to be supplemented. Probably due to COCO. Monitor. (8) Pressure ulcers of skin of multiple topographic sites: Status: Acute Assessment and plan: Wound care on board. As above The worst ulcer is the left ischial tuberosity, as above. Podiatry is also consulted for R great toe ulcer - per Dr Roth, this actually looks better on this admission. Ultimately, these will continue to recur unless something is done about the contracted position of his right leg. Evidently, botox was not very effective. 2nd dose of botox is being planned by [facility] neuro. Neither plastic surgery referral nor orthopedic appointments have yet occurred at [facility], though we sent these referrals on discharge from our facility in December - as above. Patient is in agreement with attempting to see [facility] as outpatient, which we are setting up. (9) Hypokalemia: Status: Resolved Assessment and plan: Recheck in am (10) Hypomagnesemia: Status: Resolved Assessment and plan: recheck in am (11) Physical debility: Status: Chronic Assessment and plan: Per [facility] Neuro, the patient's weakness/debility have occurred since spring with C-spine cord compression being diagnosed in 11/01. C-spine decompression in 11/01 did not help. It also needs to be noted that the patient hallucinates occasionally. I question if there is another central process possibly happening and am considering a 2nd neurology opinion. No neurology is available at our facility this week, but we will pursue this next week. (12) DVT prophylaxis: Status: Acute Assessment and plan: SC heparin (13) Discharge planning issues: Status: Acute Assessment and plan: DNR/DNI PT consulted. Palliative care consulted. Ethics meeting today Will likely need 6 weeks of IV abx from 1st negative blood culture (today is day ). Will need outpatient ortho and plastic surgery follow up. Subjective Subjective Interval history since last seen: Kain states that he feels better now but felt uncomfortable (beat up) by the process of being turned for wound assessment. Denies dizziness, chest pain, shortness of breath, nausea, vomiting. Exam Narrative Exam Narrative: General: pleasant elderly male, A&Ox3, does not look uncomfortable in bed, joking HEENT: EOMI, MMM Heart: RRR Lungs: CTAB Abdomen: soft, nontender, nondistended Has a gibson Extremities: R hip contracted and internally rotated/flexed. Wound vac attached. Multiple skin wounds on BLEs are dressed. Objective Last Vital Signs Temp 36.6 C 01/17/21 09:12 Pulse 80 01/17/21 09:12 Resp 19 01/17/21 09:12 BP 129/72 01/17/21 09:12 Pulse Ox 95 01/17/21 09:12 Laboratory Results - last 24 hr 01/16/21 01/16/21 01/17/21 13:00 15:40 06:21 WBC RBC Hgb Hct MCV MCH MCHC RDW Plt Count MPV Immature Gran % Neutrophils % Lymphocytes % Monocytes % Eosinophils % Basophils % Nucleated RBC % Absolute Neutrophils Absolute Lymphocytes Absolute Monocytes Absolute Eosinophils Absolute Basophils Sodium 144 Potassium 3.5 Chloride 109 H Carbon Dioxide 27.0 Anion Gap 8.0 BUN 7 Creatinine 0.3 L Estimated GFR/1.73 m2 >= 60.00 Glucose 87 Calcium 7.9 L Magnesium 1.8 Urine Color Yellow Urine Clarity Clear Urine pH 7.0 Ur Specific [place] 1.020 Urine Protein Negative Urine Ketones Negative Urine Blood Negative Urine Nitrite Negative Urine Bilirubin Negative Urine Urobilinogen 0.2 Ur Leukocyte Esterase Negative Urine Glucose Negative Vancomycin Trough 15.2 01/17/21 06:21 WBC 10.88 H RBC 4.33 L Hgb 10.9 L Hct 35.9 L MCV 82.9 MCH 25.2 L MCHC 30.4 L RDW 16.3 H Plt Count 308 MPV 10.1 Immature Gran % 2.3 Neutrophils % 65.9 Lymphocytes % 15.3 Monocytes % 7.5 Eosinophils % 8.4 Basophils % 0.6 Nucleated RBC % 0 Absolute Neutrophils 7.17 H Absolute Lymphocytes 1.66 Absolute Monocytes 0.82 H Absolute Eosinophils 0.91 H Absolute Basophils 0.07 Sodium Potassium Chloride Carbon Dioxide Anion Gap BUN Creatinine Estimated GFR/1.73 m2 Glucose Calcium Magnesium Urine Color Urine Clarity Urine pH Ur Specific [place] Urine Protein Urine Ketones Urine Blood Urine Nitrite Urine Bilirubin Urine Urobilinogen Ur Leukocyte Esterase Urine Glucose Vancomycin Trough
[2021-01-17] MEDS: cefTRIAXone 2 GM/50 ML BAG IVPB (12:40)
[2021-01-17] MEDS: Heparin 5,000 UNITS/ML VIAL 5000 UNITS SC (12:41)
[2021-01-17] MEDS: Normal Saline Flush 10 ML SYR IVP (12:42)
--- NOTE | 2021-01-17 13:01 | PGE_ITS ---
Date of Service Date of service: 01/17/21 Time of Service: 13:01 Objective Last Vital Signs Temp 97.9 F 01/17/21 09:12 Pulse 80 01/17/21 09:12 Resp 19 01/17/21 09:12 BP 129/72 01/17/21 09:12 Pulse Ox 95 01/17/21 09:12 Laboratory Results - last 24 hr 01/16/21 01/16/21 01/17/21 13:00 15:40 06:21 WBC RBC Hgb Hct MCV MCH MCHC RDW Plt Count MPV Immature Gran % Neutrophils % Lymphocytes % Monocytes % Eosinophils % Basophils % Nucleated RBC % Absolute Neutrophils Absolute Lymphocytes Absolute Monocytes Absolute Eosinophils Absolute Basophils Sodium 144 Potassium 3.5 Chloride 109 H Carbon Dioxide 27.0 Anion Gap 8.0 BUN 7 Creatinine 0.3 L Estimated GFR/1.73 m2 >= 60.00 Glucose 87 Calcium 7.9 L Magnesium 1.8 Urine Color Yellow Urine Clarity Clear Urine pH 7.0 Ur Specific [place] 1.020 Urine Protein Negative Urine Ketones Negative Urine Blood Negative Urine Nitrite Negative Urine Bilirubin Negative Urine Urobilinogen 0.2 Ur Leukocyte Esterase Negative Urine Glucose Negative Vancomycin Trough 15.2 01/17/21 06:21 WBC 10.88 H RBC 4.33 L Hgb 10.9 L Hct 35.9 L MCV 82.9 MCH 25.2 L MCHC 30.4 L RDW 16.3 H Plt Count 308 MPV 10.1 Immature Gran % 2.3 Neutrophils % 65.9 Lymphocytes % 15.3 Monocytes % 7.5 Eosinophils % 8.4 Basophils % 0.6 Nucleated RBC % 0 Absolute Neutrophils 7.17 H Absolute Lymphocytes 1.66 Absolute Monocytes 0.82 H Absolute Eosinophils 0.91 H Absolute Basophils 0.07 Sodium Potassium Chloride Carbon Dioxide Anion Gap BUN Creatinine Estimated GFR/1.73 m2 Glucose Calcium Magnesium Urine Color Urine Clarity Urine pH Ur Specific [place] Urine Protein Urine Ketones Urine Blood Urine Nitrite Urine Bilirubin Urine Urobilinogen Ur Leukocyte Esterase Urine Glucose Vancomycin Trough
[2021-01-17] MEDS: Omnipaque 350 MG/ML 100 ML BTL 80 ML IJ (14:09)
[2021-01-17] MEDS: Normal Saline - Diluent 50 ML VIAL IV (14:09)
--- NOTE | 2021-01-17 15:08 | WOUNDCONS ---
- If Service Date Differs Date of service: 01/17/21 Time of Service: 10:00 Wound Initial Evaluation Narrative: Current Active Problems (Last Reviewed 01/17/21 @ 07:41 by Skyler Roth DPM) Spastic quadriplegia (Chronic) Cervical myelopathy (Chronic) Physical debility (Chronic) Osteomyelitis (Acute) Gram-positive bacteremia (Acute) Left ischial pressure sore (Acute) DVT prophylaxis (Acute) Sepsis (Acute) Pneumonia (Acute) UTI (urinary tract infection) (Acute) HCAP (healthcare-associated pneumonia) (Acute) Fever (Acute) Discharge planning issues (Acute) Pressure ulcers of skin of multiple topographic sites (Acute) Complete immobility due to severe physical disability or frailty (Acute) Neuromuscular dysfunction of bladder, unspecified (Chronic) Wound recheck done on this gentleman for weekly evaluation. Consults for ortho and plastic surgery [place] [facility] for wound management and potential tendon release. CT ordered to determine osteomyelitis in pelvis/ hip. Left medial knee- periphery dark pink, blanchable. Scant serous drainage noted. No increased warmth to area, no induration noted. Left arm bruise resolving, dark purple with yellow periphery. Pt denies pain to area. No induration noted. Left heel no open areas noted, blanchable. Right knee open area with new epithelial tissue noted. Right hip open areas measured as one. [place] periphery to open areas light pink, open areas with scant serosanguinous drainage noted. Friable tissue noted in wound base. Right malone dark pink area measurements are approximate with a 0.5 cm x 0.5 cm x 0.1 cm open area with a bone fragment palpable. Opposite this fragment on the left thigh is an open area with scant bloody drainage noted with slight pink periphery noted. No induration or increased warmth noted. Right heel open area as well as right great toe and right foot open areas evaluated by Dr. Roth this am see his note for details. Right heel with firmly adherent rangel slough noted over 75% of wound base. Periphery is pink and blanchable. Right great toe distal area with hard brown eschar noted. Area on proximal great toe with approximately 30% brown eschar and yellow slough with red tissue noted. Scant serous drainage noted. Stefanie area and groin light pink with decreased irritation noted. No open areas noted in groin or stefanie area. Left ischial tuberosity pressure injury with firmly adherent yellow slough noted in base of wound, approximately 50% of base with light pink tissue noted in other approximately 50 % of the base. The edges of the wound are not adhered, with undermining noted from 3 o'clock to 11 o'clock measuring 2 cm at the deepest. The edges are rolled with some dark holliday noted in the 7-8 o'clock area and the 3-6 o'clock area. Surrounding the wound is light pink tissue. Serosanguinous drainage is noted in the container, approximately 30 ml. No induration noted in periphery. Pt denies pain with dressing changes, only with repositioning and declines any pain medications during dressing changes. Fentanyl patch in place. - Wound right plantar foot Wound Type: Pressure Ulcer Pressure Ulcer Stage: Eschar/Unstageable Wound Length: 2 cm Wound Width: 1.3 cm Wound Depth: 0.1 cm Wound Drainage Amount: Minimal Wound Drainage Description: Serous Right great toe distal Wound Length: 0.5 cm Wound Width: 0.9 cm Wound Depth: 0.1 cm (less than 0.1 cm) Right great toe proximal Wound Length: 2.4 cm Wound Width: 1.5 cm Wound Depth: 0.1 cm Right heel Wound Length: 2.5 cm Wound Width: 2 cm Wound Depth: 0.1 cm Wound Debridement Method: Mechanical Wound Debridement Result: Yellow Sloughing Remains Wound Debridement Amount of Tissue Removed: Minimal Left thigh Wound Length: 1.8 cm Wound Width: 1.6 cm Wound Depth: 0.1 cm Right malone Wound Length: 11 cm (approximate) Wound Width: 6 cm (approximate) Wound Depth: 0.1 cm Wound Drainage Amount: Minimal Right hip Wound Length: 4 cm Wound Width: 3.2 cm Wound Depth: 0.1 cm Left knee Wound Length: 2.4 cm Wound Width: 2.2 cm Wound Depth: 0.1 cm Right knee Wound Length: 2 cm Wound Width: 3 cm Wound Depth: 0.1 cm (less than 0.1 cm) Left arm Wound Length: 6 cm (approximate) Wound Width: 9 cm (approximate) Left ischial tuberosity Wound Type: Pressure Ulcer Pressure Ulcer Stage: IV Wound General Appearance: Unapproximated Wound Length: 7 cm Wound Width: 6 cm Wound Depth: 0.9 cm - Pain Pain Level: 4 (pt uncomfortable with some positioning, declined pain meds at this time) - Recomendation Recomendation:: Left ischial tuberosity- Follow orders from surgical service Right great toe and right foot- Follow orders from Dr. Roth Left thigh- Cleanse with ns, pat dry, apply mepilex, change q 3 days and PRN. Continue all others dressings as previously ordered
--- NOTE | 2021-01-17 17:14 | PHA.REVIEW ---
Pharmacy Admission Review - Admission Clinical Review (Last Reviewed 01/17/21 @ 07:41 by Skyler Roth DPM) Osteomyelitis (Acute) Gram-positive bacteremia (Acute) Left ischial pressure sore (Acute) DVT prophylaxis (Acute) Sepsis (Acute) Pneumonia (Acute) UTI (urinary tract infection) (Acute) HCAP (healthcare-associated pneumonia) (Acute) Fever (Acute) Discharge planning issues (Acute) Pressure ulcers of skin of multiple topographic sites (Acute) Complete immobility due to severe physical disability or frailty (Acute) No Known Allergies Allergy (Unverified 12/01/20 16:45) Resuscitation Status DNR/DNI Height 5 ft 9 in Weight 72 kg - Renal Dosing Renal Dosing: BUN 7 mg/dL (7-18) 01/17/21 06:21 Creatinine 0.3 mg/dL (0.70-1.30) L 01/17/21 06:21 Medications needing adjustments: Reviewed List of meds needing interventions: eCrCl is 82 ml/min - Anticoagulation Anticoagulation: Hgb 10.9 g/dL (13.5-17.5) L 01/17/21 06:21 Hct 35.9 % (40.0-50.0) L 01/17/21 06:21 Plt Count 308 10^3/uL (130-400) 01/17/21 06:21 Creatinine 0.3 mg/dL (0.70-1.30) L 01/17/21 06:21 DVT Prophylaxis: Reviewed Medications: Heparin - Opiate Usage Evaluate Pain Scale/Pains Meds: Reviewed Scheduled Bowel Reg ordered if on Opiates?: Yes - Relevant Labs Sodium 144 mmol/L (136-145) 01/17/21 06:21 Potassium 3.5 mmol/L (3.5-5.1) 01/17/21 06:21 Chloride 109 mmol/L (98-107) H 01/17/21 06:21 Magnesium 1.8 mg/dL (1.8-2.4) 01/17/21 06:21 C-Reactive Protein 6.54 mg/dL (0.0-0.3) H 01/15/21 06:45 Electrolytes, C-Reactive P, ESR: Reviewed - DM Control DM Control: Glucose 87 mg/dL (74-106) 01/17/21 06:21 Insulin Dosing: N/A - Heart Failure/CA EF%, NENITA's, B-Blockers, Diuretics: N/A - BP Control BP Control: Blood Pressure 156/88 Blood Pressure 158/88 Blood Pressure 126/74 Blood Pressure 129/72 If elevated: Reviewed - Qtc Review If Elevated: Reviewed - IV to PO Switch IV Medications: Reviewed - Home Meds Home Med List reviewed: Reviewed Relevent Home Meds Not ordered & why?: baclofen, vb12, dexamethasone, ferrous gluconate, pantoprazole, simvastatin, tamsulosin - Current meds Current Medication Order Review: Reviewed (ceftriazone 2gm daily x 42 days -- today is day 3)
--- NOTE | 2021-01-17 18:39 | W.PALLCONSUL ---
Date of service: 01/17/21 Time of Service: 14:27 History of Present Illness History of Present Illness Chief Complaint: quadraparesis with severe contractures, goals of care Narrative: Kain fluctuates about his desires all the time. Some days he wants to be on comfort measures and have no interventions, eat no food, just be allowed to . Some days he says he wants to walk and will do anything necessary to achieve this. He understood the [facility] neurosurgery team to hold out walking as a possible outcome of his October 2020 surgery. The possibility of regaining his ability to walk doesn't appear in the [facility] notes I reviewed. Kain has a very poor understanding of his illness--but that's because doctors cannot agree on his outcome either. All of the MDs I have talked to who have cared for him this year--Isha Lennon, Kristal, Yeimi and myself--do not believe Kain will ever walk again. I would go so far as to say that I think he has a limited life expectancy of < 1 year, even with excellent wound care. We did have an ethics conference about his care prior to my visit with Kain. Caring for him does cause moral distress in all the hospital staff, as he is obviously so very ill and with such unclear goals of care, with inconsistent desires. Consults Consult date: 01/17/21 Requesting physician: Stacey Vieira Assessment and Plan Assessment and plan (1) Impaired decision making: Status: Chronic Assessment and plan: I suggest that there be a team meeting or repeat ethics consult held in Kain's room with his sister participating by phone. Dr Vieira was able to get outpatient apts at [facility] with ortho, plastics, wound and ? neuro?. After he has these appointments (if he keeps them; some days he says he doesn't want to), we should reconvene and see where he is. (2) Labile mood: Status: Acute Assessment and plan: Kain is very up and down, changes his mind frequently, unclear of his goals. Frustrated, tired, socially isolated. (3) Physical debility: Status: Chronic Assessment and plan: Severe and permanent. (4) History of neck surgery: Status: Chronic Assessment and plan: Kain likely misunderstood what was said to him. It appears that his October Surgery at [facility] may have made his mobility of his UE even worse; unclear. (5) Spastic quadriplegia: Status: Chronic (6) Goals of care, counseling/discussion: Status: Acute (7) Palliative care patient: Status: Acute Review of Systems Constitutional Constitutional: Reports difficulty sleeping, Reports fatigue, Reports lethargy, Reports malaise and Reports weakness Eyes Eyes: Reports dry eyes and Reports requires corrective lenses ENT Ears, Nose, Mouth, and Throat: Reports dry mouth, Reports nasal congestion and Reports neck pain Cardiovascular Cardiovascular: Reports dyspnea on exertion and Reports orthopnea Respiratory Respiratory: Reports dyspnea on exertion Gastrointestinal Gastrointestinal: Reports constipation Genitourinary Genitourinary: Reports urinary incontinence (has gibson in place) Musculoskeletal Musculoskeletal: Reports atrophy, Reports deformity, Reports arthralgias, Reports muscle cramps, Reports muscle weakness and Reports neck pain Integumentary/Breasts Skin/Breast: Reports lesions, Reports non-healing lesions, Reports skin swelling, Reports skin ulcer, Reports sores and Reports wounds Neurologic Neurologic: Reports abnormal movements, Denies confusion, Reports localized weakness and Reports weakness Psychiatric Psychiatric: Denies confusion, Reports hopelessness (comes and goes 2020 has been a hard year) and Reports anhedonia Endocrine Endocrine: Reports fatigue Hematologic/Lymphatic Hematologic/Lymphatic: Reports easy bruising [facility] Medical History Advance directive in chart Cervical myelopathy Chronic venous hypertension (idiopathic) with ulcer and inflammation of bilateral lower extremity Combative behavior verbally, unable to move Complete immobility due to severe physical disability or frailty Disoriented to place Disoriented to time Essential (primary) hypertension Fatigue Fatty (change of) liver, not elsewhere classified Goals of care, counseling/discussion Hallucinations, unspecified Hyperlipemia Impaired decision making Labile mood Lives in retirement since Jul 2020 Major depressive disorder Muscle weakness (generalized) Neuromuscular dysfunction of bladder, unspecified Obesity Other spondylosis with myelopathy, cervical region Palliative care patient Paraplegia Pneumonia POLST (Physician Orders for Life-Sustaining Treatment) discussed and verbal decision made for DNR/DNI on 12/05/20; cannot sign Pressure ulcer of left heel, unstageable Pressure ulcer of other site, unstageable Pressure ulcer of right heel, unstageable Pressure ulcer of right hip, unstageable Pressure ulcer of right upper back Pressure ulcers of skin of multiple topographic sites Radiculopathy Repeated falls Rhabdomyolysis Spastic quadriplegia Unilateral primary osteoarthritis, right hip Unspecified fall Urinary tract infection Venous insufficiency (chronic) (peripheral) Surgical History History of neck surgery [facility] 2020 Family History Sister No problems noted. Social History Smoking/Tobacco Use Status: Never Smoking risk assessment performed?: Yes Alcohol Intake: never Drug use: Never Substance use type: does not use Caregiver/Support person: No Household members: none Housing: retirement Communication Needs: Corrective Lenses Do you need help understanding health information?: Always Current gender identity: male How often do you talk on the phone with friends or family?: three or more times per week How often do you get together with friends or relatives?: never Panel score (0-1 are the most socially isolated patients): 1 What type of physical activity do you participate in: none and sedentary lifestyle Frequency: does not exercise Special kena needs: No Seatbelt use: always Do you feel safe at home: Yes Do you feel safe in your relationship?: Yes Additional Social history: PATIENT HAS BEEN AT [employer] SINCE or JUNE. WAS LIVING ALONE. Has a sister Marie who is his agent, though not sure if paperwork signed. [place] era vet. Was in the [employer]. 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 From [place] originally. Exam Narrative Exam Narrative: He was sleepy today, falling asleep in mid-sentence on and off throughout our conversation. His ability to give a detailed history is limited. When I asked what he hoped to get out of his visits to [facility] specialists, he said he wanted to walk. He has a very limited understanding of his overall health status. He was not in any obvious physical discomfort. There was no erythema extending outside of any of the dressings. His did have his wound VAC in place on his left ischium. His contraction abnormality to the right leg is profound. His right leg is flexed and crossed across his left thigh. The leg is rigidly contracted in place. His wounds include his right heel, right hip, right malone among others. His lungs were clear. His heart was regular. His mood was more even-keeled today, but he was very tired, and fell asleep on and off during my visit. His neuro exam showed minimal ability to move his upper arms. He cannot move his lower extremities at all. Results Last Vital Signs Temp 98.2 F 01/17/21 15:35 Pulse 99 H 01/17/21 15:35 Resp 19 01/17/21 15:35 BP 156/88 H 01/17/21 15:37 Pulse Ox 97 01/17/21 15:35 Labs Result diagrams: 01/21/21 06:20 01/19/21 06:05 Labs: Laboratory Results - last 24 hr 01/17/21 01/17/21 06:21 06:21 WBC 10.88 H RBC 4.33 L Hgb 10.9 L Hct 35.9 L MCV 82.9 MCH 25.2 L MCHC 30.4 L RDW 16.3 H Plt Count 308 MPV 10.1 Immature Gran % 2.3 Neutrophils % 65.9 Lymphocytes % 15.3 Monocytes % 7.5 Eosinophils % 8.4 Basophils % 0.6 Nucleated RBC % 0 Absolute Neutrophils 7.17 H Absolute Lymphocytes 1.66 Absolute Monocytes 0.82 H Absolute Eosinophils 0.91 H Absolute Basophils 0.07 Sodium 144 Potassium 3.5 Chloride 109 H Carbon Dioxide 27.0 Anion Gap 8.0 BUN 7 Creatinine 0.3 L Estimated GFR/1.73 m2 >= 60.00 Glucose 87 Calcium 7.9 L Magnesium 1.8
--- NOTE | 2021-01-17 19:13 | CMPROGNOTE_ITS ---
- If Service Date Differs Date of service: 01/17/21 Time of Service: 19:13 Care Management Progress Note S/O: Kain was sleeping when CM attempted to visit with him. He had a wound care consultation today, as he has multiple wounds due to his position/contractures. He has a wound vac in place currently. Per report, he will require 6 weeks of IV abx, which he will remain at [facility] for. CM is attempting to follow up on the appointments that have been scheduled with [facility] from his previous admission, as well as looking into the option of him receiving these appointments at [facility], if they can happen sooner. He had a Palliative Care consultation today, and will meet with Neuro again on Friday which may help direct his care. CM will continue to follow. A: Kain is a 75 year old man admitted on 01/12/21 with sepsis and pneumonia P:London was admitted with sepsis and has positive blood cultures with gram positive bacteria. Anticipate [place] will return to [facility] once he has been medically cleared by and will transport via EMS vs facility w/c van. CM will continue to support Kain and assess for ongoing discharge concerns.
[2021-01-18] MEDS: Heparin 5,000 UNITS/ML VIAL 5000 UNITS SC ×3 (00:08→23:16)
[2021-01-18] MEDS: Melatonin 3 MG TAB 6 MG PO ×2 (01:30→23:15)
[2021-01-18] MEDS: Acetaminophen 500 MG TAB 1000 MG PO ×2 (02:34→23:16)
[2021-01-18 03:05] VITALS: BP 109/63; PULSE 80; RESP 19; TEMP 36.4; O2SAT 95
[2021-01-18 07:00] LABS: Abs Immature Grans 0.36 10^3/uL (0.0-0.06); Absolute Basophil Count 0.07 10^3/uL (0.0-0.2); Absolute Eosinophil Count 0.96 10^3/uL (0.0-0.7); Absolute Lymphocyte Count 1.81 10^3/uL (1.2-3.4); Absolute Monocyte Count 0.88 10^3/uL (0.1-0.8); Absolute Neutrophil Count 6.47 10^3/uL (1.2-6.7); Basophils % 0.7; Eosinophils % 9.1; HCT 35.5 % (40.0-50.0); HGB 10.6 g/dL (13.5-17.5); Immature Grans % 3.4; Lymphocytes % 17.2; MCH 24.7 pg (27.0-33.0); MCHC 29.9 % (32.0-36.0); MCV 82.8 fL (80-95); MPV 10.3 fL (8.0-11.0); Monocytes % 8.3; Neutrophils % 61.3; Nucleated RBC 0 %; Platelet Count 292 10^3/uL (130-400); RBC 4.29 10^6/uL (4.36-5.78); RDW-SD 49.7 fL; WBC 10.55 10^3/uL (4.4-10.8)
[2021-01-18 07:12] LABS: Anion Gap 7.8 mmol/L (3-11); BUN 8 mg/dL (7-18); C-Reactive Protein 5.28 mg/dL (0.0-0.3); CO2 27.2 mmol/L (21.0-32.0); CREATININE 0.4 mg/dL (0.70-1.30); Calcium 8.4 mg/dL (8.5-10.1); Chloride 110 mmol/L (98-107); Glucose 96 mg/dL (74-106); Magnesium 1.5 mg/dL (1.8-2.4); Potassium 3.7 mmol/L (3.5-5.1); Sodium 145 mmol/L (136-145)
[2021-01-18 07:29] LABS: Procalcitonin < 0.1 ng/mL
[2021-01-18 08:32] VITALS: BP 108/63; PULSE 69; RESP 20; TEMP 36; O2SAT 97
[2021-01-18] MEDS: Dronabinol 2.5 MG CAP PO (08:42)
[2021-01-18] MEDS: Gabapentin 300 MG CAP PO ×2 (08:42→20:12)
[2021-01-18] MEDS: Polyethylene Glycol 3350 17 GM PACKET PO (08:44)
[2021-01-18] MEDS: Methocarbamol 500 MG TAB 1000 MG PO ×4 (08:44→20:10)
[2021-01-18] MEDS: Ascorbic Acid 500 MG TAB PO ×2 (08:44→20:11)
[2021-01-18] MEDS: Docusate Sodium 100 MG CAP PO (08:44)
[2021-01-18] MEDS: Protein Nutritional Supplement 16 GM 1 OUNCE PACKET PO ×2 (08:44→20:12)
[2021-01-18] MEDS: Senna TAB 1 TAB PO ×2 (08:44→20:10)
[2021-01-18] MEDS: Zinc Sulfate 220 MG TAB PO (08:44)
[2021-01-18] MEDS: Multivitamin w/Minerals TAB 1 TAB PO (08:44)
[2021-01-18] MEDS: MAGNESIUM SULFATE 4 GM/100 ML BAG IVPB (08:45)
[2021-01-18] MEDS: Cyclobenzaprine 10 MG TAB 5 MG PO ×2 (08:45→20:09)
[2021-01-18] MEDS: Normal Saline Flush 10 ML SYR 20 ML IVP ×2 (08:45→20:08)
[2021-01-18] MEDS: SODIUM CHLORIDE 0.45% 1,000 ML 125 ML IV (08:46)
[2021-01-18] MEDS: Magnesium Chloride 64 MG TABCR 128 MG PO ×2 (10:00→21:49)
[2021-01-18] MEDS: oxyCODONE 10 MG TAB PO (10:00)
[2021-01-18] MEDS: Nystatin POWDER 60 GM JAR TP ×2 (10:01→20:08)
--- NOTE | 2021-01-18 11:24 | PGE_ITS ---
Date of Service Date of service: 01/18/21 Time of Service: 11:24 Assessment and Plan Assessment and plan (1) Sepsis: Status: Acute Assessment and plan: Multifactorial, due to HCAP as well as infected ischial tuberosity ulcer and osteomyelitis, with evidence of Strep milleri bacteremia. Strep milleri is also growing out of the L ischial tuberosity wound, typically sensitive to ceftriaxone. Cultures were sent to [facility] for further speciation/sensitivities. Repeat blood cultures remain negative. CRP is coming down. Procalcitonin normalized. Continue ceftriaxone 2 grams daily (day ). While CT pelvis does not definitively confirm OM, it is also not the most sensitive test, and the patient declined getting an MRI because of the discomfort associated with it. Await speciation/sensitivities on the original blood cx. Will need an echo (not available this week, ordered for Friday) to r/o endocarditis, but it is less likely given that only original blood cultures were positive. (2) Osteomyelitis: Status: Acute Assessment and plan: As above (3) Left ischial pressure sore: Status: Acute Assessment and plan: With abscess and osteomyelitis, present on admission, wound and blood cultures Strep Milleri. Surgery on board. s/p debridement at bedside. Continue wound vac. Plastics/wound care referral sent to [facility] and I have personally spoken to both schedulers today. They are trying to get him in [place], but it will likely not be next week. Abx as above due to osteomyelitis. Continue wound care/wound vac. Will need 6 wks of abx from the day of the 1st negative blood culture. End date 02/25/21. Patient's contractures are the reason why it is so hard to position the patient to offload the weight. [facility] orthopedic referral submitted and is being arranged. We have not been able to get these appointments at [facility] in a timely manner. Needs tedon release +/- disarticulation. As he is actively recovering from sepsis/bacteremia, no surgery should be pursued now. (4) Pneumonia: Status: Acute Assessment and plan: As above Will be technically done with the abx tomorrow. (5) Abnormal CT scan, pelvis: Status: Acute Assessment and plan: No OM confirmed, but there is a suggestion of cortical bone loss in right inferior pubic ramus, infection or fracture not excluded. Discussed getting MRI with the patient - MRIs are very uncomfortable for him, he would rather not. I am not sure that the would change his therapy at this time. We will continue abx. (6) Acute kidney injury: Status: Resolved Assessment and plan: Cr at baseline. Getting 1 L of IVF due to receiving IV contrast with CT. Monitor I/O's and daily weights. (7) Hypoxia: Status: Resolved Assessment and plan: Monitor O2 sats. (8) Hyperkalemia: Status: Resolved Assessment and plan: Actually needed K to be supplemented. Probably due to COCO. Monitor. (9) Pressure ulcers of skin of multiple topographic sites: Status: Acute Assessment and plan: Wound care on board. As above Nutritional status needs improvement - increase marinol, consider addition of mirtazepine. The worst ulcer is the left ischial tuberosity, as above. Podiatry is also consulted for R great toe ulcer - per Dr Roth, this actually looks better on this admission. Ultimately, these will continue to recur unless something is done about the contracted position of his right leg. S/p botox x1. 2nd dose of botox is being planned by [facility] neuro. Patient is in agreement with attempting to see [facility] plastics/wound/ortho as outpatient, which we are setting up. These appointments have been unobtainable form [facility] in a timely manner. (10) Hypokalemia: Status: Resolved Assessment and plan: Recheck in am (11) Hypomagnesemia: Status: Acute Assessment and plan: Replete, recheck in am (12) Physical debility: Status: Chronic Assessment and plan: Per [facility] Neuro, the patient's weakness/debility have occurred since spring with C-spine cord compression being diagnosed in 11/01. C-spine decompression in 11/01 did not help. It also needs to be noted that the patient hallucinates occasionally. We will rule out another central process possibly happening. No neurology is available at our facility this week, but we neuro consult has been placed for next week. (13) DVT prophylaxis: Status: Acute Assessment and plan: SC heparin (14) Discharge planning issues: Status: Acute Assessment and plan: DNR/DNI PT consulted. Palliative care consulted. Will need 6 weeks of IV abx from 1st negative blood culture (today is day , end-date 02/25/21). Will need outpatient ortho and wound/plastic surgery follow up as above. Subjective Subjective Interval history since last seen: Kain says he is not in pain today. Denies d izziness, chest pain, shortness of breath, nausea. We spoke about the neurology consult expected to happen on Friday in regards to whether it is felt that his weakness has entirely to do with his c-spine disease or if there are any other possibilities. We talked about the fact that he may never walk again but that we are asking Dr Wynne to weigh in. We talked about big conversations about direction of care that should happen once that question is answered. Exam Narrative Exam Narrative: General: pleasant elderly male, A&Ox3, comfortable in bed HEENT: EOMI, MMM Heart: RRR, slight BARBARA Lungs: CTAB Abdomen: soft, nontender, nondistended Has a gibson Extremities: R hip contracted and internally rotated/flexed. Wound vac attached. Multiple skin wounds on BLEs are dressed. Objective Last Vital Signs Temp 36.0 C L 01/18/21 08:32 Pulse 69 01/18/21 08:32 Resp 20 01/18/21 08:32 BP 108/63 01/18/21 08:32 Pulse Ox 97 01/18/21 08:32 Laboratory Results - last 24 hr 01/18/21 01/18/21 01/18/21 06:15 06:15 06:15 WBC 10.55 RBC 4.29 L Hgb 10.6 L Hct 35.5 L MCV 82.8 MCH 24.7 L MCHC 29.9 L RDW 17.0 H Plt Count 292 MPV 10.3 Immature Gran % 3.4 Neutrophils % 61.3 Lymphocytes % 17.2 Monocytes % 8.3 Eosinophils % 9.1 Basophils % 0.7 Nucleated RBC % 0 Absolute Neutrophils 6.47 Absolute Lymphocytes 1.81 Absolute Monocytes 0.88 H Absolute Eosinophils 0.96 H Absolute Basophils 0.07 Sodium 145 Potassium 3.7 Chloride 110 H Carbon Dioxide 27.2 Anion Gap 7.8 BUN 8 Creatinine 0.4 L Estimated GFR/1.73 m2 >= 60.00 Glucose 96 Calcium 8.4 L Magnesium 1.5 L C-Reactive Protein 5.28 H Procalcitonin < 0.1 Objective Narrative Objective Narrative: CT pelvis: 1. No CT evidence to suggest osteomyelitis in the left ischial tuberosity. Early osteomyelitis cannot be excluded due to the soft tissue limitations of the CT scan. If there is continued clinical concern an MRI or 3 phase bone scan should be considered. 2. Question of cortical loss involving the right inferior pubic ramus. Differential considerations include infection or fracture. Neoplasm cannot be entirely excluded. MRI should be considered for further evaluation. A bone scan may be useful but necessarily nonspecific.
[2021-01-18 12:04] VITALS: BP 107/65; PULSE 66; RESP 16; TEMP 35.5; O2SAT 96
[2021-01-18] MEDS: cefTRIAXone 2 GM/50 ML BAG IVPB (12:46)
[2021-01-18] MEDS: Normal Saline Flush 10 ML SYR IVP (12:47)
[2021-01-18] MEDS: Collagenase 30 GM TUBE TP (14:41)
[2021-01-18 16:11] VITALS: BP 136/81; PULSE 73; RESP 19; TEMP 36.5; O2SAT 96
--- NOTE | 2021-01-18 17:33 | CMPROGNOTE_ITS ---
- If Service Date Differs Date of service: 01/18/21 Time of Service: 17:33 Care Management Progress Note S/O: Kain was lying in bed when CM met with him. He appeared to be sleeping, but responded to CM. He kept his eyes closed for the duration of the visit, although he continued to answer questions briefly. Per RN, he refused breakfast and lunch today, as well as his dressing changes. He stated that he has not been hungry today, and that he is feeling a little down. He stated that the Palliative care consultation went well yesterday, but did not go into detail about it. CM was able to schedule him an appointment with Wound Care and Plastics at [facility] on 02/05/21 at 8:15am. CM resent the referral to [facility] Ortho today, as they claimed that they did not receive it when it was sent yesterday. CM will attempt to make an appointment with Ortho on the same day as the other two. CM will continue to follow. A: Kain is a 75 year old man admitted on 01/12/21 with sepsis and pneumonia P:[place] was admitted with sepsis and has positive blood cultures with gram positive bacteria. He may require 6 weeks of IV antibiotics, which he will remain at [facility] for. He will transition to [facility] when appropriate. Anticipate [place] will return to [facility] once he has been medically cleared by and will transport via EMS vs facility w/c van. CM will continue to support Kain and assess for ongoing discharge concerns.
[2021-01-18] MEDS: Dronabinol 2.5 MG CAP 5 MG PO (20:11)
[2021-01-18 23:53] VITALS: BP 140/70; PULSE 102; RESP 17; TEMP 36; O2SAT 96
[2021-01-19 03:55] VITALS: BP 110/66; PULSE 78; RESP 18; TEMP 36.4; O2SAT 93
[2021-01-19 06:54] LABS: Abs Immature Grans 0.38 10^3/uL (0.0-0.06); Absolute Basophil Count 0.07 10^3/uL (0.0-0.2); Absolute Eosinophil Count 0.91 10^3/uL (0.0-0.7); Absolute Lymphocyte Count 1.53 10^3/uL (1.2-3.4); Absolute Monocyte Count 0.63 10^3/uL (0.1-0.8); Absolute Neutrophil Count 5.13 10^3/uL (1.2-6.7); Basophils % 0.8; Eosinophils % 10.5; HCT 36.9 % (40.0-50.0); HGB 11.1 g/dL (13.5-17.5); Immature Grans % 4.4; Lymphocytes % 17.7; MCH 25.2 pg (27.0-33.0); MCHC 30.1 % (32.0-36.0); MCV 83.9 fL (80-95); MPV 9.9 fL (8.0-11.0); Monocytes % 7.3; Neutrophils % 59.3; Nucleated RBC 0 %; Platelet Count 307 10^3/uL (130-400); RDW 17.1 % (11.8-14.1); RDW-SD 50.9 fL; WBC 8.65 10^3/uL (4.4-10.8)
[2021-01-19 07:06] LABS: Anion Gap 5.8 mmol/L (3-11); BUN 7 mg/dL (7-18); C-Reactive Protein 4.23 mg/dL (0.0-0.3); CO2 28.2 mmol/L (21.0-32.0); CREATININE 0.4 mg/dL (0.70-1.30); Calcium 8.1 mg/dL (8.5-10.1); Chloride 112 mmol/L (98-107); Glucose 84 mg/dL (74-106); Magnesium 1.7 mg/dL (1.8-2.4); Potassium 3.8 mmol/L (3.5-5.1); Sodium 146 mmol/L (136-145)
[2021-01-19 07:24] VITALS: BP 133/66; PULSE 72; RESP 15; TEMP 36.3; O2SAT 96
[2021-01-19] MEDS: Gabapentin 300 MG CAP PO ×3 (08:26→19:59)
[2021-01-19] MEDS: Dronabinol 2.5 MG CAP 5 MG PO ×2 (08:26→19:58)
[2021-01-19] MEDS: Zinc Sulfate 220 MG TAB PO (08:26)
[2021-01-19] MEDS: Cyclobenzaprine 10 MG TAB 5 MG PO ×3 (08:27→19:58)
[2021-01-19] MEDS: Ascorbic Acid 500 MG TAB PO ×2 (08:27→19:58)
[2021-01-19] MEDS: Multivitamin w/Minerals TAB 1 TAB PO (08:27)
[2021-01-19] MEDS: Methocarbamol 500 MG TAB 1000 MG PO ×4 (08:27→19:59)
[2021-01-19] MEDS: Protein Nutritional Supplement 16 GM 1 OUNCE PACKET PO ×2 (08:28→19:59)
[2021-01-19] MEDS: fentaNYL 50 MCG PATCH TD (08:28)
[2021-01-19] MEDS: Senna TAB 1 TAB PO ×2 (08:28→19:59)
[2021-01-19] MEDS: Docusate Sodium 100 MG CAP PO (08:28)
[2021-01-19] MEDS: Polyethylene Glycol 3350 17 GM PACKET PO (08:28)
[2021-01-19] MEDS: Collagenase 30 GM TUBE TP (08:29)
[2021-01-19] MEDS: Normal Saline Flush 10 ML SYR 20 ML IVP ×2 (08:29→20:00)
[2021-01-19] MEDS: Nystatin POWDER 60 GM JAR TP ×2 (08:30→20:01)
[2021-01-19] MEDS: oxyCODONE 10 MG TAB PO (10:00)
[2021-01-19] MEDS: Magnesium Chloride 64 MG TABCR 128 MG PO ×2 (10:00→21:33)
[2021-01-19 11:38] VITALS: BP 108/62; PULSE 80; RESP 18; TEMP 36.6; O2SAT 95
[2021-01-19] MEDS: cefTRIAXone 2 GM/50 ML BAG IVPB (11:59)
[2021-01-19] MEDS: Heparin 5,000 UNITS/ML VIAL 5000 UNITS SC ×2 (11:59→23:34)
[2021-01-19] MEDS: Normal Saline Flush 10 ML SYR IVP (12:04)
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
[2021-01-19 15:43] VITALS: BP 133/69; PULSE 89; RESP 18; TEMP 36.4; O2SAT 97
--- NOTE | 2021-01-19 15:57 | PGE_ITS ---
Date of Service Date of service: 01/19/21 Time of Service: 13:00 Assessment and Plan Assessment and plan (1) Left ischial pressure sore: Status: Acute Assessment and plan: Left ischial pressure wound evaluated. Sharp debridement of black eschar performed after verbal consent. minimal slough on palpable exposed bone good granulation tissue no signs of gross purulence/abscess VAC dressing changed with nursing (2) Pressure ulcers of skin of multiple topographic sites: Status: Acute Assessment and plan: Wound care consulted. The worst ulcer is the left ischial tuberosity, as above. Ultimately, these will continue to recur unless something is done about the cont racted position of his right leg. Evidently, botox was not very effective. Neither plastic surgery referral nor orthopedic referral have yet occurred at [facility]. Consider [facility] referrals instead. Subjective Subjective Interval history since last seen: Pt without acute complaints. Exam Const General: cooperative and no acute distress Orientation: alert, awake and oriented x3 Resp Effort & Inspection: normal respiratory effort, able to speak in complete sentences, no grunting, not labored and no nasal flaring GI Palpation: soft Skin Other: VAC changed with nursing to left lateral ischial tuberosity ulcer: base clean, some slough over palpable bone; thin border of devascularized eschar--sharply debrided Neuro General: patient alert, patient awake and patient oriented x3 Cognition: normal cognition Other: pt with severe spastic quadriplegia Psych Mood: congruent mood Affect: normal affect Attitude: cooperative Thought Process: normal Thought Content: normal Insight: insight good Judgment: judgment good Objective Last Vital Signs Temp 97.9 F 01/19/21 11:38 Pulse 80 01/19/21 11:38 Resp 18 01/19/21 11:38 BP 108/62 01/19/21 11:38 Pulse Ox 95 01/19/21 11:38 Laboratory Results - last 24 hr 01/19/21 01/19/21 06:05 06:05 WBC 8.65 RBC 4.40 Hgb 11.1 L Hct 36.9 L MCV 83.9 MCH 25.2 L MCHC 30.1 L RDW 17.1 H Plt Count 307 MPV 9.9 Immature Gran % 4.4 Neutrophils % 59.3 Lymphocytes % 17.7 Monocytes % 7.3 Eosinophils % 10.5 Basophils % 0.8 Nucleated RBC % 0 Absolute Neutrophils 5.13 Absolute Lymphocytes 1.53 Absolute Monocytes 0.63 Absolute Eosinophils 0.91 H Absolute Basophils 0.07 Sodium 146 H Potassium 3.8 Chloride 112 H Carbon Dioxide 28.2 Anion Gap 5.8 BUN 7 Creatinine 0.4 L Estimated GFR/1.73 m2 >= 60.00 Glucose 84 Calcium 8.1 L Magnesium 1.7 L C-Reactive Protein 4.23 H Procedures Other Procedure Description/Findings: Verbal consent obtained from this quadriplegic patient for sharp debridement of left ischial tuberosity ulcer. Time out perfomed. The patient is severely contracted and with the help of nursing was positioned in an accomodated right lateral decub position. A small rim of black eschar was debrided sharply using #15 scalpel and scissors. The wound was then dressed with a VAC dressing. The patient tolerated the procedure well.
--- NOTE | 2021-01-19 16:05 | CMPROGNOTE_ITS ---
- If Service Date Differs Date of service: 01/19/21 Time of Service: 16:05 Care Management Progress Note S/O: Kain was lying in bed when CM met with him. He was pleasant and engaged, and reported feeling better today than yesterday. He asked CM to contact [facility] in order for them to bring his phone and his will. He talked to CM about his relationship with his daughter, and how it has been strained for the last three years. He stated that he would like to talk to her again, but she won't return his calls. He stated that she did return an email, after he let her know of his current health concerns, and she replied Take care of yourself. He stated that his sister does not get along with her, and is encouraging him to change his will so that she won't be entitled to any money when he passes. CM will continue to follow. CM received a phone call from [facility], who confirmed his appointments that CM had referred him to. He has appointments with [facility], Plastics, and Ortho all on 02/08/21, beginning at 10:30 am. They ask that he arrive at 10:15am. A: Kain is a 75 year old man admitted on 01/12/21 with sepsis and pneumonia P:[place] was admitted with sepsis and has positive blood cultures with gram positive bacteria. He may require 6 weeks of IV antibiotics, which he will remain at [facility] for. He will transition to B 1 when appropriate. Anticipate [place] will return to [facility] once he has been medically cleared by and will transport via EMS vs facility w/c van. CM will continue to support Kain and assess for ongoing discharge concerns.
[2021-01-19 19:45] VITALS: BP 137/69; PULSE 87; RESP 18; TEMP 36.5; O2SAT 98
[2021-01-20] MEDS: oxyCODONE 10 MG TAB PO ×3 (00:10→20:54)
[2021-01-20 00:31] VITALS: BP 143/81; PULSE 91; RESP 20; TEMP 36.9; O2SAT 93
[2021-01-20 04:23] VITALS: BP 128/67; PULSE 78; RESP 18; TEMP 36.4; O2SAT 95
[2021-01-20 07:00] LABS: HCT 37.4 % (40.0-50.0); HGB 11.3 g/dL (13.5-17.5); MCH 25.2 pg (27.0-33.0); MCHC 30.2 % (32.0-36.0); MCV 83.5 fL (80-95); MPV 10.8 fL (8.0-11.0); Platelet Count 266 10^3/uL (130-400); RBC 4.48 10^6/uL (4.36-5.78); RDW 17.5 % (11.8-14.1); RDW-SD 51.2 fL; WBC 8.24 10^3/uL (4.4-10.8)
[2021-01-20] MEDS: Polyethylene Glycol 3350 17 GM PACKET PO (07:43)
[2021-01-20] MEDS: Protein Nutritional Supplement 16 GM 1 OUNCE PACKET PO ×2 (07:43→20:12)
[2021-01-20] MEDS: Zinc Sulfate 220 MG TAB PO (07:44)
[2021-01-20] MEDS: Dronabinol 2.5 MG CAP 5 MG PO ×2 (07:44→20:14)
[2021-01-20] MEDS: Gabapentin 300 MG CAP PO ×3 (07:44→20:14)
[2021-01-20] MEDS: Cyclobenzaprine 10 MG TAB 5 MG PO ×3 (07:44→20:12)
[2021-01-20] MEDS: Ascorbic Acid 500 MG TAB PO ×2 (07:45→20:13)
[2021-01-20] MEDS: Methocarbamol 500 MG TAB 1000 MG PO ×4 (07:45→20:13)
[2021-01-20] MEDS: Multivitamin w/Minerals TAB 1 TAB PO (07:45)
[2021-01-20] MEDS: Docusate Sodium 100 MG CAP PO (07:45)
[2021-01-20] MEDS: Senna TAB 1 TAB PO ×2 (07:45→20:13)
[2021-01-20] MEDS: Normal Saline Flush 10 ML SYR 20 ML IVP ×2 (07:46→20:17)
[2021-01-20 07:50] VITALS: BP 124/74; PULSE 83; RESP 19; TEMP 36.8; O2SAT 96
[2021-01-20] MEDS: Collagenase 30 GM TUBE TP (08:59)
[2021-01-20] MEDS: Nystatin POWDER 60 GM JAR TP ×3 (09:54→23:07)
[2021-01-20] MEDS: Magnesium Chloride 64 MG TABCR 128 MG PO (10:30)
[2021-01-20 11:28] VITALS: BP 123/68; PULSE 83; RESP 19; TEMP 36.7; O2SAT 97
[2021-01-20] MEDS: Normal Saline 500 ML 100 ML IV (12:08)
[2021-01-20] MEDS: cefTRIAXone 2 GM/50 ML BAG IVPB (12:08)
[2021-01-20] MEDS: Heparin 5,000 UNITS/ML VIAL 5000 UNITS SC (12:09)
[2021-01-20 14:30] VITALS: BP 119/68; PULSE 80; RESP 17; TEMP 36.7; O2SAT 97
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
[2021-01-20 20:07] VITALS: BP 125/78; PULSE 90; RESP 12; TEMP 36.6; O2SAT 98
[2021-01-21] MEDS: Heparin 5,000 UNITS/ML VIAL 5000 UNITS SC (01:04)
[2021-01-21] MEDS: Magnesium Chloride 64 MG TABCR 128 MG PO ×2 (01:04→10:00)
[2021-01-21] MEDS: Melatonin 3 MG TAB 6 MG PO (01:04)
[2021-01-21 03:32] VITALS: BP 130/73; PULSE 80; RESP 17; TEMP 36.6; O2SAT 97
[2021-01-21 06:33] LABS: HGB 11.2 g/dL (13.5-17.5); MCH 24.7 pg (27.0-33.0); MCHC 29.5 % (32.0-36.0); MCV 83.7 fL (80-95); MPV 10.2 fL (8.0-11.0); Platelet Count 232 10^3/uL (130-400); RBC 4.54 10^6/uL (4.36-5.78); RDW 17.6 % (11.8-14.1); WBC 7.91 10^3/uL (4.4-10.8)
[2021-01-21 07:15] VITALS: BP 116/64; PULSE 83; RESP 18; TEMP 36.5; O2SAT 95
[2021-01-21] MEDS: Methocarbamol 500 MG TAB 1000 MG PO (08:04)
[2021-01-21] MEDS: Zinc Sulfate 220 MG TAB PO (08:04)
[2021-01-21] MEDS: Normal Saline Flush 10 ML SYR 20 ML IVP (08:04)
[2021-01-21] MEDS: Protein Nutritional Supplement 16 GM 1 OUNCE PACKET PO (08:04)
[2021-01-21] MEDS: Polyethylene Glycol 3350 17 GM PACKET PO (08:04)
[2021-01-21] MEDS: Cyclobenzaprine 10 MG TAB 5 MG PO (08:05)
[2021-01-21] MEDS: Gabapentin 300 MG CAP PO (08:05)
[2021-01-21] MEDS: Dronabinol 2.5 MG CAP 5 MG PO (08:05)
[2021-01-21] MEDS: Ascorbic Acid 500 MG TAB PO (08:05)
[2021-01-21] MEDS: Docusate Sodium 100 MG CAP PO (08:05)
[2021-01-21] MEDS: Multivitamin w/Minerals TAB 1 TAB PO (08:05)
[2021-01-21] MEDS: Senna TAB 1 TAB PO (08:05)
[2021-01-21] MEDS: Collagenase 30 GM TUBE TP (08:06)
[2021-01-21] MEDS: Nystatin POWDER 60 GM JAR TP (08:06)
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
[2021-01-21 11:15] VITALS: BP 116/62; PULSE 80; RESP 17; TEMP 36.5; O2SAT 95
[2021-01-21] MEDS: Methocarbamol 500 MG TAB 1500 MG PO (11:39)
[2021-01-21] MEDS: cefTRIAXone 2 GM/50 ML BAG IVPB (11:39)
[2021-01-22 09:32] LABS: Prealbumin 11 mg/dL (20-40)
--- NOTE | 2021-01-22 14:33 | PDOC.CMPRO ---
- If Service Date Differs Date of service: 01/21/21 Time of Service: 14:33 Care Management Progress Note S/O: Kani is laying in bed when CM comes to meet with him. We discuss his transition to [facility] and complete the psychosocial assessment. A: Kain is a 75 year old man admitted to [facility] on 01/12/2021 for osteomylitis. P: Kain will remain at [facility] while he undergoes a 6 week course of IV antibiotics. Anticipate he will be discharged back to [facility] upon completion of his abx treatment. CM will continue to support Kain and any discharge planning needs.
[2021-02-13 13:33] LABS: Potassium 2.9 mmol/L (3.5-5.1)
== END 2021-01-21 12:38 | disposition swing bed (61) | DRG 853 ==
LOC: ER 19:47 → MS 20:05
PROVIDERS: Family Medicine; Internal Medicine; Surgery; Admitting Provider Family Medicine; Emergency Provider Physician Assistant; PCP Nurse Practitioner Adult Health; Visit Provider Family Medicine
DX: A41.9 Sepsis, unspecified organism (principal); L89.224 Pressure ulcer of left hip, stage 4; G82.50 Quadriplegia, unspecified; J18.9 Pneumonia, unspecified organism; N17.9 Acute kidney failure, unspecified; M47.12 Other spondylosis with myelopathy, cervical region; I96 Gangrene, not elsewhere classified; N39.0 Urinary tract infection, site not specified; M86.68 Other chronic osteomyelitis, other site; R09.02 Hypoxemia; E87.5 Hyperkalemia; M48.00 Spinal stenosis, site unspecified; Z98.1 Arthrodesis status; I10 Essential (primary) hypertension; K76.0 Fatty (change of) liver, not elsewhere classified; E78.5 Hyperlipidemia, unspecified; F32.9 Major depressive disorder, single episode, unspecified; L89.620 Pressure ulcer of left heel, unstageable; L89.110 Pressure ulcer of right upper back, unstageable; L89.890 Pressure ulcer of other site, unstageable; I87.2 Venous insufficiency (chronic) (peripheral); Z20.822 Contact with and (suspected) exposure to COVID-19; Z66 Do not resuscitate; L89.892 Pressure ulcer of other site, stage 2; L89.212 Pressure ulcer of right hip, stage 2; E83.42 Hypomagnesemia; F22 Delusional disorders; Y95 Nosocomial condition; R53.81 Other malaise; N31.8 Other neuromuscular dysfunction of bladder; M24.572 Contracture, left ankle; M24.571 Contracture, right ankle; M24.552 Contracture, left hip; M24.551 Contracture, right hip; M24.562 Contracture, left knee; M24.561 Contracture, right knee; L89.612 Pressure ulcer of right heel, stage 2; B95.4 Other streptococcus as the cause of diseases classified elsewhere; M62.838 Other muscle spasm
CPT/HCPCS: 11043; 97597 ×2; 36410; 36415; 36573; 80048; 80053; 84145; 85027; 87040; 87077; 87081; 87635; 93005; 94640; 96365; 96375; 97163; 97167; 97530; 99222; 99232; 99285; 71045; 72193; 80202; 81003; 81015; 82607; 82728; 83540; 83550; 83605; 83735; 84134; 85025; 86140; 87070; 87086; 87186; 87205; 93010; 99223; 99233; 99239; 99284; J0131; J1644; J2543; J3475; J3480; J3490; J7613

== ENCOUNTER 2021-01-21 12:24 | Inpatient (IN) | payer MEDICARE, OTHER, SELFPAY ==
--- NOTE | 2021-01-21 12:39 | W.PM.HP.N ---
Date of service: 01/21/21 Time of Service: 12:39 Assessment and Plan Assessment and plan (1) Spastic quadriplegia: Start date: 01/21/21 Start time: 12:42 Status: Chronic Assessment and plan: Severely debilitated man with a very unusual flexion contracture of the right leg that is leading to a variety of pressure sores. The overall plan is to try to get tertiary care orthopedics and plastic surgery involved. He has an appt with [facility] wound clinic, plastics, and Ortho consult. He continues to have severe spasms despite being on flexiril and methocarbanol therefore he is being changed to diazepam QID prn for spasms. Continue to fentynal patch He is being transitioned to SB status while being on antibx therapy for osteomylitis. (2) Cervical myelopathy: Start date: 01/21/21 Start time: 12:42 Status: Chronic Assessment and plan: Presumed osteomyelitis on clinical grounds. He has exposed bone. He continues on ceftriaxone which is planned for a total of 6 weeks of therapy. Planned discontinuation of ceftriaxone 02/25/2021. as above Blood cultures and wound cultures are growing out a strep constellatus. We are presuming that these are sensitive to ceftriaxone. No sensitivities were run on any of his wound or blood cultures although his repeat blood cultures from 01/14 showed no growth. His sepsis is resolved. (3) Left ischial pressure sore: Start date: 01/21/21 Start time: 12:42 Status: Acute Assessment and plan: Presumed osteomyelitis on clinical grounds. He has exposed bone. He continues on ceftriaxone which is planned for a total of 6 weeks of therapy. Planned discontinuation of ceftriaxone 02/25/2021. as above Qualifiers: Pressure injury stage: stage 4 Qualified Code(s): L89.324 - Pressure ulcer of left buttock, stage 4 (4) DVT prophylaxis: Start date: 01/21/21 Start time: 12:48 Status: Acute Assessment and plan: heparin 5000 subcu (5) Discharge planning issues: Start date: 01/21/21 Start time: 12:48 Status: Acute Assessment and plan: After 6 weeks of antbx patient will return to [facility]. discussed with Dr. Giraldo History of Present Illness History of Present Illness Chief Complaint: Osteomylitis Narrative: 75 y.o male admitted to [facility] for poor appetite and AMS. PMH includes spinal stenosis, quadrapeligia, on admission he was found to have multiple wound largest on his hip (see nurse wound care eval). Labs in the ED with WBC 27.45, ANC 24.49, BUN 104 and Creatinine 3.9. He was febrile at 38.6 with hypoxia. He was admitted to / for further management. CXR revealed Severely limited exam. Poor pulmonary inflation basilar atelectasis. Infiltrates difficult to exclude. CT revealed IMPRESSION: 1. No CT evidence to suggest osteomyelitis in the left ischial tuberosity. Early osteomyelitis cannot be excluded due to the soft tissue limitations of the CT scan. If there is continued clinical concern an MRI or 3 phase bone scan should be considered. 2. Question of cortical loss involving the right inferior pubic ramus. Differential considerations include infection or fracture. Neoplasm cannot be entirely excluded. MRI should be considered for further evaluation. A bone scan may be useful but necessarily nonspecific. BC revealed strep consellatus with no sensitivities. He was placed on ceftriaxone. He is considered with possible sepsis therefore he is receiving 6 weeks of antibiotics. He is having severe spasms with pain. He was placed on fentnyal patch with flexiril, methocarbonal, he continues to have severe spasms, he was switched to valium due to the spasms. He is set up to be seen by [facility] ortho, wound, and Plastics on 02/08. He currently is on a wound vac for his ischal tuberosity, he is stable and therefore being transferred to 1 for further management. He will have an echo on and neuro eval, as part of outpatient workup. He denies CP, SOB, N/V/D. Review of Systems All systems reviewed & are unremarkable except as noted in HPI and below PFSH Medical History Advance directive in chart Cervical myelopathy Chronic venous hypertension (idiopathic) with ulcer and inflammation of bilateral lower extremity Combative behavior verbally, unable to move Complete immobility due to severe physical disability or frailty Disoriented to place Disoriented to time Essential (primary) hypertension Fatty (change of) liver, not elsewhere classified Goals of care, counseling/discussion Hallucinations, unspecified Hyperlipemia Lives in long term since Jul 2020 Major depressive disorder Muscle weakness (generalized) Neuromuscular dysfunction of bladder, unspecified Obesity Other spondylosis with myelopathy, cervical region Palliative care patient Paraplegia Pneumonia POLST (Physician Orders for Life-Sustaining Treatment) discussed and verbal decision made for DNR/DNI on 12/05/20; cannot sign Pressure ulcer of left heel, unstageable Pressure ulcer of other site, unstageable Pressure ulcer of right heel, unstageable Pressure ulcer of right hip, unstageable Pressure ulcer of right upper back Pressure ulcers of skin of multiple topographic sites Radiculopathy Repeated falls Rhabdomyolysis Spastic quadriplegia Unilateral primary osteoarthritis, right hip Unspecified fall Urinary tract infection Venous insufficiency (chronic) (peripheral) Surgical History History of neck surgery [facility] 2020 Family History Sister No problems noted. Social History Smoking/Tobacco Use Status: Never Smoking risk assessment performed?: Yes Alcohol Intake: never Drug use: Never Substance use type: does not use Caregiver/Support person: No Household members: none Housing: long term Communication Needs: Corrective Lenses Do you need help understanding health information?: Always Current gender identity: male How often do you talk on the phone with friends or family?: three or more times per week How often do you get together with friends or relatives?: never Panel score (0-1 are the most socially isolated patients): 1 What type of physical activity do you participate in: none and sedentary lifestyle Frequency: does not exercise Special kena needs: No Seatbelt use: always Do you feel safe at home: Yes Do you feel safe in your relationship?: Yes Additional Social history: PATIENT HAS BEEN AT [facility] SINCE or JUNE. WAS LIVING ALONE. Has a sister Marie who is his agent, though not sure if paperwork signed. [place] era vet. Was in the [place]. 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 From [place] originally. Meds Allergies and Home Medications Allergies Allergy/AdvReac Type Severity Reaction Status Date / Time No Known Allergies Allergy Unverified 12/01/20 16:45 Home Medications Medication Instructions Recorded Confirmed Type Liquid Protein Fortifier 30 ml PO BID 09/24/20 01/12/21 History acetaminophen 1,000 mg PO Q6H PRN 09/24/20 01/12/21 History aspirin 81 mg PO DAILY 09/24/20 01/12/21 History cyanocobalamin (vitamin B-12) 1,000 mcg PO BID 09/24/20 01/12/21 History cyclobenzaprine 5 mg PO TID 09/24/20 01/12/21 History docusate sodium [Colace] 100 mg PO DAILY 09/24/20 01/12/21 History ferrous gluconate 225 mg PO HS 09/24/20 01/12/21 History loperamide 2 mg PO Q6H PRN 09/24/20 01/12/21 History magnesium oxide [MagOx] 400 mg PO DAILY 09/24/20 01/12/21 History multivitamin 1 tab PO DAILY 09/24/20 01/12/21 History polyethylene glycol 3350 [Miralax] 17 g PO DAILY 09/24/20 01/12/21 History simvastatin 40 mg PO QHS 09/24/20 01/12/21 History tamsulosin [Flomax] 0.4 mg PO DAILY 09/24/20 01/12/21 History Fleet Enema 118 ml [place] ONCE 12/01/20 01/12/21 History bisacodyl [Dulcolax (bisacodyl)] 10 mg [place] DAILY PRN 12/01/20 01/12/21 History fentanyl 1 patch TRANSDERMAL Q72H 12/01/20 01/12/21 History melatonin 5 mg PO HS PRN 12/01/20 01/12/21 History methocarbamol 1,000 mg PO QID 12/01/20 01/12/21 History nystatin 1 applic TOPICAL TID 12/01/20 01/12/21 History oxycodone 10 mg PO Q4H PRN 12/01/20 01/12/21 History sennosides [senna] 8.6 mg PO BID 12/01/20 01/12/21 History baclofen 10 mg PO TID PRN PRN #30 tab 12/15/20 01/12/21 Rx dronabinol 2.5 mg PO BID #60 cap 12/15/20 01/12/21 Rx gabapentin 300 mg PO TID #0 cap 06/04/21 07/02/21 Rx pantoprazole 40 mg PO BID@ #60 tab 12/15/20 01/12/21 Rx zinc sulfate [Zinc-220] 220 mg PO DAILY #30 cap 12/15/20 01/12/21 Rx dexamethasone 4 mg PO DAILY 01/12/21 01/12/21 History Exam Narrative Exam Narrative: Exam Narrative: Alert and oriented, coherent. No discomfort. Patient is lying in bed w/ his right leg contracted in an abducted position over his left thigh and in a flexed position. I did not attempt to uncross his legs as he is in a spastic position chronically. He has a duoderm over a right proximal thigh wound. I did not get a look at his left ischial wound as this had already been dressed. He has limited use of his hands and arms. Left arm is extended in a contracted position. Psych Mental Status: mental status grossly normal Speech and Movement: speech and movement normal Mood: congruent mood Affect: normal affect
--- NOTE | 2021-01-21 13:37 | CM.SWINGPC ---
- If Service Date Differs Date of service: 01/21/21 Time of Service: 13:37 Swingbed Plan of Care Plan of care: SWING BED PROGRAM ACTIVITIES/DISCHARGE PLAN OF CARE ACTIVITIES PLAN Date: 01/21/2021 Identified Need: Individualized activity plan. Intervention/Plan: London has a television in his room and will be offered items from the activity cart. He enjoys watching western movies and listening to music from the 50s and 60s era. Initials lfs DISCHARGE PLAN Date: Identified Need: Intervention/Plan: Initials
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
[2021-01-21] MEDS: Gabapentin 300 MG CAP PO ×2 (13:53→20:35)
[2021-01-21] MEDS: Heparin 5,000 UNITS/ML VIAL 5000 UNITS SC (13:53)
[2021-01-21] MEDS: diazePAM 5 MG TAB PO (13:53)
--- NOTE | 2021-01-21 14:18 | PHA.REVIEW ---
Pharmacy Admission Review - Admission Clinical Review (Last Reviewed 01/21/21 @ 12:40 by Judith Simmons NP) Left ischial pressure sore (Acute) DVT prophylaxis (Acute) Discharge planning issues (Acute) No Known Allergies Allergy (Unverified 12/01/20 16:45) Resuscitation Status DNR/DNI Height 5 ft 9 in Weight 59 kg Patient Name: London Coker Date of : 1945 Patient Status: Inpatient Attending Provider: Costa Scott Date: 01/17/21 17:14 Initialization Date: 01/17/21 17:14 Addendum entered and electronically signed by Leonor Cervantes 01/20/21 07:36: Antibiotic Activity - Pharmacy Antibiotic Review Pharmacy Antibiotic Activity: Reviewed, no change (IV ceftriaxone for 6 wks ending 02/25) Original Note: Pharmacy Admission Review - Admission Clinical Review (Last Reviewed 01/17/21 @ 07:41 by Skyler Roth DPM) Osteomyelitis (Acute) Gram-positive bacteremia (Acute) Left ischial pressure sore (Acute) DVT prophylaxis (Acute) Sepsis (Acute) Pneumonia (Acute) UTI (urinary tract infection) (Acute) HCAP (healthcare-associated pneumonia) (Acute) Fever (Acute) Discharge planning issues (Acute) Pressure ulcers of skin of multiple topographic sites (Acute) Complete immobility due to severe physical disability or frailty (Acute) No Known Allergies Allergy (Unverified 12/01/20 16:45) Resuscitation Status DNR/DNI Height 5 ft 9 in Weight 72 kg - Renal Dosing Renal Dosing: BUN 7 mg/dL (7-18) 01/17/21 06:21 Creatinine 0.3 mg/dL (0.70-1.30) L 01/17/21 06:21 Medications needing adjustments: Reviewed List of meds needing interventions: eCrCl is 82 ml/min - Anticoagulation Anticoagulation: Hgb 10.9 g/dL (13.5-17.5) L 01/17/21 06:21 Hct 35.9 % (40.0-50.0) L 01/17/21 06:21 Plt Count 308 10^3/uL (130-400) 01/17/21 06:21 Creatinine 0.3 mg/dL (0.70-1.30) L 01/17/21 06:21 DVT Prophylaxis: Reviewed Medications: Heparin - Opiate Usage Evaluate Pain Scale/Pains Meds: Reviewed Scheduled Bowel Reg ordered if on Opiates?: Yes - Relevant Labs Sodium 144 mmol/L (136-145) 01/17/21 06:21 Potassium 3.5 mmol/L (3.5-5.1) 01/17/21 06:21 Chloride 109 mmol/L (98-107) H 01/17/21 06:21 Magnesium 1.8 mg/dL (1.8-2.4) 01/17/21 06:21 C-Reactive Protein 6.54 mg/dL (0.0-0.3) H 01/15/21 06:45 Electrolytes, C-Reactive P, ESR: Reviewed - DM Control DM Control: Glucose 87 mg/dL (74-106) 01/17/21 06:21 Insulin Dosing: N/A - Heart Failure/GA EF%, NENITA's, B-Blockers, Diuretics: N/A - BP Control BP Control: Blood Pressure 156/88 Blood Pressure 158/88 Blood Pressure 126/74 Blood Pressure 129/72 If elevated: Reviewed - Qtc Review If Elevated: Reviewed - IV to PO Switch IV Medications: Reviewed - Home Meds Home Med List reviewed: Reviewed Relevent Home Meds Not ordered & why?: baclofen, vb12, dexamethasone, ferrous gluconate, pantoprazole, simvastatin, tamsulosin - Current meds Current Medication Order Review: Reviewed (ceftriazone 2gm daily x 42 days -- today is day 3) - Comments Comments/Follow Ups: chano. appt 02/08 at [facility]. home med list on this account does not look like it has been reviewed by provider yet
[2021-01-21 15:19] VITALS: BP 124/66; PULSE 85; RESP 18; TEMP 36.5; O2SAT 97
[2021-01-21] MEDS: Methocarbamol 500 MG TAB 1500 MG PO ×2 (15:44→20:34)
[2021-01-21 19:20] VITALS: BP 118/72; PULSE 83; RESP 18; TEMP 36.5; O2SAT 92
[2021-01-21] MEDS: Dronabinol 2.5 MG CAP 5 MG PO (20:35)
[2021-01-21] MEDS: Protein Nutritional Supplement 16 GM 1 OUNCE PACKET PO (20:36)
[2021-01-21] MEDS: Ascorbic Acid 500 MG TAB PO (20:36)
[2021-01-21] MEDS: Senna TAB 1 TAB PO (20:36)
[2021-01-21] MEDS: Normal Saline Flush 10 ML SYR 20 ML IVP (20:37)
[2021-01-21] MEDS: Nystatin POWDER 60 GM JAR TP (20:50)
[2021-01-22 00:07] VITALS: BP 130/73; PULSE 83; RESP 18; TEMP 35.7; O2SAT 96
[2021-01-22 07:23] VITALS: BP 119/73; PULSE 75; RESP 14; TEMP 36.2; O2SAT 100
[2021-01-22] MEDS: Polyethylene Glycol 3350 17 GM PACKET PO (08:10)
[2021-01-22] MEDS: Senna TAB 1 TAB PO ×2 (08:10→21:36)
[2021-01-22] MEDS: Protein Nutritional Supplement 16 GM 1 OUNCE PACKET PO (08:10)
[2021-01-22] MEDS: Methocarbamol 500 MG TAB 1500 MG PO ×4 (08:11→21:35)
[2021-01-22] MEDS: Multivitamin w/Minerals TAB 1 TAB PO (08:11)
[2021-01-22] MEDS: Dronabinol 2.5 MG CAP 5 MG PO ×2 (08:11→21:35)
[2021-01-22] MEDS: Zinc Sulfate 220 MG TAB PO (08:11)
[2021-01-22] MEDS: Docusate Sodium 100 MG CAP PO (08:11)
[2021-01-22] MEDS: Ascorbic Acid 500 MG TAB PO ×2 (08:11→21:36)
[2021-01-22] MEDS: Gabapentin 300 MG CAP PO ×3 (08:12→21:34)
[2021-01-22] MEDS: Normal Saline Flush 10 ML SYR 20 ML IVP ×2 (08:12→21:37)
[2021-01-22] MEDS: fentaNYL 50 MCG PATCH TD (08:14)
--- NOTE | 2021-01-22 09:53 | PT.INNT ---
Date of service: 01/22/21 Time of Service: 09:53 PT Notes Visit Reasons: osteomylitis Patient converted to swing bed level I as of 01/21/2021 for antibiotic management of suspected osteomyelitis. Another referral was sent for PT services, however patient remains unsure about the benefit of physical therapy at this time as passive ranging can aggravate his pain. He is scheduled to have an orthopedic consultation for a possible correction of hip deformity and contracture management in the coming weeks and may be agreeable to services once he agrees to surgery. Thank you for the opportunity to participate in the care of this patient. Coretta Saravia PT, DPT, CLT [facility] [place], [place]
--- NOTE | 2021-01-22 09:57 | NT_ITS ---
Date of service: 01/22/21 Time of Service: 09:57 Occupational Therapy Notes 01/22/21 OT consult received and patients chart was reviewed. Pt denies the need for skilled Occupational Therapy services. He states that he is not interested in services at this time. Due to this, OT will discharge pt from skilled services and reassess if needed in the future. Mary Ann Chavarria, OTR/[facility]
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
[2021-01-22] MEDS: cefTRIAXone 2 GM/50 ML BAG IVPB (11:58)
[2021-01-22] MEDS: Heparin 5,000 UNITS/ML VIAL 5000 UNITS SC (11:59)
[2021-01-22] MEDS: Collagenase 30 GM TUBE TP (13:35)
[2021-01-22] MEDS: Nystatin POWDER 60 GM JAR TP (13:36)
[2021-01-22 15:30] VITALS: BP 134/79; PULSE 92; RESP 17; TEMP 36.5; O2SAT 99
[2021-01-22] MEDS: oxyCODONE 10 MG TAB PO (15:46)
[2021-01-22] MEDS: diazePAM 5 MG TAB PO (21:34)
[2021-01-22] MEDS: Melatonin 3 MG TAB 6 MG PO (21:35)
[2021-01-22] MEDS: Magnesium Chloride 64 MG TABCR 128 MG PO (21:36)
[2021-01-22 23:49] VITALS: BP 120/73; PULSE 76; RESP 16; TEMP 36.6; O2SAT 100
[2021-01-23 06:54] VITALS: BP 116/70; PULSE 70; RESP 16; TEMP 36; O2SAT 97
--- NOTE | 2021-01-23 07:00 | DI.US_ITS ---
APPROVED REPORT EXAM: Comprehensive 2D, Doppler, and color-flow Echocardiogram Patient Location: In-Patient Room/Bed: 229 Cabin Agent: Amanda Babin RDCS (AE) Indications: r/o endocarditis Conclusion Left Ventricle : The left ventricle is normal size. The left ventricular systolic function is normal. The left ventricular ejection fraction is within the normal range. There is normal left ventricular wall thickness. There is normal LV segmental wall motion. The left ventricular diastolic function is normal. LVEF is 57%. Right Ventricle : The right ventricle is normal size. The right ventricular systolic function is norm al. The RVSP is 17 mmHg. Atria : The left atrium size is normal. The right atrium size is normal. Valves: There are no hemodynamically significant valvular lesions. There is no evidence of valvular vegetations. Great Vessels : The aortic root is normal in size. The ascending aorta is normal in size. Aortic arch is not well visualized. The IVC was not visualized. Please see remainder of study for further details. Wall motion Left Ventricle The left ventricle is normal size. The left ventricular systolic function is normal. The left ventric ular ejection fraction is within the normal range. There is normal left ventricular wall thickness. T here is normal LV segmental wall motion. The left ventricular diastolic function is normal. There is no ventricular septal defect visualized. LVEF is 57%. Right Ventricle The right ventricle is normal size. The right ventricular systolic function is normal. The RVSP is 17 mmHg. Atria The left atrium size is normal. The right atrium size is normal. The interatrial septum is intact wit h no evidence for an atrial septal defect. Aortic Valve The Aortic valve is sclerotic. Aortic valve is trileaflet. There is no aortic valvular stenosis. Trac e aortic regurgitation. Mitral Valve The mitral valve is normal in structure. No evidence of mitral valve stenosis. Trace mitral regurgita tion. Tricuspid Valve The tricuspid valve is normal in structure. There is no tricuspid valve stenosis. Trace tricuspid reg urgitation. Pulmonic Valve Pulmonic valve is grossly normal in structure. There is no pulmonic valvular stenosis. There is no pu lmonic valvular regurgitation. Great Vessels The aortic root is normal in size. The ascending aorta is normal in size. Aortic arch is not well vis ualized. The IVC was not visualized. Pericardium There is no pericardial effusion. 2D Dimensions IVSD d PLAX 0.88 cm M: 0.6-1.2 LV Vol A2C d MOD 106.2 mL LVPW d PLAX 0.84 cm M: 0.6 - 1.2 LV Vol A4C d MOD 111.2 mL LVID d PLAX 4.42 cm M: 4.2 - 5.8 LA vol/ BSA A2C s A-L 29.0 mL/m2 LVDs 2.95 cm M: 2.5 - 4.0 LA vol/ BSA A4C s A-L 22.5 mL/m2 Ao Root d 2.96 cm M: 3.1 - 3.7 LA Vol/ BSA Biplane s A-L 25.9 mL/m2 RA Area A4C 10.01 cm2 LA Area A4C s MOD 15.21 cm2 RA Vol/ BSA A4C s A-L 10.5 mL/m2 LA Area A2C s MOD 17.09 cm2 Ao Asc Diam d 3.58 cm M: 2.6 - 3.4 LV EF A4C MOD 57.5 % LV EF Teichholz 61.1 % LV EF A2C MOD 56.0 % LVEF (Johansen's) 56.19 % M: 52 - 72 LV EF Biplane MOD 56.2 % LV Volume 86.52 mL M: 62 - 150 SV 61.48 mL LV Volume Index 50.30 mL/m2 M: 34 - 74 SV Index 35.74 mL/m2 LV Vol Biplane MOD 109.4 mL FS 32.50 % M-Mode TAPSE 1.50 cm (M/F) >1.7 LV Diastology MV E' medial 0.068 (>0.07 m/s) E/A Ratio 0.8 LV E/e MED 7.95 (<14) MV E Vmax 0.54 (0.4-1.3 m/s) MV E' lateral 0.106 (>0.1 m/s) MV A Vmax 0.70 (0.4-1.3 m/s) LV E/e LAT 5.05 (<14) MV E/A Ratio 0.75 MV E/E' medial 7.95 MV E/E' lateral 5.08 Aortic Valve LVOT Area 2.97 cm2 AoV Area Vmax 1.66 cm2 LVOT Vmax 0.90 m/s AoV Area/ BSA (Vmax) 0.96 cm2/m2 LVOT Mean Db. 0.55 m/s AMBER Mean Db. 1.50 cm2 LVOT Peak Grad 3.2 mmHg AMBER Mean Db. Index 0.87 cm2/m2 LVOT Mean Grad 1.5 mmHg AR DT 2029 msec LVOT VTI 0.200 m AR PHT 588 msec LVOT Diam s 1.90 cm AoV Vmax 1.61 m/s Velocity Ratio 0.55 AoV Mean Db. 1.09 m/s AoV Peak Grad 10.3 mmHg LVOT SV 59.25 mL AoV Mean Grad 5.3 mmHg AoV VTI 0.288 m AoV Area VTI 2.06 cm2 AoV Area/ BSA (VTI) 1.20 cm/m2 Mitral Valve MV DT 279 (160-240 msec) MV PHT 81 msec MV Area PHT 2.72 cm2 MV VTI 0.209 m MV VTI Annulus 0.226 m MV Area VTI 3.08 (4.0-6.0 cm2) Pulmonary Valve PV Vmax 1.00 (0.5-1.5 m/s) RVOT Peak Gr. 2.23 mmHg PV Peak Grad 4.0 mmHg RVOT Mean Gr. 1.10 mmHg PV Mean Grad 1.9 mmHg RVOT VTI 0.149 m PV VTI 0.167 m RVOT Vmax 0.75 m/s Tricuspid Valve TR Peak Grad 14.7 mmHg TR Vmax 1.92 m/s RA Pressure 3.00 mmHg RVSP (TR) 17.7 mmHg
[2021-01-23 07:38] LABS: Platelet Count 237 10^3/uL (130-400)
[2021-01-23] MEDS: Polyethylene Glycol 3350 17 GM PACKET PO (08:41)
[2021-01-23] MEDS: Zinc Sulfate 220 MG TAB PO (08:41)
[2021-01-23] MEDS: Protein Nutritional Supplement 16 GM 1 OUNCE PACKET PO ×2 (08:41→19:47)
[2021-01-23] MEDS: Senna TAB 1 TAB PO ×2 (08:41→19:48)
[2021-01-23] MEDS: Multivitamin w/Minerals TAB 1 TAB PO (08:41)
[2021-01-23] MEDS: Ascorbic Acid 500 MG TAB PO ×2 (08:41→19:48)
[2021-01-23] MEDS: Docusate Sodium 100 MG CAP PO (08:42)
[2021-01-23] MEDS: Gabapentin 300 MG CAP PO ×3 (08:44→19:48)
[2021-01-23] MEDS: Dronabinol 2.5 MG CAP 5 MG PO ×2 (08:44→19:48)
[2021-01-23] MEDS: Methocarbamol 500 MG TAB 1500 MG PO ×4 (08:44→19:48)
[2021-01-23] MEDS: Collagenase 30 GM TUBE TP (08:45)
[2021-01-23] MEDS: diazePAM 5 MG TAB PO ×2 (08:45→19:48)
[2021-01-23] MEDS: Normal Saline Flush 10 ML SYR 20 ML IVP ×2 (08:45→19:47)
[2021-01-23] MEDS: Nystatin POWDER 60 GM JAR TP ×2 (08:45→19:49)
[2021-01-23] MEDS: FLUoxetine 10 MG TAB PO (09:33)
[2021-01-23] MEDS: Magnesium Chloride 64 MG TABCR 128 MG PO ×2 (09:33→22:25)
[2021-01-23] MEDS: cefTRIAXone 2 GM/50 ML BAG IVPB (12:12)
[2021-01-23] MEDS: Heparin 5,000 UNITS/ML VIAL 5000 UNITS SC (12:12)
[2021-01-23 16:29] VITALS: BP 131/78; PULSE 75; RESP 14; TEMP 35.6; O2SAT 96
[2021-01-23] MEDS: Melatonin 3 MG TAB 6 MG PO (22:25)
[2021-01-23] MEDS: oxyCODONE 10 MG TAB PO (22:26)
[2021-01-23 22:51] VITALS: BP 131/78; PULSE 75; RESP 14; TEMP 35.6; O2SAT 97
[2021-01-24] MEDS: Heparin 5,000 UNITS/ML VIAL 5000 UNITS SC ×2 (01:26→12:49)
[2021-01-24] MEDS: Ascorbic Acid 500 MG TAB PO ×2 (08:36→20:23)
[2021-01-24] MEDS: Gabapentin 300 MG CAP PO ×3 (08:36→20:23)
[2021-01-24] MEDS: oxyCODONE 10 MG TAB PO ×3 (08:36→22:57)
[2021-01-24] MEDS: Methocarbamol 500 MG TAB 1500 MG PO ×4 (08:36→20:24)
[2021-01-24] MEDS: Dronabinol 2.5 MG CAP 5 MG PO ×2 (08:36→20:23)
[2021-01-24] MEDS: Polyethylene Glycol 3350 17 GM PACKET PO (08:36)
[2021-01-24] MEDS: Zinc Sulfate 220 MG TAB PO (08:36)
[2021-01-24] MEDS: Protein Nutritional Supplement 16 GM 1 OUNCE PACKET PO ×2 (08:36→20:26)
[2021-01-24] MEDS: Nystatin POWDER 60 GM JAR TP ×3 (08:37→20:26)
[2021-01-24] MEDS: Docusate Sodium 100 MG CAP PO (08:37)
[2021-01-24] MEDS: FLUoxetine 10 MG TAB PO (08:37)
[2021-01-24] MEDS: diazePAM 5 MG TAB PO ×2 (08:37→20:24)
[2021-01-24] MEDS: Senna TAB 1 TAB PO ×2 (08:37→20:24)
[2021-01-24] MEDS: Multivitamin w/Minerals TAB 1 TAB PO (08:37)
[2021-01-24] MEDS: Normal Saline Flush 10 ML SYR 20 ML IVP ×2 (08:38→20:27)
[2021-01-24 08:55] VITALS: BP 127/72; PULSE 78; RESP 17; TEMP 36.5; O2SAT 97
[2021-01-24] MEDS: Magnesium Chloride 64 MG TABCR 128 MG PO ×2 (10:06→20:58)
[2021-01-24] MEDS: cefTRIAXone 2 GM/50 ML BAG IVPB (12:49)
--- NOTE | 2021-01-24 18:36 | WOUNDCONS ---
- If Service Date Differs Date of service: 01/24/21 Time of Service: 17:20 Wound Initial Evaluation Narrative: 01/24/21- Pt allowed wound vac dressing change after premedication. After wound vac was changed, pt strongly declined any further dressing changes. Will attempt to reevaluate again at a later time. - Wound Left ischial tuberosity Wound Type: Full Thickness Pressure Ulcer Stage: IV Wound General Appearance: Unapproximated Wound Length: 6 cm Wound Width: 6 cm Wound Depth: 1 cm (undermining from 12 o'clock to 7 o'clock 1.3 cm)
--- NOTE | 2021-01-24 18:44 | W.PALPGNOTE ---
Date of service: 01/24/21 Assessment and Plan Assessment and plan (1) Spastic quadriplegia: Status: Chronic Assessment and plan: Unlikely to recover from same. Just started diazepam to see if contratures could be less rigid and intermittently painful. (2) Physical debility: Status: Chronic Assessment and plan: Permanent. Hoped that his neck surgery at [facility] would help with his mobility. Appears to have been an unsuccessful surgery. He is frustrated. Will never be able to live alone. (3) Cervical myelopathy: Status: Chronic (4) Osteomyelitis: Status: Acute Assessment and plan: On ceftriaxone daily. Tolerating without GI upset or diarrhea. Will need to complete a 6 wk course. Plan after that is for him to return to [facility]. He endorse this plan at this time. Qualifiers: Osteomyelitis type: other chronic Osteomyelitis location: other site Qualified Code(s): M86.68 - Other chronic osteomyelitis, other site (5) Osteonecrosis of right hip: Status: Suspected (6) POLST (Physician Orders for Life-Sustaining Treatment): Status: Acute Assessment and plan: He is a DNR./ DNI. He doesn't want to have further operations. Is willing to take medications that will help him feel better. Does not want aggressive care. (7) Palliative care patient: Status: Acute Assessment and plan: A palliative care clinical team manager will see him weekly, while he is an inpatient. He does like the extra attention and time to talk. (8) Wounds, multiple: Status: Acute Assessment and plan: Managed by wound team at [facility]. He was frustrated that the nurse was called away. He has no way to use his call button easily. Will ask if PT/OT could come up with an alternative to his current call sarabia. Subjective Subjective Patient reports: denies feels better Interval history since last seen: Kain was on his bed, naked, uncovered, (as was his desire). He was due for his wound bandages to be changed; the bedside table had bandages and gloves, etc, laid out. The nurse was with another patient, we were informed. He said he is unable to use his call button. I watched him try to manipulate the flat call sarabia disc onto his abdomen in a way that he could press it. He could not. I pressed the call button for him. Last night, he yelled for help; he said he was chastised for yelling out for help. He tried to explain that he could not use the button. He was irritable in general today. He is getting daily IV ceftriaxone for his osteomyelitis. He understands that he is to return to [facility] after this admission. He admitted that he has had pressure ulcers for more than a year, prior to his admission to [facility]. He is frustrated that he cannot move. He is a functional quadraplegic. He has not had fevers. He requires help with all ADLS. He is able to swallow and speak. He is hand fed. His weight is on the low end of normal. He used to be overweight, if not obese, he reports. He was evaluated by neurologist Dr Wynne on Friday. She recommended diazepam scheduled and an antidepressant; Dr Giraldo started Kain on prozac 10 mg daily. Exam Narrative Exam Narrative: He was alert and coherent. His ability to give a detailed history is limited. He was frustrated by his inability to use his call sarabia and upset about the nurses' reaction to his calling out last night. He was able to converse well. He was not in any physical discomfort, though he was irritable. I was able to examine his various wound dressings. His multiple bandages appeared clean and dry, but were dated for 01/23. He was awaiting wound changes.. There was no erythema extending outside of any of the dressings. His did not have his wound VAC in place. His contraction abnormality to the right leg is profound. His right leg is flexed and crossed across his left thigh. I did try manipulating it slightly and was immediately met with some severe muscle spasm. The leg is rigidly contracted in place. His wounds include his right heel, right hip, right malone among others. His lungs were clear. His heart was regular. His abdomen was soft with normal bs and no masses. His extremities were without cyanosis or edema. His mood was irritable. His neuro exam showed minimal ability to move his upper arms. He could not manipulate the call sarabia disc in a way that allowed him to call for the nurse. Objective Last Vital Signs Temp 97.7 F 01/24/21 08:55 Pulse 78 01/24/21 08:55 Resp 17 01/24/21 08:55 BP 127/72 01/24/21 08:55 Pulse Ox 97 01/24/21 08:55
[2021-01-24 19:51] VITALS: BP 152/72; PULSE 91; RESP 16; TEMP 36.4; O2SAT 97
[2021-01-24] MEDS: Acetaminophen 500 MG TAB 1000 MG PO (20:26)
[2021-01-24] MEDS: Melatonin 3 MG TAB 6 MG PO (20:59)
[2021-01-24] MEDS: Collagenase 30 GM TUBE TP (22:00)
[2021-01-24 23:57] VITALS: RESP 16
[2021-01-25] MEDS: Heparin 5,000 UNITS/ML VIAL 5000 UNITS SC ×2 (00:22→13:15)
[2021-01-25 02:56] VITALS: BP 121/71; PULSE 80; RESP 16; TEMP 36; O2SAT 95
[2021-01-25 07:29] VITALS: BP 104/68; PULSE 75; RESP 18; TEMP 36.6; O2SAT 98
[2021-01-25] MEDS: Protein Nutritional Supplement 16 GM 1 OUNCE PACKET PO ×2 (08:16→20:39)
[2021-01-25] MEDS: Polyethylene Glycol 3350 17 GM PACKET PO (08:17)
[2021-01-25] MEDS: fentaNYL 50 MCG PATCH TD (08:17)
[2021-01-25] MEDS: Dronabinol 2.5 MG CAP 5 MG PO ×2 (08:18→20:38)
[2021-01-25] MEDS: diazePAM 5 MG TAB PO ×2 (08:18→20:37)
[2021-01-25] MEDS: Methocarbamol 500 MG TAB 1500 MG PO ×4 (08:18→20:38)
[2021-01-25] MEDS: oxyCODONE 10 MG TAB PO ×3 (08:18→20:37)
[2021-01-25] MEDS: FLUoxetine 10 MG TAB PO (08:19)
[2021-01-25] MEDS: Zinc Sulfate 220 MG TAB PO (08:19)
[2021-01-25] MEDS: Ascorbic Acid 500 MG TAB PO ×2 (08:19→20:37)
[2021-01-25] MEDS: Gabapentin 300 MG CAP PO ×3 (08:19→20:37)
[2021-01-25] MEDS: Docusate Sodium 100 MG CAP PO (08:19)
[2021-01-25] MEDS: Senna TAB 1 TAB PO ×2 (08:19→20:37)
[2021-01-25] MEDS: Multivitamin w/Minerals TAB 1 TAB PO (08:19)
[2021-01-25] MEDS: Normal Saline Flush 10 ML SYR 20 ML IVP ×2 (09:44→20:39)
[2021-01-25] MEDS: Collagenase 30 GM TUBE TP (09:44)
[2021-01-25] MEDS: Nystatin POWDER 60 GM JAR TP ×3 (09:45→20:40)
--- NOTE | 2021-01-25 10:17 | WOUNDCONS ---
- If Service Date Differs Date of service: 01/25/21 Time of Service: 07:30 Wound Initial Evaluation Narrative: Pt agrees to wound dressing changes today for weekly evaluation. Pt premedicated for pain. Right hip open area measured as two areas today, the proximal area measuring 0.3 cm x 0.3 cm x 0.1 cm with a pink periphery, no induration or increased warmth noted. Scant sanguinous drainage noted. The distal open area on right hip measures 1 cm x 1 cm x 0.1 cm with a pink periphery, no increased warmth or induration noted, scant sanguinous drainage noted with friable skin in base of wound. the right knee has no open area noted.The left knee open area measures 1.5 cm x 1.5 cm x 0.1 cm and has a pink periphery with scant serosanguinous drainage noted and friable skin in wound base. No induration or increased warmth noted. Right heel open area measures 2.5 cm x 1.5 cm x 0.3 cm and has a light pink periphery. No induration noted, no increased warmth noted. Heel is blanchable. Scant serous drainage noted. Bruise on left arm measures 6 cm x 7.5 cm x less than 0.1 cm. No open areas noted, no induration noted. Bruise is purplish with yellow periphery. Right malone open area measures 0.4 cm x 0.5 cm x 0.1 cm. Area surrounding open area is light pink with no induration or increased warmth noted. Scant serous drainage noted. Left thigh open area measures 1.2 cm x 1 cm x less than 0.1 cm. No induration or increased warmth noted. Scant serous drainage noted. Right foot three open areas- medial foot wound measures 2 cm x 1 cm x 0.1 cm Wound base is approximately 95% dark brown eschar with no induration noted. Proximal toe wound measures 1.6 cm x 1 cm x 0.1 cm. Wound base is approximately 40 % brown eschar, 50 % red tissue and 10 % yellow slough. No induration noted in periphery. Distal toe wound measures 0.8 cm x 0.7 cm x 0.1 cm and wound base is approximately 95% brown eschar. No induration noted. Left heel remains intact, with blanchable skin. No reddened areas at this time. (Of note- due to patient's positioning difficulties and discomfort with some movements some photos difficult to obtain at this time and some views are limited of wounds) Due to patient's level of comfort, groin photos deferred at this time, but nursing reports there are no open areas and redness is resolving. - Wound Right hip Wound Length: 1 cm Wound Width: 1 cm Wound Depth: 0.1 cm (proximal 0.3 cm x 0.3 cm x 0.1 cm) Left thigh Wound Length: 1.2 cm Wound Width: 1 cm Wound Depth: 0.1 cm (less than 0.1 cm) Left arm bruise Wound Length: 6 cm Wound Width: 7.5 cm Wound Depth: 0.1 cm (less than 0.1 cm) Right medial foot Wound Length: 2 cm Wound Width: 1 cm Wound Depth: 0.1 cm Right proximal toe Wound Length: 1.6 cm Wound Width: 1 cm Wound Depth: 0.1 cm Right distal toe Wound Length: 0.8 cm Wound Width: 0.7 cm Wound Depth: 0.1 cm Left knee Wound Length: 1.5 cm Wound Width: 1.5 cm Wound Depth: 0.1 cm Right heel Wound Length: 2.5 cm Wound Width: 1.5 cm Wound Depth: 0.3 cm Right malone Wound Length: 0.4 cm Wound Width: 0.5 cm Wound Depth: 0.1 cm - Pain Pain Level: 3 (3 prior to movement) - Recomendation Recomendation:: Recommend following orders for right foot (great toe and heel) from Dr. Roth Recommend following orders from the surgical team on left ischial tuberosity Recommend changing dressing on left knee to: cleanse with ns, pat dry, apply triad paste, cover with mepilex with border. Change q 3 days and PRN. Recommend keeping all other dressing orders the same at this time.
[2021-01-25] MEDS: Magnesium Chloride 64 MG TABCR 128 MG PO ×2 (10:25→20:38)
[2021-01-25 10:48] LABS: Abs Immature Grans 0.06 10^3/uL (0.0-0.06); Absolute Basophil Count 0.06 10^3/uL (0.0-0.2); Absolute Eosinophil Count 0.48 10^3/uL (0.0-0.7); Absolute Lymphocyte Count 1.17 10^3/uL (1.2-3.4); Absolute Monocyte Count 0.74 10^3/uL (0.1-0.8); Absolute Neutrophil Count 8.88 10^3/uL (1.2-6.7); Basophils % 0.5; Eosinophils % 4.2; HCT 38.4 % (40.0-50.0); HGB 11.6 g/dL (13.5-17.5); Immature Grans % 0.5; Lymphocytes % 10.3; MCH 25.1 pg (27.0-33.0); MCHC 30.2 % (32.0-36.0); MCV 83.1 fL (80-95); Monocytes % 6.5; Nucleated RBC 0 %; Platelet Count 184 10^3/uL (130-400); RBC 4.62 10^6/uL (4.36-5.78); RDW 18.6 % (11.8-14.1); RDW-SD 53.7 fL; WBC 11.38 10^3/uL (4.4-10.8)
[2021-01-25 10:50] LABS: ESR 45 mm/hr (0-20)
[2021-01-25 11:11] LABS: Anion Gap 3.8 mmol/L (3-11); BUN 16 mg/dL (7-18); C-Reactive Protein 5.21 mg/dL (0.0-0.3); CO2 30.2 mmol/L (21.0-32.0); CREATININE 0.4 mg/dL (0.70-1.30); Calcium 8.8 mg/dL (8.5-10.1); Chloride 106 mmol/L (98-107); Glucose 114 mg/dL (74-106); Potassium 4.2 mmol/L (3.5-5.1); Sodium 140 mmol/L (136-145)
[2021-01-25] MEDS: cefTRIAXone 2 GM/50 ML BAG IVPB (13:15)
[2021-01-25 16:05] VITALS: BP 128/74; PULSE 89; RESP 15; TEMP 36; O2SAT 96
--- NOTE | 2021-01-25 20:10 | PDOC.CMACT ---
- If Service Date Differs Date of service: 01/25/21 Time of Service: 20:10 Care Management Activity Note S/O: Kain remains at [facility] for his IV antibiotic course, which will likely end on 02/25/21. CM has coordinated consultations at [facility] wound care, plastics and ortho, all scheduled for 02/08/21. He will transport via ambulance, coordinated by the RN cleaning staff supervisor. Kain is agreeable to this plan. Kain enjoys listening to music at times, and likes to talk to his sister on the phone when he is able to, with assistance. Due to his physical immobility, his activities are limited. He is being seen regularly by Palliative care, and was seen by Neurology, who was consulted. Recommendations were made to start Kain on an antidepressant, as he has been struggling with depression. CM will continue to support Kain in his life enrichment during this [facility] stay. A: Kain is a 75 year old male admitted to [facility] on 01/21/21 to SWB 1 for chcf IV abx to treat Osteomylitis. P: Anticipate Kain will return to [facility] after completing his IV abx course. He will transport via ambulance. He will follow up with his discharge plan of care, including his ongoing appointments with wound care, plastics, ortho and neuro. CM will continue to follow.
[2021-01-25] MEDS: Melatonin 3 MG TAB 6 MG PO (20:38)
[2021-01-25 21:50] VITALS: BP 115/62; PULSE 99; RESP 17; TEMP 36.4; O2SAT 93
[2021-01-26 07:17] VITALS: BP 108/68; PULSE 92; RESP 18; TEMP 36.5; O2SAT 93
[2021-01-26] MEDS: Multivitamin w/Minerals TAB 1 TAB PO (09:03)
[2021-01-26] MEDS: Polyethylene Glycol 3350 17 GM PACKET PO (09:03)
[2021-01-26] MEDS: FLUoxetine 10 MG TAB PO (09:04)
[2021-01-26] MEDS: Zinc Sulfate 220 MG TAB PO (09:04)
[2021-01-26] MEDS: Methocarbamol 500 MG TAB 1500 MG PO ×4 (09:04→20:52)
[2021-01-26] MEDS: Senna TAB 1 TAB PO ×2 (09:04→20:52)
[2021-01-26] MEDS: diazePAM 5 MG TAB PO ×2 (09:04→20:53)
[2021-01-26] MEDS: Protein Nutritional Supplement 16 GM 1 OUNCE PACKET PO ×2 (09:05→20:53)
[2021-01-26] MEDS: Gabapentin 300 MG CAP PO ×3 (09:05→20:52)
[2021-01-26] MEDS: Dronabinol 2.5 MG CAP 5 MG PO ×2 (09:05→20:53)
[2021-01-26] MEDS: Normal Saline Flush 10 ML SYR 20 ML IVP ×2 (09:05→20:53)
[2021-01-26] MEDS: Docusate Sodium 100 MG CAP PO (09:05)
[2021-01-26] MEDS: Ascorbic Acid 500 MG TAB PO ×2 (09:05→20:53)
[2021-01-26] MEDS: Nystatin POWDER 60 GM JAR TP ×3 (09:06→20:54)
[2021-01-26] MEDS: oxyCODONE 10 MG TAB PO (10:59)
[2021-01-26] MEDS: Magnesium Chloride 64 MG TABCR 128 MG PO ×2 (10:59→20:53)
[2021-01-26] MEDS: Collagenase 30 GM TUBE TP (11:00)
--- NOTE | 2021-01-26 12:41 | W.PM.PROGNOT ---
Date of Service Date of service: 01/26/21 Time of Service: 12:41 Subjective Subjective Interval history since last seen: [place] is seen in his room, he is resting comfortably in bed. He is cooperative. Exam Narrative Exam Narrative: I reviewed wound nurse consultation yesterday and photographs and will yield to wound measurements based on yesterday's evaluation. [place] was rotated left side down so I could have access to his right heel and forefoot. Dressings were removed. The heel wound has yellowish slough and slime with a mild hypertrophic border but no undermining or gross signs of infection noted. The wound at the forefoot level have dark brown to black eschar in need of debridement. No erythema or active signs of infection are noted at this level. With a #10 scalpel, wounds located on the right heel, medial plantar aspect of the first metatarsophalangeal joint, distal aspect of the hallux and distal aspect of the second toe were all sharply debrided removing devitalized tissue getting to bleeding tissue. Partial thickness debridements were performed at each site. Because of the persistent fibrotic material present I recommend that we continue with topical Santyl ointment to the wounds covered with either a Mepilex dressing for the heel and gauze dressings for the right forefoot. Additionally, is increased erythema located along the medial and medial plantar aspect of the left first MPJ and medial malone region. The skin is closed over the site, there is no active drainage but increased temperature is noted. No fluid accumulations or fluctuance was detected. The calves were soft to palpation no suggestion of DVT. Minimal discomfort was elicited with palpation of these regions. He had adequate range of motion of the first MPJ without instability and without triggering significant pain. Impressions: Persistent pressure ulcerations right foot as above Nonspecific increased warmth and erythema left first MPJ and leg as above Plan: Once again the wounds were debrided partial thickness and we will continue with the current wound care. Gout can certainly present clinically at the left first MPJ but typically has more pain associated with the arrival. Uric acid level will be drawn for baseline. I suggest just cautious observation and if any suggestion of underlying infection develops further action will be required. I will continue to follow episodically or is requested. Objective Last Vital Signs Temp 36.5 C 01/26/21 07:17 Pulse 92 H 01/26/21 07:17 Resp 18 01/26/21 07:17 BP 108/68 01/26/21 07:17 Pulse Ox 93 01/26/21 07:17
[2021-01-26] MEDS: Heparin 5,000 UNITS/ML VIAL 5000 UNITS SC ×2 (12:44)
[2021-01-26] MEDS: cefTRIAXone 2 GM/50 ML BAG IVPB (12:44)
[2021-01-26 15:29] VITALS: BP 113/59; PULSE 78; RESP 17; TEMP 36.3; O2SAT 91
--- NOTE | 2021-01-26 20:36 | PCPN_ITS ---
Date of service: 01/26/21 Assessment and Plan Assessment and plan (1) Impaired decision making: Status: Chronic Assessment and plan: Kain does not appear to be able to retain information from one conversation to the next. He lacks insight into the nature of his quadriplegia. He says he wants to be able to walk. He had hoped that the neck surgery he had at [facility] in October 2020 would allow this to happen. He now hopes that the [facility] team will come up with a plan for restoring his ambulation. I recommend that his siste, who is his health care agent, also sign any consent forms required before procedures be undertaken. 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 Kain does not accept this. (3) Labile mood: Status: Acute Assessment and plan: He was more cooperative and more tired today. His mood is quite unpredictable. (4) Fatigue: Status: Acute Assessment and plan: Falling asleep today. Not sure of his usual sleep patterns. (5) Complete immobility due to severe physical disability or frailty: Status: Acute Subjective Subjective Patient reports: no new complaints Interval history since last seen: I met with Kain and Honey Cavanaugh RN. Apparently Kain is vacillating about his desire to see ortho, plastics and neurology at [facility]. He always says he wants to walk again, and if they can't do that, he doesn't want to waste his time. I reminded him that most if not all the doctors who've cared for him at [facility] think he will not walk again, but I explained that there are other improvements in his health that he might experience through consulting these specialists. We discussed having his leg repositioned under anesthesia so he would not be so prone to his pressure wounds. Honey also told me that despite Kain's insistence that he could not use the call button he was given, that he certainly is able and uses it multiple times per day. He also has not had his left ischial wound vac removed for any length of time since it was first applied. (Kain told me that they took this off him.) Clearly Kain remains a difficult historian. He vacillates in his desires and understanding. Before undertaking any risky surgery or procedure. I recommend his sister sign permission/consents along with him. He does not always have capacity to make decisions. Exam Narrative Exam Narrative: He was sleepy today, falling asleep in mid-sentence on and off throughout our conversation. His ability to give a detailed history is limited. When I asked what he hoped to get out of his visits to [facility] specialists, he said he wanted to walk. He has a very limited understanding of his overall health status. He was not in any obvious physical discomfort. There was no erythema extending outside of any of the dressings. His did have his wound VAC in place on his left ischium--AND HE DID ON MY PRIOR VISIT (my error). His contraction abnormality to the right leg is profound. His right leg is flexed and crossed across his left thigh. The leg is rigidly contracted in place. His wounds include his right heel, right hip, right malone among others. His lungs were clear. His heart was regular. His mood was more even-keeled today, but he was very tired, and fell asleep on and off during my visit. His neuro exam showed minimal ability to move his upper arms. He cannot move his lower extremities at all. Objective Last Vital Signs Temp 97.3 F L 01/26/21 15:29 Pulse 78 01/26/21 15:29 Resp 17 01/26/21 15:29 BP 113/59 L 01/26/21 15:29 Pulse Ox 91 L 01/26/21 15:29 Laboratory Results - last 24 hr 01/26/21 12:55 Uric Acid 3.0 L
[2021-01-26] MEDS: Melatonin 3 MG TAB 6 MG PO (20:53)
[2021-01-26 23:29] VITALS: BP 116/66; PULSE 88; RESP 17; TEMP 36.5; O2SAT 93
[2021-01-27 08:23] VITALS: BP 122/77; PULSE 79; RESP 18; TEMP 36.5; O2SAT 98
[2021-01-27] MEDS: Gabapentin 300 MG CAP PO ×3 (08:52→19:36)
[2021-01-27] MEDS: Docusate Sodium 100 MG CAP PO (08:52)
[2021-01-27] MEDS: FLUoxetine 10 MG TAB PO (08:52)
[2021-01-27] MEDS: Zinc Sulfate 220 MG TAB PO (08:52)
[2021-01-27] MEDS: oxyCODONE 10 MG TAB PO (08:52)
[2021-01-27] MEDS: Methocarbamol 500 MG TAB 1500 MG PO ×3 (08:52→19:35)
[2021-01-27] MEDS: Senna TAB 1 TAB PO ×2 (08:52→19:36)
[2021-01-27] MEDS: Multivitamin w/Minerals TAB 1 TAB PO (08:52)
[2021-01-27] MEDS: diazePAM 5 MG TAB PO ×2 (08:52→19:36)
[2021-01-27] MEDS: Acetaminophen 500 MG TAB 1000 MG PO (08:52)
[2021-01-27] MEDS: Normal Saline Flush 10 ML SYR 20 ML IVP ×2 (08:53→19:36)
[2021-01-27] MEDS: Dronabinol 2.5 MG CAP 5 MG PO ×2 (08:53→19:35)
[2021-01-27] MEDS: Ascorbic Acid 500 MG TAB PO ×2 (08:53→19:36)
[2021-01-27] MEDS: Polyethylene Glycol 3350 17 GM PACKET PO (08:54)
[2021-01-27] MEDS: Protein Nutritional Supplement 16 GM 1 OUNCE PACKET PO ×2 (08:54→19:36)
[2021-01-27] MEDS: Nystatin POWDER 60 GM JAR TP ×3 (08:54→19:36)
[2021-01-27] MEDS: Heparin 5,000 UNITS/ML VIAL 5000 UNITS SC (12:20)
[2021-01-27] MEDS: cefTRIAXone 2 GM/50 ML BAG IVPB (12:21)
[2021-01-27] MEDS: Collagenase 30 GM TUBE TP (12:21)
[2021-01-27 16:21] VITALS: BP 112/75; PULSE 72; RESP 18; TEMP 36.4; O2SAT 98
[2021-01-27] MEDS: Magnesium Chloride 64 MG TABCR 128 MG PO (19:35)
[2021-01-27] MEDS: Melatonin 3 MG TAB 6 MG PO (19:35)
[2021-01-28 08:00] VITALS: BP 153/72; PULSE 93; RESP 18; TEMP 36.9; O2SAT 91
[2021-01-28] MEDS: Protein Nutritional Supplement 16 GM 1 OUNCE PACKET PO ×2 (08:37→20:35)
[2021-01-28] MEDS: fentaNYL 50 MCG PATCH TD (08:37)
[2021-01-28] MEDS: Polyethylene Glycol 3350 17 GM PACKET PO (08:38)
[2021-01-28] MEDS: Normal Saline Flush 10 ML SYR 20 ML IVP ×2 (08:38→20:34)
[2021-01-28] MEDS: Methocarbamol 500 MG TAB 1500 MG PO ×4 (08:38→20:35)
[2021-01-28] MEDS: Dronabinol 2.5 MG CAP 5 MG PO ×2 (08:39→20:35)
[2021-01-28] MEDS: FLUoxetine 10 MG TAB PO (08:39)
[2021-01-28] MEDS: Zinc Sulfate 220 MG TAB PO (08:39)
[2021-01-28] MEDS: Ascorbic Acid 500 MG TAB PO ×2 (08:39→20:36)
[2021-01-28] MEDS: Nystatin POWDER 60 GM JAR TP ×2 (08:40→14:19)
[2021-01-28] MEDS: Docusate Sodium 100 MG CAP PO (08:40)
[2021-01-28] MEDS: Gabapentin 300 MG CAP PO ×3 (08:40→20:35)
[2021-01-28] MEDS: Multivitamin w/Minerals TAB 1 TAB PO (08:40)
[2021-01-28] MEDS: diazePAM 5 MG TAB PO ×2 (08:40→20:35)
[2021-01-28] MEDS: oxyCODONE 10 MG TAB PO ×2 (09:18→14:19)
[2021-01-28] MEDS: Magnesium Chloride 64 MG TABCR 128 MG PO (10:10)
[2021-01-28] MEDS: Heparin 5,000 UNITS/ML VIAL 5000 UNITS SC (12:53)
[2021-01-28] MEDS: cefTRIAXone 2 GM/50 ML BAG IVPB (12:53)
[2021-01-28 15:33] VITALS: BP 124/74; PULSE 85; RESP 14; TEMP 35.9; O2SAT 98
[2021-01-28] MEDS: Collagenase 30 GM TUBE TP (16:00)
[2021-01-28] MEDS: Senna TAB 1 TAB PO (20:36)
[2021-01-28 23:43] VITALS: BP 125/67; PULSE 81; RESP 16; TEMP 36.5; O2SAT 98
[2021-01-29 07:47] VITALS: BP 121/68; PULSE 76; RESP 17; TEMP 36.1; O2SAT 96
[2021-01-29] MEDS: Polyethylene Glycol 3350 17 GM PACKET PO (09:55)
[2021-01-29] MEDS: diazePAM 5 MG TAB PO ×2 (09:55→21:55)
[2021-01-29] MEDS: Magnesium Chloride 64 MG TABCR 128 MG PO ×2 (09:55→21:54)
[2021-01-29] MEDS: Senna TAB 1 TAB PO ×2 (09:56→21:55)
[2021-01-29] MEDS: FLUoxetine 10 MG TAB PO (09:56)
[2021-01-29] MEDS: Zinc Sulfate 220 MG TAB PO (09:56)
[2021-01-29] MEDS: Multivitamin w/Minerals TAB 1 TAB PO (09:56)
[2021-01-29] MEDS: Methocarbamol 500 MG TAB 1500 MG PO ×3 (09:56→21:54)
[2021-01-29] MEDS: Protein Nutritional Supplement 16 GM 1 OUNCE PACKET PO ×2 (09:56→21:55)
[2021-01-29] MEDS: Ascorbic Acid 500 MG TAB PO ×2 (09:56→21:55)
[2021-01-29] MEDS: Dronabinol 2.5 MG CAP 5 MG PO ×2 (09:56→21:55)
[2021-01-29] MEDS: Docusate Sodium 100 MG CAP PO (09:56)
[2021-01-29] MEDS: Nystatin POWDER 60 GM JAR TP ×3 (09:57→21:55)
[2021-01-29] MEDS: Normal Saline Flush 10 ML SYR 20 ML IVP ×2 (09:57→21:55)
[2021-01-29] MEDS: Gabapentin 300 MG CAP PO ×3 (09:57→21:55)
[2021-01-29] MEDS: Heparin 5,000 UNITS/ML VIAL 5000 UNITS SC ×2 (10:01→21:58)
[2021-01-29] MEDS: oxyCODONE 10 MG TAB PO (11:50)
[2021-01-29] MEDS: cefTRIAXone 2 GM/50 ML BAG IVPB (12:46)
[2021-01-29] MEDS: Collagenase 30 GM TUBE TP (13:10)
[2021-01-29 16:01] VITALS: BP 117/77; PULSE 88; RESP 20; TEMP 36.1; O2SAT 96
[2021-01-29] MEDS: Melatonin 3 MG TAB 6 MG PO (21:55)
[2021-01-29 21:56] VITALS: BP 124/70; PULSE 97; RESP 17; TEMP 36.4; O2SAT 93
[2021-01-29 23:18] VITALS: BP 103/63; PULSE 94; RESP 18; TEMP 36.7; O2SAT 91
[2021-01-30 07:19] VITALS: BP 116/67; PULSE 84; RESP 18; TEMP 36.4; O2SAT 94
[2021-01-30] MEDS: diazePAM 5 MG TAB PO ×2 (09:09→21:07)
[2021-01-30] MEDS: FLUoxetine 10 MG TAB PO (09:09)
[2021-01-30] MEDS: Dronabinol 2.5 MG CAP 5 MG PO ×2 (09:09→21:07)
[2021-01-30] MEDS: Multivitamin w/Minerals TAB 1 TAB PO (09:10)
[2021-01-30] MEDS: Docusate Sodium 100 MG CAP PO (09:10)
[2021-01-30] MEDS: Ascorbic Acid 500 MG TAB PO ×2 (09:10→21:07)
[2021-01-30] MEDS: Gabapentin 300 MG CAP PO ×2 (09:10→21:07)
[2021-01-30] MEDS: Zinc Sulfate 220 MG TAB PO (09:10)
[2021-01-30] MEDS: Senna TAB 1 TAB PO ×2 (09:10→21:07)
[2021-01-30] MEDS: Methocarbamol 500 MG TAB 1500 MG PO ×2 (09:11→21:06)
[2021-01-30] MEDS: Polyethylene Glycol 3350 17 GM PACKET PO (09:11)
[2021-01-30] MEDS: Normal Saline Flush 10 ML SYR 20 ML IVP ×2 (09:11→21:07)
[2021-01-30] MEDS: Protein Nutritional Supplement 16 GM 1 OUNCE PACKET PO ×2 (09:11→21:07)
[2021-01-30] MEDS: Heparin 5,000 UNITS/ML VIAL 5000 UNITS SC ×2 (11:04→21:19)
[2021-01-30] MEDS: cefTRIAXone 2 GM/50 ML BAG IVPB (12:37)
[2021-01-30 15:43] VITALS: BP 126/75; PULSE 93; RESP 19; TEMP 36.6; O2SAT 95
[2021-01-30 21:05] VITALS: BP 108/66; PULSE 97; RESP 18; TEMP 37.2; O2SAT 92
[2021-01-30] MEDS: Nystatin POWDER 60 GM JAR TP (21:07)
[2021-01-30] MEDS: Magnesium Chloride 64 MG TABCR 128 MG PO (21:13)
[2021-01-30] MEDS: Melatonin 3 MG TAB 6 MG PO (21:13)
[2021-01-30 23:00] VITALS: PULSE 102; RESP 18; TEMP 36.6; O2SAT 91
[2021-01-31 08:05] VITALS: BP 99/61; PULSE 80; RESP 20; TEMP 36.5; O2SAT 95
[2021-01-31] MEDS: FLUoxetine 10 MG TAB PO (08:18)
[2021-01-31] MEDS: Gabapentin 300 MG CAP PO ×3 (08:19→23:20)
[2021-01-31] MEDS: Polyethylene Glycol 3350 17 GM PACKET PO (08:19)
[2021-01-31] MEDS: Multivitamin w/Minerals TAB 1 TAB PO (08:19)
[2021-01-31] MEDS: Methocarbamol 500 MG TAB 1500 MG PO ×3 (08:19→23:22)
[2021-01-31] MEDS: diazePAM 5 MG TAB PO ×2 (08:19→23:20)
[2021-01-31] MEDS: Protein Nutritional Supplement 16 GM 1 OUNCE PACKET PO ×2 (08:19→23:17)
[2021-01-31] MEDS: Dronabinol 2.5 MG CAP 5 MG PO ×2 (08:19→23:21)
[2021-01-31] MEDS: Normal Saline Flush 10 ML SYR 20 ML IVP ×2 (08:20→23:32)
[2021-01-31] MEDS: fentaNYL 50 MCG PATCH TD (08:20)
[2021-01-31] MEDS: Nystatin POWDER 60 GM JAR TP ×3 (08:30→23:34)
[2021-01-31] MEDS: Heparin 5,000 UNITS/ML VIAL 5000 UNITS SC ×2 (11:06→23:23)
[2021-01-31] MEDS: cefTRIAXone 2 GM/50 ML BAG IVPB (12:39)
[2021-01-31] MEDS: Collagenase 30 GM TUBE TP (15:28)
[2021-01-31 15:30] VITALS: BP 126/74; PULSE 78; RESP 18; TEMP 36.5; O2SAT 95
[2021-01-31] MEDS: Acetaminophen 500 MG TAB 1000 MG PO ×2 (16:16→23:19)
[2021-01-31] MEDS: Senna TAB 1 TAB PO (23:19)
[2021-01-31] MEDS: Melatonin 3 MG TAB 6 MG PO (23:20)
[2021-01-31] MEDS: Ascorbic Acid 500 MG TAB PO (23:21)
[2021-01-31 23:28] VITALS: BP 109/64; PULSE 78; RESP 17; TEMP 36.7; O2SAT 97
[2021-01-31] MEDS: Magnesium Chloride 64 MG TABCR 128 MG PO (23:29)
[2021-02-01 07:35] VITALS: BP 117/69; PULSE 75; RESP 18; TEMP 35.7; O2SAT 97
[2021-02-01] MEDS: oxyCODONE 10 MG TAB PO ×2 (07:51→21:44)
[2021-02-01] MEDS: Nystatin POWDER 60 GM JAR TP ×3 (10:00→21:40)
[2021-02-01] MEDS: Normal Saline Flush 10 ML SYR 20 ML IVP ×2 (10:00→21:40)
[2021-02-01] MEDS: Collagenase 30 GM TUBE TP (11:00)
[2021-02-01] MEDS: Dronabinol 2.5 MG CAP 5 MG PO ×2 (12:36→21:46)
[2021-02-01] MEDS: Methocarbamol 500 MG TAB 1500 MG PO ×3 (12:36→21:45)
[2021-02-01] MEDS: Gabapentin 300 MG CAP PO ×2 (12:36→21:39)
[2021-02-01] MEDS: FLUoxetine 10 MG TAB PO (12:36)
[2021-02-01] MEDS: diazePAM 5 MG TAB PO ×2 (12:36→21:46)
[2021-02-01] MEDS: cefTRIAXone 2 GM/50 ML BAG IVPB (12:37)
--- NOTE | 2021-02-01 13:54 | WOUNDCONS ---
- If Service Date Differs Date of service: 02/01/21 Time of Service: 10:00 Wound Initial Evaluation Narrative: Pt seen for weekly reconsult. [place] [employer] OFF in to see patient and visualize wounds during consult. Left hip ischial tuberosity wound vac changed yesterday, pt declined vac change today so no pictures available. Wound managed by surgical service. Right foot wounds managed by Dr. Roth. Right great toe distal wound measures 1.8 cm x 0.6 cm x 0.1 cm with approximately 40% brownish slough noted. Skin on right great toe blanchable but reddened. Scant serous drainage noted. Right foot (MPJ) outer foot wound measures 1 cm x 1.7 cm x less than 0.1 cm with approximately 90 % brownish slough in wound base. Blanchable reddened skin surrounding area. Right heel wound measures 1.2 cm x 1.4 cm x 0.2 cm and is approximately 80% yellow/brownish slough noted. Skin surrounding wound is dark pink and blanchable. Scant serous drainage noted. Left arm bruise is resolving, measuring 3 cm x 1 cm with a purplish and yellowish hue. Right malone wound measures 0.4 cm x 0.4 cm x 0.1 cm where the bone spur is located. Surrounding skin is light pink. Left thigh open area is covered in new epithelial tissue, however there is an area comprised of two resolving partial thickness injuries which appear to be from the wound vac drape which I measured as one area. The new left lateral thigh area measures 7 cm x 2.5 cm x less than 0.1 cm. The right hip has two open areas. The proximal area measures 0.2 cm x 0.2 cm x less than 0.1 cm. The right hip distal area measures 0.5 cm x 0.2 cm x less than 0.1 cm. The surrounding skin is light pink, no induration noted. The left knee open area measures 0.8 cm x 0.7 cm x less than 0.1 cm. The surrounding skin is pink. Wound bed is friable tissue with serosanginous drainage noted. The left heel and right knee have no open areas, but for protective purposes, have mepilex dressings in place. Due to the nature of the patient's contractions and level of discomfort with movement, pt was premedicated. Also due to contractures and level of discomfort, there are some pictures which were difficult to obtain/ position the camera properly. - Wound left knee Wound Length: 0.8 cm Wound Width: 0.7 cm Wound Depth: 0.1 cm (less than 0.1 cm) Wound Drainage Amount: Minimal Wound Drainage Odor: None/Absent Left lateral thigh Wound Type: Partial Thickness Wound Length: 7 cm Wound Width: 2.5 cm Wound Depth: 0.1 cm (less than 0.1 cm) left arm Wound Length: 3 cm Wound Width: 1 cm Right hip Wound Length: 0.5 cm Wound Width: 0.2 cm Wound Depth: 0.1 cm (less than 0.1) right malone Wound Length: 0.4 cm Wound Width: 0.4 cm Wound Depth: 0.1 cm right great toe medial Wound Length: 1.8 cm Wound Width: 0.6 cm Wound Depth: 0.1 cm right lateral foot Wound Length: 1 cm Wound Width: 1.7 cm Wound Depth: 0.1 cm (less than 0.1 cm) right heel Wound Length: 1.2 cm Wound Width: 1.4 cm Wound Depth: 0.2 cm - Recomendation Recomendation:: Due to pain with repositioning for dressing changes and status of wounds recommend: Left heel and Right knee- Cover with mepilex border, change q 7 days and PRN. (for protection) Left thigh- Cleanse with ns, pat dry, apply mepilex with border, change q 7 days and PRN. Left knee and Right hip- cleanse with ns, pat dry, apply triad paste in dime size thickness. Cover with mepilex with border, change q 7 days and PRN. Right malone- Cleanse with ns, pat dry, apply mepilex. Change q 7 days and PRN. Right foot wounds- Follow recommendations from Dr. Roth. Left ischial tuberosity wound- Follow recommendations from surgical services. Follow up with [facility] wound care, ortho and plastics as ordered.
--- NOTE | 2021-02-01 17:03 | CMACTNOTE_ITS ---
- If Service Date Differs Date of service: 02/01/21 Time of Service: 17:04 Care Management Activity Note S/O: Kain remains at [facility] while continuing his IV antibiotic course, which will likely end on 02/25/21. He has appointments on 02/08/21 at [facility] with Wound care, Plastics and Ortho. He will transport via ambulance, coordinated by RN cutting and boning supervisor. Kain enjoys listening to music at times, and likes to talk to his sister on the phone when he is able to, with assistance. Due to his physical immobility, his activities are limited. CM will continue to support Kain in his life enrichment during this [facility] stay. A: Kain is a 75 year old male admitted to [facility] on 01/21/21 to B 1 for fdc IV abx to treat Osteomylitis. P: Anticipate Kain will return to [facility] after completing his IV abx course. He will transport via ambulance. He will follow up with his discharge plan of care, including his ongoing appointments with wound care, plastics, ortho and neuro. CM will continue to follow.
--- NOTE | 2021-02-01 17:03 | PDOC.CMACT ---
- If Service Date Differs Date of service: 02/01/21 Time of Service: 17:04 Care Management Activity Note S/O: Kain remains at [facility] while continuing his IV antibiotic course, which will likely end on 02/25/21. He has appointments on 02/08/21 at [facility] with Wound care, Plastics and Ortho. He will transport via ambulance, coordinated by RN supervisor pressing department. Kain enjoys listening to music at times, and likes to talk to his sister on the phone when he is able to, with assistance. Due to his physical immobility, his activities are limited. CM will continue to support Kain in his life enrichment during this [facility] stay. A: Kain is a 75 year old male admitted to [facility] on 01/21/21 to B 1 for correction IV abx to treat Osteomylitis. P: Anticipate Kain will return to [facility] after completing his IV abx course. He will transport via ambulance. He will follow up with his discharge plan of care, including his ongoing appointments with wound care, plastics, ortho and neuro. CM will continue to follow.
[2021-02-01 17:05] VITALS: BP 125/64; PULSE 77; RESP 18; TEMP 36.5; O2SAT 94
[2021-02-01] MEDS: Protein Nutritional Supplement 16 GM 1 OUNCE PACKET PO (21:40)
[2021-02-01] MEDS: Ascorbic Acid 500 MG TAB PO (21:45)
[2021-02-01] MEDS: Melatonin 3 MG TAB 6 MG PO (21:45)
[2021-02-01] MEDS: Senna TAB 1 TAB PO (21:46)
[2021-02-01] MEDS: Heparin 5,000 UNITS/ML VIAL 5000 UNITS SC (21:49)
[2021-02-01] MEDS: Magnesium Chloride 64 MG TABCR 128 MG PO (22:07)
[2021-02-01 22:44] VITALS: BP 121/67; PULSE 84; RESP 16; TEMP 36.4; O2SAT 94
[2021-02-02] MEDS: oxyCODONE 10 MG TAB PO ×3 (06:16→21:26)
[2021-02-02 07:02] VITALS: BP 106/65; PULSE 82; RESP 16; TEMP 35.4; O2SAT 93
[2021-02-02] MEDS: Polyethylene Glycol 3350 17 GM PACKET PO (07:49)
[2021-02-02] MEDS: Dronabinol 2.5 MG CAP 5 MG PO ×2 (07:49→21:28)
[2021-02-02] MEDS: Protein Nutritional Supplement 16 GM 1 OUNCE PACKET PO ×2 (07:49→21:28)
[2021-02-02] MEDS: diazePAM 5 MG TAB PO ×2 (07:51→21:32)
[2021-02-02] MEDS: FLUoxetine 10 MG TAB PO (07:51)
[2021-02-02] MEDS: Gabapentin 300 MG CAP PO ×3 (07:52→21:31)
[2021-02-02] MEDS: Senna TAB 1 TAB PO ×2 (07:52→21:31)
[2021-02-02] MEDS: Methocarbamol 500 MG TAB 1500 MG PO ×3 (07:52→21:27)
[2021-02-02] MEDS: Normal Saline Flush 10 ML SYR 20 ML IVP ×2 (07:53→21:34)
--- NOTE | 2021-02-02 08:54 | NUR.NOTE ---
Nursing Note: 0800: pt requested to be repositioned, nursing repositioned. pt became agitated and was put into previous position.
[2021-02-02] MEDS: Magnesium Chloride 64 MG TABCR 128 MG PO ×2 (10:46→21:29)
[2021-02-02] MEDS: Heparin 5,000 UNITS/ML VIAL 5000 UNITS SC ×2 (10:46→21:35)
[2021-02-02] MEDS: Lidocaine 2% Jelly 11 ML SYR UR (11:17)
[2021-02-02] MEDS: Normal Saline Flush 10 ML SYR IVP ×2 (11:32→13:30)
[2021-02-02] MEDS: cefTRIAXone 2 GM/50 ML BAG IVPB (11:33)
[2021-02-02] MEDS: Normal Saline 500 ML 30 ML IV (12:09)
[2021-02-02] MEDS: Collagenase 30 GM TUBE TP (13:45)
[2021-02-02] MEDS: Nystatin POWDER 60 GM JAR TP ×2 (14:42→21:34)
[2021-02-02 14:50] VITALS: BP 124/75; PULSE 79; RESP 15; TEMP 36.7; O2SAT 95
--- NOTE | 2021-02-02 15:01 | W.PM.PROGNOT ---
Date of Service Date of service: 02/02/21 Time of Service: 15:02 Assessment and Plan Assessment and plan (1) Left ischial pressure sore: Status: Acute Assessment and plan: 75yo male with spastic quadriplegia with osteomyelitis of left ischial tuberosity. --sharp debridement performed at bedside --continue VAC dressing --try to offload patient as much as possible --wound care management --nutritional support --IV antibiotics Qualifiers: Pressure injury stage: stage 4 Qualified Code(s): L89.324 - Pressure ulcer of left buttock, stage 4 Subjective Subjective Patient reports: feels better, voiding w/o difficulty, flatus, bowel movement and afebrile; denies nausea and vomiting Exam Const General: cooperative, comfortable and no acute distress Orientation: alert and awake Resp Effort & Inspection: normal respiratory effort GI Palpation: soft Back/Spine/Pelvis Other: wound over left ischial tuberosity down to bone; some slough over the periosteum, and in wound bed that could be elevated by a probe; some shallow undermining of wound from 12 to 6 o'clock. Nout foul smelling Skin Wounds: wounds noted (multiple wound dressings applied) Extrem Other: severely contracted lower extremities Objective Last Vital Signs Temp 98.1 F 02/02/21 14:50 Pulse 79 02/02/21 14:50 Resp 15 02/02/21 14:50 BP 124/75 02/02/21 14:50 Pulse Ox 95 02/02/21 14:50 Procedures Other Procedure Description/Findings: Procedure: debridement of left ischial tuberosity pressure ulcer Surgeon: Messi Delgado MD Anesthesia: oxycodone PO Findings: left ischial tuberosity wound with slough, and minor undermining from 12 o'clock to 6 o' clock; otherwise beefy granulation tissue Complications: none Procedure: Verbal consent was obtained in this patient with spastic quadriplegia, with nursing as withness. The wound was probed, and areas of slough identified were lifted off the wound bed. Sharp debridement with scissors, and #10 blade was performed to excise the excess non-viable tissue. The wound was also lightly debrided bluntly, with a a 4x4 gauze. The wound was then further cleansed, and dressed with a wound VAC by nursing. The patient tolerated the procedure well.
[2021-02-02] MEDS: Melatonin 3 MG TAB 6 MG PO (21:30)
[2021-02-02] MEDS: Ascorbic Acid 500 MG TAB PO (21:32)
[2021-02-02 23:30] VITALS: BP 97/61; PULSE 90; RESP 19; TEMP 36.5; O2SAT 93
--- NOTE | 2021-02-03 01:55 | NUR.NOTE ---
Nursing Note: At about 22:00 last evening, pt's right foot was cold to touch with an unpalpable pulse which was detected via doppler. Charge nurse was notified and warm blankets were placed over pt's foot. Upon reassessment at this time, pt's foot is hot to touch with palpable pulse. Charge nurse notified.
[2021-02-03 07:31] VITALS: BP 112/64; PULSE 77; RESP 16; TEMP 36.5; O2SAT 95
[2021-02-03] MEDS: fentaNYL 50 MCG PATCH TD (08:37)
[2021-02-03] MEDS: Polyethylene Glycol 3350 17 GM PACKET PO (08:37)
[2021-02-03] MEDS: Protein Nutritional Supplement 16 GM 1 OUNCE PACKET PO ×2 (08:37→20:40)
[2021-02-03] MEDS: Docusate Sodium 100 MG CAP PO (08:38)
[2021-02-03] MEDS: Ascorbic Acid 500 MG TAB PO ×2 (08:39→20:39)
[2021-02-03] MEDS: Dronabinol 2.5 MG CAP 5 MG PO ×2 (08:39→20:38)
[2021-02-03] MEDS: Methocarbamol 500 MG TAB 1500 MG PO ×4 (08:39→20:37)
[2021-02-03] MEDS: diazePAM 5 MG TAB PO ×2 (08:39→20:38)
[2021-02-03] MEDS: Gabapentin 300 MG CAP PO ×2 (08:39→20:38)
[2021-02-03] MEDS: Zinc Sulfate 220 MG TAB PO (08:39)
[2021-02-03] MEDS: FLUoxetine 10 MG TAB PO (08:39)
[2021-02-03] MEDS: Senna TAB 1 TAB PO ×2 (08:40→20:38)
[2021-02-03] MEDS: Multivitamin w/Minerals TAB 1 TAB PO (08:40)
[2021-02-03] MEDS: Collagenase 30 GM TUBE TP (08:42)
[2021-02-03] MEDS: Normal Saline Flush 10 ML SYR 20 ML IVP ×2 (08:42→20:46)
[2021-02-03] MEDS: Heparin 5,000 UNITS/ML VIAL 5000 UNITS SC ×2 (09:27→21:38)
[2021-02-03] MEDS: Magnesium Chloride 64 MG TABCR 128 MG PO ×2 (09:27→20:39)
[2021-02-03] MEDS: oxyCODONE 10 MG TAB PO (09:27)
--- NOTE | 2021-02-03 11:46 | W.PM.PROGNOT ---
Date of Service Date of service: 02/03/21 Time of Service: 11:48 Assessment and Plan Assessment and plan (1) Bacteremia due to Streptococcus: Status: Acute Assessment and plan: Remains on high dose ceftriaxone - end date 02/25/21. Continue to monitor for development of new fevers, C.Diff, etc. Source: infected left ischial pressure sore with osteomyelitis, present on admission. (2) Osteomyelitis: Status: Acute Assessment and plan: As above Qualifiers: Osteomyelitis type: other chronic Osteomyelitis location: other site Qualified Code(s): M86.68 - Other chronic osteomyelitis, other site (3) Left ischial pressure sore: Status: Acute Assessment and plan: As above Referred to [facility] ortho and wound/plastic surgery. Qualifiers: Pressure injury stage: stage 4 Qualified Code(s): L89.324 - Pressure ulcer of left buttock, stage 4 (4) Spastic quadriplegia: Status: Chronic Assessment and plan: Not improved since c-spine surgery at [facility]. Will find out when his next follow up with [facility] neurosurgery was supposed to be. Scheduled to botox injections at [facility] neuro. Back off of pain meds. (5) Cervical myelopathy: Status: Chronic Assessment and plan: As above (6) DVT prophylaxis: Status: Acute Assessment and plan: SC heparin (7) Discharge planning issues: Status: Acute Assessment and plan: DNR/DNI So far agreeagble with all of the follow up appointments we have made and with whatever procedures might be recommended. Met with palliative care - not ready for comfort measures. Subjective Subjective Interval history since last seen: Mr Coker states that he is doing alright. He has no idea what the date is. He knows he is at the hospital. He does not recall following up with [facility] Neurosurgery after his surgery. He denies dizziness, chest pain, shortness of breath, nausea, vomiting, abdominal pain or pain at the site of his surgical wound on L ischial tuberosity. He is s/p sharp debridement at bedside on 02/02/[address] Delgado. Wound vac became detached last night and is being put back on today. Exam Narrative Exam Narrative: General: Pleasant elderly male, A&Ox2, appears under effect and slightly overmedicated with opioid medications - he pauses to stare at the wall when I am asking him questions, I am noticing slight apneic episodes as well. HEENT: EOMI, MMM Heart: RRR Lungs: CTAB Abdomen: soft, nontender, nondistended Extremities: trace edema L foot, no /c/c; R hip contractedin flexed and internally rotated position.. Objective Last Vital Signs Temp 36.5 C 02/03/21 07:31 Pulse 77 02/03/21 07:31 Resp 16 02/03/21 07:31 BP 112/64 02/03/21 07:31 Pulse Ox 95 02/03/21 07:31
[2021-02-03] MEDS: fentaNYL 25 MCG PATCH TD (12:26)
[2021-02-03] MEDS: fentaNYL 12 MCG PATCH TD (12:27)
[2021-02-03] MEDS: cefTRIAXone 2 GM/50 ML BAG IVPB (12:27)
[2021-02-03 20:33] VITALS: BP 117/64; PULSE 92; RESP 18; TEMP 36.7; O2SAT 92
[2021-02-03] MEDS: Melatonin 3 MG TAB 6 MG PO (20:39)
[2021-02-03] MEDS: Nystatin POWDER 60 GM JAR TP (20:40)
[2021-02-04 03:44] VITALS: BP 119/62; PULSE 88; RESP 18; TEMP 36.6; O2SAT 92
[2021-02-04] MEDS: oxyCODONE 5 MG TAB PO (04:04)
[2021-02-04 06:48] LABS: Abs Immature Grans 0.01 10^3/uL (0.0-0.06); Absolute Basophil Count 0.03 10^3/uL (0.0-0.2); Absolute Eosinophil Count 0.39 10^3/uL (0.0-0.7); Absolute Lymphocyte Count 1.09 10^3/uL (1.2-3.4); Absolute Monocyte Count 0.62 10^3/uL (0.1-0.8); Absolute Neutrophil Count 3.39 10^3/uL (1.2-6.7); Basophils % 0.5; Eosinophils % 7.1; HCT 37.8 % (40.0-50.0); HGB 11.4 g/dL (13.5-17.5); Immature Grans % 0.2; Lymphocytes % 19.7; MCH 25.2 pg (27.0-33.0); MCHC 30.2 % (32.0-36.0); MCV 83.6 fL (80-95); Monocytes % 11.2; Neutrophils % 61.3; Nucleated RBC 0 %; RBC 4.52 10^6/uL (4.36-5.78); RDW 18.6 % (11.8-14.1); RDW-SD 56.2 fL; WBC 5.53 10^3/uL (4.4-10.8)
[2021-02-04 07:01] LABS: Anion Gap 6.3 mmol/L (3-11); BUN 9 mg/dL (7-18); C-Reactive Protein 7.28 mg/dL (0.0-0.3); CO2 31.7 mmol/L (21.0-32.0); CREATININE 0.3 mg/dL (0.70-1.30); Calcium 8.6 mg/dL (8.5-10.1); Chloride 105 mmol/L (98-107); Glucose 84 mg/dL (74-106); Magnesium 1.9 mg/dL (1.8-2.4); Potassium 3.9 mmol/L (3.5-5.1); Sodium 143 mmol/L (136-145)
[2021-02-04 07:21] VITALS: BP 116/65; PULSE 86; RESP 17; TEMP 36.6; O2SAT 96
[2021-02-04] MEDS: Protein Nutritional Supplement 16 GM 1 OUNCE PACKET PO ×2 (08:35→21:12)
[2021-02-04] MEDS: Polyethylene Glycol 3350 17 GM PACKET PO (08:35)
[2021-02-04] MEDS: Docusate Sodium 100 MG CAP PO (08:36)
[2021-02-04] MEDS: Ascorbic Acid 500 MG TAB PO ×2 (08:36→21:11)
[2021-02-04] MEDS: Methocarbamol 500 MG TAB 1500 MG PO ×4 (08:36→21:10)
[2021-02-04] MEDS: Dronabinol 2.5 MG CAP 5 MG PO ×2 (08:36→21:10)
[2021-02-04] MEDS: Gabapentin 300 MG CAP PO ×2 (08:36→21:11)
[2021-02-04] MEDS: Senna TAB 1 TAB PO ×2 (08:37→21:11)
[2021-02-04] MEDS: diazePAM 5 MG TAB PO ×2 (08:37→21:11)
[2021-02-04] MEDS: Normal Saline Flush 10 ML SYR 20 ML IVP ×2 (08:37→21:13)
[2021-02-04] MEDS: Zinc Sulfate 220 MG TAB PO (08:37)
[2021-02-04] MEDS: FLUoxetine 10 MG TAB PO (08:37)
[2021-02-04] MEDS: Multivitamin w/Minerals TAB 1 TAB PO (08:37)
[2021-02-04] MEDS: Nystatin POWDER 60 GM JAR TP ×2 (08:38→21:13)
[2021-02-04] MEDS: Collagenase 30 GM TUBE TP (08:38)
[2021-02-04] MEDS: cefTRIAXone 2 GM/50 ML BAG IVPB (12:00)
[2021-02-04 15:23] VITALS: BP 117/62; PULSE 78; RESP 17; TEMP 36.7; O2SAT 96
[2021-02-04] MEDS: Melatonin 3 MG TAB 6 MG PO (21:12)
[2021-02-04] MEDS: Magnesium Chloride 64 MG TABCR 128 MG PO (21:12)
[2021-02-04] MEDS: Heparin 5,000 UNITS/ML VIAL 5000 UNITS SC (21:15)
[2021-02-04 23:58] VITALS: BP 102/58; PULSE 84; RESP 20; TEMP 36.9; O2SAT 93
[2021-02-05] MEDS: oxyCODONE 5 MG TAB PO ×2 (01:20→14:40)
[2021-02-05 08:30] VITALS: BP 122/68; PULSE 72; RESP 20; TEMP 35.8; O2SAT 97
[2021-02-05] MEDS: Fentanyl Patch Removal 2 EACH TD (09:08)
[2021-02-05] MEDS: Polyethylene Glycol 3350 17 GM PACKET PO (09:41)
[2021-02-05] MEDS: Nystatin POWDER 60 GM JAR TP ×3 (09:41→21:31)
[2021-02-05] MEDS: Heparin 5,000 UNITS/ML VIAL 5000 UNITS SC (09:41)
[2021-02-05] MEDS: Protein Nutritional Supplement 16 GM 1 OUNCE PACKET PO ×2 (09:41→21:31)
[2021-02-05] MEDS: Dronabinol 2.5 MG CAP 5 MG PO (09:42)
[2021-02-05] MEDS: Normal Saline Flush 10 ML SYR 20 ML IVP ×2 (09:42→21:34)
[2021-02-05] MEDS: Docusate Sodium 100 MG CAP PO (09:42)
[2021-02-05] MEDS: Ascorbic Acid 500 MG TAB PO ×2 (09:42→21:32)
[2021-02-05] MEDS: diazePAM 5 MG TAB PO ×2 (09:43→21:32)
[2021-02-05] MEDS: Zinc Sulfate 220 MG TAB PO (09:43)
[2021-02-05] MEDS: FLUoxetine 10 MG TAB PO (09:43)
[2021-02-05] MEDS: Multivitamin w/Minerals TAB 1 TAB PO (09:43)
[2021-02-05] MEDS: Magnesium Chloride 64 MG TABCR 128 MG PO ×2 (09:43→21:32)
[2021-02-05] MEDS: Gabapentin 300 MG CAP PO ×2 (09:44→21:32)
[2021-02-05] MEDS: Senna TAB 1 TAB PO ×2 (09:44→21:32)
[2021-02-05] MEDS: Methocarbamol 500 MG TAB 1500 MG PO ×3 (09:44→21:31)
[2021-02-05] MEDS: Collagenase 30 GM TUBE TP (11:30)
[2021-02-05] MEDS: cefTRIAXone 2 GM/50 ML BAG IVPB (12:36)
--- NOTE | 2021-02-05 13:08 | TELEFU_ITS ---
Date of service: 02/05/21 Time of Service: 13:08 Nutritional Follow up NOTE: London asleep when visited today. Met with hospitalist to discuss his nutritional statue. London continues with poor po intake (25-50%), significant weight loss , refusing to take ensure as meal supplement, refusing ensures between meals and does not want supplemental tube feeding. Most recent prealbumin = 11 (01/19/21) indicating poor nutritional status. Will be unable to heal pressure wounds at this nutritional state. Recommend increasing marinol, rechecking pre albumin, continue MVI, liquid protien, d/c zinc sulfate as 14 day course completed. At very high nutritional risk with poor wound healing pratima bradley. will continue to follow. It is my opinion that London will need supplemental nocturnal tube feeding via peg for wounds to heal. Time Spent in Nutritional Counseling and Treatment: 10
[2021-02-05 16:00] VITALS: BP 137/60; PULSE 90; RESP 18; TEMP 36.4; O2SAT 95
[2021-02-05] MEDS: LORazepam 2 MG/ML VIAL 0.5 MG IVP (16:40)
[2021-02-05 17:40] LABS: Bilirubin Negative (Negative); Blood Negative (Negative); Clarity Sl Cloudy (Clear); Glucose Negative (Negative); Ketones Trace mg/dL (Negative); Leukocyte Esterase Negative (Negative); Nitrite Negative (Negative); Specific Gravity 1.025 (1.005-1.025); Urobilinogen 0.2 EU/dL (Up TO 0.2)
[2021-02-05 17:49] LABS: Bacteria Negative HPF (Negative); C & S Indicated? No; Casts Negative LPF (Negative); Crystals Negative HPF (Negative); Epithelial Cells Rare HPF (Negative); Mucus Trace (Negative); RBC 0-2 HPF (0-2); WBC 0-2 HPF (0-5)
[2021-02-05 19:30] VITALS: BP 124/70; PULSE 90; RESP 14; TEMP 36.5; O2SAT 94
[2021-02-05] MEDS: Melatonin 3 MG TAB 6 MG PO (21:31)
[2021-02-06] MEDS: Dronabinol 2.5 MG CAP 10 MG PO (06:41)
[2021-02-06 07:30] VITALS: BP 107/62; PULSE 76; RESP 24; TEMP 36.2; O2SAT 93
[2021-02-06] MEDS: Collagenase 30 GM TUBE TP (09:20)
[2021-02-06] MEDS: Normal Saline Flush 10 ML SYR 20 ML IVP ×2 (09:20→20:46)
[2021-02-06] MEDS: Nystatin POWDER 60 GM JAR TP ×3 (09:20→21:37)
[2021-02-06 09:26] LABS: Platelet Count 195 10^3/uL (130-400)
--- NOTE | 2021-02-06 11:09 | NUR.NOTE ---
This RN at 925 am informed Charge Nurse regarding patients decline in mental status. patient is alert and awake but is not verbally responding to this RN. when attempting to feed patient breakfast or offer fluids, he closes his mouth and refused to open.Charge Nurse will inform MD.
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
[2021-02-06] MEDS: cefTRIAXone 2 GM/50 ML BAG IVPB (12:45)
[2021-02-06] MEDS: Gabapentin 300 MG CAP PO ×2 (16:26→21:35)
[2021-02-06] MEDS: Methocarbamol 500 MG TAB 1500 MG PO ×2 (16:26→21:35)
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
[2021-02-06 20:43] LABS: C Diff PCR Negative (Negative)
[2021-02-06] MEDS: fentaNYL 100 MCG/2 ML VIAL 25 MCG IVP (20:45)
[2021-02-06] MEDS: Heparin 5,000 UNITS/ML VIAL 5000 UNITS SC (21:34)
[2021-02-06] MEDS: Ascorbic Acid 500 MG TAB PO (21:35)
[2021-02-06] MEDS: Melatonin 3 MG TAB 6 MG PO (21:35)
[2021-02-06] MEDS: Mirtazapine 15 MG TAB 7.5 MG PO (21:36)
[2021-02-06] MEDS: diazePAM 5 MG TAB PO (21:36)
[2021-02-07 00:31] VITALS: BP 115/70; PULSE 84; RESP 20; TEMP 36.4; O2SAT 96
[2021-02-07 08:03] VITALS: BP 132/73; PULSE 78; RESP 20; TEMP 36.5; O2SAT 98
[2021-02-07 09:07] LABS: Prealbumin 9 mg/dL (20-40)
[2021-02-07] MEDS: Protein Nutritional Supplement 16 GM 1 OUNCE PACKET PO ×2 (09:48→21:11)
[2021-02-07] MEDS: Dronabinol 2.5 MG CAP 10 MG PO (09:49)
[2021-02-07] MEDS: Methocarbamol 500 MG TAB 1500 MG PO ×4 (09:50→21:12)
[2021-02-07] MEDS: Ascorbic Acid 500 MG TAB PO ×2 (09:50→21:12)
[2021-02-07] MEDS: diazePAM 5 MG TAB PO ×2 (09:50→21:12)
[2021-02-07] MEDS: Gabapentin 300 MG CAP PO ×3 (09:50→21:13)
[2021-02-07] MEDS: FLUoxetine 10 MG TAB PO (09:51)
[2021-02-07] MEDS: Multivitamin w/Minerals TAB 1 TAB PO (09:51)
[2021-02-07] MEDS: Normal Saline Flush 10 ML SYR 20 ML IVP ×2 (09:52→21:12)
[2021-02-07] MEDS: Nystatin POWDER 60 GM JAR TP ×3 (09:52→21:13)
[2021-02-07] MEDS: Magnesium Chloride 64 MG TABCR 128 MG PO ×2 (09:55→21:12)
[2021-02-07] MEDS: Heparin 5,000 UNITS/ML VIAL 5000 UNITS SC ×2 (09:55→21:13)
[2021-02-07] MEDS: Collagenase 30 GM TUBE TP (09:59)
[2021-02-07] MEDS: cefTRIAXone 2 GM/50 ML BAG IVPB (13:10)
--- NOTE | 2021-02-07 16:27 | CHAPLAIN ---
I visited with Kain after his palliative care meeting with Dr. Cano. Kain didn't remember who I was, but could name the watch repairer apprentice at [facility] where he's been a patient in the past. He was telling me how he got to [place], and then talked about living with his dad is [place], and then move on to talking about a woman who had just graduated. He was pleasant, but his sentences make sense together. He is naked in his bed, but declined the offer for a sheet or blanket.
[2021-02-07 19:25] VITALS: BP 119/73; PULSE 84; RESP 18; TEMP 36.2; O2SAT 95
[2021-02-07] MEDS: fentaNYL 100 MCG/2 ML VIAL 25 MCG IVP (21:11)
[2021-02-07] MEDS: Melatonin 3 MG TAB 6 MG PO (21:12)
[2021-02-07] MEDS: Mirtazapine 15 MG TAB 7.5 MG PO (21:12)
[2021-02-08 00:01] VITALS: BP 139/73; PULSE 86; RESP 18; TEMP 36.6; O2SAT 97
[2021-02-08] MEDS: Protein Nutritional Supplement 16 GM 1 OUNCE PACKET PO (08:03)
[2021-02-08] MEDS: Polyethylene Glycol 3350 17 GM PACKET PO (08:03)
[2021-02-08] MEDS: Dronabinol 2.5 MG CAP 10 MG PO (08:04)
[2021-02-08] MEDS: diazePAM 5 MG TAB PO (08:04)
[2021-02-08] MEDS: Multivitamin w/Minerals TAB 1 TAB PO (08:04)
[2021-02-08] MEDS: Docusate Sodium 100 MG CAP PO (08:04)
[2021-02-08] MEDS: Gabapentin 300 MG CAP PO ×2 (08:04→14:08)
[2021-02-08] MEDS: FLUoxetine 10 MG TAB PO (08:04)
[2021-02-08] MEDS: Senna TAB 1 TAB PO (08:04)
[2021-02-08] MEDS: Methocarbamol 500 MG TAB 1500 MG PO ×2 (08:05→14:08)
[2021-02-08] MEDS: Ascorbic Acid 500 MG TAB PO (08:05)
[2021-02-08] MEDS: Nystatin POWDER 60 GM JAR TP (08:12)
[2021-02-08] MEDS: Normal Saline Flush 10 ML SYR 20 ML IVP ×2 (08:13→21:57)
[2021-02-08] MEDS: cefTRIAXone 2 GM/50 ML BAG IVPB (14:08)
[2021-02-08 16:18] VITALS: BP 114/67; PULSE 75; RESP 16; TEMP 36.9; O2SAT 97
--- NOTE | 2021-02-08 18:04 | PDOC.CMACT ---
- If Service Date Differs Date of service: 02/08/21 Time of Service: 18:04 Care Management Activity Note S/O: Kain was transported to [facility] today for appointments at the Wound Clinic, Plastics, and Ortho. CM contacted his sister, Marie, yesterday, to inform her that if there are questions regarding treatment that she may be called, as she is his health care agent. CM sent his advanced directive to [facility]. Per report, he has had increased confusion, which the provider feels may be associated with a new medication. He remains on B 1 for IV antibiotic treatment. He enjoys listening to music, and talking to his sister on the phone. CM will continue to follow. A: Kain is a 75 year old male admitted to [facility] on 01/21/21 to B 1 for usp IV abx to treat Osteomylitis. P: Anticipate Kain will return to [facility] after completing his IV abx course. He will transport via ambulance. He will follow up with his discharge plan of care, including his ongoing appointments with wound care, plastics, ortho and neuro. CM will continue to follow.
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
--- NOTE | 2021-02-08 20:05 | WOUNDCONS ---
- If Service Date Differs Date of service: 02/08/21 Time of Service: 08:00 Wound Initial Evaluation Narrative: Pt seen over two days (02/07/21 and 02/08/21) for weekly reevaluation of wounds. Left heel and right knee remain with no open areas noted. Left arm bruise is light yellow and resolving, measuring approximately 2 cm x approximately 1 cm. RIght malone area remains open with hard protrusion unchanged from prior assessment. Area between right malone and left thigh is reddened with open area measuring 0.3 cm x 0.3 cm x 0.1 cm. Left thigh open area measures 1.5 cm x 0.4 cm x less than 0.1 cm with scant serous drainage noted. Left knee previous partial thickness area is covered in epithelial tissue as of 02/07. Right heel pressure injury measures 1.5 cm x 1.5 cm with rangel eschar in place over wound bed. Right great toe areas distal measures 2 cm x 1 cm with rangel/brown eschar in place and proximal area measures 2 cm x 1.5 cm with brownish eschar in place. RIght hip proximal open area measures 0.2 cm x 0.3 cm x 0.1 cm while the right hip distal open area measures 0.5 cm x 1 cm x 0.1 cm. Left ischial tuberosity wound measures 6.5 cm x 7 cm x 1 cm with undermining from 3-6 o'clock measuring 1 cm. Pt to see [facility] orthopedics, plastics and wound care today 02/08/21. Spoke with nurse at wound care center to give report, including possible need for debridement of right great toe eschar. Due to the nature of the patient's contractures and discomfort of the patient with repositioning, some photos have a limited viewpoint. - Wound right hip Wound Length: 0.5 cm Wound Width: 1 cm Wound Depth: 0.1 cm Additional Other Comments: distal open area Left thigh Wound Length: 1.5 cm Wound Width: 0.4 cm Wound Depth: 0.1 cm (less than 0.1 cm) Right malone Wound Length: 0.3 cm Wound Width: 0.3 cm Wound Depth: 0.1 cm Right heel Wound Length: 1.5 cm Wound Width: 1.5 cm Wound Depth: 0.1 cm (approx) RIght great toe distal Wound Length: 2 cm Wound Width: 1 cm Wound Depth: 0.1 cm (approx) right great toe proximal Wound Length: 2 cm Wound Width: 1.5 cm Wound Depth: 0.1 cm (approx) Left ischial tuberosity Wound Length: 6.5 cm Wound Width: 7 cm Wound Depth: 1 cm Additional Other Comments: undermining from 3-6 oclock 1 cm - Recomendation Recomendation:: Follow orders from Dr. Roth on right foot. Follow orders from surgical services on left ischial tuberosity. Follow current treatment orders on all other wounds until new orders come in from [facility], then follow wound care orders from them.
--- NOTE | 2021-02-09 07:30 | NUR.NOTE ---
Patient refused Vitals signs at 0720. RN Erik notified. Nursing Note:
[2021-02-09] MEDS: LORazepam 2 MG/ML VIAL 0.5 MG IVP (08:09)
[2021-02-09] MEDS: Methocarbamol 500 MG TAB 1500 MG PO ×3 (08:09→20:18)
[2021-02-09] MEDS: Docusate Sodium 100 MG CAP PO (08:10)
[2021-02-09] MEDS: Ascorbic Acid 500 MG TAB PO ×2 (08:11→20:18)
[2021-02-09] MEDS: Multivitamin w/Minerals TAB 1 TAB PO (08:11)
[2021-02-09] MEDS: diazePAM 5 MG TAB PO ×2 (08:11→20:18)
[2021-02-09] MEDS: Gabapentin 300 MG CAP PO ×3 (08:11→20:18)
[2021-02-09] MEDS: Senna TAB 1 TAB PO ×2 (08:11→20:18)
[2021-02-09] MEDS: FLUoxetine 10 MG TAB PO (08:11)
[2021-02-09] MEDS: Normal Saline Flush 10 ML SYR 20 ML IVP ×2 (08:12→20:19)
[2021-02-09] MEDS: Polyethylene Glycol 3350 17 GM PACKET PO (08:13)
[2021-02-09] MEDS: Protein Nutritional Supplement 16 GM 1 OUNCE PACKET PO ×2 (08:13→21:23)
[2021-02-09] MEDS: fentaNYL 100 MCG/2 ML VIAL 25 MCG IVP (11:12)
[2021-02-09] MEDS: Heparin 5,000 UNITS/ML VIAL 5000 UNITS SC ×2 (11:13→22:20)
[2021-02-09] MEDS: Magnesium Chloride 64 MG TABCR 128 MG PO ×2 (11:13→20:18)
[2021-02-09] MEDS: cefTRIAXone 2 GM/50 ML BAG IVPB (11:13)
[2021-02-09] MEDS: Nystatin POWDER 60 GM JAR TP ×3 (11:26→21:23)
[2021-02-09] MEDS: Melatonin 3 MG TAB 6 MG PO (20:18)
[2021-02-09] MEDS: Mirtazapine 15 MG TAB 7.5 MG PO (20:19)
[2021-02-09 23:50] VITALS: BP 133/72; PULSE 95; RESP 20; TEMP 36.3; O2SAT 97
[2021-02-10 07:35] VITALS: BP 143/73; PULSE 78; RESP 19; TEMP 36.7; O2SAT 95
[2021-02-10 07:40] LABS: Abs Immature Grans 0.04 10^3/uL (0.0-0.06); Absolute Basophil Count 0.04 10^3/uL (0.0-0.2); Absolute Eosinophil Count 0.43 10^3/uL (0.0-0.7); Absolute Lymphocyte Count 1.35 10^3/uL (1.2-3.4); Absolute Monocyte Count 1.35 10^3/uL (0.1-0.8); Basophils % 0.4; Eosinophils % 4.6; HCT 40.4 % (40.0-50.0); HGB 12.1 g/dL (13.5-17.5); Immature Grans % 0.4; Lymphocytes % 14.5; MCH 24.5 pg (27.0-33.0); MCV 81.8 fL (80-95); MPV 10.2 fL (8.0-11.0); Monocytes % 14.5; Neutrophils % 65.6; Nucleated RBC 0 %; Platelet Count 271 10^3/uL (130-400); RBC 4.94 10^6/uL (4.36-5.78); RDW 18.5 % (11.8-14.1); WBC 9.31 10^3/uL (4.4-10.8)
[2021-02-10 07:48] LABS: Anion Gap 6.5 mmol/L (3-11); BUN 11 mg/dL (7-18); C-Reactive Protein 10.57 mg/dL (0.0-0.3); CO2 30.5 mmol/L (21.0-32.0); CREATININE 0.4 mg/dL (0.70-1.30); Calcium 8.6 mg/dL (8.5-10.1); Chloride 106 mmol/L (98-107); Glucose 105 mg/dL (74-106); Magnesium 1.8 mg/dL (1.8-2.4); Potassium 3.9 mmol/L (3.5-5.1); Sodium 143 mmol/L (136-145)
[2021-02-10 08:28] LABS: Procalcitonin 0.1 ng/mL
--- NOTE | 2021-02-10 09:27 | W.PM.PROGNOT ---
Date of Service Date of service: 02/10/21 Time of Service: 09:27 Assessment and Plan Assessment and plan (1) Osteomyelitis: Start date: 02/10/21 Start time: 14:11 Status: Acute Assessment and plan: Likely to Left hip, blood cultures done, CRP back up to 10, vanco and cefepime initiated Surgery consulted. He looks almost toxic. not quite as responsive. concerned he is dying. CM made aware Qualifiers: Osteomyelitis type: other chronic Osteomyelitis location: other site Qualified Code(s): M86.68 - Other chronic osteomyelitis, other site (2) Impaired decision making: Start date: 02/10/21 Start time: 09:30 Status: Chronic Assessment and plan: Several weeks ago, the [facility] Ethics Committee met in an emergency session along with hospitalist Dr Vieira and Med Surg Nurse Manager Digital Ad Operations Dr Wan to discuss Kain's overall goals of care, ability to make decisions, etc. He has continued to decline since that emergency ethics consult. Since he has been having worsening hallucinations, he is oriented to self only. He waxes and wanes today he does not look well. Will have palliative visit Kain Friday and again have ethics meet, im afraid that this is a futile case. (3) Spastic quadriplegia: Start date: 02/10/21 Start time: 14:01 Status: Chronic Assessment and plan: Permanent. Leading to severe contractures and multiple pressure wounds, due to difficulty in moving patient, rotating him. He refuses half the time to be moved, He is failure to thrive (4) Hallucinations, unspecified: Start date: 02/10/21 Start time: 14:01 Status: Acute Assessment and plan: More prevalent, per nursing. worsening daily despite stopping medications that maybe causing these issues (5) Palliative care patient: Start date: 02/10/21 Start time: 14:02 Status: Acute Assessment and plan: A palliative care sales floor team member will see him weekly, while he is an inpatient. This will be helpful in determining his future as he is declining more rapidly (6) Wounds, multiple: Start date: 02/10/21 Start time: 14:03 Status: Acute Assessment and plan: Managed by wound team at [facility]. On 02/08 he was seen by [facility] and wound vac was never replaced, only wet to dry dressings done; wound looked well with good granulation on 02/08. Today however there is a foul odor with moderate amount drainage, necrotic skin and tissue to wound. Surgery asked to look at wound. (7) Muscle pain: Start date: 02/10/21 Start time: 14:09 Status: Acute Assessment and plan: For now, Kain is off any regularly scheduled pain medications. this is a good option for any length of time per palliative. They support him going back on some long-acting medication that does not require swallowing, such as a low dose fentanyl patch or low dose pain pump--though generally fentanyl is less likely to cause confusion than hydromorphone or morphine. Discussion took place between Dr. Vieira and Jerome regarding this. At this time, Kain is too out of it not crying out in pain. (8) Muscle spasm: Start date: 02/10/21 Start time: 14:13 Status: Acute Assessment and plan: Due to his neurological disease. discussed with Dr. Giraldo Subjective Subjective Patient reports: other Interval history since last seen: Patient obtunded. Opens eyes with verbal stimuli. He does not appear well. Wound to left hip draining fluid, appears to be necrotic with foul odor CRP up from 4.7 to 10.5, patient appears to be dying. He is not eating, drinking or yelling out. Will restart vanco and cefepime. Wound compared to [facility] pictures on 02/08 to today appear worse. The bottom of the wound appears necrotic, surgery needs to see wound for opinion and possible debridement. Wound vac needs to be replaced. Palliative needs to see patient on Friday and have conversation regarding gardianship of patient. Exam Narrative Exam Narrative: Exam Narrative: obtunded opens eyes to verbal stimuli. Patient is lying in bed w/ his right leg contracted in an abducted position over his left thigh and in a flexed position. Left thigh wound is draining moderate amount drainage with foul odor, skin around the bottom of the wound and layers appear necrotic, wound vac was not placed back on when he arrived to hospital as per recommendations per [facility] . Hiis right wound is dressed with mepilex. He has limited use of his hands and arms. Left arm is extended in a contracted position. Psych Mental Status: oriented only to self at times Speech and Movement: speech normal, abnormal mvmt due to contractures Mood: Affect: normal affect Objective Last Vital Signs Temp 36.7 C 02/10/21 09:27 Pulse 78 02/10/21 09:27 Resp 19 02/10/21 09:27 BP 143/73 H 02/10/21 09:27 Pulse Ox 95 02/10/21 09:27 Laboratory Results - last 24 hr 02/10/21 02/10/21 02/10/21 06:55 06:55 06:55 WBC 9.31 RBC 4.94 Hgb 12.1 L Hct 40.4 MCV 81.8 MCH 24.5 L MCHC 30.0 L RDW 18.5 H Plt Count 271 MPV 10.2 Immature Gran % 0.4 Neutrophils % 65.6 Lymphocytes % 14.5 Monocytes % 14.5 Eosinophils % 4.6 Basophils % 0.4 Nucleated RBC % 0 Absolute Neutrophils 6.10 Absolute Lymphocytes 1.35 Absolute Monocytes 1.35 H Absolute Eosinophils 0.43 Absolute Basophils 0.04 Sodium 143 Potassium 3.9 Chloride 106 Carbon Dioxide 30.5 Anion Gap 6.5 BUN 11 Creatinine 0.4 L Estimated GFR/1.73 m2 >= 60.00 Glucose 105 Calcium 8.6 Magnesium 1.8 C-Reactive Protein 10.57 H Procalcitonin 0.1
[2021-02-10] MEDS: Normal Saline Flush 10 ML SYR 20 ML IVP ×2 (10:53→21:42)
[2021-02-10] MEDS: Alteplase 2 MG VIAL IJ (12:05)
[2021-02-10] MEDS: Water,Injection,Sterile 10 ML VIAL (12:06)
[2021-02-10] MEDS: VANCOMYCIN/WATER (PEG) 1.25 GM/250 ML BAG IV (12:47)
[2021-02-10] MEDS: CEFEPIME 2 GM in Normal Saline 100 ML IVPB (13:40)
--- NOTE | 2021-02-10 14:20 | PGE_ITS ---
Date of Service Date of service: 02/10/21 Time of Service: 14:20 Assessment and Plan Assessment and plan (1) Muscle spasm: Status: Acute (2) Muscle pain: Status: Acute (3) Patient incapable of making informed decisions: Status: Acute (4) Hallucinations, unspecified: Status: Acute (5) Labile mood: Status: Acute (6) Impaired decision making: Status: Chronic (7) Spastic quadriplegia: Status: Chronic (8) Cervical myelopathy: Status: Chronic (9) Osteomyelitis: Status: Acute Qualifiers: Osteomyelitis location: other site Osteomyelitis type: other chronic Qualified Code(s): M86.68 - Other chronic osteomyelitis, other site (10) Left ischial pressure sore: Status: Acute Qualifiers: Pressure injury stage: stage 4 Qualified Code(s): L89.324 - Pressure ulcer of left buttock, stage 4 (11) Complete immobility due to severe physical disability or frailty: Status: Acute (12) Fracture of head of right femur: Status: Acute Qualifiers: Encounter type: initial encounter Fracture type: closed Qualified Code(s): S72.051A - Unspecified fracture of head of right femur, initial encounter for closed fracture (13) Decubitus skin ulcer: Status: Acute Qualifiers: Pressure injury location: unspecified location (14) Contracture, right knee: Status: Acute (15) Contracture of right hip: Status: Acute (16) Cervical spinal stenosis: Status: Acute (17) Intertriginous candidiasis: Status: Acute (18) Neuromuscular dysfunction of bladder, unspecified: Status: Chronic (19) Decubitus ulcer of left hip, stage 4: Status: Acute Assessment and plan: osteo + infected and further necrosis of wound requires debridement will d/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 I am not quite sure what the overall goal of care is for this patient. I did have a very long discussion with Dr. Locke and Judith Jacobson and his current nursing team. The patient is certainly not going to gain any function and become ambulatory. He has horrible contractures and chronic pain. He will not eat. He continues to want everything done but then will not eat. It is unclear if he has dementia or medication side effects. But what ever the true condition is, he cannot give consent for himself at this time. He has an extremely poor quality of life and is pain. There has been no interval improvement in his wounds and they continue to breakdown and he now appears to be septic. Patient cannot give consent at this time. I do feel that he is not going to improve, and continues to deteriorate. I Feel that making him comfort measures only is in his interest. He is an extremely poor surgical candidate and would most likely not survive any aggressive attempts. I did discuss this with the hospitalist service who are in agreement. We will forego further antibiotics injury bereavement and place him on comfort measures 90 minutes was spent with this patient today in follow-up reviewing his chart and consultation with the hospitalist service and multiple examinations of the patient. Subjective Subjective Interval history since last seen: pt obtained and respoind to pain only. not verbal. not eating. no temp. no diarrhea. not tsachycardic. wound on left hip: shows some purulent membrane/proteinaceous debrie- about 40%. also 10% dark echymotic/violatious tissue that is prob non viable. This most likely represents progression of his ulceration and does not ashly and appear to be viable. bone is visible and is spongy. contractures- severe. Patient is rigid. -He refuses to take protein shakes and is difficult to get him consume food -He is quadriplegic with severe contractures.. These have not responded to medication or Botox injections -His wounds continue to worsen. There has been no healing or interval improvement -His nutritional status is asked poor will not eat -Patient has chronic pain and severe pain throughout the course of the day, during dressing changes, during bathing, and attempts to do self cares, and turning. -Nursing is doing an excellent job of turning the patient every 2 hours. He does not have a special help ROM bed for pressure relief. He has small old areas that are being padded closely monitored to prevent further pressure ulcerations and breakdown. However this seems to be progressive -Currently it does appear that he is septic. He has completed 6 excessive IV antibiotic for osteomyelitis. His neck line was occluded earlier. This was remedied by nursing. And he was restarted on vancomycin later this afternoon. He is on cefepime until 02/20, for strep to coccal osteomyelitis and coccal bacteremia. -He did review the chart and review his consult from [facility].. So not feel that he was a good candidate for surgery and they did not feel that therapy really had anything to offer as far as eating and releasing his contractures or disarticulate his leg. At baseline he still is a C6 quad. And he is not going to gain any further mobility or function Today he does appear to be septic. His wound does appear to be infected and the pressure ulcer has definitely worsened in the past 24 hours and has developed further necrosis that would require debridement. This brings us back around to this discussion of what are all were goals of care for him. He has very poor quality of life. He does not eat and his nutritional status continues to decline. His wounds continue to worsen. They continue to extend. He has obvious osteomyelitis which is not responded to 6 weeks of antibiotics. He appears to be infected at this point-source is either his urine or his wounds. Urine culture is ordered. He would need to go back to the OR for debridement. He is poor candidate for anesthesia. Currently he is not cognizant to give consent. There is also been ongoing discussion with nursing that they do not feel he is cognizant to make his own decisions and that there is some underlying dementia process. Nutritional Follow up NOTE: London asleep when visited today. Met with hospitalist to discuss his nutritional statue. London continues with poor po intake (25-50%), significant weight loss , refusing to take ensure as meal supplement, refusing ensures between meals and does not want supplemental tube feeding. Most recent prealbumin = 11 (01/19/21) indicating poor nutritional status. Will be unable to heal pressure wounds at this nutritional state. Recommend increasing marinol, rechecking pre albumin, continue MVI, liquid protien, d/c zinc sulfate as 14 day course completed. At very high nutritional risk with poor wound healing abilities. will continue to follow. It is my opinion that London will need supplemental nocturnal tube feeding via peg for wounds to heal. Dr Cano 02/06 Assessment and plan: Several weeks ago, the [facility] Ethics Committee met in an emergency session along with hospitalist Dr Vieira and Med Surg Nurse Boiler Technician Dr Wan to discuss Kain's overall goals of care, ability to make decisions, etc. He has continued to decline since that emergency ethics consult. I am more convinced that Kain lacks capacity to make medical decisions. He is regularly hallucinating. He is usually only oriented to himself. He often refuses food and medications, per nursing. I think he would benefit from appointment of a guardian prior to him undergoing any more surgeries or aggressive treatments. I am not sure if his sister is willing to take on this responsibility. Another Ethics consult may help with next steps. I do not have any specifics of what was decided at the ethics committee meeting. -I did review Dr. Wynne's consult. Objective Last Vital Signs Temp 36.7 C 02/10/21 07:35 Pulse 78 02/10/21 07:35 Resp 19 02/10/21 07:35 BP 143/73 H 02/10/21 07:35 Pulse Ox 95 02/10/21 07:35 Laboratory Results - last 24 hr 02/10/21 02/10/21 02/10/21 06:55 06:55 06:55 WBC 9.31 RBC 4.94 Hgb 12.1 L Hct 40.4 MCV 81.8 MCH 24.5 L MCHC 30.0 L RDW 18.5 H Plt Count 271 MPV 10.2 Immature Gran % 0.4 Neutrophils % 65.6 Lymphocytes % 14.5 Monocytes % 14.5 Eosinophils % 4.6 Basophils % 0.4 Nucleated RBC % 0 Absolute Neutrophils 6.10 Absolute Lymphocytes 1.35 Absolute Monocytes 1.35 H Absolute Eosinophils 0.43 Absolute Basophils 0.04 Sodium 143 Potassium 3.9 Chloride 106 Carbon Dioxide 30.5 Anion Gap 6.5 BUN 11 Creatinine 0.4 L Estimated GFR/1.73 m2 >= 60.00 Glucose 105 Calcium 8.6 Magnesium 1.8 C-Reactive Protein 10.57 H Procalcitonin 0.1
[2021-02-10 15:41] LABS: Lactate 1.5 mmol/L (0.6-1.4)
[2021-02-10 16:10] LABS: Bilirubin Negative (Negative); Blood Negative (Negative); Clarity Sl Cloudy (Clear); Glucose Negative (Negative); Ketones Trace mg/dL (Negative); Leukocyte Esterase Negative (Negative); Nitrite Negative (Negative); Specific Gravity >= 1.030 (1.005-1.025); Urobilinogen 0.2 EU/dL (Up TO 0.2); pH 5.5 (5-8)
[2021-02-10] MEDS: MORPHine 250 MG in Normal Saline 245 ML IV (17:58)
[2021-02-10] MEDS: Scopolamine 1 MG/3 DAYS PATCH TD (18:15)
[2021-02-10] MEDS: LORazepam 2 MG/ML VIAL 0.5 MG IVP (19:14)
[2021-02-10] MEDS: Normal Saline Flush 10 ML SYR IVP (19:15)
--- NOTE | 2021-02-10 19:18 | NUR.NOTE ---
Nursing Note: 7 at the start of this RN's shift, patient did not respond to name or keep eyes open. would not stay awake long enough to take oral medications. JAK Hopkins notified and assessed patient in the room with this RN. Patient did not eat or drink throughout the day. yelled out in pain when repositioning. patient seen by surgery, wound is not healing. patient made comfort measures by 1600. JAK Hopkins was going to have palliative call patients sister to explain the decision of going to comfort measures. patient woke up around 1800 when morphine drip was hung. morphine drip explained to patient and this RN clearly described to patient that they wound be given morphine to keep comfortable for remainder of hospital stay. Vero
[2021-02-10] MEDS: LORazepam 2 MG/ML VIAL 1 MG IVP (21:42)
[2021-02-11] MEDS: LORazepam 2 MG/ML VIAL 1 MG IVP ×3 (00:33→15:16)
[2021-02-11] MEDS: Normal Saline Flush 10 ML SYR 20 ML IVP (08:20)
[2021-02-11] MEDS: Nystatin POWDER 60 GM JAR TP (13:14)
--- NOTE | 2021-02-11 17:57 | W.PM.PROGNOT ---
Date of Service Date of service: 02/11/21 Time of Service: 17:57 Assessment and Plan Assessment and plan (1) Decubitus ulcer of left hip, stage 4: Status: Acute Assessment and plan: mult pressures ulcers. Exposed bone left hip- bone is spongy and obvious osteomylitis. Pt has recently completed course of 6 wk abx course for osteo, and it is evident that there is still osteo present. Pt has severe chronic pain from wounds and from muscle spasms. Pt wounds have exhibited no interval healing and the wounds are continuing to break down. He has developed an recurrent infection and necrosis. He is refusing to eat or drink. He has severe chronic pain. He has C6 paralysis and contractures. This is never going to resolve and he will never gain mobility. He wounds and contractures are such that they are not going to heal. His nutritional status is poor and he is not eating. I dont' feel placing a feeding tube is in his best interest. He has impaired mental status and is not able to make informed decisions. He is in severe constant pain. pt is made comfort cares will re-eval at your request 30 mins spent in counslt today (2) Muscle spasm: Status: Acute (3) Muscle pain: Status: Acute (4) Patient incapable of making informed decisions: Status: Acute (5) Hallucinations, unspecified: Status: Acute (6) Spastic quadriplegia: Status: Chronic (7) Cervical myelopathy: Status: Chronic (8) Left ischial pressure sore: Status: Acute Qualifiers: Pressure injury stage: stage 4 Qualified Code(s): L89.324 - Pressure ulcer of left buttock, stage 4 (9) Osteomyelitis: Status: Acute Qualifiers: Osteomyelitis type: other chronic Osteomyelitis location: other site Qualified Code(s): M86.68 - Other chronic osteomyelitis, other site (10) Physical debility: Status: Chronic (11) Pressure ulcers of skin of multiple topographic sites: Status: Acute (12) Complete immobility due to severe physical disability or frailty: Status: Acute (13) Contracture, right knee: Status: Acute (14) Contracture of right hip: Status: Acute (15) Fracture of head of right femur: Status: Acute Qualifiers: Encounter type: initial encounter Fracture type: closed Qualified Code(s): S72.051A - Unspecified fracture of head of right femur, initial encounter for closed fracture (16) Decubitus skin ulcer: Status: Acute Qualifiers: Pressure injury location: unspecified location (17) Chronic venous hypertension (idiopathic) with ulcer and inflammation of bilateral lower extremity: Status: Chronic (18) Paraplegia: Status: Chronic (19) Neuromuscular dysfunction of bladder, unspecified: Status: Chronic (20) Protein-calorie malnutrition, severe: Status: Acute Subjective Subjective Interval history since last seen: pt arouses to his name. He cannot answer any questions. He says no if asked he is in pain. However, he is just crying out. 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 I did not exam his wounds today UA was neg. pt was not examined. Objective Last Vital Signs Temp 36.7 C 02/10/21 07:35 Pulse 78 02/10/21 07:35 Resp 19 02/10/21 07:35 BP 143/73 H 02/10/21 07:35 Pulse Ox 95 02/10/21 07:35
[2021-02-12] MEDS: Normal Saline Flush 10 ML SYR IVP ×3 (00:34→20:29)
[2021-02-12] MEDS: LORazepam 2 MG/ML VIAL 1 MG IVP ×5 (00:34→22:12)
[2021-02-12] MEDS: Normal Saline Flush 10 ML SYR 20 ML IVP ×3 (00:35→20:44)
--- NOTE | 2021-02-12 08:15 | W.PALPGNOTE ---
Date of service: 02/12/21 Time of Service: 08:15 Assessment and Plan Assessment and plan (1) Protein-calorie malnutrition, severe: Status: Acute (2) Decubitus ulcer of left hip, stage 4: Status: Acute (3) Dying care: Status: Acute Assessment and plan: London appears to be dying. Unfortunately he did not look comfortable when I was there. I have spoken with Judith and she will be increasing his morphine drip to allow for good comfort. Nursing was also informed. I agree that if this time pursuing further care other than comfort would be futile Subjective Subjective Interval history since last seen: London is a 75-year-old man with a protracted medical history. Over the weekend he was placed on futile care and switched over to comfort measures. I was asked to come in and see London and see how he was doing. Exam Narrative Exam Narrative: London was staring off into space. He was curled up in position. He did not respond when I looked at him and was in his line of vision. He was moaning. I had heard from staff that he was singing to the music. I observed for some time. He was not seem to be music when I was in there he was moaning. His heart was tachycardic. His breathing was shallow Objective Last Vital Signs Temp 98.1 F 02/10/21 07:35 Pulse 78 02/10/21 07:35 Resp 19 02/10/21 07:35 BP 143/73 H 02/10/21 07:35 Pulse Ox 95 02/10/21 07:35
--- NOTE | 2021-02-12 11:41 | W.NUTRFU ---
Date of service: 02/12/21 Time of Service: 11:41 Nutritional Follow up NOTE: London continues to decline. Marinol d/c last week. Stage 4 pressure wound with osteomylitis. precision agriculture specialist reports no significant wound healing in last week. Most recent Prealbumin (02/06/21= 9 mg) indicates very poor nutritional status. London has had a 42 lbs weight loss in last 30 days, refusal of most meals, refusal of nutritional supplements, refusal of enteral feeding. To start COFFEE URN ATTENDANT per physician following. Will be available prn. Time Spent in Nutritional Counseling and Treatment: 5
[2021-02-12] MEDS: fentaNYL 100 MCG/2 ML VIAL 25 MCG IVP (20:44)
[2021-02-13] MEDS: LORazepam 2 MG/ML VIAL 1 MG IVP ×7 (03:23→22:47)
[2021-02-13] MEDS: Normal Saline Flush 10 ML SYR IVP ×7 (03:24→22:49)
--- NOTE | 2021-02-13 16:57 | CMPROGNOTE_ITS ---
- If Service Date Differs Date of service: 02/13/21 Time of Service: 16:57 Care Management Progress Note S/O: CLAUDINE spoke to Marie today, giving her an update on how he is doing. Kain was awake and appeared uncomfortable when CM met with him this morning, but was then medicated, and his morphine drip was increased. Later, CM checked on him and he was resting comfortably. CLAUDINE offered Marie support with planning final arrangements, and she chose the [facility] in [place], [place]. She reported that she made arrangements online. CLAUDINE explained that when he passes, the [facility] will be contacted, and they will contact her directly to go over details of his cremation. She reported that she was pleased with the care he has received at [facility]. A: London is a 75 year old male admitted to [facility] on 01/21/21 with osteomyelitis. P: London continued to decline during this admission, and over the weekend two physicians enacted an order of futility. He will have his end of life care at [facility]. CLAUDINE has discussed this with his sister, Marie, who made final arrangements with the [facility]. CLAUDINE will continue to support Kain and his family during this difficult time.
[2021-02-13] MEDS: fentaNYL 100 MCG/2 ML VIAL 25 MCG IVP ×2 (18:49→22:47)
[2021-02-13 18:50] VITALS: RESP 12
[2021-02-13] MEDS: Scopolamine 1 MG/3 DAYS PATCH TD (19:53)
[2021-02-13] MEDS: Normal Saline Flush 10 ML SYR 20 ML IVP (22:49)
[2021-02-14] MEDS: LORazepam 2 MG/ML VIAL 1 MG IVP ×8 (02:31→14:34)
[2021-02-14] MEDS: fentaNYL 100 MCG/2 ML VIAL 25 MCG IVP ×3 (02:31→14:34)
[2021-02-14] MEDS: Normal Saline Flush 10 ML SYR IVP ×7 (02:32→14:35)
[2021-02-14] MEDS: Glycopyrrolate 0.2 MG/1 ML VIAL IVP ×4 (05:01→14:34)
[2021-02-14] MEDS: Refresh PLUS Eye Drops 0.4ml OU (08:38)
[2021-02-14] MEDS: Normal Saline Flush 10 ML SYR 20 ML IVP (09:35)
[2021-02-14] MEDS: MORPHine 250 MG in Normal Saline 245 ML 6.5 MG IV (10:25)
--- NOTE | 2021-02-14 15:49 | EXPE_ITS ---
Date of service: 02/14/21 Time of Service: 15:49 Discharge Sum: Prov Provider Consults: 01/21/21 12:25 Occupational Therapy Consult [CONS] Routine Consulting Provider: Mary Ann Chavarria Priority: Non-Urgent Physical Therapy Consult [CONS] Routine Consulting Provider: Catracho Stacy Priority: Non-Urgent 01/21/21 12:28 Neurology Consult [CONS] Routine Consulting Provider: Chantelle Wynne Consultation Status:: Contact made by Clarification:: Manage/follow per spec. Reason for consult:: spastic quadroplegia post c-spine decompression, also occasional hallucinations, question of possibly other NETWORK DESIGN ARCHITECT/peripheral process which could be contributing to patient's symptoms. 01/21/21 12:29 Palliative Care Consult [CONS] Routine Consultation Status:: Follow-up needed Clarification:: Manage/follow per spec. Reason for consult:: continue to follow from inpatient admission Podiatry Consult [CONS] Routine Consultation Status:: Follow-up needed Clarification:: Manage/follow per spec. Reason for consult:: continue to manage R great toe wound 01/21/21 12:57 Wound Care Consult [CONS] Routine Consultation Status:: Contact made by MD Clarification:: Manage/follow per spec. Reason for consult:: MULTIPLE WOUNDS 01/22/21 09:57 Surgical Consult [CONS] Routine Consulting Provider: Jenn Wei Consultation Status:: Follow-up needed Clarification:: Manage/follow per spec. Reason for consult:: routine wound follow up from inpatient Discharge Sum: Diag Contributing Factors (1) Protein-calorie malnutrition, severe: (2) Decubitus ulcer of left hip, stage 4: (3) Dying care: Discharge Sum: Summary Date and Time Admission Date: 01/12/2107/11/21 12:24
== END 2021-02-14 15:28 | disposition expired | DRG 539 ==
PROVIDERS: Internal Medicine; Nurse Practitioner Acute Care; Nurse Practitioner Family; Podiatrist; Surgery; Admitting Provider Internal Medicine; PCP Nurse Practitioner Adult Health; Visit Provider Internal Medicine
DX: M86.68 Other chronic osteomyelitis, other site (principal); L89.224 Pressure ulcer of left hip, stage 4; G82.50 Quadriplegia, unspecified; E43 Unspecified severe protein-calorie malnutrition; L89.324 Pressure ulcer of left buttock, stage 4; I87.333 Chronic venous hypertension (idiopathic) with ulcer and inflammation of bilateral lower extremity; L97.929 Non-pressure chronic ulcer of unspecified part of left lower leg with unspecified severity; L97.919 Non-pressure chronic ulcer of unspecified part of right lower leg with unspecified severity; G95.89 Other specified diseases of spinal cord; M87.851 Other osteonecrosis, right femur; Z68.1 Body mass index [BMI] 19.9 or less, adult; M24.551 Contracture, right hip; M24.561 Contracture, right knee; M62.838 Other muscle spasm; B37.2 Candidiasis of skin and nail; E78.5 Hyperlipidemia, unspecified; I87.8 Other specified disorders of veins; I50.9 Heart failure, unspecified; I11.0 Hypertensive heart disease with heart failure; Z66 Do not resuscitate; L89.612 Pressure ulcer of right heel, stage 2; L89.892 Pressure ulcer of other site, stage 2; N31.9 Neuromuscular dysfunction of bladder, unspecified; Z51.5 Encounter for palliative care; R44.1 Visual hallucinations; F39 Unspecified mood [affective] disorder
CPT/HCPCS: 97597; 36410; 36415; 80048; 84145; 85652; 87040; 87493; 93306; 99305; 99306; 99308; 99309; 99315; 81003; 81015; 83605; 83735; 84134; 84550; 85025; 85049; 86140; A0425; A0428; A0429; J1644; J2060; J2997; J3010; J3490

== ENCOUNTER → 2021-01-22 08:29 | Outpatient (BNVA) | payer MEDICARE, OTHER, SELFPAY | PROVIDERS: PCP Nurse Practitioner Adult Health; Referring Provider Nurse Practitioner Adult Health; Visit Provider Psychiatry & Neurology Neurology | DX: R69 Illness, unspecified (principal) ==